=== PATIENT | female | born 1970 | race Caucasian/White ===

== ENCOUNTER 2023-07-13 10:34 | Outpatient (OUT) | payer OTHER, SELFPAY ==
--- NOTE | 2023-07-13 10:43 | US_ITS ---
The [address] [address] Patient Name: ISIDRO JURADO MRN: [id number] date: 1970 Sex: F Assigned Patient Location: US Current Patient Location: US Accession/Order Number: [id number] Exam Date: 07/13/2023 10:43 Report Date: 07/13/2023 13:14 At the request of: JORDI MURRELL Procedure: US renal bladder US renal bladder: 07/13/2023 10:43 AM EDT CLINICAL HISTORY: 53 years old Female with Frequency of micturition R35.0. TECHNIQUE: Bilateral renal ultrasound is performed, with transverse and longitudinal images submitted. COMPARISON: none FINDINGS: The right kidney measures 9.5 x 4.5 x 5.3 cm, the left kidney measures 10.1 x 4.3 x 5.0 cm in greatest lengthwise, AP, and transverse dimensions respectively. The right and left kidneys have a normal sonographic appearance. No renal mass or hydronephrosis is seen. Corticomedullary differentiation is preserved bilaterally. Prevoid volume of the urinary bladder calculated to 200 mL with postvoid residual calculated to 16 mL. US/US renal bladder IMPRESSION: Normal renal ultrasound. Electronically authenticated by: ROLAND CARRILLO Date: 07/13/2023 13:14
[2023-07-13 11:45] LABS: Basophils Absolute Auto 0.1 10^3/uL (0.0-0.1); Basophils Percent Auto 1.2 % (0.2-2.0); Hematocrit 43.7 % (36.0-48.0); Hemoglobin 14.4 g/dL (12.0-16.0); Immature Granulocytes Abs Auto 0.01 10^3/uL (0.00-0.03); Immature Granulocytes Pct Auto 0.2 % (0.0-0.5); Mean Corpuscular Hemoglobin 27.7 pg (26.7-34.0); Mean Platelet Volume 10.5 fL (9.5-13.5); Monocytes Absolute Auto 0.5 10^3/uL (0.3-0.8); Monocytes Percent Auto 9.3 % (1.7-12.0); Neutrophils Absolute Auto 3.3 10^3/uL (1.4-6.5); Neutrophils Percent Auto 68.3 % (43.0-75.0); Platelet Count 189 10^3/uL (150-450); Red Cell Distribution Width 14.6 % (11.0-15.0); White Blood Count 4.8 10^3/uL (4.0-11.0)
[2023-07-13 12:00] LABS: Percent Iron Saturation 19.6 %
== END 2023-07-13 10:35 | disposition home or self-care (01) ==
PROVIDERS: PCP Nurse Practitioner Family; Visit Provider Nurse Practitioner Family
DX: R35.0 Frequency of micturition (principal); E61.1 Iron deficiency
CPT/HCPCS: 36415; 76770; 76775; 82728; 83540; 83550; 85025

== ENCOUNTER 2023-08-26 09:18 | Outpatient (OUT) | payer OTHER, SELFPAY ==
[2023-08-26 09:47] LABS: Bilirubin Urine NEGATIVE (NEGATIVE); Blood Urine NEGATIVE (NEGATIVE); Clarity Urine CLEAR (CLEAR); Color Urine LT. YELLOW (YELLOW); Glucose Urine UA NEGATIVE (NEGATIVE); Ketones Urine NEGATIVE (NEGATIVE); Leukocyte Esterase Urine SMALL (NEGATIVE); Nitrite Urine NEGATIVE (NEGATIVE); Protein Urine NEGATIVE (NEG/TRACE); Urobilinogen Urine 0.2 EU/dL (0.2-1.0); pH Urine 5.5 (5.0-9.0)
[2023-08-27 07:39] LABS: A. calcoaceticus-baumannii Cpx NOT DETECTED (NOT DETECTE); Bacteroides fragilis NOT DETECTED (NOT DETECTE); Candida albicans NOT DETECTED (NOT DETECTE); Candida auris NOT DETECTED (NOT DETECTE); Candida glabrata NOT DETECTED (NOT DETECTE); Candida krusei NOT DETECTED (NOT DETECTE); Candida parapsilosis NOT DETECTED (NOT DETECTE); Candida tropicalis NOT DETECTED (NOT DETECTE); Cryptococcus neoformans/gattii NOT DETECTED (NOT DETECTE); Enterobacter cloacae complex NOT DETECTED (NOT DETECTE); Enterobacterales NOT DETECTED (NOT DETECTE); Enterococcus faecalis NOT DETECTED (NOT DETECTE); Enterococcus faecium NOT DETECTED (NOT DETECTE); Haemophilus influenzae NOT DETECTED (NOT DETECTE); Klebsiella aerogenes NOT DETECTED (NOT DETECTE); Klebsiella pneumoniae group NOT DETECTED (NOT DETECTE); Listeria monocytogenes NOT DETECTED (NOT DETECTE); Neisseria meningitidis NOT DETECTED (NOT DETECTE); Proteus spp. NOT DETECTED (NOT DETECTE); Pseudomonas aeruginosa NOT DETECTED (NOT DETECTE); Salmonella spp. NOT DETECTED (NOT DETECTE); Serratia marcescens NOT DETECTED (NOT DETECTE); Staphylococcus lugdunensis NOT DETECTED (NOT DETECTE); Stenotrophomonas maltophilia NOT DETECTED (NOT DETECTE); Streptococcus agalactiae NOT DETECTED (NOT DETECTE); Streptococcus pneumoniae NOT DETECTED (NOT DETECTE); Streptococcus pyogenes NOT DETECTED (NOT DETECTE); Streptococcus spp. NOT DETECTED (NOT DETECTE)
[2023-08-27 09:14] LABS: mecA/C DETECTED (NOT DETECTE)
[2023-08-27 09:15] LABS: Staphylococcus epidermidis DETECTED (NOT DETECTE); Staphylococcus spp. DETECTED (NOT DETECTE)
== END 2023-08-26 09:19 | disposition home or self-care (01) ==
LOC: LAB 09:19
PROVIDERS: PCP Nurse Practitioner Family; Visit Provider Nurse Practitioner Family
DX: R30.0 Dysuria (principal)
CPT/HCPCS: 36415; 81003; 87040; 87086; 87150; 87186

== ENCOUNTER 2023-08-29 11:35 | Emergency (ER) | payer OTHER, SELFPAY ==
[2023-08-29 11:44] VITALS: BP 123/82; PULSE 63; RESP 16; TEMP 36.9; O2SAT 97; BMI 34.0
[2023-08-29] MEDS: METHYLPREDNISOLONE SOD SUCC PF 125 MG/2 ML VIAL IM (12:22)
[2023-08-29] MEDS: METHOCARBAMOL 500 MG TABLET PO (12:23)
[2023-08-29 12:31] LABS: Bilirubin Urine NEGATIVE (NEGATIVE); Blood Urine NEGATIVE (NEGATIVE); Clarity Urine CLEAR (CLEAR); Color Urine LT. YELLOW (YELLOW); Glucose Urine UA NEGATIVE (NEGATIVE); Ketones Urine NEGATIVE (NEGATIVE); Leukocyte Esterase Urine TRACE (NEGATIVE); Nitrite Urine NEGATIVE (NEGATIVE); Protein Urine NEGATIVE (NEG/TRACE); Specific Gravity Urine <=1.005 (1.005-1.025); Urine Microscopic Indicated YES; Urobilinogen Urine 0.2 EU/dL (0.2-1.0); pH Urine 6.5 (5.0-9.0)
[2023-08-29 12:33] LABS: Basophils Absolute Auto 0.1 10^3/uL (0.0-0.1); Basophils Percent Auto 0.9 % (0.2-2.0); Hematocrit 46.8 % (36.0-48.0); Hemoglobin 15.1 g/dL (12.0-16.0); Immature Granulocytes Abs Auto 0.05 10^3/uL (0.00-0.03); Immature Granulocytes Pct Auto 0.7 % (0.0-0.5); Lymphocytes Absolute Auto 2.3 10^3/uL (1.2-3.8); Lymphocytes Percent Auto 32.5 % (20.5-60.0); Mean Corpuscular HGB Conc 32.3 g/dL (29.9-35.2); Mean Corpuscular Hemoglobin 27.9 pg (26.7-34.0); Mean Corpuscular Volume 86.3 fL (81.0-99.0); Monocytes Absolute Auto 0.5 10^3/uL (0.3-0.8); Monocytes Percent Auto 7.6 % (1.7-12.0); Neutrophils Percent Auto 58.3 % (43.0-75.0); Platelet Count 210 10^3/uL (150-450); Red Blood Count 5.42 10^6/uL (4.20-5.40); Red Cell Distribution Width 14.9 % (11.0-15.0); White Blood Count 6.9 10^3/uL (4.0-11.0)
[2023-08-29 12:43] LABS: Bacteria Urine NONE SEEN #/HPF (NONE SEEN); Cast Seen? NONE SEEN #/LPF (NONE SEEN); Crystals Seen? None Seen #/HPF (None Seen); Mucus Urine NONE SEEN (NONE SEEN); RBC Urine 0-2 #/HPF (0-2); Squamous Epithelial Cell Urine NONE SEEN #/LPF (NONE/RARE); Urine Culture Indicated NO; WBC Urine 0-2 #/HPF (NONE SEEN)
[2023-08-29 12:50] LABS: Alanine Aminotransferase 39 U/L (14-59); Albumin Globulin Ratio 0.9; Albumin Level 3.7 g/dL (3.4-5.0); Alkaline Phosphatase 101 U/L (46-116); Anion Gap 14.6; Aspartate Amino Transferase 18 U/L (15-37); BUN Creatinine Ratio 10.3; Bilirubin Total 0.5 mg/dL (0.2-1.0); Calcium 9.1 mg/dL (8.5-10.1); Carbon Dioxide 27.2 mmol/L (21.0-32.0); Chloride 104 mmol/L (98-107); Estimated GFR (African America >60 (>=60); Estimated GFR (Non-African Ame 53 (>=60); Globulin 4.3 g/dL; Glucose 105 mg/dL (74-106); Potassium 3.8 mmol/L (3.5-5.1); Sodium 142 mmol/L (136-145)
--- NOTE | 2023-08-29 12:58 | ED_ITS ---
HPI - General Adult General Chief complaint: Abdominal Pain Stated complaint: COLITIS FLARING UP/FEELS LIKE HEAD IS TOO HEAVY Time Seen by Provider: 08/29/23 11:40 Source: patient Mode of arrival: walk-in Limitations: no limitations History of Present Illness HPI narrative: patient with colitis had a painful flare up last night. She is better this morning but she wanted to know if she could take her Bentyl and Levsin for this before her colonoscopy in 2 days. She also complains of pain at the base of the scalp and along the distribution of the right and left trapezius muscles. No recent injury or known activity to account for the pain - it is like my head is too heavy to hold up . No fever or chills today but for the last 6 weeks she had intermittent low grade/subjective fever,. Her PCP ordered blood cultures and urine culture - negative ucx and staph epidermatis on one of 2 blood cx. No cough, or cold symptoms. No chest pain ro shortness of breath. No GI or symptoms. Related Data Home Medications Medication Instructions Recorded Confirmed levothyroxine 75 mcg tablet 75 mcg PO DAILY 08/29/23 08/29/23 liothyronine 5 mcg tablet 5 mcg PO DAILY 08/29/23 08/29/23 mesalamine 500 mg capsule,extended 1,000 mg PO Q8H 08/29/23 08/29/23 release (Pentasa) mesalamine 500 mg capsule,extended 1,000 mg PO TID 08/29/23 08/29/23 release (Pentasa) potassium chloride 10 mEq 20 meq PO DAILY 08/29/23 08/29/23 capsule,extended release Allergies Allergy/AdvReac Type Severity Reaction Status Date / Time Sulfa (Sulfonamide Allergy Severe Rash Verified 08/29/23 11:41 Antibiotics) [facility] Social History Smoking status: Never smoker Exam Narrative Exam Narrative: Nurses notes and vital signs reviewed and patient is not hypoxic. afebrile General: Well-appearing and in no apparent distress. Skin: Warm, dry, no pallor noted. No rash. Head: Normocephalic, atraumatic. Neck: Supple, no cervical lymphadenopathy. posterior muscular tenderness along the distribution of the superior half of the right and left trapezius Eye: Pupils are equal, round and EOMI. No scleral icterus. Cardiovascular: Regular Rate and Rhythm without murmur, gallop or rub. Respiratory: No accessory muscle use or respiratory distress. Lungs are clear to auscultation, no wheezing, rales or rhonchi Back: No midline thoracic or lumbar vertebral tenderness. No CVA tenderness Musculoskeletal: normal ROM GI: Abdomen is soft, non-distended. Normal bowel sounds. No masses appreciat ed. No focal tenderness to palpation. No rebound, guarding, or rigidity noted. Neurological: A&O x4. No cranial nerve dysfunction observed. No truncal ataxia. Moves all extremities. Sensation intact. Psychiatric: Cooperative and interactive. Normal mood and affect. Constitutional Vital Signs, click to edit/add: Last Vital Signs Temp 98.4 F 08/29/23 11:44 Pulse 63 08/29/23 11:44 Resp 16 08/29/23 11:44 BP 123/82 08/29/23 11:44 Pulse Ox 97 08/29/23 11:44 O2 Del Method Room Air 08/29/23 11:44 Course Vital Signs Vital signs: Vital Signs Temperature 98.4 F 08/29/23 11:44 Pulse Rate 63 08/29/23 11:44 Respiratory Rate 16 08/29/23 11:44 Blood Pressure 123/82 08/29/23 11:44 Pulse Oximetry 97 08/29/23 11:44 Oxygen Delivery Method Room Air 08/29/23 11:44 Temperature 98.4 F 08/29/23 11:44 Pulse Rate 63 08/29/23 11:44 Respiratory Rate 16 08/29/23 11:44 Blood Pressure 123/82 08/29/23 11:44 Pulse Oximetry 97 08/29/23 11:44 Oxygen Delivery Method Room Air 08/29/23 11:44 Medical Decision Making [facility] Narrative Medical decision making narrative: urinalysis shows trace leukocyte esterase so repeat culture was ordered. I will not start her on antibiotics and I do not want a flareup or colitis in May have a known infectious entity to treat have a better idea of which antibiotic she'll need treated. CBC and metabolic profile were otherwise unremarkable for any acute worrisome pathology. She received IM Solu-Medrol and oral Robaxin was discharged home with recommendation to take Levsin and Bentyl at home as needed for any colitis flares, maintain a soft bland diet with transition to clear liquids and follow the instructions regarding her colonoscopy prep in anticipation of Rodney's procedure. Emergency Department return if she worsens. Lab Data Lab results reviewed: Yes I reviewed the patient's lab results Labs: Lab Results 08/29/23 08/29/23 Range/Units 12:20 12:24 WBC 6.9 (4.0-11.0) 10^3/uL RBC 5.42 H (4.20-5.40) 10^6/uL Hgb 15.1 (12.0-16.0) g/dL Hct 46.8 (36.0-48.0) % MCV 86.3 (81.0-99.0) fL MCH 27.9 (26.7-34.0) pg MCHC 32.3 (29.9-35.2) g/dL RDW 14.9 (11.0-15.0) % Plt Count 210 (150-450) 10^3/uL MPV 10.0 (9.5-13.5) fL Neut % (Auto) 58.3 (43.0-75.0) % Lymph % (Auto) 32.5 (20.5-60.0) % [place] % (Auto) 7.6 (1.7-12.0) % Eos % (Auto) 0.0 L (0.9-7.0) % Baso % (Auto) 0.9 (0.2-2.0) % Neut # (Auto) 4.0 (1.4-6.5) 10^3/uL Lymph # (Auto) 2.3 (1.2-3.8) 10^3/uL [place] # (Auto) 0.5 (0.3-0.8) 10^3/uL Eos # (Auto) 0.0 (0.0-0.7) 10^3/uL Baso # (Auto) 0.1 (0.0-0.1) 10^3/uL Abs Immat Gran (auto) 0.05 H (0.00-0.03) 10^3/uL Imm/Tot Granulo (auto) 0.7 H (0.0-0.5) % Sodium 142 (136-145) mmol/L Potassium 3.8 (3.5-5.1) mmol/L Chloride 104 (98-107) mmol/L Carbon Dioxide 27.2 (21.0-32.0) mmol/L Anion Gap 14.6 BUN 11.0 (7.0-18.0) mg/dL Creatinine 1.07 H (0.55-1.02) mg/dL Est GFR ( Amer) >60 (>=60) Est GFR (Non-Af Amer) 53 L (>=60) BUN/Creatinine Ratio 10.3 Glucose 105 (74-106) mg/dL Calcium 9.1 (8.5-10.1) mg/dL Total Bilirubin 0.5 (0.2-1.0) mg/dL AST 18 (15-37) U/L ALT 39 (14-59) U/L Alkaline Phosphatase 101 (46-116) U/L Total Protein 8.0 (6.4-8.2) g/dL Albumin 3.7 (3.4-5.0) g/dL Globulin 4.3 g/dL Albumin/Globulin Ratio 0.9 Urine Color Lt. yellow (YELLOW) Urine Clarity Clear (CLEAR) Urine pH 6.5 (5.0-9.0) Ur Specific [place] <=1.005 A (1.005-1.025) Urine Protein Negative (NEG/TRACE) mg/dL Urine Glucose (UA) Negative (NEGATIVE) mg/dL Urine Ketones Negative (NEGATIVE) mg/dL Urine Occult Blood Negative (NEGATIVE) Urine Nitrite Negative (NEGATIVE) Urine Bilirubin Negative (NEGATIVE) Urine Urobilinogen 0.2 (0.2-1.0) EU/dL Ur Leukocyte Esterase Trace A (NEGATIVE) Urine RBC 0-2 (0-2) #/HPF Urine WBC 0-2 A (NONE SEEN) #/HPF Ur Squamous Epith Cells None seen (NONE/RARE) #/LPF Urine Crystals None seen (None Seen) #/HPF Urine Bacteria None seen (NONE SEEN) #/HPF Urine Casts None seen (NONE SEEN) #/LPF Urine Mucus None seen (NONE SEEN) Ur Culture Indicated? No Discharge Plan Discharge Chief Complaint: Abdominal Pain Clinical Impression: Trapezius muscle strain, Colitis Patient Disposition: Home, Self-Care Time of Disposition Decision: 12:57 Prescriptions / Home Meds: No Action levothyroxine 75 mcg tablet 75 mcg PO DAILY liothyronine 5 mcg tablet 5 mcg PO DAILY potassium chloride 10 mEq capsule, extended release 20 meq PO DAILY mesalamine [Pentasa] 500 mg capsule, extended release 1,000 mg PO Q8H mesalamine [Pentasa] 500 mg capsule, extended release 1,000 mg PO TID Instructions: Muscle Strain (ED), Colitis (ED) Stand Alone Forms: Portal Instructions Referrals: JORDI MURRELL [Primary Care Provider] - 1 week
[2023-08-29 13:08] VITALS: BP 130/98; PULSE 66; RESP 14; O2SAT 97
== END 2023-08-29 13:11 | disposition home or self-care (01) ==
PROVIDERS: Emergency Provider Emergency Medicine; PCP Nurse Practitioner Family
DX: K52.9 Noninfective gastroenteritis and colitis, unspecified (principal); S29.012A Strain of muscle and tendon of back wall of thorax, initial encounter; X58.XXXA Exposure to other specified factors, initial encounter
CPT/HCPCS: 36415; 80053; 81001; 85025; 87086; 96372; 99284; J2930

== ENCOUNTER 2024-01-02 10:02 | Outpatient (OUT) | payer OTHER, SELFPAY ==
[2024-01-02 10:25] LABS: Basophils Absolute Auto 0.1 10^3/uL (0.0-0.1); Basophils Percent Auto 1.7 % (0.2-2.0); Hematocrit 44.1 % (36.0-48.0); Hemoglobin 14.2 g/dL (12.0-16.0); Immature Granulocytes Abs Auto 0.01 10^3/uL (0.00-0.03); Immature Granulocytes Pct Auto 0.2 % (0.0-0.5); Lymphocytes Absolute Auto 2.1 10^3/uL (1.2-3.8); Lymphocytes Percent Auto 36.6 % (20.5-60.0); Mean Corpuscular HGB Conc 32.2 g/dL (29.9-35.2); Mean Corpuscular Hemoglobin 27.9 pg (26.7-34.0); Mean Corpuscular Volume 86.6 fL (81.0-99.0); Mean Platelet Volume 9.6 fL (9.5-13.5); Monocytes Absolute Auto 0.4 10^3/uL (0.3-0.8); Monocytes Percent Auto 6.7 % (1.7-12.0); Neutrophils Absolute Auto 3.2 10^3/uL (1.4-6.5); Neutrophils Percent Auto 54.8 % (43.0-75.0); Platelet Count 232 10^3/uL (150-450); Red Blood Count 5.09 10^6/uL (4.20-5.40); White Blood Count 5.8 10^3/uL (4.0-11.0)
[2024-01-02 10:37] LABS: Estimated Average Glucose 114 mg/dL; Glycohemoglobin A1C 5.6 % (4.5-6.2)
[2024-01-02 10:44] LABS: Alanine Aminotransferase 31 U/L (14-59); Albumin Globulin Ratio 0.7; Albumin Level 3.5 g/dL (3.4-5.0); Alkaline Phosphatase 107 U/L (46-116); Anion Gap 8.5; Aspartate Amino Transferase 18 U/L (15-37); BUN Creatinine Ratio 8.7; Bilirubin Total 0.3 mg/dL (0.2-1.0); Calcium 9.4 mg/dL (8.5-10.1); Carbon Dioxide 31.9 mmol/L (21.0-32.0); Chloride 103 mmol/L (98-107); Chol HDL Ratio 5.9; Cholesterol 236 mg/dL (<=200); Estimated GFR (African America >60 (>=60); Estimated GFR (Non-African Ame >60 (>=60); Free T3 2.83 pg/mL (2.18-3.98); Globulin 4.8 g/dL; Glucose 96 mg/dL (74-106); HDL Cholesterol 40 mg/dL (40-60); Potassium 4.4 mmol/L (3.5-5.1); Sodium 139 mmol/L (136-145); Total Protein 8.3 g/dL (6.4-8.2); Triglycerides 118 mg/dL (<=150); VLDL CHOLESTEROL 23.6 mg/dL
[2024-01-02 11:04] LABS: Free T4 0.53 ng/dL (0.76-1.46)
== END 2024-01-02 10:03 | disposition home or self-care (01) ==
PROVIDERS: PCP Nurse Practitioner Family; Visit Provider Nurse Practitioner Family
DX: Z00.00 Encounter for general adult medical examination without abnormal findings (principal)
CPT/HCPCS: 36415; 80053; 80061; 83036; 84439; 84443; 84481; 85025

== ENCOUNTER 2024-02-20 11:05 | Outpatient (OUT) | payer OTHER, SELFPAY ==
--- OUTSIDE RECORDS SUMMARY | 2024-02-20 11:11 | XMS_ITS | CCD ---
Author Organization [facility] Care Team Providers Care Media Professional Name Role Phone NYASIA TANISHA P Admitting Unavailable NYASIA, TANISHA P Attending Unavailable NYASIA, TANISHA P Primary Care Unavailable NYASIA, TANISHA P Consulting Unavailable NYASIA, TANISHA P Admitting Unavailable NYASIA, TANISHA P Attending Unavailable HOY, LAUREN Primary Care Unavailable NYASIA, TANISHA P Consulting Unavailable NYASIA, TANISHA P Admitting Unavailable NYASIA, TANISHA P Attending Unavailable HOY, LAUREN Primary Care Unavailable NYASIA, TANISHA P Admitting Unavailable NYASIA, TANISHA P Attending Unavailable HOY, LAUREN Primary Care Unavailable NYASIA, TANISHA P Consulting Unavailable NYASIA, TNAISHA P Admitting Unavailable NYASIA, TANISHA P Attending Unavailable NYASIA, TANISHA P Primary Care Unavailable NYASIA, TANISHA P Consulting Unavailable HOY, LAUREN Admitting Unavailable HOY, LAUREN Attending Unavailable HOY, LAUREN Primary Care Unavailable NYASIA, TANISHA P Admitting Unavailable NYASIA, TANISHA P Attending Unavailable NYASIA, TANISHA P Primary Care Unavailable DR JUANI KNOX Consulting Unavailable NYASIA, TANISHA P Consulting Unavailable NYASIA, TANISHA P Admitting Unavailable NYASIA, TANISHA P Attending Unavailable NYASIA, TANISHA P Primary Care Unavailable NYASIA, TANISHA P Consulting Unavailable Griselda Thao Unavailable Tanisha Thao Primary Care Unavailable Asaad, Imad Attending Unavailable Asaad, Imad Admitting Unavailable THERESE SANCHEZ Referring Unavailable LAUREN FU Primary Care Unavailable Asaad, Imad Unavailable Allergies Allergy Classification Reported Allergen(s) Allergy Type Date of Onset Reaction(s) Facility (1 source) Sulfonamides (Antibiotic) Drug allergy (disorder) 7 [facility] Repository (2 sources) Substance with sulfonamide structure and antibacterial mechanism of action (substance) Drug allergy Unknown Figure 1 Other (1 source) Sulfonamides (Antibiotic) Drug allergy (disorder) 3 [facility] Repository (1 source) metroNIDAZOLE; Translations: [METRONIDAZOLE] Drug Allergy 1 [facility] Repository (1 source) Sulfanilamide; Translations: [SULFANILAMIDE] Drug Allergy 1 [facility] Repository Medications Current Medications Medication Drug Class(es) Dates Sig (Normalized) Sig (Original) cholecalciferol 0.05 mg oral tablet (2 sources) Vitamin D take 1 tablet by mouth every twenty-four hours Vitamin D3 50 MCG (1999) 1 tablet Orally Once a day Active Dicyclomine (2 sources) Anticholinergic Bentyl Active ferrous sulfate 325 mg oral tablet (1 source) take 1 tablet by mouth three times weekly Iron (Ferrous Sulfate) 325 (65 Fe) MG 1 tablet Orally Three times a Week Active Iron (1 source) take 1 tablet by mouth three times weekly Iron (Ferrous Sulfate) 325 (65 Fe) MG 1 tablet Orally Three times a Week Active levothyroxine sodium 0.075 mg oral tablet (2 sources) l-Thyroxine take 1 tablet by mouth in the morning Levothyroxine Sodium 75 MCG TAKE 1 TABLET BY MOUTH IN THE MORNING ON AN EMPTY STOMACH Oral for 30 Days Active take 1 tablet by mouth in the mo rning Levothyroxine Sodium 75 MCG TAKE 1 TABLET BY MOUTH IN THE MORNING ON AN EMPTY STOMACH Oral for 30 Days Active liothyronine sodium 0.005 mg oral tablet (2 sources) l-Triiodothyronine Liothyronine Sodium 5 MCG Oral for 17 Days Active Liothyronine Sod ium 5 MCG Oral for 17 Days Active Magnesium (2 sources) Magnesium Active mesalamine 500 mg extended release oral capsule (2 sources) Aminosalicylate take 2 capsules by mouth three times daily Pentasa 500 MG 2 capsules Orally three times daily for 30 days Active ofloxacin 3 mg/ml otic solution (2 sources) Quinolone Antimicrobial Start: Ofloxacin 0.3 % 10 drops into affected ear Otic to right ear Once a day for 7 days May, Active Start: 06-29-2023 Ofloxacin 0.3 % 10 drops into affected ear Otic to right ear Once a day for 7 days 31 Zander, 2023 Active Potassium (2 sources) Potassium Active Completed/Discontinued Medications Medication Drug Class(es) Dates Sig (Normalized) Sig (Original) polyethylene glycol 3350 [id number] mg / potassium chloride 2970 mg / sodium bicarbonate 6740 mg / sodium chloride 5860 mg / sodium sulfate 69155 mg powder for oral solution (2 sources) Osmotic Laxative take 236 g by mouth once as needed Golytely 236 GM as directed Orally once for 1 days Not-Taking/PRN Problems Active Problems Problem Classification Problem Date Documented Da te Episodic/Chronic Other ear and sense organ disorders (2 sources) Otitis externa; Translations: [Other otitis externa, right ear] Chronic Other ear and sense organ disorders (1 source) Other otitis externa, right ear Chronic Other gastrointestinal disorders (2 sources) Flatulence, eructation and gas pain; Translations: [Abdominal distension (gaseous)] Episodic Other inflammatory condition of skin (5 sources) Pruritus ani; Translations: [PRURITUS ANI] Onset: 01-13-2023 Episodic Other inflammatory condition of skin (2 sources) Pruritus ani; Translations: [Pruritus ani] Episodic Regional enteritis and ulcerative colitis (3 sources) Ulcerative colitis; Translations: [Ulcerative colitis, unspecified, without complications] Chronic Thyroid disorders (4 sources) Hypothyroidism, unspecified; Translations: [HYPOTHYROIDISM UNSPECIFIED] Onset: 10-28-2022 Chronic Unclassified (3 sources) CONTACT W/AND (SUSP) EXPOS COVID-19; Translations: [CONTACT W/AND (SUSP) EXPOS COVID-19] Onset: 01-23-2023 Unclassified (1 source) Hemorrhage of anus and rectum; Translations: [Hemorrhage of anus and rectum] Onset: 08-31-2023 Past or Other Problems Problem Classification Problem Date Documented Da te Episodic/Chronic Other non-traumatic joint disorders (4 sources) Pain in right knee; Translations: [PAIN IN RIGHT KNEE] Onset: 07-21-2022 Episodic Unclassified (1 source) CONTACT W/AND (SUSP) EXPOS COVID-19; Translations: [CONTACT W/AND (SUSP) EXPOS COVID-19] Onset: 01-20-2023 Results Test Name Value Interpretation Reference Range Facility Cytologyon 11-20-2023 Cytology Normal [facility] Comment on above: Result Comment: [facility] [address] [place] [address] Gynecologic Cytology Consultation Patient Name:ISIDRO MUSA:1970 (Age: 53)Gender:FTaken:11/20/2023Reported:4Physician(s):Therese Sanchez C.N.M. ([phone])Copy To: Rec. #:[id number]: #[id number] Final Cytologic Interpretation ThinPrep Pap Test (Cervical): Satisfactory for evaluation. A transformation zone component is present. NEGATIVE FOR INTRAEPITHELIAL LESION OR MALIGNANCY. jja/12/01/2023 Interpretation [place] [address], License number: [id number]. Electronically Signed Out By AKILA Waters(ASCP) Date of Last Menstrual Period: (None Given) Other Clinical Conditions: Z01.419 Rails Developer exam wo/abn findings Menopausal Postmenopausal Source of Specimen ThinPrep Pap Test (Cervical) Thin Prep Pap (AERODYNAMICIST) Fee Code(s): G0145 HIGH RISK HPV W/GENOon 11-20 HPV 31+33+35+39+45+51+52+ 56+58+59+66+68 DNA CLARA+probe Ql (Cvx) HPV SPECIMEN TYPE ThinPrep HPV 16 Negative (qualifier value) HPV 18 Negative (qualifier value) OTHER HIGH RISK HPV Negative (qualifier value) HPV types 31,33,35,39,45,52,56, 58,59,66 and 68 DNA were undetectable. Normal [facility] Comment on above: Performed By: #### 7 1431-1 #### [facility] ([id number]) [address] [place] [address], FIRST FLOOR [address] [facility] ([id number]) [address] [place] [address], [address] 08-31-2023 L - -------- Specimen: [id number] Received: 08/31/23 Status: GRECIA Dent Num: [id number] Spec Type: Surgical Subm Dr: Danita Alfaro MD Tissues: A Small Intestine - Biopsy/Polyp (ILEUM BX) B Colon Biopsy (RT COLON BX) C Colon Biopsy (TRANSVERSE BX) D Colon Biopsy (DESCENDING) E Colon Biopsy (SIGMOID BX) F Colon Biopsy (RECTUM BX) Procedures: DAVID/Naun Peres/Johnnie L4/6 -------- Age/ Patient Sex Location Account Attending Physician -------- Isidro Msua 53/F [id number] Danita Alfaro MD -------- SPEC NUM: [id number] RECD: 08/31/23 STATUS: GRECIA DENT NUM: [id number] TOSIN: 08/31/[address]: Danita Alfaro MD ENTERED: 08/31/[address] [facility] [address]: SPEC TYPE: Surgical DEPT: S ORDERED: HE/12, Gross/Micro L4/6 ORDERED: HE/12, Gross/Micro L4/6 Pathological Diagnosis A. Ileum biopsy: - Small bowel mucosa with evidence of benign mucosal associated lymphoid tissue of the terminal ileum, mild nonspecific edema in lamina propria, and focal mild mucosal lipomatosis, otherwise without any abnormal stromal chronic inflammation or ileitis observable B. Right colon biopsy: - Chronic mucosa with adequately preserved mucosal glandular architecture without any abnormal stromal chronic inflammation, or any other specific or significant histopathological changes observed C. Transverse colon biopsy: - Colonic mucosa with adequate mucosal glandular architecture without any abnormal stromal chronic inflammation, or any other specific or significant histopathological changes observed D. Descending colon biopsy: - Colonic mucosa showing changes similar to part C specimen without any other specific histopathological abnormality observed -------- Specimen: [id number] Received: 08/31/23 Status: GRECIA Re Num: [id number] Spec Type: Surgical Subm Dr: Danita Alfaro MD Tissues: A Small Intestine - Biopsy/Polyp (ILEUM BX) B Colon Biopsy (RT COLON BX) C Colon Biopsy (TRANSVERSE BX) D Colon Biopsy (DESCENDING) E Colon Biopsy (SIGMOID BX) F Colon Biopsy (RECTUM BX) Procedures: HE/12, Gross/Micro L4/6 -------- Patient: Lourdes Musayn S [id number] (Continued) -------- Specimen: [id number] Received: 08/31/23 (Continued) Pathological Diagnosis (Continued) Signed (signature on file) Roxann Moscoso MD 09/01/231717 -------- Specimen: [id number] Received: 08/31/23 Status: GRECIA Mcclendonjake Num: [id number] Spec Type: Surgical Subm Dr: Danita Alfaro MD Tissues: A Small Intestine - Biopsy/Polyp (ILEUM BX) B Colon Biopsy (RT COLON BX) C Colon Biopsy (TRANSVERSE BX) D Colon Biopsy (DESCENDING) E Colon Biopsy (SIGMOID BX) F Colon Biopsy (RECTUM BX) Procedures: DAVID/Ja Gross/Micro L4/6 -------- Patient: Isidro Musa [id number] (Continued) -------- Specimen: [id number] Received: 08/31/23-1148 (Continued) Pathological Diagnosis (Continued) E. Sigmoid colon biopsy: - Colonic mucosa showing changes similar to previous 2 parts, except small focal mild nonspecific congestion in one fragment of the possible prolapse and/or procedural related effects, otherwise also without any abnormal stromal chronic inflammation or any other spe cific type colitis identified F. Rectal biopsy: - Colonic mucosa with mild nonspecific edema and congestion similar to the part E specimen, otherwise also without any abnormal stromal chronic inflammation or any other specific type colitis identifiable NOTE: - There are also no evidence of glandular dysplasia in all parts examined Clinical Information Ulcerative colitis Gross Description A. Received in formalin labeled with the patient's name, date of and ileum biopsy are two poe tissues averaging 0.2 cm. Entirely submitted in one cassette labeled A1. B. Received in formalin labeled with the patient's name, date of and right colon biopsy are two poe tissues measuring 0.1 cm and 0.3 cm. Entirely submitted in one cassette labeled B1. C. Received in formalin labeled with the patient's name, date of and transvers (more content not included)... Normal [facility]on 01-01 SARS-CoV-2 (COVID-19) RNA CLARA+probe Ql (Unsp spec) Not detected Normal NOT DETECTED [facility] Comment on above: Result Comment: When diagnostic testing is negative, the possibility of a false negative should be considered in the context of a patient's recent exposures and the presence of clinical signs and symptoms consistent with SARS-CoV-2. This test is not yet approved or cleared by the [place] FDA. When there are no FDA-approved or cleared tests available, and other criteria are met, FDA can make tests available under an emergency access mechanism called an Emergency Use Authorization (EUA). The EUA for this test is supported by the [place] of Health and Human Service's declaration that circumstances exist to justify the emergency use of in vitro diagnostics for the detection and/or diagnosis of the virus that causes COVID-19. This EUA will remain in effect for the duration of the COVID-19 declaration justifying emergency of IVDs, unless it is terminated or revoked by the FDA (after which the test may no longer be used). Performed By: #### C VDTB #### [facility] [address] [place] [address] Dr. Kirit Moscoso OVA AND PARASITE EXAMINATION on 01-19-2023 Ova + Parasite Exam Final report Normal [facility] Comment on above: Result Comment: Thes e results were obtained using wet preparation(s) and trichrome stained smear. This test does not include testing for Cryptosporidium parvum, Cyclospora, or Microsporidia. Performed By: #### C BC #### [facility] [address] [place] [address] Dr. Kirit Moscoso Result 1 Comment Normal [facility] Comment on above: Result Comment: No o va, cysts, or parasites seen. . One negative specimen does not rule out the possibility of a parasitic infection. Performed By: #### C BC #### [facility] [address] [place] [address] Dr. Kirit Moscoso SAGE by IFAon 01-16-2023 Antinuclear Antibodies, IFA Positive Abnormal [facility] Comment on above: Result Comment: Nega tive <1:80 Borderline 1:80 Positive >1:80 Performed By: #### T 7, TSH #### [facility] [address] [place] [address] Dr. Kirit Moscoso Centriole Pattern Normal [facility] Comment on above: Performed By: #### T 7, TSH #### [facility] [address] [place] [address] Dr. Kirit Moscoso Centromere Pattern Normal [facility] Comment on above: Performed By: #### T 7, TSH #### [facility] [address] [place] [address] Dr. Kirit Moscoso Homogeneous Pattern 1:640 Critically high [facility] Comment on above: Result Comment: ICAP nomenclature: AC-1 Performed By: #### T 7, TSH #### [facility] [address] [place], [place] [address] Dr. Kirit Moscoso Midbody Pattern Normal [facility] Comment on above: Performed By: #### T 7, TSH #### [facility] [address] [place] [address] [address] Kirit Moscoso Note: Comment Normal [facility] Comment on above: Result Comment: For more information about Hep-2 cell patterns use ANApatterns.org, the official website for the International Consensus on Antinuclear Antibody (SAGE) Patterns (ICAP). A positive SAGE result may occur in healthy individuals (low titer) or be associated with a variety of diseases. See interpretation chart which is not all inclusive: . Pattern Antigen Detected Suggested Disease Association Homogeneous DNA(ds,ss), SLE - High titers Nucleosomes, Histones Drug-induced SLE Speckled Sm, HYDRO PLANT OPERATOR, SCL-70, SLE,MCTD,PSS (diffuse form), SS-A/SS-B Sjogrens Nucleolar SCL-70, PM-1/SCL High titers Scleroderma, PM/DM Centromere Centromere PSS (limited form) w/Crest syndrome variable Nuclear Dot Sp100,a82-hpywcn Primary Biliary Cirrhosis Nuclear GP210, Primary Biliary Cirrhosis Membrane missy A,B,C Performed By: #### T 7, TSH #### [facility] [address] [place] [address] Dr. Kirit Moscoso Nuclear Dot Pattern Normal [facility] Comment on above: Performed By: #### T 7, TSH #### [facility] [address] [place] [address] Dr. Kirit Moscoso Nuclear Membrane Pattern Normal [facility] Comment on above: Performed By: #### T 7, TSH #### [facility] [address] [address] [address] Kirit Moscoso Nucleolar Pattern Normal [facility] Comment on above: Performed By: #### T 7, TSH #### [facility] [address] [place] [address] Dr. Kirit Moscoso PCNA Pattern Normal [facility] Comment on above: Performed By: #### T 7, TSH #### [facility] [address] [place] [address] Dr. Kirit Moscoso Speckled Pattern Normal [facility] Comment on above: Performed By: #### T 7, TSH #### [facility] [address] [place] [address] Dr. Kirit Moscoso Spindle Apparatus Pattern Normal [facility] Comment on above: Performed By: #### T 7, TSH #### [facility] [address] [place] [address] Dr. Kirit Moscoso GI PANEL (PCR)on 01-13-2023 Adenovirus F 40/41 Not detected Normal NOT DETECTED [facility] Comment on above: Performed By: #### T 7, TSH #### [facility] [address] [place] [address] Dr. Kirit Moscoso Astrovirus Not detected Normal NOT DETECTED [facility] Comment on above: Performed By: #### T 7, TSH #### [facility] [address] [place] [address] Dr. Kirit Moscoso C. Diff toxin A/B Not detected Normal NOT DETECTED [facility] Comment on above: Performed By: #### T 7, TSH #### [facility] [address] [place] [address] Dr. Kirit Moscoso Campylobacter Not detected Normal NOT DETECTED [facility] Comment on above: Performed By: #### T 7, TSH #### [facility] [address] [place] [address] Dr. Kirit Moscoso Cryptosporidium Not detected Normal NOT DETECTED [facility] Comment on above: Performed By: #### T 7, TSH #### [facility] [address] [place] [address] Dr. Kirit Moscoso Cyclos. Cayetanensis Not detected Normal NOT DETECTED [facility] Comment on above: Performed By: #### T 7, TSH #### [facility] [address] [place] [address] Dr. Kirit Moscoso E. Coli O157 Not Applicable Normal Not Applicable [facility] Comment on above: Performed By: #### T 7, TSH #### [facility] [address] [place] [address] Dr. Kirit Moscoso E. histolytica Not detected Normal NOT DETECTED [facility] Comment on above: Performed By: #### T 7, TSH #### [facility] [address] [place] [address] Dr. Kirit Moscoso EAEC Not detected Normal NOT DETECTED [facility] Comment on above: Performed By: #### T 7, TSH #### [facility] [address] [place] [address] Dr. Kirit Moscoso EIEC Not detected Normal NOT DETECTED [facility] Comment on above: Performed By: #### T 7, TSH #### [facility] [address] [place] [address] Dr. Kirit Moscoso EPEC Not detected Normal NOT DETECTED [facility] Comment on above: Performed By: #### T 7, TSH #### [facility] [address] [place] [address] Dr. Kirit Moscoso ETEC Not detected Normal NOT DETECTED [facility] Comment on above: Performed By: #### T 7, TSH #### [facility] [address] [place] [address] Dr. Kirit Moscoso G. Lamblia Not detected Normal NOT DETECTED [facility] Comment on above: Performed By: #### T 7, TSH #### [facility] [address] [place] [address] Dr. Kirit RUBY CONTROLS PASSED Normal [facility] Comment on above: Performed By: #### T 7, TSH #### [facility] [address] [place] [address] Dr. Kirit MACIAS HEADER GI PANEL BACTERIA Normal [facility] Comment on above: Performed By: #### T 7, TSH #### [facility] [address] [place] [address] Dr. Kirit SHARPE ECOLI GI PANEL DIARRHEAGENIC E.COLI / SHIGELLA Normal [facility] Comment on above: Performed By: #### T 7, TSH #### [facility] [address] [place] [address] Dr. Kirit SHARPE INFO SEE BELOW Normal [facility] Comment on above: Result Comment: EAEC - Enteroaggregative E. Coli EPEC- Enteropathogenic E. Coli ETEC- Enterotoxigenic E. Coli lt/st STEC- Shigella-like toxin-producing E. Coli stx1/stx2 EIEC- Shigella/Enteroinvasive E. Coli Performed By: #### T 7, TSH #### [facility] [address] [address] [address] Kirit SHARPE PARASITES GI PANEL PARASITES Normal [facility] Comment on above: Performed By: #### T 7, TSH #### [facility] [address] [place] [address] Dr. Kirit SHARPE VIRUS GI PANEL VIRUSES Normal [facility] Comment on above: Performed By: #### T 7, TSH #### [facility] [address] [place] [address] Dr. Kirit Moscoso Norovirus GI/GII Not detected Normal NOT DETECTED [facility] Comment on above: Performed By: #### T 7, TSH #### [facility] [address] [place] [address] Dr. Kirit Moscoso P. Shigelloides Not detected Normal NOT DETECTED [facility] Comment on above: Performed By: #### T 7, TSH #### [facility] [address] [place] [address] Dr. Kirit Moscoso Rotavirus A Not detected Normal NOT DETECTED [facility] Comment on above: Performed By: #### T 7, TSH #### [facility] [address] [place] [address] Dr. Kirit Moscoso Salmonella Not detected Normal NOT DETECTED [facility] Comment on above: Performed By: #### T 7, TSH #### [facility] [address] [place] [address] Dr. Kirit Moscoso Sapovirus Not detected Normal NOT DETECTED [facility] Comment on above: Performed By: #### T 7, TSH #### [facility] [address] [place] [address] Dr. Kirit Moscoso STEC Not detected Normal NOT DETECTED [facility] Comment on above: Performed By: #### T 7, TSH #### [facility] [address] [place] [address] Dr. Kirit Moscoso Vibrio Not detected Normal NOT DETECTED [facility] Comment on above: Performed By: #### T 7, TSH #### [facility] [address] [place] [address] Dr. Kirit Moscoso Vibrio Cholera Not detected Normal NOT DETECTED [facility] Comment on above: Performed By: #### T 7, TSH #### [facility] [address] [place] [address] Dr. Kirit Moscoso Y. Enterocolitica Not detected Normal NOT DETECTED [facility] Comment on above: Performed By: #### T 7, TSH #### [facility] [address] [place] [address] Dr. Kirit Moscoso INSULINon 01-12-2023 Insulin 23.6 uIU/mL Normal 2.6-24.9 [facility] Comment on above: Performed By: #### T 7, TSH #### [facility] [address] [place] [address] Dr. Kirit Moscoso ANTISTREPTOLYSIN O AB (ASO)o n 01-11-2023 Antistreptolysin O Ab 70.3 IU/mL Normal 0.0-200.0 [facility] Comment on above: Performed By: #### A SOAB #### [facility] [address] [place] [address] Dr. Kirit Moscoso RHEUMATOID FACTORon 01-11-20 RA Latex Turbid. <10.0 Normal <14.0 [facility] Comment on above: Performed By: #### R F #### [facility] [address] [place] [address] Dr. Kirit Moscoso CBC AUTO DIFFon 01-10-2023 BASO # 0.1 103/ul Normal 0.0-0.1 [facility] Comment on above: Performed By: #### C BC #### [facility] [address] [place] [address] Dr. Kirit Moscoso Basophils/100 WBC (Bld) 1.2 % Normal 0.2-2.0 [facility] Comment on above: Performed By: #### C BC #### [facility] [address] [place] [address] Dr. Kirit Moscoso EO # 0.0 103/ul Normal 0.0-0.7 [facility] Comment on above: Performed By: #### C BC #### [facility] [address] [place] [address] Dr. Kirit Moscoso Eosinophils/100 WBC (Bld) 0.0 % Critically low 0.9-7.0 [facility] Comment on above: Performed By: #### C BC #### [facility] [address] [place] [address] Dr. Kirit Moscoso Erythrocyte distribution width (RBC) [Ratio] 13.6 % Normal 11.0-15.0 [facility] Comment on above: Performed By: #### C BC #### [facility] [address] [place] [address] Dr. Kirit Moscoso Hematocrit (Bld) [Volume fraction] 44.2 % Normal 36.0-48.0 [facility] Comment on above: Performed By: #### C BC #### [facility] [address] [place] [address] Dr. Kirit Moscoso Hemoglobin (Bld) [Mass/Vol] 14.2 g/dL Normal 12.0-16.0 [facility] Comment on above: Performed By: #### C BC #### [facility] [address] [place] [address] Dr. Kirit Moscoso IG # 0.02 10e3/ul Normal 0.00-0.03 [facility] Comment on above: Performed By: #### C BC #### [facility] [address] [place] [address] Dr. Kirit Moscoso IG % 0.3 % Normal 0.0-0.5 [facility] Comment on above: Performed By: #### C BC #### [facility] [address] [place] [address] Dr. Kirit Moscoso LYMPH # 1.5 103/ul Normal 1.2-3.8 [facility] Comment on above: Performed By: #### C BC #### [facility] [address] [place] [address] Dr. Kirit Moscoso Lymphocytes/100 WBC (Bld) 22.7 % Normal 20.5-60.0 [facility] Comment on above: Performed By: #### C BC #### [facility] [address] [place] [address] Dr. Kirit Moscoso MANUAL DIFF REQ NO Normal [facility] Comment on above: Performed By: #### C BC #### [facility] [address] [place] [address] Dr. Kirit Moscoso MCH (RBC) [Entitic mass] 27.8 pg Normal 26.7-34.0 [facility] Comment on above: Performed By: #### C BC #### [facility] [address] [place] [address] Dr. Kirit Moscoso MCHC (RBC) [Mass/Vol] 32.1 g/dL Normal 29.9-35.2 [facility] Comment on above: Performed By: #### C BC #### [facility] [address] [place] [address] Dr. Kirit Moscoso MCV (RBC) [Entitic vol] 86.5 fL Normal 81.0-99.0 [facility] Comment on above: Performed By: #### C BC #### [facility] [address] [place] [address] Dr. Kirit Moscoso MONO # 0.5 103/ul Normal 0.3-0.8 [facility] Comment on above: Performed By: #### C BC #### [facility] [address] [place] [address] Dr. Kirit Moscoso Monocytes/100 WBC (Bld) 7.3 % Normal 1.7-12.0 [facility] Comment on above: Performed By: #### C BC #### [facility] [address] [place] [address] Dr. Kirit Moscoso NEUT # 4.5 103/ul Normal 1.4-6.5 [facility] Comment on above: Performed By: #### C BC #### [facility] [address] [place] [address] Dr. Kirit Moscoso Neutrophils/100 WBC (Bld) 68.5 % Normal 43.0-75.0 [facility] Comment on above: Performed By: #### C BC #### [facility] [address] [address] [address] Kirit Moscoso Platelet mean volume (Bld) [Entitic vol] 10.2 fL Normal 9.5-13.5 [facility] Comment on above: Performed By: #### C BC #### [facility] [address] [place] [address] Dr. Kirit Moscoso PLT 250 103/ul Normal 150-450 [facility] Comment on above: Performed By: #### C BC #### [facility] [address] [address] [address] Kirit Moscoso RBC 5.11 106/ul Normal 4.20-5.40 [facility] Comment on above: Performed By: #### C BC #### [facility] [address] [place] [address] Dr. Kirit Moscoso WBC 6.6 103/ul Normal 4.0-11.0 [facility] Comment on above: Performed By: #### C BC #### [facility] [address] [place] [address] Dr. Kirit Moscoso CRPon 01-10-2023 CRP 1.2 mg/dL Critically high <=1.0 [facility] Comment on above: Performed By: #### C RP, CMP, URIC, LIPID #### [facility] [address] [place] [address] Dr. Kirit Moscoso GLYCOHEMOGLOBIN A1Con 2022 ADA RECOMMENDATION SEE BELOW Normal [facility] Comment on above: Result Comment: ADA RECOMMENDED LIMIT 4.0 - 6.0 ADA THERAPEUTIC TARGET < 7.0 ACTION SUGGESTED > 7.0 Performed By: #### T 7, TSH #### [facility] [address] [place] [address] Dr. Kirit Moscoso Glucose [Mass/Vol] 114 mg/dL Normal [facility] Comment on above: Performed By: #### T 7, TSH #### [facility] [address] [place] [address] Dr. Kirit Moscoso HbA1c (Bld) [Mass fraction] 5.6 % Normal 4.5-6.2 [facility] Comment on above: Performed By: #### T 7, TSH #### [facility] [address] [address] [address] Kirit Moscoso IRONon 01-10-2023 Iron [Mass/Vol] 59.0 ug/dL Normal 50.0-170.0 [facility] Comment on above: Performed By: #### C BC #### [facility] [address] [address] [address] Kirit Moscoso LIPID PROFILEon 01-10-2023 CHOL-HDL RATIO NORM SEE BELOW Normal [facility] Comment on above: Result Comment: 3.3 - 4.4 LOW RISK 4.4 - 7.1 AVERAGE RISK 7.1 - 11.0 MODERATE RISK >11.0 HIGH RISK Performed By: #### C RP, CMP, URIC, LIPID #### [facility] [address] [address] [address] Kirit Moscoso Cholesterol [Mass/Vol] 188 mg/dL Normal <=200 [facility] Comment on above: Performed By: #### C RP, CMP, URIC, LIPID #### [facility] [address] [address] [address] Kirit Moscoso Cholesterol in HDL [Mass/Vol] 45 mg/dL Normal 40-60 [facility] Comment on above: Performed By: #### C RP, CMP, URIC, LIPID #### [facility] [address] [address] [address] Kirit Moscoso Cholesterol in LDL [Mass/Vol] 129.0 mg/dL Normal [facility] Comment on above: Performed By: #### C RP, CMP, URIC, LIPID #### [facility] [address] [address] [address] Kirit Moscoso Cholesterol.total/Cho lesterol in HDL [Mass ratio] 4.2 {ratio} Normal [facility] Comment on above: Performed By: #### C RP, CMP, URIC, LIPID #### [facility] [address] [address] [address] Kirit Moscoso HDL NORMAL > or = 60 mg/dl - LO W CARDIOVASCULAR RISK <40 mg/dl - HIGH CARDIOVASCULAR RISK Normal [facility] Comment on above: Performed By: #### C RP, CMP, URIC, LIPID #### [facility] [address] [address] [address] Kirit Moscoso LDL CALC NORMAL SEE BELOW Normal [facility] Comment on above: Result Comment: <100 mg/dl OPTIMAL 100 - 129 mg/dl NEAR OR ABOVE OPTIMAL 130 - 159 mg/dl BORDERLINE HIGH 160 - 189 mg/dl HIGH >190 mg/dl VERY HIGH Performed By: #### C RP, CMP, URIC, LIPID #### [facility] [address] [address] [address] Kirit Moscoso Triglyceride [Mass/Vol] 71 mg/dL Normal <=150 [facility] Comment on above: Performed By: #### C RP, CMP, URIC, LIPID #### [facility] [address] [address] [address] Kirit Moscoso VLDL CALC 14.2 mg/dL Normal [facility] Comment on above: Performed By: #### C RP, CMP, URIC, LIPID #### [facility] [address] [address] [address] Kirit Moscoso PROF 14(COMP METB)on 023 Albumin [Mass/Vol] 3.5 g/dL Normal 3.4-5.0 [facility] Comment on above: Performed By: #### C RP, CMP, URIC, LIPID #### [facility] [address] [address] [address] Kirit Moscoso Albumin/Globulin [Mass ratio] 0.8 {ratio} Normal [facility] Comment on above: Performed By: #### C RP, CMP, URIC, LIPID #### [facility] [address] [address] [address] Kirit Moscoso ALP [Catalytic activity/Vol] 109 U/L Normal 46-116 [facility] Comment on above: Performed By: #### C RP, CMP, URIC, LIPID #### [facility] [address] [address] [address] Kirit Moscoso ALT [Catalytic activity/Vol] 26 U/L Normal 14-59 [facility] Comment on above: Performed By: #### C RP, CMP, URIC, LIPID #### [facility] [address] [address] [address] Kirit Moscoso Anion gap [Moles/Vol] 11.3 mmol/L Normal [facility] Comment on above: Performed By: #### C RP, CMP, URIC, LIPID #### [facility] [address] [place] [address] Dr. Kirit Moscoso AST [Catalytic activity/Vol] 16 U/L Normal 15-37 [facility] Comment on above: Performed By: #### C RP, CMP, URIC, LIPID #### [facility] [address] [place] [address] Dr. Kirit Moscoso Bilirubin [Mass/Vol] 0.4 mg/dL Normal 0.2-1.0 [facility] Comment on above: Performed By: #### C RP, CMP, URIC, LIPID #### [facility] [address] [place] [address] Dr. Kirit Moscoso Calcium [Mass/Vol] 9.1 mg/dL Normal 8.5-10.1 [facility] Comment on above: Performed By: #### C RP, CMP, URIC, LIPID #### [facility] [address] [place] [address] Dr. Kirit Moscoso Chloride [Moles/Vol] 105 mmol/L Normal 98-107 [facility] Comment on above: Performed By: #### C RP, CMP, URIC, LIPID #### [facility] [address] [place] [address] Dr. Kirit Moscoso CO2 [Moles/Vol] 26.5 mmol/L Normal 21.0-32.0 [facility] Comment on above: Performed By: #### C RP, CMP, URIC, LIPID #### [facility] [address] [place] [address] Dr. Kirit Moscoso Creatinine [Mass/Vol] 0.97 mg/dL Normal 0.55-1.02 [facility] Comment on above: Performed By: #### C RP, CMP, URIC, LIPID #### [facility] [address] [address] [address] Kirit Moscoso EGFR-AF SINGAPOREAN >60 Normal >=60 [facility] Comment on above: Performed By: #### C RP, CMP, URIC, LIPID #### [facility] [address] [address] [address] Kirit Moscoso EGFR-NON AF SINGAPOREAN 60 mL/min/1.73m2 Normal >=60 [facility] Comment on above: Performed By: #### C RP, CMP, URIC, LIPID #### [facility] [address] [address] [address] Kirit Moscoso Globulin (S) [Mass/Vol] 4.3 g/dL Normal [facility] Comment on above: Performed By: #### C RP, CMP, URIC, LIPID #### [facility] [address] [address] [address] Kirit Moscoso Glucose [Mass/Vol] 96 mg/dL Normal 74-106 [facility] Comment on above: Performed By: #### C RP, CMP, URIC, LIPID #### [facility] [address] [address] [address] Kirit Moscoso Potassium [Moles/Vol] 4.1 mmol/L Normal 3.5-5.1 [facility] Comment on above: Performed By: #### C RP, CMP, URIC, LIPID #### [facility] [address] [address] [address] Kirit Moscoso Protein [Mass/Vol] 7.8 g/dL Normal 6.4-8.2 [facility] Comment on above: Performed By: #### C RP, CMP, URIC, LIPID #### [facility] [address] [address] [address] Kirit Moscoso Sodium [Moles/Vol] 139 mmol/L Normal 136-145 [facility] Comment on above: Performed By: #### C RP, CMP, URIC, LIPID #### [facility] [address] [address] [address] Kirit Moscoso Urea nitrogen [Mass/Vol] 19.0 mg/dL Critically high 7.0-18.0 [facility] Comment on above: Performed By: #### C RP, CMP, URIC, LIPID #### [facility] [address] [place] [address] Dr. Kirit Moscoso Urea nitrogen/Creatinine [Mass ratio] 19.6 mg/mg Normal [facility] Comment on above: Performed By: #### C RP, CMP, URIC, LIPID #### [facility] [address] [place] [address] Dr. Kirit Moscoso UA (CLEAN/CATCH) DIANETIC COUNSELOR/MICRO I F IND.on 01-10-2023 Bilirubin Ql (U) Negative Normal NEGATIVE [facility] Comment on above: Performed By: #### C BC #### [facility] [address] [place] [address] Dr. Kirit Moscoso Clarity (U) CLEAR Normal CLEAR [facility] Comment on above: Performed By: #### C BC #### [facility] [address] [place] [address] Dr. Kirit Moscoso Color (U) LT. YELLOW Normal YELLOW [facility] Comment on above: Performed By: #### C BC #### [facility] [address] [place] [address] Dr. Kirit Moscoso Glucose Ql (U) Negative Normal NEGATIVE [facility] Comment on above: Performed By: #### C BC #### [facility] [address] [place] [address] Dr. Kirit Moscoso Hemoglobin Ql (U) Negative Normal NEGATIVE [facility] Comment on above: Performed By: #### C BC #### [facility] [address] [place] [address] Dr. Kirit Moscoso Ketones Ql (U) Negative Normal NEGATIVE [facility] Comment on above: Performed By: #### C BC #### [facility] [address] [place] [address] Dr. Kirit Moscoso LEUKOCYTES Negative Normal NEGATIVE [facility] Comment on above: Performed By: #### C BC #### [facility] [address] [place] [address] Dr. Kirit Moscoso Nitrite Ql (U) Negative Normal NEGATIVE [facility] Comment on above: Performed By: #### C BC #### [facility] [address] [address] [address] Kirit Moscoso pH (U) 5.5 [pH] Normal 5-9 [facility] Comment on above: Performed By: #### C BC #### [facility] [address] [place] [address] Dr. Kirit Moscoso SPEC GRAVITY 1.010 Normal 1.005-<=1.025 [facility] Comment on above: Performed By: #### C BC #### [facility] [address] [place] [address] Dr. Kirit Moscoso UA PROTEIN Negative Normal NEGATIVE/ TRACE [facility] Comment on above: Performed By: #### C BC #### [facility] [address] [place] [address] Dr. Kirit Moscoso UR MICRO IND NOT INDICATED Normal [facility] Comment on above: Performed By: #### C BC #### [facility] [address] [place] [address] Dr. Kirit Moscoso Urobilinogen Qn (U) 0.2 {Jose Juan'U}/dL Normal 0.2 - 1. 0 [facility] Comment on above: Performed By: #### C BC #### [facility] [address] [place] [address] Dr. Kirit Moscoso URIC ACID SERUMon 01-10-2023 Urate [Mass/Vol] 5.6 mg/dL Normal 2.6-6.0 [facility] Comment on above: Performed By: #### C RP, CMP, URIC, LIPID #### [facility] [address] [place] [address] Dr. Kirit Moscoso FREE THYROXINE INDEX T7on FTI 2.46 Normal 1.30-4.50 [facility] Comment on above: Performed By: #### T 7, TSH #### [facility] [address] [place] [address] Dr. Kirit Moscoso T3U 32.0 % Normal 30.0-39.0 [facility] Comment on above: Performed By: #### T 7, TSH #### [facility] [address] [place] [address] Dr. Kirit Moscoso T4 [Mass/Vol] 7.70 ug/dL Normal 4.80-13.90 [facility] Comment on above: Performed By: #### T 7, TSH #### [facility] [address] [place] [address] Dr. Kirit Moscoso TSHon 10-28-2022 TSH 2.263 uIU/mL Normal 0.358-3.740 [facility] Comment on above: Performed By: #### T 7, TSH #### [facility] [address] [place] [address] Dr. Kirit Moscoso FREE THYROXINE INDEX T7on FTI 3.30 Normal 1.30-4.50 [facility] Comment on above: Performed By: #### T 7, TSH #### [facility] [address] [place] [address] Dr. Kirit Moscoso T3U 34.0 % Normal 30.0-39.0 [facility] Comment on above: Performed By: #### T 7, TSH #### [facility] [address] [place] [address] Dr. Kirit Moscoso T4 [Mass/Vol] 9.70 ug/dL Normal 4.80-13.90 [facility] Comment on above: Performed By: #### T 7, TSH #### [facility] [address] [place] [address] Dr. Kirit Moscoso TSHon 04-16-2022 TSH 0.140 uIU/mL Critically low 0.358-3.740 [facility] Comment on above: Performed By: #### T 7, TSH #### [facility] [address] [place] [address] Dr. Kirit Moscoso TSH RANGE SEE BELOW Normal [facility] Comment on above: Result Comment: <0.3 4 UIU/ml HYPERTHYROID 0.34-5.60 UIU/ml EUTHYROID >5.60 UIU/ml HYPOTHYROID Performed By: #### T 7, TSH #### [facility] [address] [address] [address] Kirit Mosocso FREE T3on 02-27-2022 FREE T3 2.45 pg/mlL Critically low 2.77-5.27 [facility] Comment on above: Performed By: #### T 7, TSH #### [facility] [address] [address] [address] Kirit Moscoso T4on 02-27-2022 T4 [Mass/Vol] 7.00 ug/dL Normal 5.53-11.00 [facility] Comment on above: Performed By: #### T 7, TSH #### [facility] [address] [address] [address] Kirit Moscoso TSHon 02-27-2022 TSH 7.345 uIU/mL Critically high 0.470-4.680 [facility] Comment on above: Performed By: #### T 7, TSH #### [facility] [address] [address] [address] Kirit Moscoso TSH RANGE SEE BELOW Normal [facility] Comment on above: Result Comment: <0.3 4 UIU/ml HYPERTHYROID 0.34-5.60 UIU/ml EUTHYROID >5.60 UIU/ml HYPOTHYROID Performed By: #### T 7, TSH #### [facility] [address] [place] [address] Dr. Kirit Moscoso Vital Signs Date Time Vital Sign Value Performing Clinician Facility 06-29-2023 09:55-0400 Body height 160.02 cm Griselda Thao Other [facility] [employer] Other 06-29-2023 09:55-0400 Body mass index (BMI) [Ratio] 35.57 kg/m2 Griselda Thao Other [facility] Other 06-29-2023 09:55-0400 Body temperature 97.6 [degF] Griselda Thao Other [facility] Other 06-29-2023 09:55-0400 Body weight 91.08 kg Griselda Thao Other [facility] Other 06-29-2023 09:55-0400 Diastolic blood pressure 74 mm[Hg] Griselda Thao Other [facility] Other 06-29-2023 09:55-0400 Respiratory rate 18 /min Griselda Thao Other [facility] Other 06-29-2023 09:55-0400 SaO2% (BldA) [Mass fraction] 98 % Griselda Thao Other [facility] Other 06-29-2023 09:55-0400 Systolic blood pressure 126 mm[Hg] Griselda Thao Other [facility] 1 Other Encounters Encounter Date Encounter Type Care Provider Facility Start: 12-31-2023 End: 12-31-2023 ambulatory Imad Asaad Other [facility] Other Start: 12-31-2023 Telephone encounter Imad Asaad [facility] Start: 11-20-2023 End: 11-21-2023 ambulatory [facility] Start: 11-20-2023 Encounter for gynecological examination (general) (routine) without abnormal findings [facility] Start: 08-31-2023 End: 08-31-2023 ambulatory Tanisha Thao Facility:[facility] Start: 06-29-2023 End: 06-29-2023 ambulatory Griselda Thao Other [facility] 1 Other Start: 06-29-2023 Office outpatient vi sit 15 minutes Griselda Thao [facility] Start: 01-20-2023 End: 01-20-2023 ambulatory TANISHA P [facility] Facility:[facility] Start: 01-16-2023 Encounter for genera l adult medical examination without abnormal findings TANISHA Cannon [facility] Start: 01-13-2023 End: 01-13-2023 ambulatory TANISHA P [place] Facility:[facility] Start: 01-10-2023 End: 01-11-2023 ambulatory TANISHA P [place] Facility:[facility] Start: 01-10-2023 End: 01-11-2023 Encounter for general adult medical examination without abnormal findings TANISHA P [place] Facility:[facility] Start: 10-28-2022 End: 10-29-2022 ambulatory TANISHA P [place] Facility:[facility] Start: 07-21-2022 End: 07-30-2022 ambulatory LAUREN FU Facility:[facility] Start: 07-02-2022 End: 07-03-2022 ambulatory TANISHA P [place] Facility:[facility] Start: 04-16-2022 End: 04-17-2022 ambulatory TANISHA P [place] Facility:[facility] Start: 02-27-2022 End: 02-28-2022 ambulatory TANISHA P [place] Facility:[facility] Payers Date Payer Category Payer Self-pay 1970 Unknown [id number] 2.16.84 [id number] 1970 Unknown [id number] 2..84 [id number] 1968 Unknown [id number] 2.16.84 [id number] 1968 Unknown [id number] .16.84 [id number] 1968 Unknown [id number] .16.84 [id number] 1968 Unknown [id number] .16.84 [id number] 1968 Unknown [id number] 2.16.84 [id number] 1968 Unknown [id number] 2.16.84 [id number] 1968 Unknown [id number] 2.16.84 [id number] 1959 Unknown [id number] 1961 Unknown [id number] Unknown [id number] 2.16.8 [id number] Social History Date Type Detail Facility Unknown if ever smoked Figure 1 Other Sex Assigned At Sex Assigned At Bir th Figure 1 Other Evaluation note 12-31-2023 Note Date & Type Note Facility 12-31-2023 Evaluation note Encounter Date Diagnosis Assessment Notes Dec, Ulcerative colitis (ICD-10 - K51.90) [facility] Other Evaluation note 06-29-2023 Note Date & Type Note Facility 06-29-2023 Evaluation note Encounter Date Diagnosis Assessment Notes May, Other otitis externa, right ear (ICD-10 - H60.8X1) Discussed exam is consistent with mild otitis externa right side. Will treat with ofloxacin drops. Lay with affected ear up for 5 minutes after applying drops. Patient is advised to keep the ear clean and dry. Avoid use of Q-tips, earbuds, etc. in ear until symptoms have improved. Avoid water activities until symptoms have resolved. May use Tylenol or ibuprofen for any pain. Follow-up with PCP if not gradually improving over the next 4 to 5 days or significantly worsening. Patient/Parent verbalized understanding of tx plan. Figure 1 Other Clinical Note 07-02-2022 Note Date & Type Note Facility 07-02-2022 Note PROCEDURE: XR KNEE R T 4V or > HISTORY: Pain of right knee joint , chronic; increasing in severity COMPARISON: None. FINDINGS: BONES:Tiny degenerative osteophytes along the articular margins of the medial compartments without significant joint space narrowing. No fracture or dislocation. SOFT TISSUES:No visible soft tissue swelling. EFFUSION:None visible. OTHER: Negative. IMPRESSION: 1. No acute bone abnormality. 2. Minimal degenerative joint disease. Electronically authenticated by: JUANI KNOX Date: 2022-07-02 15:25 [facility] History general Narrative - Reported Note Date & Type Note Facility History general Narrative - Reported Type Medical History thyroid disease Medical History ulcerative colitis Surgical History tubal ligation Surgical History colonoscopy Figure 1 Other Summary Purpose Family History No Family History Records FoundNo Family History Records FoundNo Family History Records Found Advance Directives No Advanced Directives Records FoundNo Advanced Directives Records FoundNo Advanced Directives Records Found Additional Source Comments INFORMATION SOURCE (unrecogn ized section and content) DATE CREATED AUTHOR 02/04/2023 [facility] DATE CREATED AUTHOR AUTHOR'S ORGANIZ ATION 09/08/[address] [facility] DATE CREATED AUTHOR AUTHOR'S ORGANIZ ATION 12/02/2023 [facility] REASON FOR VISIT (unrecogniz ed section and content) BOTH EARS, PAINREFILL-PENTAS A FOR RECORDS PERTAINING TO PATIENTS WHO ARE OR HAVE BEEN ENROLLED IN A CHEMICAL DEPENDENCY/SUBSTANCEABUSE PROGRAM, SOME INFORMATION MAY BE OMITTED. This clinical summary was aggregated from multiple sources. Caution should be exercised in using it in the provision of clinical care. This summary normalizes information from multiple sources, and as a consequence, information in this document may materially change the coding, format and clinical context of patient data. In addition, data may be omitted in some cases. CLINICAL DECISIONS SHOULD BE BASED ON THE PRIMARY CLINICAL RECORDS. [employer] provides no warranty or guarantee of the accuracy or completeness of information in this document.
[2024-02-20 11:55] LABS: Free T4 0.61 ng/dL (0.76-1.46)
[2024-02-20 12:14] LABS: Free T3 3.33 pg/mL (2.18-3.98); Thyroid Stimulating Hormone 10.964 uIU/mL (0.358-3.740)
[2024-02-29 22:08] LABS: Reverse T3, Serum 8.4 ng/dL (9.2-24.1)
== END 2024-02-20 11:06 | disposition home or self-care (01) ==
LOC: LAB 11:08
PROVIDERS: PCP Nurse Practitioner Family; Visit Provider Nurse Practitioner Family
DX: E03.9 Hypothyroidism, unspecified (principal)
CPT/HCPCS: 36415; 83540; 84436; 84439; 84443; 84481; 84482

== ENCOUNTER 2024-05-21 12:35 | Outpatient (OUT) | payer OTHER, SELFPAY ==
--- OUTSIDE RECORDS SUMMARY | 2024-05-21 12:41 | XMS_ITS | CCD ---
Author Organization [facility] Care Team Providers Care Check Examiner Name Role Phone NYASIA, TANISHA P Admitting Unavailable NYASIA, TANISHA [...] TANISHA P Consulting Unavailable Griselda Thao Unavailable Nyasia Tanisha Natalie Primary Care Unavailable Asaad, Imad Attending Unavailable Asaad, Imad Admitting Unavailable THERESE SANCHEZ Referring Unavailable LAUREN FU M Primary Care Unavailable Asaad, Imad Unavailable Allergies Allergy Classification Reported Allergen(s) Allergy Type Date of Onset Reaction(s) Facility (1 source) Sulfonamides (Antibiotic) Drug allergy (disorder) 7 [facility] Repository (2 sources) Substance with sulfonamide structure and antibacterial mechanism of action (substance) Drug allergy Unknown [facility] Other (3 sources) Sulfonamides (Antibiotic) Drug allergy (disorder) 3 [facility] Repository (3 sources) metroNIDAZOLE; Translations: [METRONIDAZOLE] Drug Allergy 1 Unknown Reaction [facility] Repository (1 source) Sulfanilamide; Translations: [SULFANILAMIDE] Drug Allergy 1 [facility] Repository Medications Current Medications Medication Drug Class(es) Dates Sig (Normalized) Sig (Original) calcium ascorbate 500 mg oral tablet (2 sources) Start: 05-04-2024 take 500 mg by mouth once daily Ascorbate Calcium (Vitamin C) Active 500 MG PO Daily May 04, 2024 12:00am cholecalciferol 0.05 mg oral capsule (4 sources) Vitamin D Start: 08-31-2023 take 1 capsule by mouth once daily Cholecalciferol (Vitamin D3) (Vitamin D3) 50 mcg (2,000 unit) Capsule Active 50 MCG PO Daily August 31, 2023 12:00am take 1 tablet by mayra th every twenty-four hours Vitamin D3 50 MCG (2000 UT) 1 tablet Orally Once a day Active Copper Supplement (1 source) Start: 05-04-2024 Copper Supplem ent Active PO May 04, 2024 12:00am ferrous sulfate 325 mg oral tablet (5 sources) Start: 05-04-2024 take 1 tablet by mouth once daily Ferrous Sulfate (Ferosul) 325 mg (65 mg iron) tablet Active 325 MG PO Daily May 04, 2024 12:00am Start: 08-31-2023 End: 05-04-2024 take 1 tablet by mouth once daily Ferrous Sulfate, Dried (Iron) 159 mg (45 mg iron) Tablet Extended Release Discontinued 159 MG PO Daily August 31, 2023 12:00am May 04, 2024 3:52pm take 1 tablet by mayra th three times weekly Iron (Ferrous Sulfate) 325 (65 Fe) MG 1 tablet Orally Three times a Week Active Iron (1 source) take 1 tablet by mouth three times weekly Iron (Ferrous Sulfate) 325 (65 Fe) MG 1 tablet Orally Three times a Week Active levothyroxine sodium 0.075 mg oral tablet (7 sources) l-Thyroxine Start: 05-04-2024 take 37.5 ug by mouth once daily Levothyroxine Active 37.5 MCG PO Daily May 04, 2024 12:00am Start: 05-04-2024 End: 05-04-2024 take 100 ug by mouth once daily Levothyroxine Disconti nued 100 MCG PO Daily May 04, 2024 12:00am May 04, 2024 4:21pm Start: 08-31-2023 End: 05-04-2024 Levothyroxine (Synthroid) 75 mcg Tablet Discontinued 37.5 MCG PO Daily August 31, 2023 12:00am May 04, 2024 3:51pm take 1 tablet by mayra th in the morning Levothyroxine Sodium 75 MCG TAKE 1 TABLET BY MOUTH IN THE MORNING ON AN EMPTY STOMACH Oral for 30 Days Active take 1 tablet by mayra th in the morning Levothyroxine Sodium 75 MCG TAKE 1 TABLET BY MOUTH IN THE MORNING ON AN EMPTY STOMACH Oral for 30 Days Active liothyronine sodium 0.005 mg oral tablet (4 sources) l-Triiodothyronine Start: 08-31-2023 take 1 tablet by mouth once daily Liothyronine (Cytomel) 5 mcg Tablet Active 5 MCG PO Daily August 31, 2023 12:00am Liothyronine Sod ium 5 MCG Oral for 17 Days Active mesalamine 500 mg extended release oral tablet (4 sources) Aminosalicylate Start: 08-31-2023 take 2 capsules by mouth three times daily Mesalamine (Pentasa) 500 mg capsule, extended release Active 1000 MG PO Three times daily August 31, 2023 12:00am take 2 capsules by mouth three t imes daily Pentasa 500 MG 2 capsules Orally three times daily for 30 days Active ofloxacin 3 mg/ml otic solution (2 sources) Quinolone Antimicrobial Start: 06-29-2023 Ofloxa jess 0.3 % 10 drops into affected ear Otic to right ear Once a day for 7 days May, Active Start: 06-29-2023 Ofloxacin 0.3 % 10 drops into affected ear Otic to right ear Once a day for 7 days May, Active Potassium (2 sources) Potassium Active Vit B Complex 100 Combo No.2 (B-100 Complex) 100 mg tablet extended release (2 sources) Start: 05-04-2024 Vit B Complex 100 Combo No.2 (B-100 Complex) 100 mg tablet extended release Active TAB PO May 04, 2024 12:00am Completed/Discontinued Medications Medication Drug Class(es) Dates Sig (Normalized) Sig (Original) dicyclomine hydrochloride 20 mg oral tablet (4 sources) Anticholinergic Start: 08-31-2023 End: 05-04-2024 Dicyclomine (Bentyl) 20 mg Tablet Discontinued 20 MG PO As Directed August 31, 2023 12:00am May 04, 2024 3:52pm Bentyl Active FLUoxetine 20 mg oral capsule (2 sources) Serotonin Reuptake Inhibitor Start: 05-04-2024 End: 05-04-2024 take 20 mg by mouth once daily Fluoxetine Discontinued 20 MG PO Daily May 04, 2024 12:00am May 04, 2024 3:56pm Magnesium (4 sources) Start: 08-31-2023 End: 05-04-2024 take 500 mg by mouth once daily Magnesium Discontinued 500 MG PO Daily August 31, 2023 12:00am May 04, 2024 3:52pm Magnesium Active polyethylene glycol 3350 125645 mg / potassium chloride 2970 mg / sodium bicarbonate 6740 mg / sodium chloride 5860 mg / sodium sulfate 16099 mg powder for oral solution (2 sources) Osmotic Laxative take 236 g by mouth once as needed Golytely 236 GM as directed Orally once for 1 days Not-Taking/PRN potassium chloride 10 meq extended release oral tablet (6 sources) Start: End: take 20 mEq by mouth once daily Potassium Chloride Discontinued 20 MEQ PO Daily May 04, 2024 3:51pm May 04, 2024 3:58pm Start: 08-31-2023 End: 05-04-2024 take 10 mEq by mouth once daily Potassium Chloride Act aguilar 10 MEQ PO Daily May 04, 2024 3:57pm Problems Active Problems Problem Classification Problem Date [...] colitis, unspecified, without complications] Chronic Thyroid disorders (8 sources) Hypothyroidism, unspecified; Translations: [Hypothyroidism] Onset: 10-28-2022 Chronic Unclassified (3 sources) CONTACT [...] Reference Range Facility Cytologyon 11-20-2023 Cytology Normal [facility] Comment on above: Result Comment: [facility] [employer] [address] [place] [address] Gynecologic Cytology Consultation Patient Name:ISIDRO MUSA:1970 (Age: 53)Gender:FTaken:11/20/2023Reported:12/01/2023hysician(s):Therese Sanchez C.N.M. ([phone])Copy To: Rec. #:[id number]: #[id number] Final Cytologic Interpretation ThinPrep Pap Test (Cervical): Satisfactory for evaluation. A transformation zone component is present. NEGATIVE FOR INTRAEPITHELIAL LESION OR MALIGNANCY. jnola/12/01/2023 [facility] [address] [place] [address], License number: [id number]. Electronically Signed Out By AKILA Waters(ASCP) Date of Last Menstrual Period: (None Given) Other Clinical Conditions: Z01.419 Doctor'S Assistant exam wo/abn findings Menopausal Postmenopausal Source of Specimen ThinPrep Pap Test (Cervical) Thin Prep Pap ([employer]) Fee Code(s): G0145 HIGH RISK HPV W/GENOon 11-20 HPV 31+33+35+39+45+51+52+ 56+58+59+66+68 DNA CLARA+probe Ql (Cvx) HPV SPECIMEN TYPE ThinPrep HPV 16 Negative (qualifier value) HPV 18 Negative (qualifier value) OTHER HIGH RISK HPV Negative (qualifier value) HPV types 31,33,35,39,45,52,56, 58,59,66 and 68 DNA were undetectable. Normal [facility] Comment on above: Performed By: #### 7 1431-1 #### [facility] ([id number]) [address] [place] [address], FIRST FLOOR [place], [place] [address] [place] [address] LAB ([id number]) [address] [place] [address], [address] [place] [address] Dusty 08-31-2023 L - -------- Specimen: [id number] Received: 08/31/23 Status: GRECIA Dent Num: [id number] Spec Type: Surgical Subm Dr: Danita Alfaro MD Tissues: A Small Intestine - Biopsy/Polyp (ILEUM BX) B Colon Biopsy (RT COLON BX) C Colon Biopsy (TRANSVERSE BX) D Colon Biopsy (DESCENDING) E Colon Biopsy (SIGMOID BX) F Colon Biopsy (RECTUM BX) Procedures: /12, Gross/Micro L4/6 -------- Age/ Patient Sex Location Account Attending Physician -------- Isidro Musa 53/F [id number] Danita Alfaro MD -------- SPEC NUM: [id number] RECD: 08/31/23 STATUS: GRECIA ANGEL NUM: [id number] TOSIN: 08/31/23 DR: Danita Alfaro MD ENTERED: 08/31/23 [facility] DR: MARIANELA TYPE: Surgical DEPT: S ORDERED: HE/12, Gross/Micro [...] other specific histopathological abnormality observed -------- Specimen: [id number] Received: 08/31/23 Status: GRECIA Dent Num: [id number] Spec Type: Surgical Subm Dr: Danita Alfaro MD Tissues: A Small Intestine - Biopsy/Polyp (ILEUM BX) B Colon Biopsy (RT COLON BX) C Colon Biopsy (TRANSVERSE BX) D Colon Biopsy (DESCENDING) E Colon Biopsy (SIGMOID BX) F Colon Biopsy (RECTUM BX) Procedures: , Gross/Micro L4/6 -------- Patient: RusselllinnetterolandoIsidro [id number] (Continued) -------- Specimen: [id number] Received: 08/31/23 (Continued) Pathological Diagnosis (Continued) Signed (signature on file) Roxann Moscoso MD 09/01/23 1718 -------- Specimen: [id number] Received: 08/31/23 Status: GRECIA Dent Num: [id number] Spec Type: Surgical Subm Dr: Danita Alfaro MD Tissues: A Small Intestine - Biopsy/Polyp (ILEUM BX) B Colon Biopsy (RT COLON BX) C Colon Biopsy (TRANSVERSE BX) D Colon Biopsy (DESCENDING) E Colon Biopsy (SIGMOID BX) F Colon Biopsy (RECTUM BX) Procedures: /, Gross/Micro L4/6 -------- Patient: Lourdes Musacase Marin [id number] (Continued) -------- Specimen: [id number] Received: 08/31/23 (Continued) Pathological Diagnosis (Continued) E. Sigmoid colon [...] and transvers (more content not included)... Normal [facility] Covid-19 PCR (CVDTBH)on 01-01 SARS-CoV-2 (COVID-19) RNA CLARA+probe Ql (Unsp spec) Not detected Normal NOT DETECTED [facility] Comment on above: Result Comment: When [...] for this test is supported by the [place] of Health and Human Service's declaration that [...] longer be used). Performed By: #### C VDTBH #### [facility] [address] [place] [address] Dr. Kirit Moscoso OVA AND PARASITE EXAMINATION on 01-19-2023 Ova + Parasite Exam Final report Normal [facility] Comment on above: Result Comment: Thes e results were obtained using wet preparation(s) and trichrome stained smear. This test does not include testing for Cryptosporidium parvum, Cyclospora, or Microsporidia. Performed By: #### C BC #### [facility] [address] [place] [address] Dr. Kirit Moscoso Result 1 Comment Normal [facility] Comment on above: Result Comment: No o va, cysts, or parasites seen. . One negative specimen does not rule out the possibility of a parasitic infection. Performed By: #### C BC #### [facility] [address] [place] [address] Dr. Kirit Moscoso SAGE by IFAon 01-16-2023 Antinuclear Antibodies, IFA Positive Abnormal [facility] Comment on above: Result Comment: Nega tive <1:80 Borderline 1:80 Positive >1:80 Performed By: #### T 7, TSH #### [facility] [address] [place] [address] Dr. Kirit Moscoso Centriole Pattern Normal [facility] Comment on above: Performed By: #### T 7, TSH #### [facility] [address] [place] [address] Dr. Kirit Moscoso Centromere Pattern Normal [facility] Comment on above: Performed By: #### T 7, TSH #### [facility] [address] [address] [address] Kirit Moscoso Homogeneous Pattern 1:640 Critically high [facility] Comment on above: Result Comment: ICAP nomenclature: AC-1 Performed By: #### T 7, TSH #### [facility] [address] [place] [address] Dr. Kirit Moscoso Midbody Pattern Normal [facility] Comment on above: Performed By: #### T 7, TSH #### [facility] [address] [place] [address] Dr. Kirit Moscoso Note: Comment Normal [facility] Comment on above: Result Comment: For [...] titers Nucleosomes, Histones Drug-induced SLE Speckled Sm, CEREAL CHEMIST, SCL-70, SLE,MCTD,PSS (diffuse form), SS-A/SS-B Sjogrens Nucleolar SCL-70, PM-1/SCL High titers Scleroderma, PM/DM Centromere Centromere PSS (limited form) w/Crest syndrome variable Nuclear Dot [id number] Primary Biliary Cirrhosis Nuclear GP210, Primary Biliary Cirrhosis Membrane missy A,B,C Performed By: #### T 7, TSH #### [facility] [address] [place] [address] Dr. Kirit Moscoso Nuclear Dot Pattern Normal [facility] Comment on above: Performed By: #### T 7, TSH #### [facility] [address] [place] [address] Dr. Kirit Moscoso Nuclear Membrane Pattern Normal [facility] Comment on above: Performed By: #### T 7, TSH #### [facility] [address] [place] [address] Dr. Kirit Moscoso Nucleolar Pattern Normal [facility] Comment on above: Performed By: #### T 7, TSH #### [facility] [address] [place] [address] Dr. Kirit Moscoso PCNA Pattern Normal [facility] Comment on above: Performed By: #### T 7, TSH #### [facility] [address] [place] [address] Dr. Kirit Moscoso Speckled Pattern Normal [facility] Comment on above: Performed By: #### T 7, TSH #### [facility] [address] [place] [address] Dr. Kirit Moscoso Spindle Apparatus Pattern Normal [facility] Comment on above: Performed By: #### T 7, TSH #### [facility] [address] [place] [address] Dr. Kirit Moscoso GI PANEL (PCR)on 01-13-2023 Adenovirus F 40/41 Not detected Normal NOT DETECTED [facility] Comment on above: Performed By: #### T 7, TSH #### [facility] [address] [place] [address] Dr. Kirit Moscoso Astrovirus Not detected Normal NOT DETECTED [facility] Comment on above: Performed By: #### T 7, TSH #### [facility] [address] [place] [address] Dr. Kirit Mariscal. Diff toxin A/B Not detected Normal NOT DETECTED [facility] Comment on above: Performed By: #### T 7, TSH #### [facility] [address] [address] [address] Kirit Moscoso Campylobacter Not detected Normal NOT DETECTED [facility] Comment on above: Performed By: #### T 7, TSH #### [facility] [address] [place] [address] Dr. Kirit Moscoso Cryptosporidium Not detected Normal NOT DETECTED [facility] Comment on above: Performed By: #### T 7, TSH #### [facility] [address] [address] [address] Kirit Moscoso Cyclos. Cayetanensis Not detected Normal NOT DETECTED [facility] Comment on above: Performed By: #### T 7, TSH #### [facility] [address] [place] [address] Dr. Kirit Moscoso E. Coli O157 Not Applicable Normal Not Applicable [facility] Comment on above: Performed By: #### T 7, TSH #### [facility] [address] [place] [address] Dr. Kirit Moscoso E. histolytica Not detected Normal NOT DETECTED [facility] Comment on above: Performed By: #### T 7, TSH #### [facility] [address] [place] [address] Dr. Kirit Moscoso EAEC Not detected Normal NOT DETECTED [facility] Comment on above: Performed By: #### T 7, TSH #### [facility] [address] [place] [address] Dr. Kirit Moscoso EIEC Not detected Normal NOT DETECTED [facility] Comment on above: Performed By: #### T 7, TSH #### [facility] [address] [place] [address] Dr. Kirit Moscoso EPEC Not detected Normal NOT DETECTED [facility] Comment on above: Performed By: #### T 7, TSH #### [facility] [address] [place] [address] Dr. Kirit Moscoso ETEC Not detected Normal NOT DETECTED [facility] Comment on above: Performed By: #### T 7, TSH #### [facility] [address] [place] [address] Dr. Kirit Wood Not detected Normal NOT DETECTED [facility] Comment on above: Performed By: #### T 7, TSH #### [facility] [address] [address] [address] Kirit RUBY CONTROLS PASSED Normal [facility] Comment on above: Performed By: #### T 7, TSH #### [facility] [address] [address] [address] Kirit MACIAS HEADER GI PANEL BACTERIA Normal [facility] Comment on above: Performed By: #### T 7, TSH #### [facility] [address] [address] [address] Kirit SHARPE ECOLI GI PANEL DIARRHEAGENIC E.COLI / SHIGELLA Normal [facility] Comment on above: Performed By: #### T 7, TSH #### [facility] [address] [address] [address] Kirit SHARPE INFO SEE BELOW Normal [facility] Comment on above: Result Comment: EAEC - Enteroaggregative E. Coli EPEC- Enteropathogenic E. Coli ETEC- Enterotoxigenic E. Coli lt/st STEC- Shigella-like toxin-producing E. Coli stx1/stx2 EIEC- Shigella/Enteroinvasive E. Coli Performed By: #### T 7, TSH #### [facility] [address] [address] [address] iKrit SHARPE PARASITES GI PANEL PARASITES Normal [facility] Comment on above: Performed By: #### T 7, TSH #### [facility] [address] [address] [address] Kirit SHARPE VIRUS GI PANEL VIRUSES Normal [facility] Comment on above: Performed By: #### T 7, TSH #### [facility] [address] [address] [address] Kirit Moscoso Norovirus GI/GII Not detected Normal NOT DETECTED [facility] Comment on above: Performed By: #### T 7, TSH #### [facility] [address] [address] [address] Kirit Moscoso P. Shigelloides Not detected Normal NOT DETECTED [facility] Comment on above: Performed By: #### T 7, TSH #### [facility] [address] [place] [address] Dr. Kirit Moscoso Rotavirus A Not detected Normal NOT DETECTED [facility] Comment on above: Performed By: #### T 7, TSH #### [facility] [address] [place] [address] Dr. Kirit Moscoso Salmonella Not detected Normal NOT DETECTED [facility] Comment on above: Performed By: #### T 7, TSH #### [facility] [address] [place] [address] Dr. Kirit Moscoso Sapovirus Not detected Normal NOT DETECTED [facility] Comment on above: Performed By: #### T 7, TSH #### [facility] [address] [place] [address] Dr. Kirit Moscoso STEC Not detected Normal NOT DETECTED [facility] Comment on above: Performed By: #### T 7, TSH #### [facility] [address] [place] [address] Dr. Kirit Moscoso Vibrio Not detected Normal NOT DETECTED [facility] Comment on above: Performed By: #### T 7, TSH #### [facility] [address] [place] [address] Dr. Kirit Moscoso Vibrio Cholera Not detected Normal NOT DETECTED [facility] Comment on above: Performed By: #### T 7, TSH #### [facility] [address] [place] [address] Dr. Kirit Moscoso Y. Enterocolitica Not detected Normal NOT DETECTED [facility] Comment on above: Performed By: #### T 7, TSH #### [facility] [address] [place] [address] Dr. Kirit Moscoso INSULINon 01-12-2023 Insulin 23.6 uIU/mL Normal 2.6-24.9 [facility] Comment on above: Performed By: #### T 7, TSH #### [facility] [address] [place] [address] Dr. Kirit Moscoso ANTISTREPTOLYSIN O AB (ASO)o n 01-11-2023 Antistreptolysin O Ab 70.3 IU/mL Normal 0.0-200.0 [facility] Comment on above: Performed By: #### A SOAB #### [facility] [address] [place] [address] Dr. Kirit Moscoso RHEUMATOID FACTORon 01-11-20 RA Latex Turbid. <10.0 Normal <14.0 [facility] Comment on above: Performed By: #### R F #### [facility] [address] [place] [address] Dr. Kirit Moscoso CBC AUTO DIFFon 01-10-2023 BASO # 0.1 103/ul Normal 0.0-0.1 [facility] Comment on above: Performed By: #### C BC #### [facility] [address] [place] [address] Dr. Kirit Moscoso Basophils/100 WBC (Bld) 1.2 % Normal 0.2-2.0 [facility] Comment on above: Performed By: #### C BC #### [facility] [address] [place] [address] Dr. Kirit Moscoso EO # 0.0 103/ul Normal 0.0-0.7 [facility] Comment on above: Performed By: #### C BC #### [facility] [address] [place] [address] Dr. Kirit Moscoso Eosinophils/100 WBC (Bld) 0.0 % Critically low 0.9-7.0 [facility] Comment on above: Performed By: #### C BC #### [facility] [address] [place] [address] Dr. Kriit Moscoso Erythrocyte distribution width (RBC) [Ratio] 13.6 % Normal 11.0-15.0 [facility] Comment on above: Performed By: #### C BC #### [facility] [address] [place] [address] Dr. Kirit Moscoso Hematocrit (Bld) [Volume fraction] 44.2 % Normal 36.0-48.0 [facility] Comment on above: Performed By: #### C BC #### [facility] [address] [place] [address] Dr. Kirit Moscoso Hemoglobin (Bld) [Mass/Vol] 14.2 g/dL Normal 12.0-16.0 [facility] Comment on above: Performed By: #### C BC #### [facility] [address] [place] [address] Dr. Kirit Moscoso IG # 0.02 10e3/ul Normal 0.00-0.03 [facility] Comment on above: Performed By: #### C BC #### [facility] [address] [place] [address] Dr. Kirit Moscoso IG % 0.3 % Normal 0.0-0.5 [facility] Comment on above: Performed By: #### C BC #### [facility] [address] [place] [address] Dr. Kirit Moscoso LYMPH # 1.5 103/ul Normal 1.2-3.8 [facility] Comment on above: Performed By: #### C BC #### [facility] [address] [place] [address] Dr. Kirit Moscoso Lymphocytes/100 WBC (Bld) 22.7 % Normal 20.5-60.0 [facility] Comment on above: Performed By: #### C BC #### [facility] [address] [place] [address] Dr. Kirit Moscoso MANUAL DIFF REQ NO Normal [facility] Comment on above: Performed By: #### C BC #### [facility] [address] [place] [address] Dr. Kirit Moscoso MCH (RBC) [Entitic mass] 27.8 pg Normal 26.7-34.0 [facility] Comment on above: Performed By: #### C BC #### [facility] [address] [place] [address] Dr. Kirit Moscoso MCHC (RBC) [Mass/Vol] 32.1 g/dL Normal 29.9-35.2 [facility] Comment on above: Performed By: #### C BC #### [facility] [address] [address] [address] Kirit Moscoso MCV (RBC) [Entitic vol] 86.5 fL Normal 81.0-99.0 [facility] Comment on above: Performed By: #### C BC #### [facility] [address] [address] [address] Kirit Moscoso MONO # 0.5 103/ul Normal 0.3-0.8 [facility] Comment on above: Performed By: #### C BC #### [facility] [address] [place] [address] Dr. Kirit Moscoso Monocytes/100 WBC (Bld) 7.3 % Normal 1.7-12.0 [facility] Comment on above: Performed By: #### C BC #### [facility] [address] [place] [address] Dr. Kirit Moscoso NEUT # 4.5 103/ul Normal 1.4-6.5 [facility] Comment on above: Performed By: #### C BC #### [facility] [address] [place] [address] Dr. Kirit Moscoso Neutrophils/100 WBC (Bld) 68.5 % Normal 43.0-75.0 [facility] Comment on above: Performed By: #### C BC #### [facility] [address] [place] [address] Dr. Kirit Moscoso Platelet mean volume (Bld) [Entitic vol] 10.2 fL Normal 9.5-13.5 [facility] Comment on above: Performed By: #### C BC #### [facility] [address] [place] [address] Dr. Kirit Moscoso PLT 250 103/ul Normal 150-450 [facility] Comment on above: Performed By: #### C BC #### [facility] [address] [place] [address] Dr. Kirit Moscoso RBC 5.11 106/ul Normal 4.20-5.40 [facility] Comment on above: Performed By: #### C BC #### [facility] [address] [place] [address] Dr. Kirit Moscoso WBC 6.6 103/ul Normal 4.0-11.0 [facility] Comment on above: Performed By: #### C BC #### [facility] [address] [address] [address] Kirit Moscoso CRPon 01-10-2023 CRP 1.2 mg/dL Critically high <=1.0 [facility] [place] [facility] Comment on above: Performed By: #### C RP, CMP, URIC, LIPID #### [facility] [address] [address] [address] Kirit Moscoso GLYCOHEMOGLOBIN A1Con 2022 ADA RECOMMENDATION SEE BELOW Normal [facility] Comment on above: Result Comment: ADA RECOMMENDED LIMIT 4.0 - 6.0 ADA THERAPEUTIC TARGET < 7.0 ACTION SUGGESTED > 7.0 Performed By: #### T 7, TSH #### [facility] [address] [address] [address] Kirit Moscoso Glucose [Mass/Vol] 114 mg/dL Normal [facility] Comment on above: Performed By: #### T 7, TSH #### [facility] [address] [address] [address] Kirit Moscoso HbA1c (Bld) [Mass fraction] 5.6 % Normal 4.5-6.2 [facility] Comment on above: Performed By: #### T 7, TSH #### [facility] [address] [address] [address] Kirit Moscoso IRONon 01-10-2023 Iron [Mass/Vol] 59.0 ug/dL Normal 50.0-170.0 [facility] [place] [facility] Comment on above: Performed By: #### C BC #### [facility] [address] [address] [address] Kirit Moscoso LIPID PROFILEon 01-10-2023 CHOL-HDL RATIO NORM SEE BELOW Normal [facility] Comment on above: Result Comment: 3.3 - 4.4 LOW RISK 4.4 - 7.1 AVERAGE RISK 7.1 - 11.0 MODERATE RISK >11.0 HIGH RISK Performed By: #### C RP, CMP, URIC, LIPID #### [facility] [address] [address] [address] Kirit Moscoso Cholesterol [Mass/Vol] 188 mg/dL Normal <=200 [facility] Comment on above: Performed By: #### C RP, CMP, URIC, LIPID #### [facility] [address] [address] [address] Kirit Moscoso Cholesterol in HDL [Mass/Vol] 45 mg/dL Normal 40-60 [facility] Comment on above: Performed By: #### C RP, CMP, URIC, LIPID #### [facility] [address] [address] [address] Kirit Moscoso Cholesterol in LDL [Mass/Vol] 129.0 mg/dL Normal [facility] Comment on above: Performed By: #### C RP, CMP, URIC, LIPID #### [facility] [address] [address] [address] Kirit Moscoso Cholesterol.total/Cho lesterol in HDL [Mass ratio] 4.2 {ratio} Normal [facility] Comment on above: Performed By: #### C RP, CMP, URIC, LIPID #### [facility] [address] [address] [address] Kirit Moscoso HDL NORMAL > or = 60 mg/dl - LO W CARDIOVASCULAR RISK <40 mg/dl - HIGH CARDIOVASCULAR RISK Normal [facility] Comment on above: Performed By: #### C RP, CMP, URIC, LIPID #### [facility] [address] [address] [address] Kirit Moscoso LDL CALC NORMAL SEE BELOW Normal [facility] Comment on above: Result Comment: <100 mg/dl OPTIMAL 100 - 129 mg/dl NEAR OR ABOVE OPTIMAL 130 - 159 mg/dl BORDERLINE HIGH 160 - 189 mg/dl HIGH >190 mg/dl VERY HIGH Performed By: #### C RP, CMP, URIC, LIPID #### [facility] [address] [address] [address] Kirit Moscoso Triglyceride [Mass/Vol] 71 mg/dL Normal <=150 [facility] Comment on above: Performed By: #### C RP, CMP, URIC, LIPID #### [facility] [address] [address] [address] Kirit Moscoso VLDL CALC 14.2 mg/dL Normal [facility] Comment on above: Performed By: #### C RP, CMP, URIC, LIPID #### [facility] [address] [address] [address] Kirit Moscoso PROF 14(COMP METB)on 023 Albumin [Mass/Vol] 3.5 g/dL Normal 3.4-5.0 [facility] Comment on above: Performed By: #### C RP, CMP, URIC, LIPID #### [facility] [address] [address] [address] Kirit Moscoso Albumin/Globulin [Mass ratio] 0.8 {ratio} Normal [facility] Comment on above: Performed By: #### C RP, CMP, URIC, LIPID #### [facility] [address] [address] [address] Kirit Moscoso ALP [Catalytic activity/Vol] 109 U/L Normal 46-116 [facility] Comment on above: Performed By: #### C RP, CMP, URIC, LIPID #### [facility] [address] [address] [address] Kirit Moscoso ALT [Catalytic activity/Vol] 26 U/L Normal 14-59 [facility] Comment on above: Performed By: #### C RP, CMP, URIC, LIPID #### [facility] [address] [address] [address] Kirit Moscoso Anion gap [Moles/Vol] 11.3 mmol/L Normal [facility] Comment on above: Performed By: #### C RP, CMP, URIC, LIPID #### [facility] [address] [address] [address] Kirit Moscoso AST [Catalytic activity/Vol] 16 U/L Normal 15-37 [facility] Comment on above: Performed By: #### C RP, CMP, URIC, LIPID #### [facility] [address] [address] [address] Kirit Moscoso Bilirubin [Mass/Vol] 0.4 mg/dL Normal 0.2-1.0 [facility] Comment on above: Performed By: #### C RP, CMP, URIC, LIPID #### [facility] [address] [address] [address] Kirit Moscoso Calcium [Mass/Vol] 9.1 mg/dL Normal 8.5-10.1 [facility] Comment on above: Performed By: #### C RP, CMP, URIC, LIPID #### [facility] [address] [place] [address] Dr. Kirit Moscoso Chloride [Moles/Vol] 105 mmol/L Normal 98-107 [facility] Comment on above: Performed By: #### C RP, CMP, URIC, LIPID #### [facility] [address] [place] [address] Dr. Kirit Moscoso CO2 [Moles/Vol] 26.5 mmol/L Normal 21.0-32.0 [facility] Comment on above: Performed By: #### C RP, CMP, URIC, LIPID #### [facility] [address] [place] [address] Dr. Kirit Moscoso Creatinine [Mass/Vol] 0.97 mg/dL Normal 0.55-1.02 [facility] Comment on above: Performed By: #### C RP, CMP, URIC, LIPID #### [facility] [address] [place] [address] Dr. Kirit Moscoso EGFR-AF [place]ONG [place]ER >60 Normal >=60 [facility] Comment on above: Performed By: #### C RP, CMP, URIC, LIPID #### [facility] [address] [place] [address] Dr. Kirit Moscoso EGFR-NON AF [place]ER 60 mL/min/1.73m2 Normal >=60 [facility] Comment on above: Performed By: #### C RP, CMP, URIC, LIPID #### [facility] [address] [place] [address] Dr. Kirit Moscoso Globulin (S) [Mass/Vol] 4.3 g/dL Normal [facility] Comment on above: Performed By: #### C RP, CMP, URIC, LIPID #### [facility] [address] [address] [address] Kirit Moscoso Glucose [Mass/Vol] 96 mg/dL Normal 74-106 [facility] Comment on above: Performed By: #### C RP, CMP, URIC, LIPID #### [facility] [address] [place] [address] Dr. Kirit Moscoso Potassium [Moles/Vol] 4.1 mmol/L Normal 3.5-5.1 [facility] Comment on above: Performed By: #### C RP, CMP, URIC, LIPID #### [facility] [address] [address] [address] Kirit Moscoso Protein [Mass/Vol] 7.8 g/dL Normal 6.4-8.2 [facility] Comment on above: Performed By: #### C RP, CMP, URIC, LIPID #### [facility] [address] [place] [address] Dr. Kirit Moscoso Sodium [Moles/Vol] 139 mmol/L Normal 136-145 [facility] Comment on above: Performed By: #### C RP, CMP, URIC, LIPID #### [facility] [address] [place] [address] Dr. Kirit Moscoso Urea nitrogen [Mass/Vol] 19.0 mg/dL Critically high 7.0-18.0 [facility] Comment on above: Performed By: #### C RP, CMP, URIC, LIPID #### [facility] [address] [place] [address] Dr. Kirit Moscoso Urea nitrogen/Creatinine [Mass ratio] 19.6 mg/mg Normal [facility] Comment on above: Performed By: #### C RP, CMP, URIC, LIPID #### [facility] [address] [place] [address] Dr. Kirit Moscoso UA (CLEAN/CATCH) JET PIERCER OPERATOR/MICRO I F IND.on 01-10-2023 Bilirubin Ql (U) Negative Normal NEGATIVE [facility] Comment on above: Performed By: #### C BC #### [facility] [address] [place] [address] Dr. Kirit Moscoso Clarity (U) CLEAR Normal CLEAR [facility] Comment on above: Performed By: #### C BC #### [facility] [address] [address] [address] Kirit Moscoso Color (U) LT. YELLOW Normal YELLOW [facility] Comment on above: Performed By: #### C BC #### [facility] [address] [address] [address] Kirit Moscoso Glucose Ql (U) Negative Normal NEGATIVE [facility] Comment on above: Performed By: #### C BC #### [facility] [address] [address] [address] Kirit Moscoso Hemoglobin Ql (U) Negative Normal NEGATIVE [facility] Comment on above: Performed By: #### C BC #### [facility] [address] [place] [address] Dr. Kirit Moscoso Ketones Ql (U) Negative Normal NEGATIVE [facility] Comment on above: Performed By: #### C BC #### [facility] [address] [place] [address] Dr. Kirit Moscoso LEUKOCYTES Negative Normal NEGATIVE [facility] Comment on above: Performed By: #### C BC #### [facility] [address] [address] [address] Kirit Moscoso Nitrite Ql (U) Negative Normal NEGATIVE [facility] Comment on above: Performed By: #### C BC #### [facility] [address] [place] [address] Dr. Kirit Moscoso pH (U) 5.5 [pH] Normal 5-9 [facility] Comment on above: Performed By: #### C BC #### [facility] [address] [address] [address] Kirit Moscoso SPEC GRAVITY 1.010 Normal 1.005-<=1.025 [facility] Comment on above: Performed By: #### C BC #### [facility] [address] [place] [address] Dr. Kirit Moscoso UA PROTEIN Negative Normal NEGATIVE/ TRACE [facility] Comment on above: Performed By: #### C BC #### [facility] [address] [place], [place] [id number] Dr. Kirit Moscoso UR MICRO IND NOT INDICATED Normal [facility] Comment on above: Performed By: #### C BC #### [facility] [address] [place] [address] Dr. Kirit Moscoso Urobilinogen Qn (U) 0.2 {Jose Juan'U}/dL Normal 0.2 - 1. 0 [facility] Comment on above: Performed By: #### C BC #### [facility] [address] [place] [address] Dr. Kirit Moscoso URIC ACID SERUMon 01-10-2023 Urate [Mass/Vol] 5.6 mg/dL Normal 2.6-6.0 [facility] Comment on above: Performed By: #### C RP, CMP, URIC, LIPID #### [facility] [address] [place] [address] Dr. Kirit Moscoso FREE THYROXINE INDEX T7on FTI 2.46 Normal 1.30-4.50 [facility] Comment on above: Performed By: #### T 7, TSH #### [facility] [address] [place] [address] Dr. Kirit Moscoso T3U 32.0 % Normal 30.0-39.0 [facility] Comment on above: Performed By: #### T 7, TSH #### [facility] [address] [place] [address] Dr. Kirit Moscoso T4 [Mass/Vol] 7.70 ug/dL Normal 4.80-13.90 [facility] Comment on above: Performed By: #### T 7, TSH #### [facility] [address] [place] [address] Dr. Kirit Moscoso TSHon 10-28-2022 TSH 2.263 uIU/mL Normal 0.358-3.740 [facility] Comment on above: Performed By: #### T 7, TSH #### [facility] [address] [place] [address] Dr. Kirit Moscoso FREE THYROXINE INDEX T7on FTI 3.30 Normal 1.30-4.50 [facility] Comment on above: Performed By: #### T 7, TSH #### [facility] [address] [address] [address] Kirit Moscoso T3U 34.0 % Normal 30.0-39.0 [facility] Comment on above: Performed By: #### T 7, TSH #### [facility] [address] [address] [address] Kirit Moscoso T4 [Mass/Vol] 9.70 ug/dL Normal 4.80-13.90 [facility] Comment on above: Performed By: #### T 7, TSH #### [facility] [address] [address] [address] Kirit Moscoso TSHon 04-16-2022 TSH 0.140 uIU/mL Critically low 0.358-3.740 [facility] Comment on above: Performed By: #### T 7, TSH #### [facility] [address] [place] [address] Dr. Kirit Moscoso TSH RANGE SEE BELOW Normal [facility] Comment on above: Result Comment: <0.3 4 UIU/ml HYPERTHYROID 0.34-5.60 UIU/ml EUTHYROID >5.60 UIU/ml HYPOTHYROID Performed By: #### T 7, TSH #### [facility] [address] [place] [address] Dr. Kirit Moscoso FREE T3on 02-27-2022 FREE T3 2.45 pg/mlL Critically low 2.77-5.27 [facility] [place] [facility] Comment on above: Performed By: #### T 7, TSH #### [facility] [address] [place] [address] Dr. Kirit Moscoso T4on 02-27-2022 T4 [Mass/Vol] 7.00 ug/dL Normal 5.53-11.00 [facility] Comment on above: Performed By: #### T 7, TSH #### [facility] [address] [place] [address] Dr. Kirit Moscoso TSHon 02-27-2022 TSH 7.345 uIU/mL Critically high 0.470-4.680 [facility] Comment on above: Performed By: #### T 7, TSH #### [facility] [address] [address] [address] Kirit Moscoso TSH RANGE SEE BELOW Normal [facility] Comment on above: Result Comment: <0.3 4 UIU/ml HYPERTHYROID 0.34-5.60 UIU/ml EUTHYROID >5.60 UIU/ml HYPOTHYROID Performed By: #### T 7, TSH #### [facility] [address] [address] [address] Kirit Moscoso Vital Signs Date Time Vital Sign Value Performing Clinician Facility 05-04-2024 15:50-0400 Body height 160.02 cm [facility] 05-04-2024 15:50-0400 Body mass index (BMI) [Ratio] 35.4 kg/m2 [facility] 05-04-2024 15:50-0400 Body weight 90.71 kg [facility] 05-04-2024 15:50-0400 Diastolic blood pressure 82 mm[Hg] [facility] 05-04-2024 15:50-0400 Heart rate 71 /min [facility] 05-04-2024 15:50-0400 SaO2% (BldA) [Mass fraction] 98 % [facility] 05-04-2024 15:50-0400 Systolic blood pressure 120 mm[Hg] [facility] 06-29-2023 09:55-0400 Body height 160.02 cm Griselda Thao Other [facility] [employer] Other 06-29-2023 09:55-0400 Body mass index (BMI) [Ratio] 35.57 kg/m2 Griselda Thao Other [facility] Other 06-29-2023 09:55-0400 Body temperature 97.6 [degF] Griselda Thao Other [facility] Other 06-29-2023 09:55-0400 Body weight 91.08 kg Griselda Thao Other [facility] Other 06-29-2023 09:55-0400 Diastolic blood pressure 74 mm[Hg] Griselda Keesha Other [facility] Other 06-29-2023 09:55-0400 Respiratory rate 18 /min Griselda Keesha Other [facility] Other 06-29-2023 09:55-0400 SaO2% (BldA) [Mass fraction] 98 % Griselda Keesha Other [facility] Other 06-29-2023 09:55-0400 Systolic blood pressure 126 mm[Hg] Griselda Keesha Other [facility] Other Encounters Encounter Date Encounter Type Care Provider Facility Start: 05-04-2024 End: 05-04-[address] [facility] Work Phone: Start: 05-04-2024 End: 05-04-2024 Patient encounter procedure [facility] Work Phone: Start: 12-31-2023 End: 12-31-2023 ambulatory Imad Asaad Other [facility] Other Start: 12-31-2023 Telephone encounter Imad Asaad [facility] Start: 11-20-2023 End: 11-21-2023 ambulatory [facility] Start: 11-20-2023 Encounter for gynecological examination (general) (routine) without abnormal findings [facility] Start: 08-31-2023 End: 08-31-2023 ambulatory Tanisha Thao Facility:[facility] Start: 06-29-2023 End: 06-29-2023 ambulatory Griselda Thao Other [email or web address] Other Start: 06-29-2023 Office outpatient vi sit 15 minutes Griselda Thao [facility] Start: 01-20-2023 End: 01-20-2023 ambulatory TANISHA P [place] Facility:[facility] Start: 01-16-2023 Encounter for genera l adult medical examination without abnormal findings TANISHA P [place] [facility] Start: 01-13-2023 End: 01-13-2023 ambulatory TANISHA P [place] Facility:[facility] Start: 01-10-2023 End: 01-11-2023 ambulatory TANISHA P [place] Facility:[facility] Start: 01-10-2023 End: 01-11-2023 Encounter for general adult medical examination without abnormal findings TANISHA P [place] Facility:[facility] Start: 10-28-2022 End: 10-29-2022 ambulatory TANISHA P [place] Facility:[facility] Start: 07-21-2022 End: 07-30-2022 ambulatory LAUREN NICKIE Facility:[facility] Start: 07-02-2022 End: 07-03-2022 ambulatory TANISHA P [place] Facility:[facility] Start: 04-16-2022 End: 04-17-2022 ambulatory TANISHA P [place] Facility:[facility] Start: 02-27-2022 End: 02-28-2022 ambulatory TANISHA P [place] Facility:[facility] Plan of Treatment Date Care Activity Detail Author T3 reverse measurement [facility] Payers Date Payer Category Payer Self-pay 1970 Unknown [id number] 1970 Unknown [id number] 1968 Unknown [id number] 1968 Unknown [id number] 1968 Unknown [id number] 1968 Unknown [id number] 1968 Unknown [id number] 1968 Unknown [id number] 1968 Unknown [id number] 6 1959 Unknown [id number] 1961 Unknown [id number] Private Health Insurance [facility] [id number] Unknown [id number] Unknown MMO [id number] Unknown [place] [id number] Social History Date Type Detail Facility Unknown if ever smoked [facility] Other Sex Assigned At Sex Assigned At Bir th [facility] Other Start: 05-04-2024 Tobacco smoking status NHIS Never smoked tobacco (finding) [facility] Start: 1970 Sex Assigned At Female [facility] Evaluation note 12-31-2023 Note Date & Type Note Facility 12-31-2023 Evaluation note Encounter Date Diagnosis Assessment Notes Dec, Ulcerative colitis (ICD-10 - K51.90) [facility] Other Evaluation note 06-29-2023 Note Date & [...] worsening. Patient/Parent verbalized understanding of tx plan. [facility] Other Clinical Note 07-02-2022 Note Date & [...] authenticated by: JUANI KNOX Date: 2022-07-02 15:25 [facility] Evaluation note Note Date & Type Note Facility Evaluation note Diagnosis Onset Date Hypothyroid acute [facility] Work Phone: History general Narrative - Reported Note Date & Type Note Facility History general Narrative - Reported Type Medical History thyroid disease Medical History ulcerative colitis Surgical History tubal ligation Surgical History colonoscopy [facility] Other Summary Purpose Family History Relationship Condition Age at Onset Recorded Date/T carmen Not Specified Malignant neoplasm of throat Unknown Schizophrenic disorder Unknown father Cerebrovascular accident (CVA) Unknown father Unknown History of stroke Unknown Not Specified Malignant neoplasm Unknown Unknown Advance Directives Advance Directive Response Recorded Date/ Time Advance Directives No June 17 4:41pm Chief Complaint and Reason for Visit Chief Complaint est care, thyroid me dication changed Reason for Visit Hypothyroid Additional Source Comments INFORMATION SOURCE (unrecogn ized section and content) DATE CREATED AUTHOR 02/04/2023 [facility] DATE CREATED AUTHOR AUTHOR'S ORGANIZ ATION 09/08/2023 [facility] DATE CREATED AUTHOR AUTHOR'S ORGANIZ ATION 12/02/2023 [facility] REASON FOR VISIT (unrecogniz ed section and content) BOTH EARS, PAINREFILL-PENTAS A Care Teams (unrecognized sec tion and content) Team Status: Active Member Role Status Dates Tanisha Thao , [employer]-C Primary Care Provider Active Team Status: Inactive Member Role Status Dates Tanisha Thao , [employer]-C Primary Care Provider Active Start: May 04, 2024 End: May 04, 2024 Cayla Orona APRN [employer]-C Attending Provider Act aguilar Start: May 04, 2024 End: May 04, 2024 Team Status: Active Member Role Status Dates Tanisha Thao , P[employer]OX [employer]-C Primary Care Provider Active Team Status: Active Member Role Status Dates Tanisha Thao , P[employer]OX C[employer]TER-C Primary Care Provider Active Start: May 04, 2024 Cayla Orona APRN [employer]-C Attending Provider Act aguilar Start: May 04, 2024 Team Status: Inactive Member Role Status Dates Tanisha Thao , P[employer]OX [employer]-C Primary Care Provider Active Start: May 04, 2024 End: May 04, 2024 Cayla Orona APRN [employer]-C Attending Provider Act aguilar Start: May 04, 2024 End: May 04, 2024 Goals (unrecognized section and content) Goals may be documented in a n alternate section FOR RECORDS PERTAINING TO PATIENTS WHO ARE [...] BE BASED ON THE PRIMARY CLINICAL RECORDS. [employer] provides no warranty or guarantee of the accuracy or completeness of information in this document.
[2024-05-21 13:50] LABS: Free T4 0.48 ng/dL (0.76-1.46)
[2024-05-21 14:37] LABS: Free T3 3.01 pg/mL (2.18-3.98); Thyroid Stimulating Hormone 23.564 uIU/mL (0.358-3.740)
[2024-05-24 04:11] LABS: Triiodothyronine (T3) 147 ng/dL (71-180)
[2024-05-26 10:09] LABS: Reverse T3, Serum 8.3 ng/dL (9.2-24.1)
== END 2024-05-21 12:36 | disposition home or self-care (01) ==
LOC: LAB 12:39
PROVIDERS: PCP Nurse Practitioner Family; Visit Provider Nurse Practitioner Family
DX: E03.9 Hypothyroidism, unspecified (principal)
CPT/HCPCS: 36415; 84439; 84443; 84480; 84481; 84482

== ENCOUNTER 2024-07-16 10:08 | Outpatient (OUT) | payer OTHER, SELFPAY ==
--- OUTSIDE RECORDS SUMMARY | 2024-07-16 10:13 | XMS_ITS | CCD ---
Author Organization [facility] Care Team Providers Care Potato Chip Fryer Name Role Phone NYASIA, TANISHA P Admitting [...] TANISHA P Consulting Unavailable Griselda Thao Unavailable Naysia Tanisha Natalie Primary Care Unavailable Asaad, Imad Attending Unavailable Asaad, Imad Admitting Unavailable THERESE SANCHEZ Referring Unavailable LAUREN FU M Primary Care Unavailable Asaad, Imad Unavailable Allergies Allergy Classification Reported Allergen(s) Allergy Type Date of Onset Reaction(s) Facility (1 source) Sulfonamides (Antibiotic) Drug allergy (disorder) 7 [facility] Repository (2 sources) Substance with sulfonamide structure and antibacterial mechanism of action (substance) Drug allergy Unknown simfy Other (3 sources) Sulfonamides (Antibiotic) Drug allergy (disorder) 3 [facility] Repository (3 sources) metroNIDAZOLE; Translations: [METRONIDAZOLE] Drug [...] 2024 3:52pm Magnesium Active polyethylene glycol 3350 869240 mg / potassium chloride 2970 mg / sodium bicarbonate 6740 mg / sodium chloride 5860 mg / sodium sulfate 61066 mg powder for oral solution (2 sources) [...] Reference Range Facility Cytologyon 11-20-2023 Cytology Normal [facility] Comment on above: Result Comment: [facility] Laboratory Medicine [address] [place] [address] Gynecologic Cytology Consultation Patient Name:ISIDRO MUSA:1970 (Age: 53)Gender:FTaken:11/20/2023Reported:12/01/2023hysician(s):Therese Sanchez C.N.M. ([phone])Copy To: Rec. #:[id number]: #[id number] Final Cytologic Interpretation ThinPrep Pap Test (Cervical): Satisfactory for evaluation. A transformation zone component is present. NEGATIVE FOR INTRAEPITHELIAL LESION OR MALIGNANCY. jnola/12/01/2023 Interpretation performed at [facility], [address] [place] [address], License number: [id number]. 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 Normal [facility] Comment on above: Performed By: #### 7 1431-1 #### [facility] ([id number]) [address] [place] [address], FIRST FLOOR [place], [place] [address] [place] [address] LAB ([id number]) [address] [place] [address], [address] [place] [address] Dusty 08-31-2023 L - -------- Specimen: [id number] Received: 08/31/23 Status: GRECIA Dent Num: [id number] Spec Type: Surgical Subm Dr: Danita Alfaro MD Tissues: A Small Intestine - Biopsy/Polyp (ILEUM BX) B Colon Biopsy (RT COLON BX) C Colon Biopsy (TRANSVERSE BX) D Colon Biopsy (DESCENDING) E Colon Biopsy (SIGMOID BX) F Colon Biopsy (RECTUM BX) Procedures: /12, Gross/Micro L4/6 -------- Age/ Patient Sex Location Account Attending Physician -------- Isidro Musa 53/F [id number] Danita Alfaro MD -------- SPEC NUM: [id number] RECD: 08/31/23 STATUS: GRECIA ANGEL NUM: [id number] TOSIN: 08/31/23 DR: Danita Alfaro MD ENTERED: 08/31/23 [facility] DR: MARIANELA TYPE: Surgical DEPT: S ORDERED: [...] other specific histopathological abnormality observed -------- Specimen: [id number] Received: 08/31/23 Status: GRECIA Dent Num: [id number] Spec Type: Surgical Subm Dr: Danita Alfaro MD Tissues: A Small Intestine - Biopsy/Polyp (ILEUM BX) B Colon Biopsy (RT COLON BX) C Colon Biopsy (TRANSVERSE BX) D Colon Biopsy (DESCENDING) E Colon Biopsy (SIGMOID BX) F Colon Biopsy (RECTUM BX) Procedures: , Gross/Micro L4/6 -------- Patient: RusselllinnetterolandoIsidro [id number] (Continued) -------- Specimen: [id number] Received: 08/31/23 (Continued) Pathological Diagnosis (Continued) Signed (signature on file) Roxann Moscoso MD 09/01/23 1718 -------- Specimen: [id number] Received: 08/31/23 Status: GRECIA Dent Num: [id number] Spec Type: Surgical Subm Dr: Danita Alfaro MD Tissues: A Small Intestine - Biopsy/Polyp (ILEUM BX) B Colon Biopsy (RT COLON BX) C Colon Biopsy (TRANSVERSE BX) D Colon Biopsy (DESCENDING) E Colon Biopsy (SIGMOID BX) F Colon Biopsy (RECTUM BX) Procedures: /, Gross/Micro L4/6 -------- Patient: Lourdes Musacase Marin [id number] (Continued) -------- Specimen: [id number] Received: 08/31/23 (Continued) Pathological Diagnosis (Continued) E. [...] and transvers (more content not included)... Normal [facility] Covid-19 PCR (CVDTBH)on 01-01 SARS-CoV-2 (COVID-19) RNA CLARA+probe Ql (Unsp spec) Not detected Normal NOT DETECTED [facility] Comment on above: Result Comment: When diagnostic [...] for this test is supported by the [place] of Health and Human Service's declaration that [...] used). Performed By: #### C VDTBH #### [facility] [address] [place] [address] Dr. Kirit Moscoso OVA AND PARASITE EXAMINATION on 01-19-2023 Ova + Parasite Exam Final report Normal [facility] Comment on above: Result Comment: Thes e results were obtained using wet preparation(s) and trichrome stained smear. This test does not include testing for Cryptosporidium parvum, Cyclospora, or Microsporidia. Performed By: #### C BC #### [facility] [address] [place] [address] Dr. Kirit Moscoso Result 1 Comment Normal [facility] Comment on above: Result Comment: No o va, cysts, or parasites seen. . One negative specimen does not rule out the possibility of a parasitic infection. Performed By: #### C BC #### [facility] [address] [place] [address] Dr. Kirit Moscoso SAGE by IFAon 01-16-2023 Antinuclear Antibodies, IFA Positive Abnormal [facility] Comment on above: Result Comment: Nega tive <1:80 Borderline 1:80 Positive >1:80 Performed By: #### T 7, TSH #### [facility] [address] [place] [address] Dr. Kirit Moscoso Centriole Pattern Normal [facility] Comment on above: Performed By: #### T 7, TSH #### [facility] [address] [place] [address] Dr. Kirit Moscoso Centromere Pattern Normal [facility] Comment on above: Performed By: #### T 7, TSH #### [facility] [address] [address] [address] Kirit Moscoso Homogeneous Pattern 1:640 Critically high [facility] Comment on above: Result Comment: ICAP nomenclature: AC-1 Performed By: #### T 7, TSH #### [facility] [address] [place] [address] Dr. Kirit Moscoso Midbody Pattern Normal [facility] Comment on above: Performed By: #### T 7, TSH #### [facility] [address] [place] [address] Dr. Kirit Moscoso Note: Comment Normal [facility] Comment on above: Result Comment: For more [...] titers Nucleosomes, Histones Drug-induced SLE Speckled Sm, QUALITY ENGINEER, SCL-70, SLE,MCTD,PSS (diffuse form), SS-A/SS-B Sjogrens Nucleolar SCL-70, PM-1/SCL High titers Scleroderma, PM/DM Centromere Centromere PSS (limited form) w/Crest syndrome variable Nuclear Dot Sp100,[id number] Primary Biliary Cirrhosis Nuclear GP210, Primary Biliary Cirrhosis Membrane missy A,B,C Performed By: #### T 7, TSH #### [facility] [address] [place] [address] Dr. Kirit Moscoso Nuclear Dot Pattern Normal [facility] Comment on above: Performed By: #### T 7, TSH #### [facility] [address] [place] [address] Dr. Kirit Moscoso Nuclear Membrane Pattern Normal [facility] Comment on above: Performed By: #### T 7, TSH #### [facility] [address] [place] [address] Dr. Kirit Moscoso Nucleolar Pattern Normal [facility] Comment on above: Performed By: #### T 7, TSH #### [facility] [address] [place] [address] Dr. Kirit Moscoso PCNA Pattern Normal [facility] Comment on above: Performed By: #### T 7, TSH #### [facility] [address] [place] [address] Dr. Kirit Moscoso Speckled Pattern Normal [facility] Comment on above: Performed By: #### T 7, TSH #### [facility] [address] [place] [address] Dr. Kirit Moscoso Spindle Apparatus Pattern Normal [facility] Comment on above: Performed By: #### T 7, TSH #### [facility] [address] [place] [address] Dr. Kirit Moscoso GI PANEL (PCR)on 01-13-2023 Adenovirus F 40/41 Not detected Normal NOT DETECTED [facility] Comment on above: Performed By: #### T 7, TSH #### [facility] [address] [place] [address] Dr. Kirit Moscoso Astrovirus Not detected Normal NOT DETECTED [facility] Comment on above: Performed By: #### T 7, TSH #### [facility] [address] [place] [address] Dr. Kirit Mariscal. Diff toxin A/B Not detected Normal NOT DETECTED [facility] Comment on above: Performed By: #### T 7, TSH #### [facility] [address] [address] [address] Kirit Moscoso Campylobacter Not detected Normal NOT DETECTED [facility] Comment on above: Performed By: #### T 7, TSH #### [facility] [address] [place] [address] Dr. Kirit Moscoso Cryptosporidium Not detected Normal NOT DETECTED [facility] Comment on above: Performed By: #### T 7, TSH #### [facility] [address] [address] [address] Kirit Moscoso Cyclos. Cayetanensis Not detected Normal NOT DETECTED [facility] Comment on above: Performed By: #### T 7, TSH #### [facility] [address] [place] [address] Dr. Kirit Moscoso E. Coli O157 Not Applicable Normal Not Applicable [facility] Comment on above: Performed By: #### T 7, TSH #### [facility] [address] [place] [address] Dr. Kirit Moscoso E. histolytica Not detected Normal NOT DETECTED [facility] Comment on above: Performed By: #### T 7, TSH #### [facility] [address] [place] [address] Dr. Kirit Moscoso EAEC Not detected Normal NOT DETECTED [facility] Comment on above: Performed By: #### T 7, TSH #### [facility] [address] [place] [address] Dr. Kirit Moscoso EIEC Not detected Normal NOT DETECTED [facility] Comment on above: Performed By: #### T 7, TSH #### [facility] [address] [place] [address] Dr. Kirit Moscoso EPEC Not detected Normal NOT DETECTED [facility] Comment on above: Performed By: #### T 7, TSH #### [facility] [address] [place] [address] Dr. Kirit Moscoso ETEC Not detected Normal NOT DETECTED [facility] Comment on above: Performed By: #### T 7, TSH #### [facility] [address] [place] [address] Dr. Kirit Wood Not detected Normal NOT DETECTED [facility] Comment on above: Performed By: #### T 7, TSH #### [facility] [address] [address] [address] Kirit RUBY CONTROLS PASSED Normal [facility] Comment on above: Performed By: #### T 7, TSH #### [facility] [address] [address] [address] Kirit MACIAS HEADER GI PANEL BACTERIA Normal [facility] Comment on above: Performed By: #### T 7, TSH #### [facility] [address] [address] [address] Kirit SHARPE ECOLI GI PANEL DIARRHEAGENIC E.COLI / SHIGELLA Normal [facility] Comment on above: Performed By: #### T 7, TSH #### [facility] [address] [address] [address] Kirit SHARPE INFO SEE BELOW Normal [facility] Comment on above: Result Comment: EAEC - Enteroaggregative E. Coli EPEC- Enteropathogenic E. Coli ETEC- Enterotoxigenic E. Coli lt/st STEC- Shigella-like toxin-producing E. Coli stx1/stx2 EIEC- Shigella/Enteroinvasive E. Coli Performed By: #### T 7, TSH #### [facility] [address] [address] [address] Kirit SHARPE PARASITES GI PANEL PARASITES Normal [facility] Comment on above: Performed By: #### T 7, TSH #### [facility] [address] [address] [address] Kirit SHARPE VIRUS GI PANEL VIRUSES Normal [facility] Comment on above: Performed By: #### T 7, TSH #### [facility] [address] [address] [address] Kirit Moscoso Norovirus GI/GII Not detected Normal NOT DETECTED [facility] Comment on above: Performed By: #### T 7, TSH #### [facility] [address] [address] [address] Kirit Moscoso P. Shigelloides Not detected Normal NOT DETECTED [facility] Comment on above: Performed By: #### T 7, TSH #### [facility] [address] [place] [address] Dr. Kirit Moscoso Rotavirus A Not detected Normal NOT DETECTED [facility] Comment on above: Performed By: #### T 7, TSH #### [facility] [address] [place] [address] Dr. Kirit Moscoso Salmonella Not detected Normal NOT DETECTED [facility] Comment on above: Performed By: #### T 7, TSH #### [facility] [address] [place] [address] Dr. Kirit Moscoso Sapovirus Not detected Normal NOT DETECTED [facility] Comment on above: Performed By: #### T 7, TSH #### [facility] [address] [place] [address] Dr. Kirit Moscoso STEC Not detected Normal NOT DETECTED [facility] Comment on above: Performed By: #### T 7, TSH #### [facility] [address] [place] [address] Dr. Kirit Moscoso Vibrio Not detected Normal NOT DETECTED [facility] Comment on above: Performed By: #### T 7, TSH #### [facility] [address] [place] [address] Dr. Kirit Moscoso Vibrio Cholera Not detected Normal NOT DETECTED [facility] Comment on above: Performed By: #### T 7, TSH #### [facility] [address] [place] [address] Dr. Kirit Moscoso Y. Enterocolitica Not detected Normal NOT DETECTED [facility] Comment on above: Performed By: #### T 7, TSH #### [facility] [address] [place] [address] Dr. Kirit Moscoso INSULINon 01-12-2023 Insulin 23.6 uIU/mL Normal 2.6-24.9 [facility] Comment on above: Performed By: #### T 7, TSH #### [facility] [address] [place] [address] Dr. Kirit Moscoso ANTISTREPTOLYSIN O AB (ASO)o n 01-11-2023 Antistreptolysin O Ab 70.3 IU/mL Normal 0.0-200.0 [facility] Comment on above: Performed By: #### A SOAB #### [facility] [address] [place] [address] Dr. Kirit Moscoso RHEUMATOID FACTORon 01-11-20 RA Latex Turbid. <10.0 Normal <14.0 [facility] Comment on above: Performed By: #### R F #### [facility] [address] [place] [address] Dr. Kirit Moscoso CBC AUTO DIFFon 01-10-2023 BASO # 0.1 103/ul Normal 0.0-0.1 [facility] Comment on above: Performed By: #### C BC #### [facility] [address] [place] [address] Dr. Kirit Moscoso Basophils/100 WBC (Bld) 1.2 % Normal 0.2-2.0 [facility] Comment on above: Performed By: #### C BC #### [facility] [address] [place] [address] Dr. Kirit Moscoso EO # 0.0 103/ul Normal 0.0-0.7 [facility] Comment on above: Performed By: #### C BC #### [facility] [address] [place] [address] Dr. Kirit Moscoso Eosinophils/100 WBC (Bld) 0.0 % Critically low 0.9-7.0 [facility] Comment on above: Performed By: #### C BC #### [facility] [address] [place] [address] Dr. Kirit Moscoso Erythrocyte distribution width (RBC) [Ratio] 13.6 % Normal 11.0-15.0 [facility] Comment on above: Performed By: #### C BC #### [facility] [address] [place] [address] Dr. Kirit Moscoso Hematocrit (Bld) [Volume fraction] 44.2 % Normal 36.0-48.0 [facility] Comment on above: Performed By: #### C BC #### [facility] [address] [place] [address] Dr. Kirit Moscoso Hemoglobin (Bld) [Mass/Vol] 14.2 g/dL Normal 12.0-16.0 [facility] Comment on above: Performed By: #### C BC #### [facility] [address] [place] [address] Dr. Kirit Moscoso IG # 0.02 10e3/ul Normal 0.00-0.03 [facility] Comment on above: Performed By: #### C BC #### [facility] [address] [place] [address] Dr. Kirit Moscoso IG % 0.3 % Normal 0.0-0.5 [facility] Comment on above: Performed By: #### C BC #### [facility] [address] [place] [address] Dr. Kirit Moscoso LYMPH # 1.5 103/ul Normal 1.2-3.8 [facility] Comment on above: Performed By: #### C BC #### [facility] [address] [place] [address] Dr. Kirit Moscoso Lymphocytes/100 WBC (Bld) 22.7 % Normal 20.5-60.0 [facility] Comment on above: Performed By: #### C BC #### [facility] [address] [place] [address] Dr. Kirit Moscoso MANUAL DIFF REQ NO Normal [facility] Comment on above: Performed By: #### C BC #### [facility] [address] [place] [address] Dr. Kirit Moscoso MCH (RBC) [Entitic mass] 27.8 pg Normal 26.7-34.0 [facility] Comment on above: Performed By: #### C BC #### [facility] [address] [place] [address] Dr. Kirit Mosocso MCHC (RBC) [Mass/Vol] 32.1 g/dL Normal 29.9-35.2 [facility] Comment on above: Performed By: #### C BC #### [facility] [address] [address] [address] Kirit Moscoso MCV (RBC) [Entitic vol] 86.5 fL Normal 81.0-99.0 [facility] Comment on above: Performed By: #### C BC #### [facility] [address] [address] [address] Kirit Moscoso MONO # 0.5 103/ul Normal 0.3-0.8 [facility] Comment on above: Performed By: #### C BC #### [facility] [address] [place] [address] Dr. Kirit Moscoso Monocytes/100 WBC (Bld) 7.3 % Normal 1.7-12.0 [facility] Comment on above: Performed By: #### C BC #### [facility] [address] [place] [address] Dr. Kirit Moscoso NEUT # 4.5 103/ul Normal 1.4-6.5 [facility] Comment on above: Performed By: #### C BC #### [facility] [address] [place] [address] Dr. Kirit Moscoso Neutrophils/100 WBC (Bld) 68.5 % Normal 43.0-75.0 [facility] Comment on above: Performed By: #### C BC #### [facility] [address] [place] [address] Dr. Kirit Moscoso Platelet mean volume (Bld) [Entitic vol] 10.2 fL Normal 9.5-13.5 [facility] Comment on above: Performed By: #### C BC #### [facility] [address] [place] [address] Dr. Kirit Moscoso PLT 250 103/ul Normal 150-450 [facility] Comment on above: Performed By: #### C BC #### [facility] [address] [place] [address] Dr. Kirit Moscoso RBC 5.11 106/ul Normal 4.20-5.40 [facility] Comment on above: Performed By: #### C BC #### [facility] [address] [place] [address] Dr. Kirit Moscoso WBC 6.6 103/ul Normal 4.0-11.0 [facility] Comment on above: Performed By: #### C BC #### [facility] [address] [address] [address] Kirit Moscoso CRPon 01-10-2023 CRP 1.2 mg/dL Critically high <=1.0 [facility] Comment on above: Performed By: #### C RP, CMP, URIC, LIPID #### [facility] [address] [address] [address] Kirit Mosocso GLYCOHEMOGLOBIN A1Con 2022 ADA RECOMMENDATION SEE BELOW Normal [facility] Comment on above: Result Comment: ADA RECOMMENDED LIMIT 4.0 - 6.0 ADA THERAPEUTIC TARGET < 7.0 ACTION SUGGESTED > 7.0 Performed By: #### T 7, TSH #### [facility] [address] [address] [address] Kirit Moscoso Glucose [Mass/Vol] 114 mg/dL Normal [facility] Comment on above: Performed By: #### T 7, TSH #### [facility] [address] [address] [address] Kirit Moscoso HbA1c (Bld) [Mass fraction] 5.6 % Normal 4.5-6.2 [facility] Comment on above: Performed By: #### T 7, TSH #### [facility] [address] [address] [address] Kirit Moscoso IRONon 01-10-2023 Iron [Mass/Vol] 59.0 ug/dL Normal 50.0-170.0 [facility] Comment on above: Performed By: #### C BC #### [facility] [address] [address] [address] Kirit Moscoso LIPID PROFILEon 01-10-2023 CHOL-HDL RATIO NORM SEE BELOW Normal [facility] Comment on above: Result Comment: 3.3 - 4.4 LOW RISK 4.4 - 7.1 AVERAGE RISK 7.1 - 11.0 MODERATE RISK >11.0 HIGH RISK Performed By: #### C RP, CMP, URIC, LIPID #### [facility] [address] [address] [address] Kirit Moscoso Cholesterol [Mass/Vol] 188 mg/dL Normal <=200 [facility] Comment on above: Performed By: #### C RP, CMP, URIC, LIPID #### [facility] [address] [address] [address] Kirit Moscoso Cholesterol in HDL [Mass/Vol] 45 mg/dL Normal 40-60 [facility] Comment on above: Performed By: #### C RP, CMP, URIC, LIPID #### [facility] [address] [address] [address] Kirit Moscoso Cholesterol in LDL [Mass/Vol] 129.0 mg/dL Normal [facility] Comment on above: Performed By: #### C RP, CMP, URIC, LIPID #### [facility] [address] [address] [address] Kirit Moscoso Cholesterol.total/Cho lesterol in HDL [Mass ratio] 4.2 {ratio} Normal [facility] Comment on above: Performed By: #### C RP, CMP, URIC, LIPID #### [facility] [address] [address] [address] Kirit Moscoso HDL NORMAL > or = 60 mg/dl - LO W CARDIOVASCULAR RISK <40 mg/dl - HIGH CARDIOVASCULAR RISK Normal [facility] Comment on above: Performed By: #### C RP, CMP, URIC, LIPID #### [facility] [address] [address] [address] Kirit Moscoso LDL CALC NORMAL SEE BELOW Normal [facility] Comment on above: Result Comment: <100 mg/dl OPTIMAL 100 - 129 mg/dl NEAR OR ABOVE OPTIMAL 130 - 159 mg/dl BORDERLINE HIGH 160 - 189 mg/dl HIGH >190 mg/dl VERY HIGH Performed By: #### C RP, CMP, URIC, LIPID #### [facility] [address] [address] [address] Kirit Moscoso Triglyceride [Mass/Vol] 71 mg/dL Normal <=150 [facility] Comment on above: Performed By: #### C RP, CMP, URIC, LIPID #### [facility] [address] [address] [address] Kirit Moscoso VLDL CALC 14.2 mg/dL Normal [facility] [facility] Comment on above: Performed By: #### C RP, CMP, URIC, LIPID #### [facility] [address] [address] [address] Kirit Moscoso PROF 14(COMP METB)on 023 Albumin [Mass/Vol] 3.5 g/dL Normal 3.4-5.0 [facility] Comment on above: Performed By: #### C RP, CMP, URIC, LIPID #### [facility] [address] [address] [address] Kirit Moscoso Albumin/Globulin [Mass ratio] 0.8 {ratio} Normal [facility] Comment on above: Performed By: #### C RP, CMP, URIC, LIPID #### [facility] [address] [address] [address] Kirit Moscoso ALP [Catalytic activity/Vol] 109 U/L Normal 46-116 [facility] Comment on above: Performed By: #### C RP, CMP, URIC, LIPID #### [facility] [address] [address] [address] Kirit Moscoso ALT [Catalytic activity/Vol] 26 U/L Normal 14-59 [facility] Comment on above: Performed By: #### C RP, CMP, URIC, LIPID #### [facility] [address] [address] [address] Kirit Moscoso Anion gap [Moles/Vol] 11.3 mmol/L Normal [facility] Comment on above: Performed By: #### C RP, CMP, URIC, LIPID #### [facility] [address] [address] [address] Kirit Moscoso AST [Catalytic activity/Vol] 16 U/L Normal 15-37 [facility] Comment on above: Performed By: #### C RP, CMP, URIC, LIPID #### [facility] [address] [address] [address] Kirit Moscoso Bilirubin [Mass/Vol] 0.4 mg/dL Normal 0.2-1.0 [facility] Comment on above: Performed By: #### C RP, CMP, URIC, LIPID #### [facility] [address] [address] [address] Kirit Moscoso Calcium [Mass/Vol] 9.1 mg/dL Normal 8.5-10.1 [facility] Comment on above: Performed By: #### C RP, CMP, URIC, LIPID #### [facility] [address] [place] [address] Dr. Kirit Moscoso Chloride [Moles/Vol] 105 mmol/L Normal 98-107 [facility] Comment on above: Performed By: #### C RP, CMP, URIC, LIPID #### [facility] [address] [place] [address] Dr. Kirit Moscoso CO2 [Moles/Vol] 26.5 mmol/L Normal 21.0-32.0 [facility] Comment on above: Performed By: #### C RP, CMP, URIC, LIPID #### [facility] [address] [place] [address] Dr. Kirit Moscoso Creatinine [Mass/Vol] 0.97 mg/dL Normal 0.55-1.02 [facility] Comment on above: Performed By: #### C RP, CMP, URIC, LIPID #### [facility] [address] [place] [address] Dr. Kirit Moscoso EGFR-AF CUBAN >60 Normal >=60 [facility] Comment on above: Performed By: #### C RP, CMP, URIC, LIPID #### [facility] [address] [place] [address] Dr. Kirit Moscoso EGFR-NON AF CUBAN 60 mL/min/1.73m2 Normal >=60 [facility] Comment on above: Performed By: #### C RP, CMP, URIC, LIPID #### [facility] [address] [place] [address] Dr. Kirit Moscoso Globulin (S) [Mass/Vol] 4.3 g/dL Normal [facility] Comment on above: Performed By: #### C RP, CMP, URIC, LIPID #### [facility] [address] [address] [address] Kirit Moscoso Glucose [Mass/Vol] 96 mg/dL Normal 74-106 [facility] Comment on above: Performed By: #### C RP, CMP, URIC, LIPID #### [facility] [address] [place] [address] Dr. Kirit Moscoso Potassium [Moles/Vol] 4.1 mmol/L Normal 3.5-5.1 [facility] Comment on above: Performed By: #### C RP, CMP, URIC, LIPID #### [facility] [address] [address] [address] Kirit Moscoso Protein [Mass/Vol] 7.8 g/dL Normal 6.4-8.2 [facility] Comment on above: Performed By: #### C RP, CMP, URIC, LIPID #### [facility] [address] [place] [address] Dr. Kirit Moscoso Sodium [Moles/Vol] 139 mmol/L Normal 136-145 [facility] Comment on above: Performed By: #### C RP, CMP, URIC, LIPID #### [facility] [address] [place] [address] Dr. Kirit Moscoso Urea nitrogen [Mass/Vol] 19.0 mg/dL Critically high 7.0-18.0 [facility] Comment on above: Performed By: #### C RP, CMP, URIC, LIPID #### [facility] [address] [place] [address] Dr. Kirit Moscoso Urea nitrogen/Creatinine [Mass ratio] 19.6 mg/mg Normal [facility] Comment on above: Performed By: #### C RP, CMP, URIC, LIPID #### [facility] [address] [place] [address] Dr. Kirit Moscoso UA (CLEAN/CATCH) PROCESSING OPERATOR/MICRO I F IND.on 01-10-2023 Bilirubin Ql (U) Negative Normal NEGATIVE [facility] Comment on above: Performed By: #### C BC #### [facility] [address] [place] [address] Dr. Kirit Moscoso Clarity (U) CLEAR Normal CLEAR [facility] Comment on above: Performed By: #### C BC #### [facility] [address] [address] [address] Kirit Moscoso Color (U) LT. YELLOW Normal YELLOW [facility] Comment on above: Performed By: #### C BC #### [facility] [address] [address] [address] Kirit Moscoso Glucose Ql (U) Negative Normal NEGATIVE [facility] Comment on above: Performed By: #### C BC #### [facility] [address] [address] [address] Kirit Moscoso Hemoglobin Ql (U) Negative Normal NEGATIVE [facility] Comment on above: Performed By: #### C BC #### [facility] [address] [place] [address] Dr. Kirit Moscoso Ketones Ql (U) Negative Normal NEGATIVE [facility] Comment on above: Performed By: #### C BC #### [facility] [address] [place] [address] Dr. Kirit Moscoso LEUKOCYTES Negative Normal NEGATIVE [facility] Comment on above: Performed By: #### C BC #### [facility] [address] [address] [address] Kirit Moscoso Nitrite Ql (U) Negative Normal NEGATIVE [facility] Comment on above: Performed By: #### C BC #### [facility] [address] [place] [address] Dr. Kirit Moscoso pH (U) 5.5 [pH] Normal 5-9 [facility] Comment on above: Performed By: #### C BC #### [facility] [address] [address] [address] Kirit Moscoso SPEC GRAVITY 1.010 Normal 1.005-<=1.025 [facility] Comment on above: Performed By: #### C BC #### [facility] [address] [place] [address] Dr. Kirit Moscoso UA PROTEIN Negative Normal NEGATIVE/ TRACE [facility] Comment on above: Performed By: #### C BC #### [facility] [address] [place], [place] [id number] Dr. Kirit Moscoso UR MICRO IND NOT INDICATED Normal [facility] Comment on above: Performed By: #### C BC #### [facility] [address] [place] [address] Dr. Kirit Moscoso Urobilinogen Qn (U) 0.2 {Jose Juan'U}/dL Normal 0.2 - 1. 0 [facility] Comment on above: Performed By: #### C BC #### [facility] [address] [place] [address] Dr. Kirit Moscoso URIC ACID SERUMon 01-10-2023 Urate [Mass/Vol] 5.6 mg/dL Normal 2.6-6.0 [facility] Comment on above: Performed By: #### C RP, CMP, URIC, LIPID #### [facility] [address] [place] [address] Dr. Kirit Moscoso FREE THYROXINE INDEX T7on FTI 2.46 Normal 1.30-4.50 [facility] Comment on above: Performed By: #### T 7, TSH #### [facility] [address] [place] [address] Dr. Kirit Moscoso T3U 32.0 % Normal 30.0-39.0 [facility] Comment on above: Performed By: #### T 7, TSH #### [facility] [address] [place] [address] Dr. Kirit Moscoso T4 [Mass/Vol] 7.70 ug/dL Normal 4.80-13.90 [facility] Comment on above: Performed By: #### T 7, TSH #### [facility] [address] [place] [address] Dr. Kirit Moscoso TSHon 10-28-2022 TSH 2.263 uIU/mL Normal 0.358-3.740 [facility] Comment on above: Performed By: #### T 7, TSH #### [facility] [address] [place] [address] Dr. Kirit Moscoso FREE THYROXINE INDEX T7on FTI 3.30 Normal 1.30-4.50 [facility] Comment on above: Performed By: #### T 7, TSH #### [facility] [address] [address] [address] Kirit Moscoso T3U 34.0 % Normal 30.0-39.0 [facility] Comment on above: Performed By: #### T 7, TSH #### [facility] [address] [address] [address] Kirit Moscoso T4 [Mass/Vol] 9.70 ug/dL Normal 4.80-13.90 [facility] Comment on above: Performed By: #### T 7, TSH #### [facility] [address] [address] [address] Kirit Moscoso TSHon 04-16-2022 TSH 0.140 uIU/mL Critically low 0.358-3.740 [facility] Comment on above: Performed By: #### T 7, TSH #### [facility] [address] [place] [address] Dr. Kirit Moscoso TSH RANGE SEE BELOW Normal [facility] Comment on above: Result Comment: <0.3 4 UIU/ml HYPERTHYROID 0.34-5.60 UIU/ml EUTHYROID >5.60 UIU/ml HYPOTHYROID Performed By: #### T 7, TSH #### [facility] [address] [place] [address] Dr. Kirit Moscoso FREE T3on 02-27-2022 FREE T3 2.45 pg/mlL Critically low 2.77-5.27 [facility] Comment on above: Performed By: #### T 7, TSH #### [facility] [address] [place] [address] Dr. Kirit Moscoso T4on 02-27-2022 T4 [Mass/Vol] 7.00 ug/dL Normal 5.53-11.00 [facility] Comment on above: Performed By: #### T 7, TSH #### [facility] [address] [place] [address] Dr. Kirit Moscoso TSHon 02-27-2022 TSH 7.345 uIU/mL Critically high 0.470-4.680 [facility] Comment on above: Performed By: #### T 7, TSH #### [facility] [address] [address] [address] Kirit Moscoso TSH RANGE SEE BELOW Normal [facility] Comment on above: Result Comment: <0.3 4 UIU/ml HYPERTHYROID 0.34-5.60 UIU/ml EUTHYROID >5.60 UIU/ml HYPOTHYROID Performed By: #### T 7, TSH #### [facility] [address] [address] [address] Kirit Moscoso Vital Signs Date Time Vital Sign Value Performing Clinician Facility 05-04-2024 15:50-0400 Body height 160.02 cm [facility] 05-04-2024 15:50-0400 Body mass index (BMI) [Ratio] 35.4 kg/m2 [facility] 05-04-2024 15:50-0400 Body weight 90.71 kg [facility] 05-04-2024 15:50-0400 Diastolic blood pressure 82 mm[Hg] [facility] 05-04-2024 15:50-0400 Heart rate 71 /min [facility] 05-04-2024 15:50-0400 SaO2% (BldA) [Mass fraction] 98 % [facility] 05-04-2024 15:50-0400 Systolic blood pressure 120 mm[Hg] [facility] 06-29-2023 09:55-0400 Body height 160.02 cm Griselda Thao Other [facility] Other 06-29-2023 09:55-0400 Body mass index (BMI) [Ratio] 35.57 kg/m2 Griselda Thao Other [facility] Other 06-29-2023 09:55-0400 Body temperature 97.6 [degF] Griselda Thao Other [facility] Other 06-29-2023 09:55-0400 Body weight 91.08 kg Griselda Thao Other [facility] Other 06-29-2023 09:55-0400 Diastolic blood pressure 74 mm[Hg] Griselda Keesha Other [facility] Other 06-29-2023 09:55-0400 Respiratory rate 18 /min Griselda Keesha Other [facility] Other 06-29-2023 09:55-0400 SaO2% (BldA) [Mass fraction] 98 % Griselda Keesha Other [facility] Other 06-29-2023 09:55-0400 Systolic blood pressure 126 mm[Hg] Griselda Keesha Other [facility] Other Encounters Encounter Date Encounter Type Care Provider Facility Start: 05-04-2024 End: 05-04-2024 ambulatory [facility] Work Phone: Start: 05-04-2024 End: 05-04-2024 Patient encounter procedure [facility] Work Phone: Start: 12-31-2023 End: 12-31-2023 ambulatory Imad Asaad Other [facility] Other Start: 12-31-2023 Telephone encounter Imad Asaad [facility] Start: 11-20-2023 End: 11-21-2023 [facility] Start: 11-20-2023 Encounter for gynecological examination (general) (routine) without abnormal findings [facility] Start: 08-31-2023 End: 08-31-2023 ambulatory Tanisha Thao Facility:[facility] Start: 06-29-2023 End: 06-29-2023 ambulatory Griselda Thao Other [place] Other Start: 06-29-2023 Office outpatient vi sit 15 minutes Griselda Thao [facility] Start: 01-20-2023 End: 01-20-2023 ambulatory TANISHA P [place]ASIA Facility:[facility] Start: 01-16-2023 Encounter for genera l adult medical examination without abnormal findings TANISHA P [place]ASIA [facility] Start: 01-13-2023 End: 01-13-2023 ambulatory TANISHA [...] Care Activity Detail Author T3 reverse measurement [facility] Payers Date Payer Category Payer Self-pay 1970 Unknown [id number] 1970 Unknown [id number] 1968 Unknown [id number] 1968 Unknown [id number] 1968 Unknown [id number] 1968 Unknown [id number] 1968 Unknown [id number] 1968 Unknown [id number] 1968 Unknown [id number] 6 1959 Unknown [id number] 1959 Unknown [id number] Private Health Insurance [facility] [id number] Unknown [id number] Unknown MMO [id number] Unknown [place] [id number] Social History Date Type Detail Facility Unknown if ever smoked [facility] Other Sex Assigned At Sex Assigned At Bir th [facility] Other Start: 05-04-2024 Tobacco smoking status NHIS Never smoked tobacco (finding) [facility] Start: 1970 Sex Assigned At Female [facility] Evaluation note 12-31-2023 Note Date & Type Note Facility 12-31-2023 Evaluation note Encounter Date Diagnosis Assessment Notes Dec, Ulcerative colitis (ICD-10 - K51.90) [facility] Other Evaluation note 06-29-2023 Note Date & [...] worsening. Patient/Parent verbalized understanding of tx plan. [facility] Other Clinical Note 07-02-2022 Note Date & [...] authenticated by: JUANI KNOX Date: 2022-07-02 15:25 [facility] Evaluation note Note Date & Type Note Facility Evaluation note Diagnosis Onset Date Hypothyroid acute [facility] Work Phone: History general Narrative - Reported Note Date & Type Note Facility History general Narrative - Reported Type Medical History thyroid disease Medical History ulcerative colitis Surgical History tubal ligation Surgical History colonoscopy [facility] Other Summary Purpose Family History Relationship Condition [...] and content) DATE CREATED AUTHOR 02/04/2023 [facility] DATE CREATED AUTHOR AUTHOR'S ORGANIZ ATION 09/08/2023 [facility] DATE CREATED AUTHOR AUTHOR'S ORGANIZ ATION 12/02/2023 [facility] REASON FOR VISIT (unrecogniz ed section and content) BOTH EARS, PAINREFILL-PENTAS A Care Teams (unrecognized sec tion and content) Team Status: Active Member Role Status Dates Tanisha Thao , MACHINERY REPAIR MAINTENANCE SUPERVISOR-C Primary Care Provider Active Team Status: Inactive Member Role Status Dates Tanihsa Thao , MACHINERY REPAIR MAINTENANCE SUPERVISOR-C Primary Care Provider Active Start: May 04, 2024 End: May 04, 2024 Cayla Orona APRN MACHINERY REPAIR MAINTENANCE SUPERVISOR-C Attending Provider Act aguilar Start: May 04, 2024 End: May 04, 2024 Team Status: Active Member Role Status Dates Tanisha Thao , MACHINERY REPAIR MAINTENANCE SUPERVISOR-C Primary Care Provider Active Team Status: Active Member Role Status Dates Tanisha Thao , MACHINERY REPAIR MAINTENANCE SUPERVISOR-C Primary Care Provider Active Start: May 04, 2024 Cayla Orona APRN MACHINERY REPAIR MAINTENANCE SUPERVISOR-C Attending Provider Act aguilar Start: May 04, 2024 Team Status: Inactive Member Role Status Dates Tanisha Thao , MACHINERY REPAIR MAINTENANCE SUPERVISOR-C Primary Care Provider Active Start: May 04, 2024 End: May 04, 2024 Cayla Orona APRN MACHINERY REPAIR MAINTENANCE SUPERVISOR-C Attending Provider Act aguilar Start: May 04, [...] BE BASED ON THE PRIMARY CLINICAL RECORDS. [employer] provides no warranty or guarantee of the accuracy or completeness of information in this document.
[2024-07-16 11:12] LABS: Chol HDL Ratio 5.5; Cholesterol 221 mg/dL (<=200); HDL Cholesterol 40 mg/dL (40-60); Triglycerides 141 mg/dL (<=150); VLDL CHOLESTEROL 28.2 mg/dL
[2024-07-16 11:32] LABS: Percent Iron Saturation 28.2 %
== END 2024-07-16 10:09 | disposition home or self-care (01) ==
PROVIDERS: PCP Nurse Practitioner Family; Visit Provider Nurse Practitioner Family
DX: E78.00 Pure hypercholesterolemia, unspecified (principal); E03.9 Hypothyroidism, unspecified
CPT/HCPCS: 36415; 80061; 83540; 83550

== ENCOUNTER 2024-07-16 10:14 | Outpatient (OUT) | payer OTHER, SELFPAY ==
--- OUTSIDE RECORDS SUMMARY | 2024-07-16 10:18 | XMS_ITS | CCD ---
Author Organization [facility]iniSyri Care Team Providers Care Music Coordinator Name Role Phone NYASIA, TANISHA P Admitting [...] Sulfonamides (Antibiotic) Drug allergy (disorder) 7 [facility] Repository (2 sources) Substance with sulfonamide structure and antibacterial mechanism of action (substance) Drug allergy Unknown [facility] [employer] Other (3 sources) Sulfonamides (Antibiotic) Drug allergy (disorder) 3 [facility] Repository (3 sources) metroNIDAZOLE; Translations: [METRONIDAZOLE] Drug [...] 2024 3:52pm Magnesium Active polyethylene glycol 3350 524997 mg / potassium chloride 2970 mg / sodium bicarbonate 6740 mg / sodium chloride 5860 mg / sodium sulfate 24118 mg powder for oral solution (2 sources) [...] Reference Range Facility Cytologyon 11-20-2023 Cytology Normal [facility] Comment on above: Result Comment: [facility] [address] [place] [address] Gynecologic Cytology Consultation Patient Name:ISIDRO MUSA:1970 (Age: 53)Gender:FTaken:11/20/2023Reported:12/01/2023hysician(s):Therese Sanchez C.N.M. ([phone])Copy To: Rec. #:[id number]: #[id number] Final Cytologic Interpretation ThinPrep Pap Test (Cervical): Satisfactory for evaluation. A transformation zone component is present. NEGATIVE FOR INTRAEPITHELIAL LESION OR MALIGNANCY. jnola/12/01/2023 Interpretation performed at [facility], [address] [place] [address], License number: [id number]. 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 Normal [facility] Comment on above: Performed By: #### 7 1431-1 #### [facility] ([id number]) [address] [place] [address], FIRST FLOOR [place], [place] [id number] [place] [address] LAB ([id number]) [address] [place] [address], [address] [place] [address] Dusty 08-31-2023 L - -------- Specimen: [id number] Received: 08/31/23 Status: GRECIA Dent Num: [id number] Spec Type: Surgical Subm Dr: Danita Alfaro MD Tissues: A Small Intestine - Biopsy/Polyp (ILEUM BX) B Colon Biopsy (RT COLON BX) C Colon Biopsy (TRANSVERSE BX) D Colon Biopsy (DESCENDING) E Colon Biopsy (SIGMOID BX) F Colon Biopsy (RECTUM BX) Procedures: /12, Gross/Micro L4/6 -------- Age/ Patient Sex Location Account Attending Physician -------- Isidro Musa 53/F [id number] Danita Alfaro MD -------- SPEC NUM: [id number] RECD: 08/31/23 STATUS: GRECIA ANGEL NUM: [id number] TOSIN: 08/31/23 DR: Danita Alfaro MD ENTERED: 08/31/[address] [facility] [address]: MARIANELA TYPE: Surgical DEPT: S ORDERED: [...] other specific histopathological abnormality observed -------- Specimen: [id number] Received: 08/31/23 Status: GRECIA Dent Num: [id number] Spec Type: Surgical Subm Dr: Danita Alfaro MD Tissues: A Small Intestine - Biopsy/Polyp (ILEUM BX) B Colon Biopsy (RT COLON BX) C Colon Biopsy (TRANSVERSE BX) D Colon Biopsy (DESCENDING) E Colon Biopsy (SIGMOID BX) F Colon Biopsy (RECTUM BX) Procedures: , Gross/Micro L4/6 -------- Patient: RusselllinnetterolandoIsidro [id number] (Continued) -------- Specimen: [id number] Received: 08/31/23 (Continued) Pathological Diagnosis (Continued) Signed (signature on file) Roxann Moscoso MD 09/01/23 1718 -------- Specimen: [id number] Received: 08/31/23 Status: GRECIA Dent Num: [id number] Spec Type: Surgical Subm Dr: Danita Alfaro MD Tissues: A Small Intestine - Biopsy/Polyp (ILEUM BX) B Colon Biopsy (RT COLON BX) C Colon Biopsy (TRANSVERSE BX) D Colon Biopsy (DESCENDING) E Colon Biopsy (SIGMOID BX) F Colon Biopsy (RECTUM BX) Procedures: /, Gross/Micro L4/6 -------- Patient: Lourdes Musacase Marin [id number] (Continued) -------- Specimen: [id number] Received: 08/31/23 (Continued) Pathological Diagnosis (Continued) E. [...] and transvers (more content not included)... Normal [facility] Covid-19 PCR (CVDTBH)on 01-01 SARS-CoV-2 (COVID-19) RNA CLARA+probe Ql (Unsp spec) Not detected Normal NOT DETECTED [facility] Comment on above: Result Comment: When [...] for this test is supported by the [place] of Health and Human Service's declaration that [...] used). Performed By: #### C VDTBH #### [facility] [address] [place] [address] Dr. Kirit Moscoso OVA AND PARASITE EXAMINATION on 01-19-2023 Ova + Parasite Exam Final report Normal [facility] Comment on above: Result Comment: Thes e results were obtained using wet preparation(s) and trichrome stained smear. This test does not include testing for Cryptosporidium parvum, Cyclospora, or Microsporidia. Performed By: #### C BC #### [facility] [address] [place] [address] Dr. Kirit Moscoso Result 1 Comment Normal [facility] Comment on above: Result Comment: No o va, cysts, or parasites seen. . One negative specimen does not rule out the possibility of a parasitic infection. Performed By: #### C BC #### [facility] [address] [place] [address] Dr. Kirit Moscoso SAGE by IFAon 01-16-2023 Antinuclear Antibodies, IFA Positive Abnormal [facility] Comment on above: Result Comment: Nega tive <1:80 Borderline 1:80 Positive >1:80 Performed By: #### T 7, TSH #### [facility] [address] [place] [address] Dr. Kirit Moscoso Centriole Pattern Normal [facility] Comment on above: Performed By: #### T 7, TSH #### [facility] [address] [place] [address] Dr. Kirit Moscoso Centromere Pattern Normal The [facility] Comment on above: Performed By: #### T 7, TSH #### [facility] [address] [address] [address] Kirit Moscoso Homogeneous Pattern 1:640 Critically high [facility] Comment on above: Result Comment: ICAP nomenclature: AC-1 Performed By: #### T 7, TSH #### [facility] [address] [place] [address] Dr. Kirit Moscoso Midbody Pattern Normal The [facility] Comment on above: Performed By: #### T 7, TSH #### [facility] [address] [place] [address] Dr. Kirit Moscoso Note: Comment Normal [facility] Comment on above: Result Comment: For [...] titers Nucleosomes, Histones Drug-induced SLE Speckled Sm, POT OPERATOR, SCL-70, SLE,MCTD,PSS (diffuse form), SS-A/SS-B Sjogrens Nucleolar SCL-70, PM-1/SCL High titers Scleroderma, PM/DM Centromere Centromere PSS (limited form) w/Crest syndrome variable Nuclear Dot Sp100,v50-vratmp Primary Biliary Cirrhosis Nuclear GP210, Primary Biliary Cirrhosis Membrane missy A,B,C Performed By: #### T 7, TSH #### [facility] [address] [place] [address] Dr. Kirit Moscoso Nuclear Dot Pattern Normal [facility] Comment on above: Performed By: #### T 7, TSH #### [facility] [address] [place] [address] Dr. Kirit Moscoso Nuclear Membrane Pattern Normal [facility] Comment on above: Performed By: #### T 7, TSH #### [facility] [address] [place] [address] Dr. Kirit Moscoso Nucleolar Pattern Normal [facility] Comment on above: Performed By: #### T 7, TSH #### [facility] [address] [place] [address] Dr. Kirit Moscoso PCNA Pattern Normal [facility] Comment on above: Performed By: #### T 7, TSH #### [facility] [address] [place] [address] Dr. Kirit Moscoso Speckled Pattern Normal [facility] Comment on above: Performed By: #### T 7, TSH #### [facility] [address] [place] [address] Dr. Kirit Moscoso Spindle Apparatus Pattern Normal [facility] Comment on above: Performed By: #### T 7, TSH #### [facility] [address] [place] [address] Dr. Kirit Moscoso GI PANEL (PCR)on 01-13-2023 Adenovirus F 40/41 Not detected Normal NOT DETECTED [facility] Comment on above: Performed By: #### T 7, TSH #### [facility] [address] [place] [address] Dr. Kirit Moscoso Astrovirus Not detected Normal NOT DETECTED [facility] Comment on above: Performed By: #### T 7, TSH #### [facility] [address] [place] [address] Dr. Kirit Mariscal. Diff toxin A/B Not detected Normal NOT DETECTED [facility] Comment on above: Performed By: #### T 7, TSH #### [facility] [address] [address] [address] Kirit Moscoso Campylobacter Not detected Normal NOT DETECTED [facility] Comment on above: Performed By: #### T 7, TSH #### [facility] [address] [place] [address] Dr. Kirit Moscoso Cryptosporidium Not detected Normal NOT DETECTED [facility] Comment on above: Performed By: #### T 7, TSH #### [facility] [address] [address] [address] Kirit Moscoso Cyclos. Cayetanensis Not detected Normal NOT DETECTED [facility] Comment on above: Performed By: #### T 7, TSH #### [facility] [address] [place] [address] Dr. Kirit Moscoso E. Coli O157 Not Applicable Normal Not Applicable [facility] Comment on above: Performed By: #### T 7, TSH #### [facility] [address] [place] [address] Dr. Kirit Moscoso E. histolytica Not detected Normal NOT DETECTED [facility] Comment on above: Performed By: #### T 7, TSH #### [facility] [address] [place] [address] Dr. Kirit Moscoso EAEC Not detected Normal NOT DETECTED [facility] Comment on above: Performed By: #### T 7, TSH #### [facility] [address] [place] [address] Dr. Kirit Moscoso EIEC Not detected Normal NOT DETECTED [facility] Comment on above: Performed By: #### T 7, TSH #### [facility] [address] [place] [address] Dr. Kirit Moscoso EPEC Not detected Normal NOT DETECTED [facility] Comment on above: Performed By: #### T 7, TSH #### [facility] [address] [place] [address] Dr. Kirit Moscoso ETEC Not detected Normal NOT DETECTED [facility] Comment on above: Performed By: #### T 7, TSH #### [facility] [address] [place] [address] Dr. Kirit Wood Not detected Normal NOT DETECTED [facility] Comment on above: Performed By: #### T 7, TSH #### [facility] [address] [address] [address] Kirit RUBY CONTROLS PASSED Normal [facility] Comment on above: Performed By: #### T 7, TSH #### [facility] [address] [address] [address] Kirit MACIAS HEADER GI PANEL BACTERIA Normal [facility] Comment on above: Performed By: #### T 7, TSH #### [facility] [address] [address] [address] Kirit SHARPE ECOLI GI PANEL DIARRHEAGENIC E.COLI / SHIGELLA Normal [facility] Comment on above: Performed By: #### T 7, TSH #### [facility] [address] [address] [address] Kirit SHARPE INFO SEE BELOW Normal [facility] Comment on above: Result Comment: EAEC - Enteroaggregative E. Coli EPEC- Enteropathogenic E. Coli ETEC- Enterotoxigenic E. Coli lt/st STEC- Shigella-like toxin-producing E. Coli stx1/stx2 EIEC- Shigella/Enteroinvasive E. Coli Performed By: #### T 7, TSH #### [facility] [address] [address] [address] Kirit SHARPE PARASITES GI PANEL PARASITES Normal [facility] Comment on above: Performed By: #### T 7, TSH #### [facility] [address] [address] [address] Kirit SHARPE VIRUS GI PANEL VIRUSES Normal [facility] Comment on above: Performed By: #### T 7, TSH #### [facility] [address] [address] [address] Kirit Moscoso Norovirus GI/GII Not detected Normal NOT DETECTED [facility] Comment on above: Performed By: #### T 7, TSH #### [facility] [address] [address] [address] Kirit Moscoso P. Shigelloides Not detected Normal NOT DETECTED [facility] Comment on above: Performed By: #### T 7, TSH #### [facility] [address] [place] [address] Dr. Kirit Moscoso Rotavirus A Not detected Normal NOT DETECTED [facility] Comment on above: Performed By: #### T 7, TSH #### [facility] [address] [place] [address] Dr. Kirit Moscoso Salmonella Not detected Normal NOT DETECTED [facility] Comment on above: Performed By: #### T 7, TSH #### [facility] [address] [place] [address] Dr. Kirit Moscoso Sapovirus Not detected Normal NOT DETECTED [facility] Comment on above: Performed By: #### T 7, TSH #### [facility] [address] [place] [address] Dr. Kirit Moscoso STEC Not detected Normal NOT DETECTED [facility] Comment on above: Performed By: #### T 7, TSH #### [facility] [address] [place] [address] Dr. Kirit Moscoso Vibrio Not detected Normal NOT DETECTED [facility] Comment on above: Performed By: #### T 7, TSH #### [facility] [address] [place] [address] Dr. Kirit Moscoso Vibrio Cholera Not detected Normal NOT DETECTED [facility] Comment on above: Performed By: #### T 7, TSH #### [facility] [address] [place] [address] Dr. Kirit Moscoso Y. Enterocolitica Not detected Normal NOT DETECTED [facility] Comment on above: Performed By: #### T 7, TSH #### [facility] [address] [place] [address] Dr. Kirit Moscoso INSULINon 01-12-2023 Insulin 23.6 uIU/mL Normal 2.6-24.9 [facility] Comment on above: Performed By: #### T 7, TSH #### [facility] [address] [place] [address] Dr. Kirit Moscoso ANTISTREPTOLYSIN O AB (ASO)o n 01-11-2023 Antistreptolysin O Ab 70.3 IU/mL Normal 0.0-200.0 [facility] Comment on above: Performed By: #### A SOAB #### [facility] [address] [place] [address] Dr. Kirit Moscoso RHEUMATOID FACTORon 01-11-20 RA Latex Turbid. <10.0 Normal <14.0 [facility] Comment on above: Performed By: #### R F #### [facility] [address] [place] [address] Dr. Kirit Moscoso CBC AUTO DIFFon 01-10-2023 BASO # 0.1 103/ul Normal 0.0-0.1 [facility] Comment on above: Performed By: #### C BC #### [facility] [address] [place] [address] Dr. Kirit Moscoso Basophils/100 WBC (Bld) 1.2 % Normal 0.2-2.0 [facility] Comment on above: Performed By: #### C BC #### [facility] [address] [place] [address] Dr. Kirit Moscoso EO # 0.0 103/ul Normal 0.0-0.7 [facility] Comment on above: Performed By: #### C BC #### [facility] [address] [place] [address] Dr. Kirit Moscoso Eosinophils/100 WBC (Bld) 0.0 % Critically low 0.9-7.0 [facility] Comment on above: Performed By: #### C BC #### [facility] [address] [place] [address] Dr. Kirit Moscoso Erythrocyte distribution width (RBC) [Ratio] 13.6 % Normal 11.0-15.0 [facility] Comment on above: Performed By: #### C BC #### [facility] [address] [place] [address] Dr. Kirit Moscoso Hematocrit (Bld) [Volume fraction] 44.2 % Normal 36.0-48.0 [facility] Comment on above: Performed By: #### C BC #### [facility] [address] [place] [address] Dr. Kirit Moscoso Hemoglobin (Bld) [Mass/Vol] 14.2 g/dL Normal 12.0-16.0 [facility] Comment on above: Performed By: #### C BC #### [facility] [address] [place] [address] Dr. Kirit Moscoso IG # 0.02 10e3/ul Normal 0.00-0.03 [facility] Comment on above: Performed By: #### C BC #### [facility] [address] [place] [address] Dr. Kirit Moscoso IG % 0.3 % Normal 0.0-0.5 [facility] Comment on above: Performed By: #### C BC #### [facility] [address] [place] [address] Dr. Kirit Moscoso LYMPH # 1.5 103/ul Normal 1.2-3.8 [facility] Comment on above: Performed By: #### C BC #### [facility] [address] [place] [address] Dr. Kirit Moscoso Lymphocytes/100 WBC (Bld) 22.7 % Normal 20.5-60.0 [facility] Comment on above: Performed By: #### C BC #### [facility] [address] [place] [address] Dr. Kirit Moscoso MANUAL DIFF REQ NO Normal [facility] Comment on above: Performed By: #### C BC #### [facility] [address] [place] [address] Dr. Kiirt Moscoso MCH (RBC) [Entitic mass] 27.8 pg Normal 26.7-34.0 [facility] Comment on above: Performed By: #### C BC #### [facility] [address] [place] [address] Dr. Kirit Moscoso MCHC (RBC) [Mass/Vol] 32.1 g/dL Normal 29.9-35.2 [facility] Comment on above: Performed By: #### C BC #### [facility] [address] [address] [address] Kirit Moscoso MCV (RBC) [Entitic vol] 86.5 fL Normal 81.0-99.0 [facility] Comment on above: Performed By: #### C BC #### [facility] [address] [address] [address] Kirit Moscoso MONO # 0.5 103/ul Normal 0.3-0.8 [facility] Comment on above: Performed By: #### C BC #### [facility] [address] [place] [address] Dr. Kirit Moscoso Monocytes/100 WBC (Bld) 7.3 % Normal 1.7-12.0 [facility] Comment on above: Performed By: #### C BC #### [facility] [address] [place] [address] Dr. Kirit Moscoso NEUT # 4.5 103/ul Normal 1.4-6.5 [facility] Comment on above: Performed By: #### C BC #### [facility] [address] [place] [address] Dr. Kirit Moscoso Neutrophils/100 WBC (Bld) 68.5 % Normal 43.0-75.0 [facility] Comment on above: Performed By: #### C BC #### [facility] [address] [place] [address] Dr. Kirit Moscoso Platelet mean volume (Bld) [Entitic vol] 10.2 fL Normal 9.5-13.5 [facility] Comment on above: Performed By: #### C BC #### [facility] [address] [place] [address] Dr. Kirit Moscoso PLT 250 103/ul Normal 150-450 [facility] Comment on above: Performed By: #### C BC #### [facility] [address] [place] [address] Dr. Kirit Moscoso RBC 5.11 106/ul Normal 4.20-5.40 [facility] Comment on above: Performed By: #### C BC #### [facility] [address] [place] [address] Dr. Kirit Moscoso WBC 6.6 103/ul Normal 4.0-11.0 [facility] Comment on above: Performed By: #### C BC #### [facility] [address] [address] [address] Kirit Moscoso CRPon 01-10-2023 CRP 1.2 mg/dL Critically high <=1.0 [facility] Comment on above: Performed By: #### C RP, CMP, URIC, LIPID #### [facility] [address] [address] [address] Kirit Moscoso GLYCOHEMOGLOBIN A1Con 2022 ADA RECOMMENDATION SEE BELOW Normal [facility] Comment on above: Result Comment: ADA RECOMMENDED LIMIT 4.0 - 6.0 ADA THERAPEUTIC TARGET < 7.0 ACTION SUGGESTED > 7.0 Performed By: #### T 7, TSH #### [facility] [address] [address] [address] Kirit Moscoso Glucose [Mass/Vol] 114 mg/dL Normal [facility] Comment on above: Performed By: #### T 7, TSH #### [facility] [address] [address] [address] Kirit Moscoso HbA1c (Bld) [Mass fraction] 5.6 % Normal 4.5-6.2 [facility] Comment on above: Performed By: #### T 7, TSH #### [facility] [address] [address] [address] Kirit Moscoso IRONon 01-10-2023 Iron [Mass/Vol] 59.0 ug/dL Normal 50.0-170.0 [facility] Comment on above: Performed By: #### C BC #### [facility] [address] [address] [address] Kirit Moscoso LIPID PROFILEon 01-10-2023 CHOL-HDL RATIO NORM SEE BELOW Normal [facility] Comment on above: Result Comment: 3.3 - 4.4 LOW RISK 4.4 - 7.1 AVERAGE RISK 7.1 - 11.0 MODERATE RISK >11.0 HIGH RISK Performed By: #### C RP, CMP, URIC, LIPID #### [facility] [address] [address] [address] Kirit Moscoso Cholesterol [Mass/Vol] 188 mg/dL Normal <=200 [facility] Comment on above: Performed By: #### C RP, CMP, URIC, LIPID #### [facility] [address] [address] [address] Kirit Moscoso Cholesterol in HDL [Mass/Vol] 45 mg/dL Normal 40-60 [facility] Comment on above: Performed By: #### C RP, CMP, URIC, LIPID #### [facility] [address] [address] [address] Kirit Moscoso Cholesterol in LDL [Mass/Vol] 129.0 mg/dL Normal [facility] Comment on above: Performed By: #### C RP, CMP, URIC, LIPID #### [facility] [address] [address] [address] Kirit Moscoso Cholesterol.total/Cho lesterol in HDL [Mass ratio] 4.2 {ratio} Normal [facility] Comment on above: Performed By: #### C RP, CMP, URIC, LIPID #### [facility] [address] [address] [address] Kirit Moscoso HDL NORMAL > or = 60 mg/dl - LO W CARDIOVASCULAR RISK <40 mg/dl - HIGH CARDIOVASCULAR RISK Normal [facility] Comment on above: Performed By: #### C RP, CMP, URIC, LIPID #### [facility] [address] [address] [address] Kirit Moscoso LDL CALC NORMAL SEE BELOW Normal [facility] Comment on above: Result Comment: <100 mg/dl OPTIMAL 100 - 129 mg/dl NEAR OR ABOVE OPTIMAL 130 - 159 mg/dl BORDERLINE HIGH 160 - 189 mg/dl HIGH >190 mg/dl VERY HIGH Performed By: #### C RP, CMP, URIC, LIPID #### [facility] [address] [address] [address] Kirit Moscoso Triglyceride [Mass/Vol] 71 mg/dL Normal <=150 [facility] Comment on above: Performed By: #### C RP, CMP, URIC, LIPID #### [facility] [address] [address] [address] Kirit Moscoso VLDL CALC 14.2 mg/dL Normal [facility] Comment on above: Performed By: #### C RP, CMP, URIC, LIPID #### [facility] [address] [address] [address] Kirit Moscoso PROF 14(COMP METB)on 023 Albumin [Mass/Vol] 3.5 g/dL Normal 3.4-5.0 [facility] Comment on above: Performed By: #### C RP, CMP, URIC, LIPID #### [facility] [address] [address] [address] Kirit Moscoso Albumin/Globulin [Mass ratio] 0.8 {ratio} Normal [facility] [facility] Comment on above: Performed By: #### C RP, CMP, URIC, LIPID #### [facility] [address] [address] [address] Kirit Moscoso ALP [Catalytic activity/Vol] 109 U/L Normal 46-116 [facility] Comment on above: Performed By: #### C RP, CMP, URIC, LIPID #### [facility] [address] [address] [address] Kirit Moscoso ALT [Catalytic activity/Vol] 26 U/L Normal 14-59 [facility] Comment on above: Performed By: #### C RP, CMP, URIC, LIPID #### [facility] [address] [address] [address] Kirit Moscoso Anion gap [Moles/Vol] 11.3 mmol/L Normal [facility] Comment on above: Performed By: #### C RP, CMP, URIC, LIPID #### [facility] [address] [address] [address] Kirit Moscoso AST [Catalytic activity/Vol] 16 U/L Normal 15-37 [facility] Comment on above: Performed By: #### C RP, CMP, URIC, LIPID #### [facility] [address] [address] [address] Kirit Moscoso Bilirubin [Mass/Vol] 0.4 mg/dL Normal 0.2-1.0 [facility] Comment on above: Performed By: #### C RP, CMP, URIC, LIPID #### [facility] [address] [address] [address] Kirit Moscoso Calcium [Mass/Vol] 9.1 mg/dL Normal 8.5-10.1 [facility] Comment on above: Performed By: #### C RP, CMP, URIC, LIPID #### [facility] [address] [place] [address] Dr. Kirit Moscoso Chloride [Moles/Vol] 105 mmol/L Normal 98-107 [facility] Comment on above: Performed By: #### C RP, CMP, URIC, LIPID #### [facility] [address] [place] [address] Dr. Kirit Moscoso CO2 [Moles/Vol] 26.5 mmol/L Normal 21.0-32.0 [facility] Comment on above: Performed By: #### C RP, CMP, URIC, LIPID #### [facility] [address] [place] [address] Dr. Kirit Moscoso Creatinine [Mass/Vol] 0.97 mg/dL Normal 0.55-1.02 [facility] Comment on above: Performed By: #### C RP, CMP, URIC, LIPID #### [facility] [address] [place] [address] Dr. Kirit Moscoso EGFR-AF CHINESE >60 Normal >=60 [facility] Comment on above: Performed By: #### C RP, CMP, URIC, LIPID #### [facility] [address] [place] [address] Dr. Kirit Moscoso EGFR-NON AF CHINESE 60 mL/min/1.73m2 Normal >=60 [facility] Comment on above: Performed By: #### C RP, CMP, URIC, LIPID #### [facility] [address] [place] [address] Dr. Kirit Moscoso Globulin (S) [Mass/Vol] 4.3 g/dL Normal [facility] Comment on above: Performed By: #### C RP, CMP, URIC, LIPID #### [facility] [address] [address] [address] Kirit Moscoso Glucose [Mass/Vol] 96 mg/dL Normal 74-106 [facility] Comment on above: Performed By: #### C RP, CMP, URIC, LIPID #### [facility] [address] [place] [address] Dr. Kirit Moscoso Potassium [Moles/Vol] 4.1 mmol/L Normal 3.5-5.1 [facility] Comment on above: Performed By: #### C RP, CMP, URIC, LIPID #### [facility] [address] [address] [address] Kirit Moscoso Protein [Mass/Vol] 7.8 g/dL Normal 6.4-8.2 [facility] Comment on above: Performed By: #### C RP, CMP, URIC, LIPID #### [facility] [address] [place] [address] Dr. Kirit Moscoso Sodium [Moles/Vol] 139 mmol/L Normal 136-145 [facility] Comment on above: Performed By: #### C RP, CMP, URIC, LIPID #### [facility] [address] [place] [address] Dr. Kirit Moscoso Urea nitrogen [Mass/Vol] 19.0 mg/dL Critically high 7.0-18.0 [facility] Comment on above: Performed By: #### C RP, CMP, URIC, LIPID #### [facility] [address] [place] [address] Dr. Kirit Moscoso Urea nitrogen/Creatinine [Mass ratio] 19.6 mg/mg Normal [facility] Comment on above: Performed By: #### C RP, CMP, URIC, LIPID #### [facility] [address] [place] [address] Dr. Kirit Moscoso UA (CLEAN/CATCH) PROOFREADER/MICRO I F IND.on 01-10-2023 Bilirubin Ql (U) Negative Normal NEGATIVE [facility] Comment on above: Performed By: #### C BC #### [facility] [address] [place] [address] Dr. Kirit Moscoso Clarity (U) CLEAR Normal CLEAR [facility] Comment on above: Performed By: #### C BC #### [facility] [address] [address] [address] Kirit Moscoso Color (U) LT. YELLOW Normal YELLOW [facility] Comment on above: Performed By: #### C BC #### [facility] [address] [address] [address] Kirit Moscoso Glucose Ql (U) Negative Normal NEGATIVE [facility] Comment on above: Performed By: #### C BC #### [facility] [address] [address] [address] Kirit Moscoso Hemoglobin Ql (U) Negative Normal NEGATIVE [facility] Comment on above: Performed By: #### C BC #### [facility] [address] [place] [address] Dr. Kirit Moscoso Ketones Ql (U) Negative Normal NEGATIVE [facility] Comment on above: Performed By: #### C BC #### [facility] [address] [place] [address] Dr. Kirit Moscoso LEUKOCYTES Negative Normal NEGATIVE [facility] Comment on above: Performed By: #### C BC #### [facility] [address] [address] [address] Kirit Moscoso Nitrite Ql (U) Negative Normal NEGATIVE [facility] Comment on above: Performed By: #### C BC #### [facility] [address] [place] [address] Dr. Kirit Moscoso pH (U) 5.5 [pH] Normal 5-9 [facility] Comment on above: Performed By: #### C BC #### [facility] [address] [address] [address] Kirit Moscoso SPEC GRAVITY 1.010 Normal 1.005-<=1.025 [facility] Comment on above: Performed By: #### C BC #### [facility] [address] [place] [address] Dr. Kirit Moscoso UA PROTEIN Negative Normal NEGATIVE/ TRACE [facility] Comment on above: Performed By: #### C BC #### [facility] [address] [place], [place] [id number] Dr. Kirit Moscoso UR MICRO IND NOT INDICATED Normal [facility] Comment on above: Performed By: #### C BC #### [facility] [address] [place] [address] Dr. Kirit Moscoso Urobilinogen Qn (U) 0.2 {Jose Juan'U}/dL Normal 0.2 - 1. 0 [facility] Comment on above: Performed By: #### C BC #### [facility] [address] [place] [address] Dr. Kirit Moscoso URIC ACID SERUMon 01-10-2023 Urate [Mass/Vol] 5.6 mg/dL Normal 2.6-6.0 [facility] Comment on above: Performed By: #### C RP, CMP, URIC, LIPID #### [facility] [address] [place] [address] Dr. Kirit Moscoso FREE THYROXINE INDEX T7on FTI 2.46 Normal 1.30-4.50 [facility] Comment on above: Performed By: #### T 7, TSH #### [facility] [address] [place] [address] Dr. Kirit Moscoso T3U 32.0 % Normal 30.0-39.0 [facility] Comment on above: Performed By: #### T 7, TSH #### [facility] [address] [place] [address] Dr. Kirit Moscoso T4 [Mass/Vol] 7.70 ug/dL Normal 4.80-13.90 [facility] Comment on above: Performed By: #### T 7, TSH #### [facility] [address] [place] [address] Dr. Kirit Moscoso TSHon 10-28-2022 TSH 2.263 uIU/mL Normal 0.358-3.740 [facility] Comment on above: Performed By: #### T 7, TSH #### [facility] [address] [place] [address] Dr. Kirit Moscoso FREE THYROXINE INDEX T7on FTI 3.30 Normal 1.30-4.50 [facility] Comment on above: Performed By: #### T 7, TSH #### [facility] [address] [address] [address] Kirit Moscoso T3U 34.0 % Normal 30.0-39.0 [facility] Comment on above: Performed By: #### T 7, TSH #### [facility] [address] [address] [address] Kirit Moscoso T4 [Mass/Vol] 9.70 ug/dL Normal 4.80-13.90 [facility] Comment on above: Performed By: #### T 7, TSH #### [facility] [address] [address] [address] Kirit Moscoso TSHon 04-16-2022 TSH 0.140 uIU/mL Critically low 0.358-3.740 [facility] Comment on above: Performed By: #### T 7, TSH #### [facility] [address] [place] [address] Dr. Kirit Moscoso TSH RANGE SEE BELOW Normal [facility] Comment on above: Result Comment: <0.3 4 UIU/ml HYPERTHYROID 0.34-5.60 UIU/ml EUTHYROID >5.60 UIU/ml HYPOTHYROID Performed By: #### T 7, TSH #### [facility] [address] [place] [address] Dr. Kirit Moscoso FREE T3on 02-27-2022 FREE T3 2.45 pg/mlL Critically low 2.77-5.27 [facility] Comment on above: Performed By: #### T 7, TSH #### [facility] [address] [place] [address] Dr. Kirit Moscoso T4on 02-27-2022 T4 [Mass/Vol] 7.00 ug/dL Normal 5.53-11.00 [facility] Comment on above: Performed By: #### T 7, TSH #### [facility] [address] [place] [address] Dr. Kirit Moscoso TSHon 02-27-2022 TSH 7.345 uIU/mL Critically high 0.470-4.680 [facility] Comment on above: Performed By: #### T 7, TSH #### [facility] [address] [address] [address] Kirit Moscoso TSH RANGE SEE BELOW Normal [facility] Comment on above: Result Comment: <0.3 4 UIU/ml HYPERTHYROID 0.34-5.60 UIU/ml EUTHYROID >5.60 UIU/ml HYPOTHYROID Performed By: #### T 7, TSH #### [facility] [address] [address] [address] Kirit Moscoso Vital Signs Date Time Vital Sign Value Performing Clinician Facility 05-04-2024 15:50-0400 Body height 160.02 cm [facility] 05-04-2024 15:50-0400 Body mass index (BMI) [Ratio] 35.4 kg/m2 [facility] 05-04-2024 15:50-0400 Body weight 90.71 kg [facility] 05-04-2024 15:50-0400 Diastolic blood pressure 82 mm[Hg] [facility] 05-04-2024 15:50-0400 Heart rate 71 /min [facility] 05-04-2024 15:50-0400 SaO2% (BldA) [Mass fraction] 98 % [facility] 05-04-2024 15:50-0400 Systolic blood pressure 120 mm[Hg] [facility] 06-29-2023 09:55-0400 Body height 160.02 cm Griselda Thao Other [facility] Other 06-29-2023 09:55-0400 Body mass index (BMI) [Ratio] 35.57 kg/m2 Griselda Thao Other [facility] Other 06-29-2023 09:55-0400 Body temperature 97.6 [degF] Griselda Thao Other [facility] Other 06-29-2023 09:55-0400 Body weight 91.08 kg Griselda Thao Other [facility] Other 06-29-2023 09:55-0400 Diastolic blood pressure 74 mm[Hg] Griselda Keesha Other [facility] Other 06-29-2023 09:55-0400 Respiratory rate 18 /min Griselda Keesha Other [facility] Other 06-29-2023 09:55-0400 SaO2% (BldA) [Mass fraction] 98 % Griselda Keesha Other [facility] Other 06-29-2023 09:55-0400 Systolic blood pressure 126 mm[Hg] Griselda Keesha Other [facility] Other Encounters Encounter Date Encounter Type Care Provider Facility Start: 05-04-2024 End: 05-04-2024 ambulatory [facility] Work Phone: Start: 05-04-2024 End: 05-04-2024 Patient encounter procedure [facility] Work Phone: Start: 12-31-2023 End: 12-31-2023 ambulatory Imad Asaad Other [facility] Other Start: 12-31-2023 Telephone encounter Imad Asaad [facility] Start: 11-20-2023 End: 11-21-2023 ambulatory [facility] Start: 11-20-2023 Encounter for gynecological examination (general) (routine) without abnormal findings [facility] Start: 08-31-2023 End: 08-31-2023 ambulatory Tanisha Thao Facility:[facility] Start: 06-29-2023 End: 06-29-2023 ambulatory Griselda Thao Other [employer] Other Start: 06-29-2023 Office outpatient vi sit 15 minutes Griselda Thao [facility] Start: 01-20-2023 End: 01-20-2023 ambulatory TANISHA P NYASIA Facility:[facility] Start: 01-16-2023 Encounter for genera l adult medical examination without abnormal findings TANISHA P NYASIA [facility] Start: 01-13-2023 End: 01-13-2023 ambulatory TANISHA P [...] Care Activity Detail Author T3 reverse measurement [facility] Payers Date Payer Category Payer Self-pay 1970 Unknown [id number] 1970 Unknown [id number] 1968 Unknown [id number] 1968 Unknown [id number] 1968 Unknown [id number] 1968 Unknown [id number] 1968 Unknown [id number] 1968 Unknown [id number] 1968 Unknown [id number] 6 1959 Unknown [id number] 1959 Unknown [id number] Private Health Insurance [facility] [id number] Unknown [id number] Unknown MMO [id number] Unknown [place] [id number] Social History Date Type Detail Facility Unknown if ever smoked [facility] Other Sex Assigned At Sex Assigned At Bir th [facility] Other Start: 05-04-2024 Tobacco smoking status NHIS Never smoked tobacco (finding) [facility] Start: 1970 Sex Assigned At Female [facility] Evaluation note 12-31-2023 Note Date & Type Note Facility 12-31-2023 Evaluation note Encounter Date Diagnosis Assessment Notes Dec, Ulcerative colitis (ICD-10 - K51.90) [facility] Other Evaluation note 06-29-2023 Note Date & [...] worsening. Patient/Parent verbalized understanding of tx plan. [facility] Other Clinical Note 07-02-2022 Note Date & [...] authenticated by: JUANI KNOX Date: 2022-07-02 15:25 [facility] Evaluation note Note Date & Type Note Facility Evaluation note Diagnosis Onset Date Hypothyroid acute [facility] Work Phone: History general Narrative - Reported Note Date & Type Note Facility History general Narrative - Reported Type Medical History thyroid disease Medical History ulcerative colitis Surgical History tubal ligation Surgical History colonoscopy [facility] Other Summary Purpose Family History Relationship Condition [...] and content) DATE CREATED AUTHOR 02/04/2023 [facility] DATE CREATED AUTHOR AUTHOR'S ORGANIZ ATION 09/08/2023 [facility] DATE CREATED AUTHOR AUTHOR'S ORGANIZ ATION 12/02/2023 [facility] REASON FOR VISIT (unrecogniz ed section and content) BOTH EARS, PAINREFILL-PENTAS A Care Teams (unrecognized sec tion and content) Team Status: Active Member Role Status Dates Tanisha Thao , [employer]-C Primary Care Provider Active Team Status: Inactive Member Role Status Dates Tanisha Thao , [employer]-C Primary Care Provider Active Start: May 04, 2024 End: May 04, 2024 Cayla Orona APRN [employer]-C Attending Provider Act aguilar Start: May 04, 2024 End: May 04, 2024 Team Status: Active Member Role Status Dates Tanisha Thao , [employer]-C Primary Care Provider Active Team Status: Active Member Role Status Dates Tanisha Thao , [employer]-C Primary Care Provider Active Start: May 04, 2024 Cayla Orona APRN [employer]-C Attending Provider Act aguilar Start: May 04, 2024 Team Status: Inactive Member Role Status Dates Tanisha Thao , STEW[employer]-C Primary Care Provider Active Start: May 04, 2024 End: May 04, 2024 Cayla Orona APRN [employer] Attending Provider Act aguilar Start: May 04, [...] BE BASED ON THE PRIMARY CLINICAL RECORDS. [employer] provides no warranty or guarantee of the accuracy or completeness of information in this document.
[2024-07-16 10:48] LABS: Basophils Absolute Auto 0.1 10^3/uL (0.0-0.1); Basophils Percent Auto 1.2 % (0.2-2.0); Hematocrit 45.2 % (36.0-48.0); Hemoglobin 15.1 g/dL (12.0-16.0); Immature Granulocytes Abs Auto 0.01 10^3/uL (0.00-0.03); Immature Granulocytes Pct Auto 0.2 % (0.0-0.5); Lymphocytes Absolute Auto 1.5 10^3/uL (1.2-3.8); Lymphocytes Percent Auto 31.3 % (20.5-60.0); Mean Corpuscular HGB Conc 33.4 g/dL (29.9-35.2); Mean Corpuscular Hemoglobin 27.9 pg (26.7-34.0); Mean Corpuscular Volume 83.5 fL (81.0-99.0); Mean Platelet Volume 9.7 fL (9.5-13.5); Monocytes Absolute Auto 0.4 10^3/uL (0.3-0.8); Monocytes Percent Auto 7.7 % (1.7-12.0); Neutrophils Absolute Auto 2.9 10^3/uL (1.4-6.5); Neutrophils Percent Auto 59.6 % (43.0-75.0); Platelet Count 202 10^3/uL (150-450); Red Blood Count 5.41 10^6/uL (4.20-5.40); Red Cell Distribution Width 13.2 % (11.0-15.0); White Blood Count 4.8 10^3/uL (4.0-11.0)
[2024-07-16 11:22] LABS: Alanine Aminotransferase 26 U/L (14-59); Albumin Globulin Ratio 0.9; Albumin Level 3.6 g/dL (3.4-5.0); Alkaline Phosphatase 136 U/L (46-116); Anion Gap 8.7; Aspartate Amino Transferase 14 U/L (15-37); BUN Creatinine Ratio 21.8; Bilirubin Total 0.6 mg/dL (0.2-1.0); Calcium 9.4 mg/dL (8.5-10.1); Carbon Dioxide 28.2 mmol/L (21.0-32.0); Chloride 104 mmol/L (98-107); Estimated GFR (African America >60 (>=60); Estimated GFR (Non-African Ame >60 (>=60); Free T3 5.22 pg/mL (2.18-3.98); Globulin 4.1 g/dL; Glucose 92 mg/dL (74-106); Potassium 3.9 mmol/L (3.5-5.1); Sodium 137 mmol/L (136-145); Thyroid Stimulating Hormone 0.524 uIU/mL (0.358-3.740); Total Protein 7.7 g/dL (6.4-8.2)
[2024-07-16 11:58] LABS: Free T4 0.82 ng/dL (0.76-1.46)
[2024-07-17 07:07] LABS: Thyroid Peroxidase (TPO) Ab <9 IU/mL (0-34)
== END 2024-07-16 10:15 | disposition home or self-care (01) ==
LOC: LAB 10:16
PROVIDERS: PCP Nurse Practitioner Family
DX: E78.00 Pure hypercholesterolemia, unspecified (principal); E03.9 Hypothyroidism, unspecified; E55.9 Vitamin D deficiency, unspecified; R53.83 Other fatigue
CPT/HCPCS: 36415; 80053; 80061; 82306; 82607; 83540; 83550; 84439; 84443; 84481; 85025; 86376

== ENCOUNTER 2024-10-01 11:36 | Outpatient (OUT) | payer OTHER, SELFPAY ==
--- OUTSIDE RECORDS SUMMARY | 2024-09-17 11:36 | XMS_ITS | CCD ---
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 Name Role Phone NYASIA, TANISHA P Admitting [...] Sulfonamides (Antibiotic) Drug allergy (disorder) 7 [facility] Repository (2 sources) Substance with sulfonamide structure and antibacterial mechanism of action (substance) Drug allergy Unknown [employer] Other (3 sources) Sulfonamides (Antibiotic) Drug allergy (disorder) 3 [facility] Repository (3 sources) metroNIDAZOLE; Translations: [METRONIDAZOLE] Drug [...] 2024 3:52pm Magnesium Active polyethylene glycol 3350 481039 mg / potassium chloride 2970 mg / sodium bicarbonate 6740 mg / sodium chloride 5860 mg / sodium sulfate 70965 mg powder for oral solution (2 sources) [...] Reference Range Facility Cytologyon 11-20-2023 Cytology Normal [facility] Comment on above: Result Comment: [facility] [employer] [facility] [address] [place] [address] Gynecologic Cytology Consultation Patient Name:ISIDRO MUSA:1970 (Age: 53)Gender:FTaken:11/20/2023Reported:12/01/2023hysician(s):Therese Sanchez C.N.M. ([phone])Copy To: Rec. #:[id number]: #[id number] Final Cytologic Interpretation ThinPrep Pap Test (Cervical): Satisfactory for evaluation. A transformation zone component is present. NEGATIVE FOR INTRAEPITHELIAL LESION OR MALIGNANCY. jnola/12/01/2023 [facility], [address] [place] [address], License number: [id number]. Electronically Signed Out By AKILA Waters(ASCP) Date of Last Menstrual Period: (None Given) Other Clinical Conditions: Z01.419 Distiller exam wo/abn findings Menopausal Postmenopausal Source of Specimen ThinPrep Pap Test (Cervical) Thin Prep Pap (WARE CLEANER) Fee Code(s): G0145 HIGH RISK HPV W/GENOon 11-20 HPV 31+33+35+39+45+51+52+ 56+58+59+66+68 DNA CLARA+probe Ql (Cvx) HPV SPECIMEN TYPE ThinPrep HPV 16 Negative (qualifier value) HPV 18 Negative (qualifier value) OTHER HIGH RISK HPV Negative (qualifier value) HPV types 31,33,35,39,45,52,56, 58,59,66 and 68 DNA were undetectable. Normal [facility] Comment on above: Performed By: #### 7 1431-1 #### [facility] ([id number]) [address] [place] [address], FIRST [place], [place] [id number] [place] [address] LAB ([id number]) [address] [place] [address], [address] [place] [address] Dusty 08-31-2023 L - -------- Specimen: [id number] Received: 08/31/23 Status: GRECIA Dent Num: [id number] Spec Type: Surgical Subm Dr: Danita Alfaro MD Tissues: A Small Intestine - Biopsy/Polyp (ILEUM BX) B Colon Biopsy (RT COLON BX) C Colon Biopsy (TRANSVERSE BX) D Colon Biopsy (DESCENDING) E Colon Biopsy (SIGMOID BX) F Colon Biopsy (RECTUM BX) Procedures: /12, Gross/Micro L4/6 -------- Age/ Patient Sex Location Account Attending Physician -------- Isidro Musa 53/F [id number] Danita Alfaro MD -------- SPEC NUM: [id number] RECD: 08/31/23 STATUS: GRECIA ANGEL NUM: [id number] TOSIN: 08/31/23 DR: Danita Alfaro MD ENTERED: 08/31/[address] [facility] DR: MARIANELA TYPE: Surgical DEPT: S [...] other specific histopathological abnormality observed -------- Specimen: [id number] Received: 08/31/23 Status: GRECIA Dent Num: [id number] Spec Type: Surgical Subm Dr: Daniat Alfaro MD Tissues: A Small Intestine - Biopsy/Polyp (ILEUM BX) B Colon Biopsy (RT COLON BX) C Colon Biopsy (TRANSVERSE BX) D Colon Biopsy (DESCENDING) E Colon Biopsy (SIGMOID BX) F Colon Biopsy (RECTUM BX) Procedures: , Gross/Micro L4/6 -------- Patient: RusselllinnetterolandoIsidro [id number] (Continued) -------- Specimen: [id number] Received: 08/31/23 (Continued) Pathological Diagnosis (Continued) Signed (signature on file) Roxann Moscoso MD 09/01/23 1718 -------- Specimen: [id number] Received: 08/31/23 Status: GRECIA Dent Num: [id number] Spec Type: Surgical Subm Dr: Danita Alfaro MD Tissues: A Small Intestine - Biopsy/Polyp (ILEUM BX) B Colon Biopsy (RT COLON BX) C Colon Biopsy (TRANSVERSE BX) D Colon Biopsy (DESCENDING) E Colon Biopsy (SIGMOID BX) F Colon Biopsy (RECTUM BX) Procedures: /, Gross/Micro L4/6 -------- Patient: Lourdes Musacase Marin [id number] (Continued) -------- Specimen: [id number] Received: 08/31/23 (Continued) Pathological Diagnosis (Continued) E. [...] and transvers (more content not included)... Normal [facility] Covid-19 PCR (CVDTBH)on 01-01 SARS-CoV-2 (COVID-19) RNA CLARA+probe Ql (Unsp spec) Not detected Normal NOT DETECTED [facility] Comment on above: Result Comment: When [...] for this test is supported by the [place] of Health and Human Service's declaration that [...] used). Performed By: #### C VDTBH #### [facility] [address] [place] [address] Dr. Kirit Moscoso OVA AND PARASITE EXAMINATION on 01-19-2023 Ova + Parasite Exam Final report Normal [facility] Comment on above: Result Comment: Thes e results were obtained using wet preparation(s) and trichrome stained smear. This test does not include testing for Cryptosporidium parvum, Cyclospora, or Microsporidia. Performed By: #### C BC #### [facility] [address] [place] [address] Dr. Kirit Moscoso Result 1 Comment Normal [facility] Comment on above: Result Comment: No o va, cysts, or parasites seen. . One negative specimen does not rule out the possibility of a parasitic infection. Performed By: #### C BC #### [facility] [address] [place] [address] Dr. Kirit Moscoso SAGE by IFAon 01-16-2023 Antinuclear Antibodies, IFA Positive Abnormal [facility] Comment on above: Result Comment: Nega tive <1:80 Borderline 1:80 Positive >1:80 Performed By: #### T 7, TSH #### [facility] [address] [place] [address] Dr. Kirit Moscoso Centriole Pattern Normal [facility] Comment on above: Performed By: #### T 7, TSH #### [facility] [address] [place] [address] Dr. Kirit Moscoso Centromere Pattern Normal [facility] Comment on above: Performed By: #### T 7, TSH #### [facility] [address] [address] [address] Kirit Moscoso Homogeneous Pattern 1:640 Critically high [facility] Comment on above: Result Comment: ICAP nomenclature: AC-1 Performed By: #### T 7, TSH #### [facility] [address] [place] [address] Dr. Kirit Moscoso Midbody Pattern Normal [facility] Comment on above: Performed By: #### T 7, TSH #### [facility] [address] [place] [address] Dr. Kirit Moscoso Note: Comment Normal [facility] Comment on above: Result Comment: For [...] titers Nucleosomes, Histones Drug-induced SLE Speckled Sm, CORN HUSKER, SCL-70, SLE,MCTD,PSS (diffuse form), SS-A/SS-B Sjogrens Nucleolar SCL-70, PM-1/SCL High titers Scleroderma, PM/DM Centromere Centromere PSS (limited form) w/Crest syndrome variable Nuclear Dot Sp100,[id number] Primary Biliary Cirrhosis Nuclear GP210, Primary Biliary Cirrhosis Membrane missy A,B,C Performed By: #### T 7, TSH #### [facility] [address] [place] [address] Dr. Kirit Moscoso Nuclear Dot Pattern Normal [facility] Comment on above: Performed By: #### T 7, TSH #### [facility] [address] [place] [address] Dr. Kirit Moscoso Nuclear Membrane Pattern Normal [facility] Comment on above: Performed By: #### T 7, TSH #### [facility] [address] [place] [address] Dr. Kirit Moscoso Nucleolar Pattern Normal [facility] Comment on above: Performed By: #### T 7, TSH #### [facility] [address] [place] [address] Dr. Kirit Moscoso PCNA Pattern Normal [facility] Comment on above: Performed By: #### T 7, TSH #### [facility] [address] [place] [address] Dr. Kirit Moscoso Speckled Pattern Normal [facility] Comment on above: Performed By: #### T 7, TSH #### [facility] [address] [place] [address] Dr. Kirit Moscoso Spindle Apparatus Pattern Normal [facility] Comment on above: Performed By: #### T 7, TSH #### [facility] [address] [place] [address] Dr. Kirit Moscoso GI PANEL (PCR)on 01-13-2023 Adenovirus F 40/41 Not detected Normal NOT DETECTED [facility] Comment on above: Performed By: #### T 7, TSH #### [facility] [address] [place] [address] Dr. Kirit Moscoso Astrovirus Not detected Normal NOT DETECTED [facility] Comment on above: Performed By: #### T 7, TSH #### [facility] [address] [place] [address] Dr. Kirit Mariscal. Diff toxin A/B Not detected Normal NOT DETECTED [facility] Comment on above: Performed By: #### T 7, TSH #### [facility] [address] [address] [address] Kirit Moscoso Campylobacter Not detected Normal NOT DETECTED [facility] Comment on above: Performed By: #### T 7, TSH #### [facility] [address] [place] [address] Dr. Kirit Moscoso Cryptosporidium Not detected Normal NOT DETECTED [facility] Comment on above: Performed By: #### T 7, TSH #### [facility] [address] [address] [address] Kirit Moscoso Cyclos. Cayetanensis Not detected Normal NOT DETECTED [facility] Comment on above: Performed By: #### T 7, TSH #### [facility] [address] [place] [address] Dr. Kirit Moscoso E. Coli O157 Not Applicable Normal Not Applicable [facility] Comment on above: Performed By: #### T 7, TSH #### [facility] [address] [place] [address] Dr. Kirit Moscoso E. histolytica Not detected Normal NOT DETECTED [facility] Comment on above: Performed By: #### T 7, TSH #### [facility] [address] [place] [address] Dr. Kirit Moscoso EAEC Not detected Normal NOT DETECTED [facility] Comment on above: Performed By: #### T 7, TSH #### [facility] [address] [place] [address] Dr. Kirit Moscoso EIEC Not detected Normal NOT DETECTED [facility] Comment on above: Performed By: #### T 7, TSH #### [facility] [address] [place] [address] Dr. Kirit Moscoso EPEC Not detected Normal NOT DETECTED [facility] Comment on above: Performed By: #### T 7, TSH #### [facility] [address] [place] [address] Dr. Kirit Moscoso ETEC Not detected Normal NOT DETECTED [facility] Comment on above: Performed By: #### T 7, TSH #### [facility] [address] [place] [address] Dr. Kirit Wood Not detected Normal NOT DETECTED [facility] Comment on above: Performed By: #### T 7, TSH #### [facility] [address] [address] [address] Kirit RUBY CONTROLS PASSED Normal [facility] Comment on above: Performed By: #### T 7, TSH #### [facility] [address] [address] [address] Kirit MACIAS HEADER GI PANEL BACTERIA Normal [facility] Comment on above: Performed By: #### T 7, TSH #### [facility] [address] [address] [address] Kirit SHARPE ECOLI GI PANEL DIARRHEAGENIC E.COLI / SHIGELLA Normal [facility] Comment on above: Performed By: #### T 7, TSH #### [facility] [address] [address] [address] Kirit SHARPE INFO SEE BELOW Normal [facility] Comment on above: Result Comment: EAEC - Enteroaggregative E. Coli EPEC- Enteropathogenic E. Coli ETEC- Enterotoxigenic E. Coli lt/st STEC- Shigella-like toxin-producing E. Coli stx1/stx2 EIEC- Shigella/Enteroinvasive E. Coli Performed By: #### T 7, TSH #### [facility] [address] [address] [address] Kirit SHARPE PARASITES GI PANEL PARASITES Normal [facility] Comment on above: Performed By: #### T 7, TSH #### [facility] [address] [address] [address] Kirit SHARPE VIRUS GI PANEL VIRUSES Normal [facility] Comment on above: Performed By: #### T 7, TSH #### [facility] [address] [address] [address] Kirit Moscoso Norovirus GI/GII Not detected Normal NOT DETECTED [facility] Comment on above: Performed By: #### T 7, TSH #### [facility] [address] [address] [address] Kirit Moscoso P. Shigelloides Not detected Normal NOT DETECTED [facility] Comment on above: Performed By: #### T 7, TSH #### [facility] [address] [place] [address] Dr. Kirit Moscoso Rotavirus A Not detected Normal NOT DETECTED [facility] Comment on above: Performed By: #### T 7, TSH #### [facility] [address] [place] [address] Dr. Kirit Moscoso Salmonella Not detected Normal NOT DETECTED [facility] Comment on above: Performed By: #### T 7, TSH #### [facility] [address] [place] [address] Dr. Kirit Moscoso Sapovirus Not detected Normal NOT DETECTED [facility] Comment on above: Performed By: #### T 7, TSH #### [facility] [address] [place] [address] Dr. Kirit Moscoso STEC Not detected Normal NOT DETECTED [facility] Comment on above: Performed By: #### T 7, TSH #### [facility] [address] [place] [address] Dr. Kirit Moscoso Vibrio Not detected Normal NOT DETECTED [facility] Comment on above: Performed By: #### T 7, TSH #### [facility] [address] [place] [address] Dr. Kirit Moscoso Vibrio Cholera Not detected Normal NOT DETECTED [facility] Comment on above: Performed By: #### T 7, TSH #### [facility] [address] [place] [address] Dr. Kirit Moscoso Y. Enterocolitica Not detected Normal NOT DETECTED [facility] Comment on above: Performed By: #### T 7, TSH #### [facility] [address] [place] [address] Dr. Kirit Moscoso INSULINon 01-12-2023 Insulin 23.6 uIU/mL Normal 2.6-24.9 [facility] Comment on above: Performed By: #### T 7, TSH #### [facility] [address] [place] [address] Dr. Kirit Moscoso ANTISTREPTOLYSIN O AB (ASO)o n 01-11-2023 Antistreptolysin O Ab 70.3 IU/mL Normal 0.0-200.[address] [facility] Comment on above: Performed By: #### A SOAB #### [facility] [address] [place] [address] Dr. Kirit Moscoso RHEUMATOID FACTORon 01-11-20 RA Latex Turbid. <10.0 Normal <14.0 [facility] Comment on above: Performed By: #### R F #### [facility] [address] [place] [address] Dr. Kirit Moscoso CBC AUTO DIFFon 01-10-2023 BASO # 0.1 103/ul Normal 0.0-0.[address] [facility] Comment on above: Performed By: #### C BC #### [facility] [address] [place] [address] Dr. Kirit Moscoso Basophils/100 WBC (Bld) 1.2 % Normal 0.2-2.[address] [facility] Comment on above: Performed By: #### C BC #### [facility] [address] [place] [address] Dr. Kirit Moscoso EO # 0.0 103/ul Normal 0.0-0.[address] [facility] Comment on above: Performed By: #### C BC #### [facility] [address] [place] [address] Dr. Kirit Moscoso Eosinophils/100 WBC (Bld) 0.0 % Critically low 0.9-7.0 [facility] Comment on above: Performed By: #### C BC #### [facility] [address] [place] [address] Dr. Kirit Moscoso Erythrocyte distribution width (RBC) [Ratio] 13.6 % Normal 11.0-15.[address] [facility] Comment on above: Performed By: #### C BC #### [facility] [address] [place] [address] Dr. Kirit Moscoso Hematocrit (Bld) [Volume fraction] 44.2 % Normal 36.0-48.[address] [facility] Comment on above: Performed By: #### C BC #### [facility] [address] [place] [address] Dr. Kirit Moscoso Hemoglobin (Bld) [Mass/Vol] 14.2 g/dL Normal 12.0-16.[address] [facility] Comment on above: Performed By: #### C BC #### [facility] [address] [place] [address] Dr. Kirit Moscoso IG # 0.02 10e3/ul Normal 0.00-0.[address] [facility] Comment on above: Performed By: #### C BC #### [facility] [address] [place] [address] Dr. Kirit Moscoso IG % 0.3 % Normal 0.0-0.[address] [facility] Comment on above: Performed By: #### C BC #### [facility] [address] [place] [address] Dr. Kirit Moscoso LYMPH # 1.5 103/ul Normal 1.2-3.8 [facility] Comment on above: Performed By: #### C BC #### [facility] [address] [place] [address] Dr. Kirit Moscoso Lymphocytes/100 WBC (Bld) 22.7 % Normal 20.5-60.[address] [facility] Comment on above: Performed By: #### C BC #### [facility] [address] [place] [address] Dr. Kirit Moscoso MANUAL DIFF REQ NO Normal [facility] Comment on above: Performed By: #### C BC #### [facility] [address] [place] [address] Dr. Kirit Moscoso MCH (RBC) [Entitic mass] 27.8 pg Normal 26.7-34.0 [facility] Comment on above: Performed By: #### C BC #### [facility] [address] [place] [address] Dr. Kiirt Moscoso MCHC (RBC) [Mass/Vol] 32.1 g/dL Normal 29.9-35.2 [facility] Comment on above: Performed By: #### C BC #### [facility] [address] [address] [address] Kirit Moscoso MCV (RBC) [Entitic vol] 86.5 fL Normal 81.0-99.[address] [facility] Comment on above: Performed By: #### C BC #### [facility] [address] [address] [address] Kirit Moscoso MONO # 0.5 103/ul Normal 0.3-0.[address] [facility] Comment on above: Performed By: #### C BC #### [facility] [address] [place] [address] Dr. Kirit Moscoso Monocytes/100 WBC (Bld) 7.3 % Normal 1.7-12.[address] [facility] Comment on above: Performed By: #### C BC #### [facility] [address] [place] [address] Dr. Kirit Moscoso NEUT # 4.5 103/ul Normal 1.4-6.[address] [facility] Comment on above: Performed By: #### C BC #### [facility] [address] [place] [address] Dr. Kirit Moscoso Neutrophils/100 WBC (Bld) 68.5 % Normal 43.0-75.[address] [facility] Comment on above: Performed By: #### C BC #### [facility] [address] [place] [address] Dr. Kirit Moscoso Platelet mean volume (Bld) [Entitic vol] 10.2 fL Normal 9.5-13.5 [facility] Comment on above: Performed By: #### C BC #### [facility] [address] [place] [address] Dr. Kirit Moscoso PLT 250 103/ul Normal 150-450 [facility] Comment on above: Performed By: #### C BC #### [facility] [address] [place] [address] Dr. Kirit Moscoso RBC 5.11 106/ul Normal 4.20-5.40 [facility] Comment on above: Performed By: #### C BC #### [facility] [address] [place] [address] Dr. Kirit Moscoso WBC 6.6 103/ul Normal 4.0-11.[address] [facility] Comment on above: Performed By: #### C BC #### [facility] [address] [address] [address] Kirit Moscoso CRPon 01-10-2023 CRP 1.2 mg/dL Critically high <=1.0 [facility] Comment on above: Performed By: #### C RP, CMP, URIC, LIPID #### [facility] [address] [address] [address] Kirit Moscoso GLYCOHEMOGLOBIN A1Con 2022 ADA RECOMMENDATION SEE BELOW Normal [facility] Comment on above: Result Comment: ADA RECOMMENDED LIMIT 4.0 - 6.0 ADA THERAPEUTIC TARGET < 7.0 ACTION SUGGESTED > 7.0 Performed By: #### T 7, TSH #### [facility] [address] [address] [address] Kiirt Moscoso Glucose [Mass/Vol] 114 mg/dL Normal [facility] Comment on above: Performed By: #### T 7, TSH #### [facility] [address] [address] [address] Kirit Moscoso HbA1c (Bld) [Mass fraction] 5.6 % Normal 4.5-6.[address] [facility] Comment on above: Performed By: #### T 7, TSH #### [facility] [address] [address] [address] Kirit Moscoso IRONon 01-10-2023 Iron [Mass/Vol] 59.0 ug/dL Normal 50.0-170.0 [facility] Comment on above: Performed By: #### C BC #### [facility] [address] [address] [address] Kirit Moscoso LIPID PROFILEon 01-10-2023 CHOL-HDL RATIO NORM SEE BELOW Normal [facility] Comment on above: Result Comment: 3.3 - 4.4 LOW RISK 4.4 - 7.1 AVERAGE RISK 7.1 - 11.0 MODERATE RISK >11.0 HIGH RISK Performed By: #### C RP, CMP, URIC, LIPID #### [facility] [address] [address] [address] Kirit Moscoso Cholesterol [Mass/Vol] 188 mg/dL Normal <=[address] [facility] Comment on above: Performed By: #### C RP, CMP, URIC, LIPID #### [facility] [address] [address] [address] Kirit Moscoso Cholesterol in HDL [Mass/Vol] 45 mg/dL Normal 40-60 [facility] Comment on above: Performed By: #### C RP, CMP, URIC, LIPID #### [facility] [address] [address] [address] Kirit Moscoso Cholesterol in LDL [Mass/Vol] 129.0 mg/dL Normal [facility] Comment on above: Performed By: #### C RP, CMP, URIC, LIPID #### [facility] [address] [address] [address] Kirit Moscoso Cholesterol.total/Cho lesterol in HDL [Mass ratio] 4.2 {ratio} Normal [facility] Comment on above: Performed By: #### C RP, CMP, URIC, LIPID #### [facility] [address] [address] [address] Kirit Moscoso HDL NORMAL > or = 60 mg/dl - LO W CARDIOVASCULAR RISK <40 mg/dl - HIGH CARDIOVASCULAR RISK Normal [facility] Comment on above: Performed By: #### C RP, CMP, URIC, LIPID #### [facility] [address] [address] [address] Kirit Moscoso LDL CALC NORMAL SEE BELOW Normal [facility] Comment on above: Result Comment: <100 mg/dl OPTIMAL 100 - 129 mg/dl NEAR OR ABOVE OPTIMAL 130 - 159 mg/dl BORDERLINE HIGH 160 - 189 mg/dl HIGH >190 mg/dl VERY HIGH Performed By: #### C RP, CMP, URIC, LIPID #### [facility] [address] [address] [address] Kirit Moscoso Triglyceride [Mass/Vol] 71 mg/dL Normal <=150 [facility] Comment on above: Performed By: #### C RP, CMP, URIC, LIPID #### [facility] [address] [address] [address] Kirit Moscoso VLDL CALC 14.2 mg/dL Normal [facility] Comment on above: Performed By: #### C RP, CMP, URIC, LIPID #### [facility] [address] [address] [address] Kirit Moscoso PROF 14(COMP METB)on 023 Albumin [Mass/Vol] 3.5 g/dL Normal 3.4-5.0 [facility] Comment on above: Performed By: #### C RP, CMP, URIC, LIPID #### [facility] [address] [address] [address] Kirit Moscoso Albumin/Globulin [Mass ratio] 0.8 {ratio} Normal [facility] Comment on above: Performed By: #### C RP, CMP, URIC, LIPID #### [facility] [address] [address] [address] Kirit Moscoso ALP [Catalytic activity/Vol] 109 U/L Normal 46-[address] [facility] Comment on above: Performed By: #### C RP, CMP, URIC, LIPID #### [facility] [address] [address] [address] Kirit Moscoso ALT [Catalytic activity/Vol] 26 U/L Normal 14-[address] [facility] Comment on above: Performed By: #### C RP, CMP, URIC, LIPID #### [facility] [address] [address] [address] Kirit Moscoso Anion gap [Moles/Vol] 11.3 mmol/L Normal [facility] Comment on above: Performed By: #### C RP, CMP, URIC, LIPID #### [facility] [address] [address] [address] Kirit Moscoso AST [Catalytic activity/Vol] 16 U/L Normal 15-[address] [facility] Comment on above: Performed By: #### C RP, CMP, URIC, LIPID #### [facility] [address] [address] [address] Kirit Moscoso Bilirubin [Mass/Vol] 0.4 mg/dL Normal 0.2-1.[address] [facility] Comment on above: Performed By: #### C RP, CMP, URIC, LIPID #### [facility] [address] [address] [address] Kirit Moscoso Calcium [Mass/Vol] 9.1 mg/dL Normal 8.5-10.1 [facility] Comment on above: Performed By: #### C RP, CMP, URIC, LIPID #### [facility] [address] [place] [address] Dr. Kirit Moscoso Chloride [Moles/Vol] 105 mmol/L Normal 98-[address] [facility] Comment on above: Performed By: #### C RP, CMP, URIC, LIPID #### [facility] [address] [place] [address] Dr. Kirit Moscoso CO2 [Moles/Vol] 26.5 mmol/L Normal 21.0-32.0 [facility] Comment on above: Performed By: #### C RP, CMP, URIC, LIPID #### [facility] [address] [place] [address] Dr. Kirit Moscoso Creatinine [Mass/Vol] 0.97 mg/dL Normal 0.55-1.[address] [facility] Comment on above: Performed By: #### C RP, CMP, URIC, LIPID #### [facility] [address] [place] [address] Dr. Kirit Moscoso EGFR-AF TONGAN >60 Normal >=60 [facility] Comment on above: Performed By: #### C RP, CMP, URIC, LIPID #### [facility] [address] [place] [address] Dr. Kirit Moscoso EGFR-NON AF TONGAN 60 mL/min/1.73m2 Normal >=60 [facility] Comment on above: Performed By: #### C RP, CMP, URIC, LIPID #### [facility] [address] [place] [address] Dr. Kirit Moscoso Globulin (S) [Mass/Vol] 4.3 g/dL Normal [facility] Comment on above: Performed By: #### C RP, CMP, URIC, LIPID #### [facility] [address] [address] [address] Kirit Moscoso Glucose [Mass/Vol] 96 mg/dL Normal 74-106 [facility] Comment on above: Performed By: #### C RP, CMP, URIC, LIPID #### [facility] [address] [place] [address] Dr. Kirit Moscoso Potassium [Moles/Vol] 4.1 mmol/L Normal 3.5-5.1 [facility] Comment on above: Performed By: #### C RP, CMP, URIC, LIPID #### [facility] [address] [address] [address] Kirit Moscoso Protein [Mass/Vol] 7.8 g/dL Normal 6.4-8.2 [facility] Comment on above: Performed By: #### C RP, CMP, URIC, LIPID #### [facility] [address] [place] [address] Dr. Kirit Moscoso Sodium [Moles/Vol] 139 mmol/L Normal 136-145 [facility] Comment on above: Performed By: #### C RP, CMP, URIC, LIPID #### [facility] [address] [place] [address] Dr. Kirit Moscoso Urea nitrogen [Mass/Vol] 19.0 mg/dL Critically high 7.0-18.[address] [facility] Comment on above: Performed By: #### C RP, CMP, URIC, LIPID #### [facility] [address] [place] [address] Dr. Kirit Moscoso Urea nitrogen/Creatinine [Mass ratio] 19.6 mg/mg Normal [facility] Comment on above: Performed By: #### C RP, CMP, URIC, LIPID #### [facility] [address] [place] [address] Dr. Kirit Moscoso UA (CLEAN/CATCH) OXYACETYLENE WELDER/MICRO I F IND.on 01-10-2023 Bilirubin Ql (U) Negative Normal NEGATIVE [facility] Comment on above: Performed By: #### C BC #### [facility] [address] [place] [address] Dr. Kirit Moscoso Clarity (U) CLEAR Normal CLEAR [facility] Comment on above: Performed By: #### C BC #### [facility] [address] [address] [address] Kirit Moscoso Color (U) LT. YELLOW Normal YELLOW [facility] Comment on above: Performed By: #### C BC #### [facility] [address] [address] [address] Kirit Moscoso Glucose Ql (U) Negative Normal NEGATIVE [facility] Comment on above: Performed By: #### C BC #### [facility] [address] [address] [address] Kirit Moscoso Hemoglobin Ql (U) Negative Normal NEGATIVE [facility] Comment on above: Performed By: #### C BC #### [facility] [address] [place] [address] Dr. Kirit Moscoso Ketones Ql (U) Negative Normal NEGATIVE [facility] Comment on above: Performed By: #### C BC #### [facility] [address] [place] [address] Dr. Kirit Moscoso LEUKOCYTES Negative Normal NEGATIVE [facility] Comment on above: Performed By: #### C BC #### [facility] [address] [address] [address] Kirit Moscoso Nitrite Ql (U) Negative Normal NEGATIVE [facility] Comment on above: Performed By: #### C BC #### [facility] [address] [place] [address] Dr. Kirit Moscoso pH (U) 5.5 [pH] Normal 5-[address] [facility] Comment on above: Performed By: #### C BC #### [facility] [address] [address] [address] Kirit Moscoso SPEC GRAVITY 1.010 Normal 1.005-<=1.025 [facility] Comment on above: Performed By: #### C BC #### [facility] [address] [place] [address] Dr. Kirit Moscoso UA PROTEIN Negative Normal NEGATIVE/ TRACE [facility] Comment on above: Performed By: #### C BC #### [facility] [address] [place], [place] [id number] Dr. Kirit Moscoso UR MICRO IND NOT INDICATED Normal [facility] Comment on above: Performed By: #### C BC #### [facility] [address] [place] [address] Dr. Kirit Moscoso Urobilinogen Qn (U) 0.2 {Jose Juan'U}/dL Normal 0.2 - 1. 0 [facility] Comment on above: Performed By: #### C BC #### [facility] [address] [place] [address] Dr. Kirit Moscoso URIC ACID SERUMon 01-10-2023 Urate [Mass/Vol] 5.6 mg/dL Normal 2.6-6.0 [facility] Comment on above: Performed By: #### C RP, CMP, URIC, LIPID #### [facility] [address] [place] [address] Dr. Kirit Moscoso FREE THYROXINE INDEX T7on FTI 2.46 Normal 1.30-4.[address] [facility] Comment on above: Performed By: #### T 7, TSH #### [facility] [address] [place] [address] Dr. Kirit Moscoso T3U 32.0 % Normal 30.0-39.[address] [facility] Comment on above: Performed By: #### T 7, TSH #### [facility] [address] [place] [address] Dr. Kirit Moscoso T4 [Mass/Vol] 7.70 ug/dL Normal 4.80-13.90 [facility] Comment on above: Performed By: #### T 7, TSH #### [facility] [address] [place] [address] Dr. Kirit Moscoso TSHon 10-28-2022 TSH 2.263 uIU/mL Normal 0.358-3.740 [facility] Comment on above: Performed By: #### T 7, TSH #### [facility] [address] [place] [address] Dr. Kirit Moscoso FREE THYROXINE INDEX T7on FTI 3.30 Normal 1.30-4.50 [facility] Comment on above: Performed By: #### T 7, TSH #### [facility] [address] [address] [address] Kirit Moscoso T3U 34.0 % Normal 30.0-39.[address] [facility] Comment on above: Performed By: #### T 7, TSH #### [facility] [address] [address] [address] Kirit Moscoso T4 [Mass/Vol] 9.70 ug/dL Normal 4.80-13.90 [facility] Comment on above: Performed By: #### T 7, TSH #### [facility] [address] [address] [address] Kirit Moscoso TSHon 04-16-2022 TSH 0.140 uIU/mL Critically low 0.358-3.740 [facility] Comment on above: Performed By: #### T 7, TSH #### [facility] [address] [place] [address] Dr. Kirit Moscoso TSH RANGE SEE BELOW Normal [facility] Comment on above: Result Comment: <0.3 4 UIU/ml HYPERTHYROID 0.34-5.60 UIU/ml EUTHYROID >5.60 UIU/ml HYPOTHYROID Performed By: #### T 7, TSH #### [facility] [address] [place] [address] Dr. Kirit Moscoso FREE T3on 02-27-2022 FREE T3 2.45 pg/mlL Critically low 2.77-5.27 [facility] Comment on above: Performed By: #### T 7, TSH #### [facility] [address] [place] [address] Dr. Kirit Moscoso T4on 02-27-2022 T4 [Mass/Vol] 7.00 ug/dL Normal 5.53-11.00 [facility] Comment on above: Performed By: #### T 7, TSH #### [facility] [address] [place] [address] Dr. Kirit Moscoso TSHon 02-27-2022 TSH 7.345 uIU/mL Critically high 0.470-4.680 [facility] Comment on above: Performed By: #### T 7, TSH #### [facility] [address] [address] [address] Kirit Moscoso TSH RANGE SEE BELOW Normal [facility] Comment on above: Result Comment: <0.3 4 UIU/ml HYPERTHYROID 0.34-5.60 UIU/ml EUTHYROID >5.60 UIU/ml HYPOTHYROID Performed By: #### T 7, TSH #### [facility] [address] [address] [address] Kirit Moscoso Vital Signs Date Time Vital Sign Value Performing Clinician Facility 05-04-2024 15:50-0400 Body height 160.02 cm [facility] 05-04-2024 15:50-0400 Body mass index (BMI) [Ratio] 35.4 kg/m2 [facility] 05-04-2024 15:50-0400 Body weight 90.71 kg [facility] 05-04-2024 15:50-0400 Diastolic blood pressure 82 mm[Hg] [facility] 05-04-2024 15:50-0400 Heart rate 71 /min [facility] 05-04-2024 15:50-0400 SaO2% (BldA) [Mass fraction] 98 % [facility] 05-04-2024 15:50-0400 Systolic blood pressure 120 mm[Hg] [facility] 06-29-2023 09:55-0400 Body height 160.02 cm Griselda Thao Other [employer] [facility] [employer] Other 06-29-2023 09:55-0400 Body mass index (BMI) [Ratio] 35.57 kg/m2 Griselda Thao Other [facility] Other 06-29-2023 09:55-0400 Body temperature 97.6 [degF] Griselda Thao Other [facility] Other 06-29-2023 09:55-0400 Body weight 91.08 kg Griselda Thao Other [facility] Other 06-29-2023 09:55-0400 Diastolic blood pressure 74 mm[Hg] Griselda Keesha Other [facility] Other 06-29-2023 09:55-0400 Respiratory rate 18 /min Griselda Keesha Other [facility] Other 06-29-2023 09:55-0400 SaO2% (BldA) [Mass fraction] 98 % Griselda Keesha Other [facility] Other 06-29-2023 09:55-0400 Systolic blood pressure 126 mm[Hg] Griselda Keesha Other [facility] [employer] Other Encounters Encounter Date Encounter Type Care Provider Facility Start: 05-04-2024 End: 05-04-2024 ambulatory [facility] Work Phone: Start: 05-04-2024 End: 05-04-2024 Patient encounter procedure [facility] Work Phone: Start: 12-31-2023 End: 12-31-2023 ambulatory Imad Asaad Other [facility] Other Start: 12-31-2023 Telephone encounter Imad Asaad [facility] G[facility] Start: 11-20-2023 End: 11-21-2023 ambulatory [facility] Start: 11-20-2023 Encounter for gynecological examination (general) (routine) without abnormal findings [facility] Start: 08-31-2023 End: 08-31-2023 ambulatory Tanisha Thao Facility:[facility] Start: 06-29-2023 End: 06-29-2023 ambulatory Griselda Thao Other [employer] Other Start: 06-29-2023 Office outpatient vi sit 15 minutes Grsielda Thao [facility] Start: 01-20-2023 End: 01-20-2023 ambulatory TANISHA P NYASIA Facility:[facility] Start: 01-16-2023 Encounter for genera l adult medical examination without abnormal findings TANISHA P NAYSIA [facility] Start: 01-13-2023 End: 01-13-2023 ambulatory TANISHA P [...] Care Activity Detail Author T3 reverse measurement [facility] Payers Date Payer Category Payer Self-pay 1970 Unknown [id number] 1970 Unknown [id number] 1970 Unknown [id number] 1968 Unknown [id number] 1968 Unknown [id number] 1968 Unknown [id number] 1968 Unknown [id number] 1968 Unknown [id number] 1970 Unknown [id number] 6 1961 Unknown [id number] 1961 Unknown [id number] Private Health Insurance [facility] [id number] Unknown [id number] Unknown MMO [id number] Unknown [employer] [id number] Social History Date Type Detail Facility Unknown if ever smoked [facility] Other Sex Assigned At Sex Assigned At Bir th [facility] Other Start: 05-04-2024 Tobacco smoking status NHIS Never smoked tobacco (finding) [facility] Start: 1970 Sex Assigned At Female [facility] Evaluation note 12-31-2023 Note Date & Type Note Facility 12-31-2023 Evaluation note Encounter Date Diagnosis Assessment Notes Dec, Ulcerative colitis (ICD-10 - K51.90) [facility] Other Evaluation note 06-29-2023 Note Date & [...] worsening. Patient/Parent verbalized understanding of tx plan. [facility] Other Clinical Note 07-02-2022 Note Date & [...] authenticated by: JUANI KNOX Date: 2022-07-02 15:[address] [facility] Evaluation note Note Date & Type Note Facility Evaluation note Diagnosis Onset Date Hypothyroid acute [facility] Work Phone: History general Narrative - Reported Note Date & Type Note Facility History general Narrative - Reported Type Medical History thyroid disease Medical History ulcerative colitis Surgical History tubal ligation Surgical History colonoscopy [facility] Other Summary Purpose Family History Relationship Condition [...] and content) DATE CREATED AUTHOR 02/04/2023 [facility] DATE CREATED AUTHOR AUTHOR'S ORGANIZ ATION 09/08/2023 [facility] DATE CREATED AUTHOR AUTHOR'S ORGANIZ ATION 12/02/2023 [facility] REASON FOR VISIT (unrecogniz ed section and content) BOTH EARS, PAINREFILL-PENTAS A Care Teams (unrecognized sec tion and content) Team Status: Active Member Role Status Dates Tanisha Thao , SOFTWARE PROGRAM MANAGER-C Primary Care Provider Active Team Status: Inactive Member Role Status Dates Tanisha Thao , SOFTWARE PROGRAM MANAGER-C Primary Care Provider Active Start: May 04, 2024 End: May 04, 2024 Cayla Orona APRN SOFTWARE PROGRAM MANAGER-C Attending Provider Act aguilar Start: May 04, 2024 End: May 04, 2024 Team Status: Active Member Role Status Dates Tanisha Thao , SOFTWARE PROGRAM MANAGER-C Primary Care Provider Active Team Status: Active Member Role Status Dates Tanisha Thao , SOFTWARE PROGRAM MANAGER-C Primary Care Provider Active Start: May 04, 2024 Cayla Orona APRN SOFTWARE PROGRAM MANAGER-C Attending Provider Act aguilar Start: May 04, 2024 Team Status: Inactive Member Role Status Dates Tanisha Thao , SOFTWARE PROGRAM MANAGER-C Primary Care Provider Active Start: May 04, 2024 End: May 04, 2024 Cayla Orona APRN SOFTWARE PROGRAM MANAGER-C Attending Provider Act aguilar Start: May 04, [...] BE BASED ON THE PRIMARY CLINICAL RECORDS. [employer] provides no warranty or guarantee of the accuracy or completeness of information in this document.
[2024-10-01 13:00] LABS: Alanine Aminotransferase 24 U/L (14-59); Albumin Globulin Ratio 0.8; Albumin Level 3.4 g/dL (3.4-5.0); Alkaline Phosphatase 126 U/L (46-116); Anion Gap 15.3; Aspartate Amino Transferase 15 U/L (15-37); BUN Creatinine Ratio 16.7; Bilirubin Total 0.4 mg/dL (0.2-1.0); Calcium 9.2 mg/dL (8.5-10.1); Carbon Dioxide 27.4 mmol/L (21.0-32.0); Chloride 106 mmol/L (98-107); Estimated GFR (African America >60 (>=60 mL/min/1.73m^2); Estimated GFR (Non-African Ame >60 (>=60 mL/min/1.73m^2); Globulin 4.1 g/dL; Glucose 119 mg/dL (74-106); Potassium 3.7 mmol/L (3.5-5.1); Sodium 145 mmol/L (136-145); Thyroid Stimulating Hormone 0.101 uIU/mL (0.358-3.740); Total Protein 7.5 g/dL (6.4-8.2)
[2024-10-01 13:44] LABS: Free T4 0.76 ng/dL (0.76-1.46)
[2024-10-03 12:08] LABS: Vitamin B12 780 pg/mL (232-1245)
== END 2024-10-01 11:37 | disposition home or self-care (01) ==
LOC: LAB 11:37
PROVIDERS: PCP Nurse Practitioner Family
DX: E03.9 Hypothyroidism, unspecified (principal); E55.9 Vitamin D deficiency, unspecified; D51.8 Other vitamin B12 deficiency anemias
CPT/HCPCS: 36415; 80053; 82306; 82607; 82728; 84439; 84443

== ENCOUNTER 2024-12-20 14:25 | Outpatient (OUT) | payer OTHER, SELFPAY ==
--- NOTE | 2024-12-20 14:27 | US_ITS ---
The [address] [address] Patient Name: ISIDRO JURADO MRN: [id number] date: 1970 Sex: F Assigned Patient Location: [place] Current Patient Location: [place] Accession/Order Number: [id number] Exam Date: 12/20/2024 14:30 Report Date: 12/20/2024 15:14 At the request of: NAYELY DUNN Procedure: US thyroid EXAM: US thyroid HISTORY: Enlarged Lymph Nodes, Goiter, Hypothyroidism COMPARISON: None. TECHNIQUE: Multiple sonographic images of the thyroid gland were obtained, supplemented with Doppler. FINDINGS: The right lobe measures 2.9 x 0.6 x 0.5 cm. Heterogeneous echoes are noted throughout. No focal nodule is identified within. The left lobe measures 2.5 x 0.6 x 0.7 cm. Heterogeneous echoes are noted throughout. No focal nodule is identified within. The isthmus measures 1 mm in thickness. There is a mildly enlarged lymph node in the soft tissues eccentric to the left of the gland measuring 2.5 x 0.7 x 0.6 cm. US/US thyroid IMPRESSION: The thyroid gland is the lower limits of normal in size. Heterogeneous echoes are noted throughout. No focal nodule is identified within. A mildly enlarged lymph node is seen in the soft tissues to the right of the gland. TI RADS 1. Electronically authenticated by: CECY WORTHY Date: 12/20/2024 15:14
--- OUTSIDE RECORDS SUMMARY | 2024-12-20 14:34 | XMS_ITS | CCD ---
Author Organization [facility] Care Team Providers Care Engineering Operator Name Role Phone NYASIA, TANISHA P Admitting [...] Sulfonamides (Antibiotic) Drug allergy (disorder) 7 [facility] Repository (2 sources) Substance with sulfonamide structure and antibacterial mechanism of action (substance) Drug allergy Unknown [employer] Other (4 sources) Sulfonamides (Antibiotic) Drug allergy (disorder) 3 [facility] Repository (4 sources) metroNIDAZOLE; Translations: [METRONIDAZOLE] Drug Allergy 1 Unknown Reaction [facility] Repository (1 source) Sulfanilamide; Translations: [SULFANILAMIDE] Drug Allergy 1 [facility] Repository Medications Current Medications Medication Drug Class(es) Dates Sig (Normalized) Sig (Original) azelastine (1 source) Histamine-1 Receptor Antagonist Start: 10-04-2024 take 1 spray(s) nasal route twice daily Azelastine Active 2 SPRAY INTRANASAL Twice daily October 04, 2024 12:00am administer into each nostril calcium ascorbate 500 mg oral tablet (3 sources) Start: 05-04-2024 take 500 mg by mouth once daily Ascorbate Calcium (Vitamin C) Active 500 MG PO Daily May 03, 2024 11:00pm cholecalciferol 0.05 mg oral capsule (5 sources) Vitamin D Start: 08-31-2023 take 1 capsule by mouth once daily Cholecalciferol (Vitamin D3) (Vitamin D3) 50 mcg (2,000 unit) Capsule Active 50 MCG PO Daily August 30, 2023 11:00pm take 1 tablet by mayra th every twenty-four hours Vitamin D3 50 MCG (2000 UT) 1 tablet Orally Once a day Active Copper Supplement (2 sources) Start: 05-04-2024 Copper Supplem ent Active PO May 03, 2024 11:00pm Start: 05-04-2024 Copper Supplem ent Active PO May 04, 2024 12:00am ferrous sulfate 325 mg oral tablet (7 sources) Start: 05-04-2024 take 1 tablet by mouth once daily Ferrous Sulfate (Ferosul) 325 mg (65 mg iron) tablet Active 325 MG PO Daily May 03, 2024 11:00pm Start: 08-31-2023 End: 05-04-2024 take 1 tablet by mouth once daily Ferrous Sulfate, Dried (Iron) 159 mg (45 mg iron) Tablet Extended Release Discontinued 159 MG PO Daily August 30, 2023 11:00pm May 04, 2024 2:52pm take 1 tablet by mayra th three times weekly Iron (Ferrous Sulfate) 325 (65 Fe) MG 1 tablet Orally Three times a Week Active Iron (1 source) take 1 tablet by mouth three times weekly Iron (Ferrous Sulfate) 325 (65 Fe) MG 1 tablet Orally Three times a Week Active mesalamine 500 mg extended release oral tablet (5 sources) Aminosalicylate Start: 08-31-2023 take 2 capsules by mouth three times daily Mesalamine (Pentasa) 500 mg capsule, extended release Active 1000 MG PO Three times daily August 30, 2023 11:00pm take 2 capsules by mouth three t [...] May, Active Potassium (2 sources) Potassium Active Thyroid (Pork) (1 source) Start: 10-04-2024 take 90 mg by mouth once daily Thyroid (Pork) Active 90 MG PO Daily October 04, 2024 12:00am Vit B Complex 100 Combo No.2 (B-100 Complex) 100 mg tablet extended release (3 sources) Start: 05-04-2024 Vit B Complex 100 Combo No.2 (B-100 Complex) 100 mg tablet extended release Active TAB PO May 03, 2024 11:00pm Start: 05-04-2024 Vit B Complex 100 Combo No.2 (B-100 Complex) 100 mg tablet extended release Active TAB PO May 04, 2024 12:00am Completed/Discontinued Medications Medication Drug Class(es) Dates Sig (Normalized) Sig (Original) dicyclomine hydrochloride 20 mg oral tablet (5 sources) Anticholinergic Start: 08-31-2023 End: 05-04-2024 Dicyclomine (Bentyl) 20 mg Tablet Discontinued 20 MG PO As Directed August 30, 2023 11:00pm May 04, 2024 2:52pm Bentyl Active FLUoxetine 20 mg oral capsule (3 sources) Serotonin Reuptake Inhibitor Start: 05-04-2024 End: 05-04-2024 take 20 mg by mouth once daily Fluoxetine Discontinued 20 MG PO Daily May 03, 2024 11:00pm May 04, 2024 2:56pm levothyroxine sodium 0.075 mg oral tablet (10 sources) l-Thyroxine Start: 05-04-2024 End: 05-04-2024 take 100 ug by mouth once daily Levothyroxine Discontinued 100 MCG PO Daily May 03, 2024 11:00pm May 04, 2024 3:21pm Start: 05-04-2024 End: 10-04-2024 take 37.5 ug by mouth once daily Levothyroxine Discontinued 37.5 MCG PO Daily May 03, 2024 11:00pm October 04, 2024 1:12pm Start: 08-31-2023 End: 05-04-2024 Levothyroxine (Synthroid) 75 mcg Tablet Discontinued 37.5 MCG PO Daily August 30, 2023 11:00pm May 04, 2024 2:51pm take 1 tablet by mayra th in [...] Active liothyronine sodium 0.005 mg oral tablet (5 sources) l-Triiodothyronine Start: 08-31-2023 End: 10-04-2024 take 1 tablet by mouth once daily Liothyronine (Cytomel) 5 mcg Tablet Discontinued 5 MCG PO Daily August 30, 2023 11:00pm October 04, 2024 1:12pm Liothyronine Sod ium 5 MCG Oral for 17 Days Active Magnesium (5 sources) Start: 08-31-2023 End: 05-04-2024 take 500 mg by mouth once daily Magnesium Discontinued 500 MG PO Daily August 30, 2023 11:00pm May 04, 2024 2:52pm Start: 08-31-2023 End: 05-04-2024 take 500 mg by mouth once daily Magnesium Discontinued 500 MG PO Daily August 31, 2023 12:00am May 04, 2024 3:52pm Magnesium Active polyethylene glycol 3350 601016 mg / potassium chloride 2970 mg / sodium bicarbonate 6740 mg / sodium chloride 5860 mg / sodium sulfate 87935 mg powder for oral solution (2 sources) Osmotic Laxative take 236 g by mouth once as needed Golytely 236 GM as directed Orally once for 1 days Not-Taking/PRN potassium chloride 10 meq extended release oral tablet (9 sources) Start: End: take 20 mEq by mouth once daily Potassium Chloride Discontinued 20 MEQ PO Daily May 04, 2024 2:51pm May 04, 2024 2:58pm Start: 08-31-2023 End: 05-04-2024 take 10 mEq by mouth once daily Potassium Chloride Act aguilar 10 MEQ PO Daily May 04, 2024 2:57pm Problems Active Problems Problem Classification Problem Date Documented Da te Episodic/Chronic Heart valve disorders (1 source) Heart murmur; Translations: [Cardiac murmur, unspecified] 05-08-2024 Episodic Other ear and sense organ disorders (2 sources) Otitis externa; Translations: [Other otitis externa, right ear] Chronic Other ear and sense organ disorders (1 source) Other otitis externa, right ear Chronic Other ear and sense organ disorders (1 source) Impacted cerumen; Translations: [Impacted cerumen, unspecified ear] 10-04-2024 Episodic Other ear and sense organ disorders (1 source) Impacted cerumen, unspecified ear; Translations: [Impacted cerumen] 10-04-2024 Episodic Other gastrointestinal disorders (2 sources) Flatulence, eructation and gas pain; Translations: [Abdominal distension (gaseous)] Episodic Other inflammatory condition of skin (5 sources) Pruritus ani; Translations: [PRURITUS ANI] Onset: 01-13-2023 Episodic Other inflammatory condition of skin (2 sources) Pruritus ani; Translations: [Pruritus ani] Episodic Otitis media and related conditions (2 sources) Dysfunction of eustachian tube; Translations: [Unspecified Eustachian tube disorder, unspecified ear] 10-04-2024 Episodic Regional enteritis and ulcerative colitis (3 sources) Ulcerative colitis; Translations: [Ulcerative colitis, unspecified, without complications] Chronic Thyroid disorders (9 sources) Hypothyroidism, unspecified; Translations: [Hypothyroidism] Onset: 10-28-2022 [...] Test Name Value Interpretation Reference Range Facility Estimated glomerular filtrat ion rate (GFR) non- Americanon 10-01-2024 GFR/1.73 sq M.predicted among non-blacks MDRD (S/P/Bld) [Vol rate/Area] mL/min/{1.73_m2} >=60 mL/min/1.73m 2 [facility] [place] [facility] Globulin Calc (S) [Mass/Vol] on 10-01-2024 Globulin (S) [Mass/Vol] 4.1 g/dL [facility] [place] [facility] Laboratory - Chemistry and C hemistry - challengeon 10-01-2024 Albumin [Mass/Vol] 3.4 g/dL 3.4-5.0 [facility] ALP [Catalytic activity/Vol] 126 U/L High 46-116 [facility] [place] [facility] ALT [Catalytic activity/Vol] 24 U/L 14-59 [facility] AST [Catalytic activity/Vol] 15 U/L 15-37 [facility] Bilirubin [Mass/Vol] 0.4 mg/dL 0.2-1.[address] [facility] Calcium [Mass/Vol] 9.2 mg/dL 8.5-10.1 [facility] Chloride [Moles/Vol] 106 mmol/L 98-[address] [facility] CO2 [Moles/Vol] 27.4 mmol/L 21.0-32.0 [facility] Creatinine [Mass/Vol] 0.84 mg/dL 0.55-1.02 [facility] Ferritin [Mass/Vol] 145.0 ng/mL 8.0-252.[address] [facility] Free T4 [Mass/Vol] 0.76 ng/dL 0.76-1.46 [facility] GFR/1.73 sq M.predicted MDRD (S/P/Bld) [Vol rate/Area] mL/min/{1.73_m2} >=60 mL/min/1.73m 2 [facility] [place] [facility] Glucose [Mass/Vol] 119 mg/dL High 74-106 [facility] Potassium [Moles/Vol] 3.7 mmol/L 3.5-5.1 [facility] Protein [Mass/Vol] 7.5 g/dL 6.4-8.2 [facility] Sodium [Moles/Vol] 145 mmol/L 136-145 [facility] TSH Qn 0.101 m[IU]/L Low 0.358-3.740 [facility] [place] [facility] Urea nitrogen [Mass/Vol] 14.0 mg/dL 7.0-18.0 [facility] [place] [facility] Urea nitrogen/Creatinine [Mass ratio] 16.7 mg/mg [facility] [place] [facility] No Panel Informationon 10-01 25-Hydroxy Vitamin D Total 30.0 ng/mL [facility] [place] [facility] Comment on above: <20 ng/mL Vit D defi cient20-<30 ng/mL Vit D sisnfnszcbgl83-850 ng/mL Vit D sufficient>100 ng/mL Potential Toxicity Serum or plasma albumin/glob ulin mass ratioon 10-01-2024 Albumin/Globulin [Mass ratio] 0.8 {ratio} [facility] [place] [facility] Serum or plasma anion gap de terminationon 10-01-2024 Anion gap [Moles/Vol] 15.3 [facility] Auto (Bld) [#/Vol] on 07-16-2024 Basophils (Bld) [#/Vol] 0.1 10 3/uL 0.0-0.1 [facility] [place] [facility] Basophils/100 WBC Auto (Bld) on 07-16-2024 Basophils/100 WBC (Bld) 1.2 % 0.2-2.0 [facility] [place] [facility] Cholesterol in LDL Calc [Mas s/Vol]on 07-16-2024 Cholesterol in LDL [Mass/Vol] 153.0 mg/dL [facility] Comment on above: <100 mg/dl [id number] 0-129 mg/dl NEAR OR ABOVE [id number] mg/dl BORDERLINE PSED502-547 mg/dl HIGH>190 mg/dl VERY HIGH Cholesterol in VLDL Calc [Ma ss/Vol]on 07-16-2024 Cholesterol in VLDL [Mass/Vol] 28.2 mg/dL [facility] [place] [facility] Eosinophils/100 WBC Auto (Bl d)on 07-16-2024 Eosinophils/100 WBC (Bld) 0.0 % Low 0.9-7.0 [facility] [place] [facility] Erythrocyte distribution wid th Auto (RBC) [Ratio]on 07-16-2024 Erythrocyte distribution width (RBC) [Ratio] 13.2 % 11.0-15.0 [facility] [place] [facility] Estimated glomerular filtrat ion rate (GFR) non- Americanon 07-16-2024 GFR/1.73 sq M.predicted among non-blacks MDRD (S/P/Bld) [Vol rate/Area] mL/min/{1.73_m2} >=60 [facility] Globulin Calc (S) [Mass/Vol] on 07-16-2024 Globulin (S) [Mass/Vol] 4.1 g/dL [facility] Hematocrit Auto (Bld) [Volum e fraction]on 07-16-2024 Hematocrit (Bld) [Volume fraction] 45.2 % 36.0-48.0 [facility] Hemoglobin [Mass/volume] in Bloodon 07-16-2024 Hemoglobin (Bld) [Mass/Vol] 15.1 g/dL 12.0-16.0 [facility] Iron binding capacity [Mass/ volume] in Serum or Plasmaon 07-16-2024 Iron binding capacity [Mass/Vol] 262.0 ug/dL 250.0-450.0 [facility] Iron saturation [Mass Fracti on] in Serum or Plasmaon 07-16-2024 Iron saturation [Mass fraction] 28.2 % [facility] Laboratory - Chemistry and C hemistry - challengeon 07-16-2024 Albumin [Mass/Vol] 3.6 g/dL 3.4-5.0 [facility] ALP [Catalytic activity/Vol] 136 U/L High 46-116 [facility] ALT [Catalytic activity/Vol] 26 U/L 14-59 [facility] AST [Catalytic activity/Vol] 14 U/L Low 15-37 [facility] [place] [facility] Bilirubin [Mass/Vol] 0.6 mg/dL 0.2-1.[address] [facility] Calcium [Mass/Vol] 9.4 mg/dL 8.5-10.1 [facility] Chloride [Moles/Vol] 104 mmol/L 98-[address] [facility] Cholesterol [Mass/Vol] 221 mg/dL High <=200 [facility] [place] [facility] Cholesterol in HDL [Mass/Vol] 40 mg/dL 40-60 [facility] [place] [facility] Comment on above: > or =60 mg/dl - LOW CARDIOVASCULAR RISK<40 mg/dl - HIGH CARDIOVASCULAR RISK CO2 [Moles/Vol] 28.2 mmol/L 21.0-32.0 [facility] Cobalamin (Vitamin B12) [Mass/Vol] 822.0 pg/mL 193.0-986.0 [facility] [place] [facility] Creatinine [Mass/Vol] 0.78 mg/dL 0.55-1.02 [facility] Free T4 [Mass/Vol] 0.82 ng/dL 0.76-1.46 [facility] GFR/1.73 sq M.predicted MDRD (S/P/Bld) [Vol rate/Area] mL/min/{1.73_m2} >=60 [facility] [place] [facility] Glucose [Mass/Vol] 92 mg/dL 74-106 [facility] Iron [Mass/Vol] 74.0 ug/dL 50.0-170.0 [facility] [place] [facility] Potassium [Moles/Vol] 3.9 mmol/L 3.5-5.1 [facility] Protein [Mass/Vol] 7.7 g/dL 6.4-8.2 [facility] Sodium [Moles/Vol] 137 mmol/L 136-145 [facility] Triglyceride [Mass/Vol] 141 mg/dL <=150 [facility] TSH Qn 0.524 m[IU]/L 0.358-3.740 [facility] Urea nitrogen [Mass/Vol] 17.0 mg/dL 7.0-18.0 [facility] Urea nitrogen/Creatinine [Mass ratio] 21.8 mg/mg [facility] Laboratory - Hematology and Cell countson 07-16-2024 Immature granulocytes/100 WBC (Bld) 0.2 % 0.0-0.5 [facility] Leukocytes [#/volume] correc cullen for nucleated erythrocytes in Blood by Automated counon 07-16-2024 WBC corrected for nucl RBC Auto (Bld) [#/Vol] 4.8 10 3/uL 4.0-11.0 [facility] [place] [facility] Lymphocytes Auto (Bld) [#/Vo l]on 07-16-2024 Lymphocytes (Bld) [#/Vol] 1.5 10 3/uL 1.2-3.8 [facility] [place] [facility] Lymphocytes/100 WBC Auto (Bl d)on 07-16-2024 Lymphocytes/100 WBC (Bld) 31.3 % 20.5-60.0 [facility] [place] [facility] MCH Auto (RBC) [Entitic mass ]on 07-16-2024 MCH (RBC) [Entitic mass] 27.9 pg 26.7-34.0 [facility] MCHC Auto (RBC) [Mass/Vol]on 07-16-2024 MCHC (RBC) [Mass/Vol] 33.4 g/dL 29.9-35.2 [facility] MCV Auto (RBC) [Entitic vol] on 07-16-2024 MCV (RBC) [Entitic vol] 83.5 fL 81.0-99.0 [facility] Monocytes Auto (Bld) [#/Vol] on 07-16-2024 Monocytes (Bld) [#/Vol] 0.4 10 3/uL 0.3-0.8 [facility] [place] [facility] Monocytes/100 WBC Auto (Bld) on 07-16-2024 Monocytes/100 WBC (Bld) 7.7 % 1.7-12.0 [facility] [place] [facility] Neutrophils Auto (Bld) [#/Vo l]on 07-16-2024 Neutrophils (Bld) [#/Vol] 2.9 10 3/uL 1.4-6.5 [facility] [place] [facility] Neutrophils/100 WBC Auto (Bl d)on 07-16-2024 Neutrophils/100 WBC (Bld) 59.6 % 43.0-75.0 [facility] No Panel Informationon 07-16 25-Hydroxy Vitamin D Total 25.2 ng/mL [facility] Comment on above: <20 ng/mL Vit D defi cient20-<30 ng/mL Vit D hodgfrknepqk63-727 ng/mL Vit D sufficient>100 ng/mL Potential Toxicity Eosinophils # (Auto) 0.0 10 3/uL 0.0-0.7 [facility] Free Triiodothyronine 5.22 pg/mL High 2.18-3.98 [facility] Immature Granulocyte # (Auto) 0.01 10 3/uL 0.00-0.03 [facility] [place] [facility] Platelet mean volume Auto (B ld) [Entitic vol]on 07-16-2024 Platelet mean volume (Bld) [Entitic vol] 9.7 fL 9.5-13.5 [facility] [place] [facility] Platelets Auto (Bld) [#/Vol] on 07-16-2024 Platelets (Bld) [#/Vol] 202 10 3/uL 150-450 [facility] RBC Auto (Bld) [#/Vol]on RBC (Bld) [#/Vol] 5.41 10 6/uL High 4.20-5.40 [facility] Serum or plasma albumin/glob ulin mass ratioon 07-16-2024 Albumin/Globulin [Mass ratio] 0.9 {ratio} [facility] Serum or plasma anion gap de terminationon 07-16-2024 Anion gap [Moles/Vol] 8.7 mmol/L [facility] Serum or plasma thyroperoxid ase antibody assay (units/volume)on 07-16-2024 TPO Ab Qn [IU]/mL 0-34 [facility] Comment on above: Performed at: [address] [id number] Director: Richardson Sethi PhD, Phone: [phone] Serum or plasma total choles terol/high density lipoprotein (HDL) cholesterol mass jeovanny 07-16-2024 Cholesterol.total/Cho lesterol in HDL [Mass ratio] 5.5 {ratio} [facility] Comment on above: 3.3 - 4.4 LOW RISK4. 4 - 7.1 AVERAGE RISK7.1 - 11.0 MODERATE RISK>11.0 HIGH RISK Cytologyon 11-20-2023 Cytology Normal [facility] Comment on above: Result Comment: [facility] [address] [place] [address] Gynecologic Cytology Consultation Patient Name:ISIDRO MUSA:1970 (Age: 53)Gender:FTaken:11/20/2023Reported:12/01/2023hysician(s):Therese Sanchez C.N.M. ([phone])Copy To: Rec. #:[id number]: #[id number] Final Cytologic Interpretation ThinPrep Pap Test (Cervical): Satisfactory for evaluation. A transformation zone component is present. NEGATIVE FOR INTRAEPITHELIAL LESION OR MALIGNANCY. jja/12/01/2023 Interpretation performed at [facility], [address] [place] [address], License number: [id number]. Electronically Signed Out By AKILA Waters(ASCP) Date of Last Menstrual Period: (None Given) Other Clinical Conditions: Z01.419 Instrument Adjuster exam wo/abn findings Menopausal Postmenopausal Source of Specimen ThinPrep Pap Test (Cervical) Thin Prep Pap (CANDY DECORATOR) Fee Code(s): G0145 HIGH RISK HPV W/GENOon 11-20 HPV 31+33+35+39+45+51+52+ 56+58+59+66+68 DNA CLARA+probe Ql (Cvx) HPV SPECIMEN TYPE ThinPrep HPV 16 Negative (qualifier value) HPV 18 Negative (qualifier value) OTHER HIGH RISK HPV Negative (qualifier value) HPV types 31,33,35,39,45,52,56, 58,59,66 and 68 DNA were undetectable. Normal [facility] Comment on above: Performed By: #### 7 1431-1 #### [facility] ([id number]) [address] [facility] [place] [address] [facility] ([id number]) [address], [address] [place] [address] Dusty 08-31-2023 L - -------- Specimen: [id number] Received: 08/31/23 Status: GRECIA Dent Num: [id number] Spec Type: Surgical Subm Dr: Danita Alfaro MD Tissues: A Small Intestine - Biopsy/Polyp (ILEUM BX) B Colon Biopsy (RT COLON BX) C Colon Biopsy (TRANSVERSE BX) D Colon Biopsy (DESCENDING) E Colon Biopsy (SIGMOID BX) F Colon Biopsy (RECTUM BX) Procedures: DAVID/Naun Peres/Johnnie L4/6 -------- Age/ Patient Sex Location Account Attending Physician -------- Isidro Musa 53/F [id number] Danita Alfaro MD -------- SPEC NUM: [id number] RECD: 08/31/23 STATUS: GRECIA TIDWELLJacinda NUM: [id number] TOSIN: 08/31/23- [facility] DR: Danita Alfaro MD ENTERED: 08/31/23 [facility] DR: SPEC TYPE: Surgical DEPT: S ORDERED: [...] other specific histopathological abnormality observed -------- Specimen: [id number] Received: 08/31/23 Status: GRECIA Dent Num: [id number] Spec Type: Surgical Subm Dr: Danita Alfaro MD Tissues: A Small Intestine - Biopsy/Polyp (ILEUM BX) B Colon Biopsy (RT COLON BX) C Colon Biopsy (TRANSVERSE BX) D Colon Biopsy (DESCENDING) E Colon Biopsy (SIGMOID BX) F Colon Biopsy (RECTUM BX) Procedures: HE/12, Gross/Micro L4/6 -------- Patient: Isidro Musa [id number] (Continued) -------- Specimen: [id number] Received: 08/31/23 (Continued) Pathological Diagnosis (Continued) Signed (signature on file) Roxann Moscoso MD 09/01/231717 -------- Specimen: [id number] Received: 08/31/23 Status: GRECIA Dent Num: [id number] Spec Type: Surgical Subm Dr: Danita Alfaro MD Tissues: A Small Intestine - Biopsy/Polyp (ILEUM BX) B Colon Biopsy (RT COLON BX) C Colon Biopsy (TRANSVERSE BX) D Colon Biopsy (DESCENDING) E Colon Biopsy (SIGMOID BX) F Colon Biopsy (RECTUM BX) Procedures: , Gross/Micro L4/6 -------- Patient: Isidro Musa [id number] (Continued) -------- Specimen: [id number] Received: 08/31/23 (Continued) Pathological Diagnosis (Continued) E. [...] and transvers (more content not included)... Normal [facility] Covid-19 PCR ([facility])on 01-01 SARS-CoV-2 (COVID-19) RNA CLARA+probe Ql (Unsp spec) Not detected Normal NOT DETECTED [facility] Comment on above: Result Comment: When [...] for this test is supported by the [place] of Health and Human Service's declaration that [...] used). Performed By: #### C VDTB #### [facility] [address] [place] [address] Dr. Kirit Moscoso OVA AND PARASITE EXAMINATION on 01-19-2023 Ova + Parasite Exam Final report Normal [facility] Comment on above: Result Comment: Thes e results were obtained using wet preparation(s) and trichrome stained smear. This test does not include testing for Cryptosporidium parvum, Cyclospora, or Microsporidia. Performed By: #### C BC #### [facility] [address] [place] [address] Dr. Kirit Moscoso Result 1 Comment Normal [facility] Comment on above: Result Comment: No o va, cysts, or parasites seen. . One negative specimen does not rule out the possibility of a parasitic infection. Performed By: #### C BC #### [facility] [address] [place] [address] Dr. Kirit Moscoso SAGE by IFAon 01-16-2023 Antinuclear Antibodies, IFA Positive Abnormal [facility] Comment on above: Result Comment: Nega tive <1:80 Borderline 1:80 Positive >1:80 Performed By: #### T 7, TSH #### [facility] [address] [place] [address] Dr. Kirit Moscoso Centriole Pattern Normal [facility] Comment on above: Performed By: #### T 7, TSH #### [facility] [address] [place] [address] Dr. Kirit Moscoso Centromere Pattern Normal [facility] Comment on above: Performed By: #### T 7, TSH #### [facility] [address] [place], [place] [address] Dr. Kirit Moscoso Homogeneous Pattern 1:640 Critically high [facility] Comment on above: Result Comment: ICAP nomenclature: AC-1 Performed By: #### T 7, TSH #### [facility] [address] [place], [place] [address] Dr. Kirit Moscoso Midbody Pattern Normal [facility] Comment on above: Performed By: #### T 7, TSH #### [facility] [address] [place], [place] [address] Dr. Kirit Moscoso Note: Comment Normal [facility] Comment on above: Result Comment: For [...] titers Nucleosomes, Histones Drug-induced SLE Speckled Sm, MOLDING AND TRIM INSTALLER, SCL-70, SLE,MCTD,PSS (diffuse form), SS-A/SS-B Sjogrens Nucleolar SCL-70, PM-1/SCL High titers Scleroderma, PM/DM Centromere Centromere PSS (limited form) w/Crest syndrome variable Nuclear Dot Sp100,f76-cvihap Primary Biliary Cirrhosis Nuclear GP210, Primary Biliary Cirrhosis Membrane imssy A,B,C Performed By: #### T 7, TSH #### [facility] [address] [place] [address] Dr. Kirit Moscoso Nuclear Dot Pattern Normal [facility] Comment on above: Performed By: #### T 7, TSH #### [facility] [address] [place] [address] Dr. Kirit Moscoso Nuclear Membrane Pattern Normal [facility] Comment on above: Performed By: #### T 7, TSH #### [facility] [address] [place] [address] Dr. Kirit Moscoso Nucleolar Pattern Normal [facility] Comment on above: Performed By: #### T 7, TSH #### [facility] [address] [place] [address] Dr. Kirit Moscoso PCNA Pattern Normal [facility] Comment on above: Performed By: #### T 7, TSH #### [facility] [address] [place] [address] Dr. Kirit Moscoso Speckled Pattern Normal [facility] [place] Comment on above: Performed By: #### T 7, TSH #### [facility] [address] [place] [address] Dr. Kirit Moscoso Spindle Apparatus Pattern Normal [facility] Comment on above: Performed By: #### T 7, TSH #### [facility] [address] [place] [address] Dr. Kirit Moscoso GI PANEL (PCR)on 01-13-2023 Adenovirus F 40/41 Not detected Normal NOT DETECTED [facility] Comment on above: Performed By: #### T 7, TSH #### [facility] [address] [place] [address] Dr. Kirit Moscoso Astrovirus Not detected Normal NOT DETECTED [facility] Comment on above: Performed By: #### T 7, TSH #### [facility] [address] [place] [address] Dr. Kirit Moscoso C. Diff toxin A/B Not detected Normal NOT DETECTED [facility] Comment on above: Performed By: #### T 7, TSH #### [facility] [address] [place] [address] Dr. Kirit Moscoso Campylobacter Not detected Normal NOT DETECTED [facility] Comment on above: Performed By: #### T 7, TSH #### [facility] [address] [place] [address] Dr. Kirit Moscoso Cryptosporidium Not detected Normal NOT DETECTED [facility] Comment on above: Performed By: #### T 7, TSH #### [facility] [address] [place] [address] Dr. Kirit Moscoso Cyclos. Cayetanensis Not detected Normal NOT DETECTED [facility] Comment on above: Performed By: #### T 7, TSH #### [facility] [address] [place] [address] Dr. Kirit Moscoso E. Coli O157 Not Applicable Normal Not Applicable [facility] Comment on above: Performed By: #### T 7, TSH #### [facility] [address] [address] [address] Kirit Moscoso E. histolytica Not detected Normal NOT DETECTED [facility] Comment on above: Performed By: #### T 7, TSH #### [facility] [address] [place] [address] Dr. Kirit Moscoso EAEC Not detected Normal NOT DETECTED [facility] Comment on above: Performed By: #### T 7, TSH #### [facility] [address] [place] [address] Dr. Kirit Moscoso EIEC Not detected Normal NOT DETECTED [facility] Comment on above: Performed By: #### T 7, TSH #### [facility] [address] [place] [address] Dr. Kirit Moscoso EPEC Not detected Normal NOT DETECTED [facility] Comment on above: Performed By: #### T 7, TSH #### [facility] [address] [place] [address] Dr. Kirit Moscoso ETEC Not detected Normal NOT DETECTED [facility] Comment on above: Performed By: #### T 7, TSH #### [facility] [address] [place] [address] Dr. Kirit Moscoso G. Lamblia Not detected Normal NOT DETECTED [facility] Comment on above: Performed By: #### T 7, TSH #### [facility] [address] [place] [address] Dr. Kirit RUBY CONTROLS PASSED Normal [facility] Comment on above: Performed By: #### T 7, TSH #### [facility] [address] [place] [address] Dr. Kirit DAVIS COLLEEN HEADER GI PANEL BACTERIA Normal [facility] Comment on above: Performed By: #### T 7, TSH #### [facility] [address] [place] [address] Dr. Kirit DAVISHD ECOLI GI PANEL DIARRHEAGENIC E.COLI / SHIGELLA Normal [facility] Comment on above: Performed By: #### T 7, TSH #### [facility] [address] [place] [address] Dr. Kirit SHARPE INFO SEE BELOW Normal [facility] Comment on above: Result Comment: EAEC - Enteroaggregative E. Coli EPEC- Enteropathogenic E. Coli ETEC- Enterotoxigenic E. Coli lt/st STEC- Shigella-like toxin-producing E. Coli stx1/stx2 EIEC- Shigella/Enteroinvasive E. Coli Performed By: #### T 7, TSH #### [facility] [address] [address] [address] Kirit SHARPE PARASITES GI PANEL PARASITES Normal [facility] Comment on above: Performed By: #### T 7, TSH #### [facility] [address] [place] [address] Dr. Kirit SHARPE VIRUS GI PANEL VIRUSES Normal [facility] Comment on above: Performed By: #### T 7, TSH #### [facility] [address] [place] [address] Dr. Kirit Moscoso Norovirus GI/GII Not detected Normal NOT DETECTED [facility] Comment on above: Performed By: #### T 7, TSH #### [facility] [address] [place] [address] Dr. Kirit Moscoso P. Shigelloides Not detected Normal NOT DETECTED [facility] Comment on above: Performed By: #### T 7, TSH #### [facility] [address] [place] [address] Dr. Kirit Moscoso Rotavirus A Not detected Normal NOT DETECTED [facility] Comment on above: Performed By: #### T 7, TSH #### [facility] [address] [place] [address] Dr. Kirit Moscoso Salmonella Not detected Normal NOT DETECTED [facility] Comment on above: Performed By: #### T 7, TSH #### [facility] [address] [place] [address] Dr. Kirit Moscoso Sapovirus Not detected Normal NOT DETECTED [facility] Comment on above: Performed By: #### T 7, TSH #### [facility] [address] [place] [address] Dr. Kirit Moscoso STEC Not detected Normal NOT DETECTED [facility] Comment on above: Performed By: #### T 7, TSH #### [facility] [address] [place] [address] Dr. Kirit Moscoso Vibrio Not detected Normal NOT DETECTED [facility] Comment on above: Performed By: #### T 7, TSH #### [facility] [address] [place] [address] Dr. iKrit Moscoso Vibrio Cholera Not detected Normal NOT DETECTED [facility] Comment on above: Performed By: #### T 7, TSH #### [facility] [address] [place] [address] Dr. Kirit Moscoso Y. Enterocolitica Not detected Normal NOT DETECTED [facility] Comment on above: Performed By: #### T 7, TSH #### [facility] [address] [place] [address] Dr. Kirit Moscoso INSULINon 01-12-2023 Insulin 23.6 uIU/mL Normal 2.6-24.9 [facility] Comment on above: Performed By: #### T 7, TSH #### [facility] [address] [place] [address] Dr. Kirit Moscoso ANTISTREPTOLYSIN O AB (ASO)o n 01-11-2023 Antistreptolysin O Ab 70.3 IU/mL Normal 0.0-200.0 [facility] Comment on above: Performed By: #### A SOAB #### [facility] [address] [place] [address] Dr. Kirit Moscoso RHEUMATOID FACTORon 01-11-20 RA Latex Turbid. <10.0 Normal <14.0 [facility] Comment on above: Performed By: #### R F #### [facility] [address] [place] [address] Dr. Kirit Moscoso CBC AUTO DIFFon 01-10-2023 BASO # 0.1 103/ul Normal 0.0-0.1 [facility] Comment on above: Performed By: #### C BC #### [facility] [address] [place] [address] Dr. Kirit Moscoso Basophils/100 WBC (Bld) 1.2 % Normal 0.2-2.0 [facility] Comment on above: Performed By: #### C BC #### [facility] [address] [place] [address] Dr. Kirit Moscoso EO # 0.0 103/ul Normal 0.0-0.7 [facility] Comment on above: Performed By: #### C BC #### [facility] [address] [place] [address] Dr. Kirit Moscoso Eosinophils/100 WBC (Bld) 0.0 % Critically low 0.9-7.0 [facility] Comment on above: Performed By: #### C BC #### [facility] [address] [place] [address] Dr. Kirit Moscoso Erythrocyte distribution width (RBC) [Ratio] 13.6 % Normal 11.0-15.0 [facility] Comment on above: Performed By: #### C BC #### [facility] [address] [place] [address] Dr. Kirit Moscoso Hematocrit (Bld) [Volume fraction] 44.2 % Normal 36.0-48.0 [facility] Comment on above: Performed By: #### C BC #### [facility] [address] [place] [address] Dr. Kirit Moscoso Hemoglobin (Bld) [Mass/Vol] 14.2 g/dL Normal 12.0-16.0 [facility] Comment on above: Performed By: #### C BC #### [facility] [address] [place] [address] Dr. Kirit Moscoso IG # 0.02 10e3/ul Normal 0.00-0.03 [facility] Comment on above: Performed By: #### C BC #### [facility] [address] [place] [address] Dr. Kirit Moscoso IG % 0.3 % Normal 0.0-0.5 [facility] Comment on above: Performed By: #### C BC #### [facility] [address] [place] [address] Dr. Kirit Moscoso LYMPH # 1.5 103/ul Normal 1.2-3.8 [facility] Comment on above: Performed By: #### C BC #### [facility] [address] [place] [address] Dr. Kirit Moscoso Lymphocytes/100 WBC (Bld) 22.7 % Normal 20.5-60.0 [facility] Comment on above: Performed By: #### C BC #### [facility] [address] [place] [address] Dr. Kirit Moscoso MANUAL DIFF REQ NO Normal [facility] Comment on above: Performed By: #### C BC #### [facility] [address] [place] [address] Dr. Kirit Moscoso MCH (RBC) [Entitic mass] 27.8 pg Normal 26.7-34.0 [facility] Comment on above: Performed By: #### C BC #### [facility] [address] [place] [address] Dr. Kirit Moscoso MCHC (RBC) [Mass/Vol] 32.1 g/dL Normal 29.9-35.2 [facility] Comment on above: Performed By: #### C BC #### [facility] [address] [place] [address] Dr. Kirit Moscoso MCV (RBC) [Entitic vol] 86.5 fL Normal 81.0-99.0 [facility] Comment on above: Performed By: #### C BC #### [facility] [address] [place] [address] Dr. Kirit Moscoso MONO # 0.5 103/ul Normal 0.3-0.8 [facility] Comment on above: Performed By: #### C BC #### [facility] [address] [place] [address] Dr. Kirit Moscoso Monocytes/100 WBC (Bld) 7.3 % Normal 1.7-12.0 [facility] Comment on above: Performed By: #### C BC #### [facility] [address] [place] [address] Dr. Kirit Moscoso NEUT # 4.5 103/ul Normal 1.4-6.5 [facility] Comment on above: Performed By: #### C BC #### [facility] [address] [place] [address] Dr. Kirit Moscoso Neutrophils/100 WBC (Bld) 68.5 % Normal 43.0-75.0 [facility] Comment on above: Performed By: #### C BC #### [facility] [address] [address] [address] Kirit Moscoso Platelet mean volume (Bld) [Entitic vol] 10.2 fL Normal 9.5-13.5 [facility] Comment on above: Performed By: #### C BC #### [facility] [address] [place] [address] Dr. Kirit Moscoso PLT 250 103/ul Normal 150-450 [facility] Comment on above: Performed By: #### C BC #### [facility] [address] [place] [address] Dr. Kirit Moscoso RBC 5.11 106/ul Normal 4.20-5.40 [facility] Comment on above: Performed By: #### C BC #### [facility] [address] [place] [address] Dr. Kirit Moscoso WBC 6.6 103/ul Normal 4.0-11.0 [facility] Comment on above: Performed By: #### C BC #### [facility] [address] [place] [address] Dr. Kirit Moscoso CRPon 01-10-2023 CRP 1.2 mg/dL Critically high <=1.[address] [facility] Comment on above: Performed By: #### C RP, CMP, URIC, LIPID #### [facility] [address] [place] [address] Dr. Kirit Moscoso GLYCOHEMOGLOBIN A1Con 2022 ADA RECOMMENDATION SEE BELOW Normal [facility] Comment on above: Result Comment: ADA RECOMMENDED LIMIT 4.0 - 6.0 ADA THERAPEUTIC TARGET < 7.0 ACTION SUGGESTED > 7.0 Performed By: #### T 7, TSH #### [facility] [address] [place] [address] Dr. Kirit Moscoso Glucose [Mass/Vol] 114 mg/dL Normal [facility] Comment on above: Performed By: #### T 7, TSH #### [facility] [address] [address] [address] Kirit Moscoso HbA1c (Bld) [Mass fraction] 5.6 % Normal 4.5-6.2 [facility] Comment on above: Performed By: #### T 7, TSH #### [facility] [address] [address] [address] Kirit Moscoso IRONon 01-10-2023 Iron [Mass/Vol] 59.0 ug/dL Normal 50.0-170.[address] [facility] Comment on above: Performed By: #### C BC #### [facility] [address] [place] [address] Dr. Kirit Moscoso LIPID PROFILEon 01-10-2023 CHOL-HDL RATIO NORM SEE BELOW Normal [facility] Comment on above: Result Comment: 3.3 - 4.4 LOW RISK 4.4 - 7.1 AVERAGE RISK 7.1 - 11.0 MODERATE RISK >11.0 HIGH RISK Performed By: #### C RP, CMP, URIC, LIPID #### [facility] [address] [address] [address] Kirit Moscoso Cholesterol [Mass/Vol] 188 mg/dL Normal <=200 [facility] Comment on above: Performed By: #### C RP, CMP, URIC, LIPID #### [facility] [address] [address] [address] Kirit Moscoso Cholesterol in HDL [Mass/Vol] 45 mg/dL Normal 40-60 [facility] Comment on above: Performed By: #### C RP, CMP, URIC, LIPID #### [facility] [address] [address] [address] Kirit Moscoso Cholesterol in LDL [Mass/Vol] 129.0 mg/dL Normal [facility] Comment on above: Performed By: #### C RP, CMP, URIC, LIPID #### [facility] [address] [place] [address] Dr. Kirit Moscoso Cholesterol.total/Cho lesterol in HDL [Mass ratio] 4.2 {ratio} Normal [facility] Comment on above: Performed By: #### C RP, CMP, URIC, LIPID #### [facility] [address] [address] [address] Kirit Moscoso HDL NORMAL > or = 60 mg/dl - LO W CARDIOVASCULAR RISK <40 mg/dl - HIGH CARDIOVASCULAR RISK Normal [facility] Comment on above: Performed By: #### C RP, CMP, URIC, LIPID #### [facility] [address] [address] [address] Kirit Moscoso LDL CALC NORMAL SEE BELOW Normal [facility] Comment on above: Result Comment: <100 mg/dl OPTIMAL 100 - 129 mg/dl NEAR OR ABOVE OPTIMAL 130 - 159 mg/dl BORDERLINE HIGH 160 - 189 mg/dl HIGH >190 mg/dl VERY HIGH Performed By: #### C RP, CMP, URIC, LIPID #### [facility] [address] [address] [address] Kirit Moscoso Triglyceride [Mass/Vol] 71 mg/dL Normal <=150 [facility] Comment on above: Performed By: #### C RP, CMP, URIC, LIPID #### [facility] [address] [place] [address] Dr. Kirit Moscoso VLDL CALC 14.2 mg/dL Normal [facility] Comment on above: Performed By: #### C RP, CMP, URIC, LIPID #### [facility] [address] [place] [address] Dr. Kirit Moscoso PROF 14(COMP METB)on 023 Albumin [Mass/Vol] 3.5 g/dL Normal 3.4-5.[address] [facility] Comment on above: Performed By: #### C RP, CMP, URIC, LIPID #### [facility] [address] [place] [address] Dr. Kirit Moscoso Albumin/Globulin [Mass ratio] 0.8 {ratio} Normal [facility] Comment on above: Performed By: #### C RP, CMP, URIC, LIPID #### [facility] [address] [place] [address] Dr. Kirit Moscoso ALP [Catalytic activity/Vol] 109 U/L Normal 46-116 [facility] Comment on above: Performed By: #### C RP, CMP, URIC, LIPID #### [facility] [address] [address] [address] Kirit Moscoso ALT [Catalytic activity/Vol] 26 U/L Normal 14-59 [facility] Comment on above: Performed By: #### C RP, CMP, URIC, LIPID #### [facility] [address] [place] [address] Dr. Kirit Moscoso Anion gap [Moles/Vol] 11.3 mmol/L Normal [facility] Comment on above: Performed By: #### C RP, CMP, URIC, LIPID #### [facility] [address] [place] [address] Dr. Kirit Moscoso AST [Catalytic activity/Vol] 16 U/L Normal 15-37 [facility] Comment on above: Performed By: #### C RP, CMP, URIC, LIPID #### [facility] [address] [place] [address] Dr. Kirit Moscoso Bilirubin [Mass/Vol] 0.4 mg/dL Normal 0.2-1.0 [facility] Comment on above: Performed By: #### C RP, CMP, URIC, LIPID #### [facility] [address] [place] [address] Dr. Kirit Moscoso Calcium [Mass/Vol] 9.1 mg/dL Normal 8.5-10.[address] [facility] Comment on above: Performed By: #### C RP, CMP, URIC, LIPID #### [facility] [address] [place] [address] Dr. Kirit Moscoso Chloride [Moles/Vol] 105 mmol/L Normal 98-107 [facility] Comment on above: Performed By: #### C RP, CMP, URIC, LIPID #### [facility] [address] [place] [address] Dr. Kirit Moscoso CO2 [Moles/Vol] 26.5 mmol/L Normal 21.0-32.0 [facility] Comment on above: Performed By: #### C RP, CMP, URIC, LIPID #### [facility] [address] [place] [address] Dr. Kirit Moscoso Creatinine [Mass/Vol] 0.97 mg/dL Normal 0.55-1.02 [facility] Comment on above: Performed By: #### C RP, CMP, URIC, LIPID #### [facility] [address] [place] [address] Dr. Kirit Moscoso EGFR-AF PAKISTANI >60 Normal >=60 [facility] Comment on above: Performed By: #### C RP, CMP, URIC, LIPID #### [facility] [address] [place] [address] Dr. Kirit Moscoso EGFR-NON AF PAKISTANI 60 mL/min/1.73m2 Normal >=60 [facility] Comment on above: Performed By: #### C RP, CMP, URIC, LIPID #### [facility] [address] [place] [address] Dr. Kirit Moscoso Globulin (S) [Mass/Vol] 4.3 g/dL Normal [facility] Comment on above: Performed By: #### C RP, CMP, URIC, LIPID #### [facility] [address] [place] [address] Dr. Kirit Moscoso Glucose [Mass/Vol] 96 mg/dL Normal 74-[address] [facility] Comment on above: Performed By: #### C RP, CMP, URIC, LIPID #### [facility] [address] [place] [address] Dr. Kirit Moscoso Potassium [Moles/Vol] 4.1 mmol/L Normal 3.5-5.1 [facility] Comment on above: Performed By: #### C RP, CMP, URIC, LIPID #### [facility] [address] [place] [address] Dr. Kirit Moscoso Protein [Mass/Vol] 7.8 g/dL Normal 6.4-8.2 [facility] Comment on above: Performed By: #### C RP, CMP, URIC, LIPID #### [facility] [address] [place] [address] Dr. Kirit Moscoso Sodium [Moles/Vol] 139 mmol/L Normal 136-[address] [facility] Comment on above: Performed By: #### C RP, CMP, URIC, LIPID #### [facility] [address] [place] [address] Dr. Kirit Moscoso Urea nitrogen [Mass/Vol] 19.0 mg/dL Critically high 7.0-18.0 [facility] Comment on above: Performed By: #### C RP, CMP, URIC, LIPID #### [facility] [address] [place] [address] Dr. Kirit Moscoso Urea nitrogen/Creatinine [Mass ratio] 19.6 mg/mg Normal [facility] Comment on above: Performed By: #### C RP, CMP, URIC, LIPID #### [facility] [address] [place] [address] Dr. Kirit Moscoso UA (CLEAN/CATCH) TETRYL SCREEN OPERATOR/MICRO I F IND.on 01-10-2023 Bilirubin Ql (U) Negative Normal NEGATIVE [facility] Comment on above: Performed By: #### C BC #### [facility] [address] [place] [address] Dr. Kirit Moscoso Clarity (U) CLEAR Normal CLEAR [facility] Comment on above: Performed By: #### C BC #### [facility] [address] [place] [address] Dr. Kirit Moscoso Color (U) LT. YELLOW Normal YELLOW [facility] Comment on above: Performed By: #### C BC #### [facility] [address] [place] [address] Dr. Kirit Moscoso Glucose Ql (U) Negative Normal NEGATIVE [facility] Comment on above: Performed By: #### C BC #### [facility] [address] [place] [address] Dr. Kirit Moscoso Hemoglobin Ql (U) Negative Normal NEGATIVE [facility] Comment on above: Performed By: #### C BC #### [facility] [address] [place] [address] Dr. Kirit Moscoso Ketones Ql (U) Negative Normal NEGATIVE [facility] Comment on above: Performed By: #### C BC #### [facility] [address] [place] [address] Dr. Kirit Moscoso LEUKOCYTES Negative Normal NEGATIVE [facility] Comment on above: Performed By: #### C BC #### [facility] [address] [place] [address] Dr. Kirit Moscoso Nitrite Ql (U) Negative Normal NEGATIVE [facility] Comment on above: Performed By: #### C BC #### [facility] [address] [place] [address] Dr. Kirit Moscoso pH (U) 5.5 [pH] Normal 5-9 [facility] Comment on above: Performed By: #### C BC #### [facility] [address] [place] [address] Dr. Kirit Moscoso SPEC GRAVITY 1.010 Normal 1.005-<=1.[address] [facility] Comment on above: Performed By: #### C BC #### [facility] [address] [place] [address] Dr. Kirit Moscoso UA PROTEIN Negative Normal NEGATIVE/ TRACE [facility] Comment on above: Performed By: #### C BC #### [facility] [address] [place] [address] Dr. Kirit Moscoso UR MICRO IND NOT INDICATED Normal [facility] Comment on above: Performed By: #### C BC #### [facility] [address] [place] [address] Dr. Kirit Moscoso Urobilinogen Qn (U) 0.2 {Jose Juan'U}/dL Normal 0.2 - 1. 0 [facility] Comment on above: Performed By: #### C BC #### [facility] [address] [place] [address] Dr. Kirit Moscoso URIC ACID SERUMon 01-10-2023 Urate [Mass/Vol] 5.6 mg/dL Normal 2.6-6.0 [facility] Comment on above: Performed By: #### C RP, CMP, URIC, LIPID #### [facility] [address] [place] [address] Dr. Kirit Moscoso FREE THYROXINE INDEX T7on FTI 2.46 Normal 1.30-4.50 [facility] Comment on above: Performed By: #### T 7, TSH #### [facility] [address] [place] [address] Dr. Kirit Moscoso T3U 32.0 % Normal 30.0-39.0 [facility] Comment on above: Performed By: #### T 7, TSH #### [facility] [address] [place] [address] Dr. Kirit Moscoso T4 [Mass/Vol] 7.70 ug/dL Normal 4.80-13.90 [facility] Comment on above: Performed By: #### T 7, TSH #### [facility] [address] [place] [address] Dr. Kirit Moscoso TSHon 10-28-2022 TSH 2.263 uIU/mL Normal 0.358-3.740 [facility] Comment on above: Performed By: #### T 7, TSH #### [facility] [address] [place] [address] Dr. Kirit Moscoso FREE THYROXINE INDEX T7on FTI 3.30 Normal 1.30-4.50 [facility] Comment on above: Performed By: #### T 7, TSH #### [facility] [address] [place] [address] Dr. Kirit Moscoso T3U 34.0 % Normal 30.0-39.0 [facility] Comment on above: Performed By: #### T 7, TSH #### [facility] [address] [place] [address] Dr. Kirit Moscoso T4 [Mass/Vol] 9.70 ug/dL Normal 4.80-13.90 [facility] Comment on above: Performed By: #### T 7, TSH #### [facility] [address] [place] [address] Dr. Kirit Moscoso TSHon 04-16-2022 TSH 0.140 uIU/mL Critically low 0.358-3.740 [facility] Comment on above: Performed By: #### T 7, TSH #### [facility] [address] [place] [address] Dr. Kirit Moscoso TSH RANGE SEE BELOW Normal [facility] Comment on above: Result Comment: <0.3 4 UIU/ml HYPERTHYROID 0.34-5.60 UIU/ml EUTHYROID >5.60 UIU/ml HYPOTHYROID Performed By: #### T 7, TSH #### [facility] [address] [place] [address] Dr. Kirit Moscoso FREE T3on 02-27-2022 FREE T3 2.45 pg/mlL Critically low 2.77-5.[address] [facility] Comment on above: Performed By: #### T 7, TSH #### [facility] [address] [place] [address] Dr. Kirit Moscoso T4on 02-27-2022 T4 [Mass/Vol] 7.00 ug/dL Normal 5.53-11.00 [facility] Comment on above: Performed By: #### T 7, TSH #### [facility] [address] [place] [address] Dr. Kirit Moscoso TSHon 02-27-2022 TSH 7.345 uIU/mL Critically high 0.470-4.680 [facility] Comment on above: Performed By: #### T 7, TSH #### [facility] [address] [place] [address] Dr. Kirit Moscoso TSH RANGE SEE BELOW Normal [facility] Comment on above: Result Comment: <0.3 4 UIU/ml HYPERTHYROID 0.34-5.60 UIU/ml EUTHYROID >5.60 UIU/ml HYPOTHYROID Performed By: #### T 7, TSH #### [facility] [address] [place] [address] Dr. Kirit Moscoso Vital Signs Date Time Vital Sign Value Performing Clinician Facility 10-04-2024 13:08-0500 Body height 160.02 cm [facility] 10-04-2024 13:08-0500 Body mass index (BMI) [Ratio] 34.7 kg/m2 [facility] 10-04-2024 13:08-0500 Body temperature 98.2 [degF] [facility] 10-04-2024 13:08-0500 Body weight 88.9 kg [facility] 10-04-2024 13:08-0500 Diastolic blood pressure 88 mm[Hg] [facility] 10-04-2024 13:08-0500 Heart rate 81 /min [facility] 10-04-2024 13:08-0500 SaO2% (BldA) [Mass fraction] 96 % [facility] 10-04-2024 13:08-0500 Systolic blood pressure 128 mm[Hg] [facility] 05-04-2024 15:50-0400 Body height 160.02 cm [facility] 05-04-2024 15:50-0400 Body mass index (BMI) [Ratio] 35.4 kg/m2 [facility] 05-04-2024 15:50-0400 Body weight 90.71 kg [facility] 05-04-2024 15:50-0400 Diastolic blood pressure 82 mm[Hg] [facility] 05-04-2024 15:50-0400 Heart rate 71 /min [facility] 05-04-2024 15:50-0400 SaO2% (BldA) [Mass fraction] 98 % [facility] 05-04-2024 15:50-0400 Systolic blood pressure 120 mm[Hg] [facility] 06-29-2023 09:55-0400 Body height 160.02 cm Griselda Thao Other [facility] [employer] Other 06-29-2023 09:55-0400 Body mass index (BMI) [Ratio] 35.57 kg/m2 Griselda Thao Other [facility] Other 06-29-2023 09:55-0400 Body temperature 97.6 [degF] Griselda Thao Other [facility] [facility] [employer] Other 06-29-2023 09:55-0400 Body weight 91.08 kg Griselda Thao Other [facility] Other 06-29-2023 09:55-0400 Diastolic blood pressure 74 mm[Hg] Griselda Keesha Other [facility] Other 06-29-2023 09:55-0400 Respiratory rate 18 /min Griselda Keesha Other [facility] Other 06-29-2023 09:55-0400 SaO2% (BldA) [Mass fraction] 98 % Griselda Keesha Other [facility] Other 06-29-2023 09:55-0400 Systolic blood pressure 126 mm[Hg] Griselda Keesha Other [facility] Other Encounters Encounter Date Encounter Type Care Provider Facility Start: 10-04-2024 End: 10-04-2024 ambulatory [facility] Work Phone: Start: 10-04-2024 End: 10-04-2024 Patient encounter procedure [facility] Work Phone: Start: 10-01-2024 Non-patient / Non-visit [facility] Work Phone: Start: 07-16-2024 Non-patient / Non-visit [facility] Work Phone: Start: 05-04-2024 End: 05-04-2024 ambulatory [facility] Work Phone: Start: 05-04-2024 End: 05-04-2024 Patient encounter procedure [facility] Work Phone: Start: 12-31-2023 End: 12-31-2023 ambulatory Imad Asaad Other [facility] [employer] Other Start: 12-31-2023 Telephone encounter Danita Angelina [facility] Start: 11-20-2023 End: 11-21-2023 ambulatory [facility] Start: 11-20-2023 Encounter for gynecological examination (general) (routine) without abnormal findings [facility] Start: 08-31-2023 End: 08-31-2023 ambulatory Tanisha Thao Facility:[facility] Start: 06-29-2023 End: 06-29-2023 ambulatory Griselda Thao Other [facility] Other Start: 06-29-2023 Office outpatient vi sit 15 minutes Griselda Thao [facility] Start: 01-20-2023 End: 01-20-2023 ambulatory TANISHA P [facility] Facility:[facility] Start: 01-16-2023 Encounter for genera l adult medical examination without abnormal findings TANISHA P [facility] Start: 01-13-2023 End: 01-13-2023 ambulatory TANISHA [...] Care Activity Detail Author T3 reverse measurement [facility] Payers Date Payer Category Payer Self-pay 1970 Unknown [id number] 1970 Unknown [id number] 1968 Unknown [id number] 1968 Unknown [id number] 1968 Unknown [id number] 1968 Unknown [id number] 1968 Unknown [id number] 1968 Unknown [id number] 1968 Unknown [id number] 6 1959 Unknown [id number] 1959 Unknown [id number] Private Health Insurance [facility] [id number] Unknown [id number] Unknown MMO [id number] Unknown Rosamond [id number] Unknown MMO [id number] Social History Date Type Detail Facility Unknown if ever smoked [facility] Other Sex Assigned At Sex Assigned At Bir th [facility] Other Start: 05-04-2024 End: 05-04-2024 Tobacco smoking status NHIS Never smoked tobacco (finding) [facility] Start: 1970 Sex Assigned At Female F [facility] Evaluation note 12-31-2023 Note Date & Type Note Facility 12-31-2023 Evaluation note Encounter Date Diagnosis Assessment Notes Dec, Ulcerative colitis (ICD-10 - K51.90) [facility] Other Evaluation note 06-29-2023 Note Date & [...] worsening. Patient/Parent verbalized understanding of tx plan. [facility] Other Clinical Note 07-02-2022 Note Date & [...] authenticated by: JUANI KNOX Date: 2022-07-02 15:25 [facility] Evaluation note Note Date & Type Note Facility Evaluation note Diagnosis Onset Date Hypothyroid acute [facility] Work Phone: Evaluation note Note Date & Type Note Facility Evaluation note Diagnosis Onset Date Cerumen impaction acute Dysfunction of eustachian tube acute [facility] Work Phone: History general Narrative - Reported Note Date & Type Note Facility History general Narrative - Reported Type Medical History thyroid disease Medical History ulcerative colitis Surgical History tubal ligation Surgical History colonoscopy [facility] Other Summary Purpose Family History Relationship Condition Age at Onset Recorded Date/T carmen Not Specified Malignant neoplasm of throat Unknown Schizophrenic disorder Unknown father Cerebrovascular accident (CVA) Unknown father Unknown History of stroke Unknown Not Specified Malignant neoplasm Unknown Unknown Relationship Condition Age at Onset Recorded Date/T carmen mother Malignant neoplasm of throat Unknown Schizophrenic disorder Unknown father Cerebrovascular accident (CVA) Unknown father Unknown History of stroke Unknown mother Malignant neoplasm Unknown Unknown Advance Directives Advance Directive Response Recorded Date/ Time Advance Directives No June 17 4:41pm Advance Directive Response Recorded Date/ Time Advance Directives No June 17 3:41pm Chief Complaint and Reason for Visit Chief Complaint est care, thyroid me dication changed Reason for Visit Hypothyroid Chief Complaint ear pain/ headache Reason for Visit Cerumen impaction Dysfunction of eustachian tube Additional Source Comments INFORMATION SOURCE (unrecogn ized section and content) DATE CREATED AUTHOR 02/04/2023 [facility] DATE CREATED AUTHOR AUTHOR'S ORGANIZ ATION 09/08/2023 [facility] DATE CREATED AUTHOR AUTHOR'S ORGANIZ ATION 12/02/2023 [facility] REASON FOR VISIT (unrecogniz ed section and content) BOTH EARS, PAINREFILL-PENTAS A Care Teams (unrecognized sec tion and content) Team Status: Active Member Role Status Dates BETH Cloud Primary Care Provider Active Team Status: Active Member Role Status Dates BETH Cloud Primary Care Pr ovider, Attending Provider Active Start: July 16, 2024 Team Status: Active Member Role Status Dates MIKIE Reno Attending Provider Active Start: October 01, 2024 BETH Cloud Primary Care Provider Active Start: October 01, 2024 Team Status: Inactive Member Role Status Dates BETH Cloud Primary Care Provider Active Start: October 04, 2024 End: October 04, 2024 MIKIE Reno Attending Provider Active Start: October 04, 2024 End: November 5th, 2024 Team Status: Active Member Role Status Dates Tanisha Thao [facility] Primary Care Provider Active Team Status: Inactive Member Role Status Dates Tanisha Thao , [facility] Primary Care Provider Active Start: May 04, 2024 End: May 04, 2024 Cayla Orona APRN [facility] Attending Provider Act aguilar Start: May 04, 2024 End: May 04, 2024 Team Status: Active Member Role Status Dates Tanisha Thao [facility] Primary Care Provider Active Start: May 04, 2024 Cayla Orona APRN [facility] Attending Provider Act aguliar Start: May 04, 2024 Team Status: Active Member Role Status Dates Tanisha Thao , [facility] Primary Care Pr ovider, Attending Provider Active Start: July 16, 2024 Team Status: Active Member Role Status Dates Cayla Orona APRN [facility] Attending Provider Active Start: October 01, 2024 Tanisha Thao [facility] Primary Care Provider Active Start: October 01, 2024 Team Status: Inactive Member Role Status Dates Tanisha Thao [facility] Primary Care Provider Active Start: October 04, 2024 End: October 04, 2024 Cayla Orona APRN [facility] Attending Provider Active Start: October 04, 2024 End: October 04, 2024 Goals (unrecognized section and content) [...] BE BASED ON THE PRIMARY CLINICAL RECORDS. [employer] provides no warranty or guarantee of the accuracy or completeness of information in this document.
== END 2024-12-20 14:26 | disposition home or self-care (01) ==
LOC: US 14:25
PROVIDERS: PCP Nurse Practitioner Family; Visit Provider Nurse Practitioner Family
DX: R59.9 Enlarged lymph nodes, unspecified (principal); E03.9 Hypothyroidism, unspecified; E04.9 Nontoxic goiter, unspecified
CPT/HCPCS: 76536

== ENCOUNTER 2024-12-24 10:01 | Outpatient (OUT) | payer OTHER, SELFPAY ==
--- OUTSIDE RECORDS SUMMARY | 2024-12-24 10:07 | XMS_ITS | CCD ---
Author Organization [facility] Care Team Providers Care Manufacturing Intern Name Role Phone NYASIA, TANISHA P Admitting [...] P Consulting Unavailable HOY, LAUREN Admitting Unavailable LAUREN LEWIS Attending Unavailable HOY, LAUREN Primary Care Unavailable NYASIA, TANISHA P Admitting Unavailable NYASIA, TANISHA P Attending Unavailable NYASIA, TANISHA P Primary Care Unavailable DR JUANI KNOX Consulting Unavailable NYASIA, TANISHA P Consulting Unavailable NYASIA, TANISHA P Admitting Unavailable NYASIA, TANISHA P Attending Unavailable NYASIA, TANISHA P Primary Care Unavailable NYASIA, TANISHA P Consulting Unavailable Griselda Thao Unavailable Tanisha Murrell Primary Care Unavailable Asaad, Imad Attending Unavailable Angelina, Imad Admitting Unavailable THERESE SANCHEZ Referring Unavailable LAUREN LEWIS Primary Care Unavailable Asaad, Imad Unavailable Lauren Lewis MD Primary Care Provider [phone] Allergies Allergy Classification Reported Allergen(s) Allergy Type Date of Onset Reaction(s) Facility (1 source) Sulfonamides (Antibiotic) Drug allergy (disorder) 7 [facility] Repository (2 sources) Substance with sulfonamide structure and antibacterial mechanism of action (substance) Drug allergy Unknown [facility] Other (4 sources) Sulfonamides (Antibiotic) Drug allergy (disorder) 3 Rash [facility] Repository (5 sources) metroNIDAZOLE; Translations: [METRONIDAZOLE] Drug Allergy 1 Other (See Comments) [facility] Repository (2 sources) Sulfanilamide; Translations: [SULFANILAMIDE] Drug Allergy 1 Itching, Rash [facility] Repository Medications Current Medications Medication Drug Class(es) Dates Sig (Normalized) Sig (Original) azelastine (1 source) Histamine-1 Receptor Antagonist Start: 10-04-2024 take 1 spray(s) nasal route twice daily Azelastine Active 2 SPRAY INTRANASAL Twice daily October 04, 2024 12:00am administer into each nostril busPIRone hydrochloride 10 mg oral tablet (1 source) take 1 tablet by mouth two times weekly busPIRone (BUSPAR) 10 mg tablet Take 1 tablet (10 mg total) by mouth 2 (two) times a week. 0 Active calcium ascorbate 500 mg oral tablet (3 sources) Start: 05-04-2024 take 500 mg by mouth once daily Ascorbate Calcium (Vitamin C) Active 500 MG PO Daily May 03, 2024 11:00pm cholecalciferol 0.05 mg oral capsule (6 sources) Vitamin D Start: 08-31-2023 take 1 capsule by mouth once daily Cholecalciferol (Vitamin D3) (Vitamin D3) 50 mcg (2,000 unit) Capsule Active 50 MCG PO Daily August 30, 2023 11:00pm take 1 tablet by mayra th every twenty-four hours Vitamin D3 50 MCG (2000 UT) 1 tablet Orally Once a day Active take 1 capsule by mouth in the m orning cholecalciferol, vitamin D3, 2,000 units capsule Take 1 capsule (2,000 Units total) by mouth in the morning. 0 Active Copper Supplement (2 sources) Start: 05-04-2024 Copper Supplem ent Active PO May 03, 2024 11:00pm Start: 05-04-2024 Copper Supplem ent Active PO May 04, 2024 12:00am ferrous sulfate 325 mg oral tablet (8 sources) Start: 05-04-2024 take 1 tablet by [...] tablet Orally Three times a Week Active take 1 tablet by mayra th once daily at breakfast ferrous sulfate 325 (65 FE) mg tablet Take 1 tablet (325 mg total) by mouth daily with breakfast. 0 Active Iron (1 source) take 1 tablet by mouth three times weekly Iron (Ferrous Sulfate) 325 (65 Fe) MG 1 tablet Orally Three times a Week Active Losartan (1 source) Angiotensin 2 Receptor Jessica End: 11-20-20 losartan potassium (LOSARTAN ORAL) Take by mouth. 0 11/20/2023 Discontinued (Patient Stopped On Own) magnesium gluconate 550 mg oral tablet (1 source) take 1 tablet by mouth in the morning, then take 1 tablet by mouth at bedtime magnesium 30 mg tablet Take 1 tablet (30 mg total) by mouth in the morning and 1 tablet (30 mg total) before bedtime. 0 Active mesalamine 500 mg extended release oral tablet (6 sources) Aminosalicylate Start: 08-31-20 take 2 capsules by mouth three times daily Mesalamine (Pentasa) 500 mg capsule, extended release Active 1000 MG PO Three times daily August 30, 2023 11:00pm take 2 capsules by m outh three times daily Pentasa 500 MG 2 capsules Orally three times daily for 30 days Active mesalamine (PENT ASA) 250 mg CR capsule Take 1 capsule (250 mg total) by mouth in the morning and 1 capsule (250 mg total) at noon and 1 capsule (250 mg total) in the evening and 1 capsule (250 mg total) before bedtime. 0 Active ofloxacin 3 mg/ml otic solution (2 sources) Quinolone Antimicrobial Start: 06-29-2023 Ofloxa jess 0.3 % 10 drops into affected ear Otic to right ear Once a day for 7 days May, Active Start: 06-29-2023 Ofloxacin 0.3 % 10 drops into affected ear Otic to right ear Once a day for 7 days May, Active oxaprozin (1 source) Nonsteroidal Anti-inflammatory Drug End: 11-20-2023 oxaprozin (DAYPRO ORAL) Take by mouth. 0 11/20/2023 Discontinued (Patient Stopped On Own) Potassium (2 sources) Potassium Active Thyroid (Pork) [...] 2:56pm levothyroxine sodium 0.075 mg oral tablet (11 sources) l-Thyroxine Start: 05-04-2024 End: 05-04-2024 take [...] tablet by mayra th in the morning levothyroxine (SYNTHROID, LEVOTHROID) 100 MCG tablet Take 1 tablet (100 mcg total) by mouth in the morning. 0 Active take 1 tablet by mayra th in the morning Levothyroxine Sodium 75 MCG TAKE 1 TABLET BY MOUTH IN THE MORNING ON AN EMPTY STOMACH Oral for 30 Days Active liothyronine sodium 0.005 mg oral tablet (6 sources) l-Triiodothyronine Start: 08-31-2023 End: 10-04-2024 take 1 tablet by mouth once daily Liothyronine (Cytomel) 5 mcg Tablet Discontinued 5 MCG PO Daily August 30, 2023 11:00pm October 04, 2024 1:12pm take 1 tablet by mouth in the mo rning liothyronine (CYTOMEL) 25 MCG tablet Take 1 tablet (25 mcg total) by mouth in the morning. 0 Active Liothyronine Sod ium 5 MCG Oral [...] 2024 3:52pm Magnesium Active polyethylene glycol [id number] [id number] mg / potassium chloride 2970 mg / sodium bicarbonate 6740 mg / sodium chloride 5860 mg / sodium sulfate 53394 mg powder for oral solution (2 sources) Osmotic Laxative take 236 g by mouth once as needed Golytely 236 GM as directed Orally once for 1 days Not-Taking/PRN potassium chloride 10 meq extended release oral tablet (10 sources) Start: End: take 20 mEq by mouth once daily Potassium Chloride Discontinued 20 MEQ PO Daily May 04, 2024 2:51pm May 04, 2024 2:58pm Start: 08-31-2023 End: 05-04-2024 take 10 mEq by mouth once daily Potassium Chloride Act aguilar 10 MEQ PO Daily May 04, 2024 2:57pm take 1 tablet by mayra th in the morning potassium chloride (K-TAB,KLOR-CON) 10 MEQ CR tablet Take 1 tablet (10 mEq total) by mouth in the morning and 1 tablet (10 mEq total) before bedtime. 0 Active Problems Active Problems Problem Classification Problem Date Documented Da te Episodic/Chronic Anxiety disorders (1 source) Mixed anxiety and depressive disorder; Translations: [Other specified anxiety disorders] Onset: 09-26-2015 10-28-2022 Chronic Essential hypertension (1 source) Essential hypertension; Translations: [Essential (primary) hypertension] Onset: 09-13-2019 10-28-2022 Chronic Heart valve disorders (1 source) Heart murmur; [...] sources) Pruritus ani; Translations: [Pruritus ani] Episodic Other nutritional; endocrine; and metabolic disorders (1 source) Obese class II; Translations: [Obesity, unspecified] Onset: 10-01-2020 10-28-2022 Chronic Other nutritional; endocrine; and metabolic disorders (1 source) Insulin resistance; Translations: [Insulin resistance] Onset: 02-08-2020 10-28-2022 Chronic Otitis media and related conditions (2 sources) Dysfunction of eustachian tube; Translations: [Unspecified Eustachian tube disorder, unspecified ear] 10-04-2024 Episodic Prolapse of female genital organs (1 source) Herniation of rectum into vagina; Translations: [Rectocele] Onset: 07-03-2016 10-28-2022 Chronic Regional enteritis and ulcerative colitis (3 sources) Ulcerative colitis; Translations: [Ulcerative colitis, unspecified, without complications] Chronic Thyroid disorders (10 sources) Hypothyroidism, unspecified; Translations: [Hypothyroidism] Onset: 09-26-2015 Chronic Unclassified (3 sources) CONTACT W/AND (SUSP) EXPOS COVID-19; Translations: [CONTACT W/AND (SUSP) EXPOS COVID-19] Onset: 01-23-2023 Unclassified (1 source) Hemorrhage of anus and rectum; Translations: [Hemorrhage of anus and rectum] Onset: 08-31-2023 Past or Other Problems Problem Classification Problem Date Documented Da te Episodic/Chronic Mood disorders (1 source) Mood disorders Onset: 11-20-2023 11-20-2023 Other non-traumatic joint disorders (4 sources) Pain in right knee; Translations: [PAIN IN RIGHT KNEE] Onset: 07-21-2022 Episodic Unclassified (1 source) CONTACT W/AND (SUSP) EXPOS COVID-19; Translations: [CONTACT W/AND (SUSP) EXPOS COVID-19] Onset: 01-20-2023 Unclassified (1 source) Onset: 11-20-2023 11-20-2023 Results Test Name Value Interpretation Reference Range Facility Estimated glomerular filtrat ion rate (GFR) non- Americanon 10-01-2024 GFR/1.73 sq M.predicted among non-blacks MDRD (S/P/Bld) [Vol rate/Area] mL/min/{1.73_m2} >=60 mL/min/1.73m 2 [facility] Globulin Calc (S) [Mass/Vol] on 10-01-2024 Globulin (S) [Mass/Vol] 4.1 g/dL [facility] Laboratory - Chemistry and C hemistry - challengeon 10-01-2024 Albumin [Mass/Vol] 3.4 g/dL 3.4-5.0 [facility] ALP [Catalytic activity/Vol] 126 U/L High 46-116 [facility] ALT [Catalytic activity/Vol] 24 U/L 14-59 [facility] AST [Catalytic activity/Vol] 15 U/L 15-37 [facility] Bilirubin [Mass/Vol] 0.4 mg/dL 0.2-1.0 [facility] Calcium [Mass/Vol] 9.2 mg/dL 8.5-10.1 [facility] Chloride [Moles/Vol] 106 mmol/L 98-107 [facility] CO2 [Moles/Vol] 27.4 mmol/L 21.0-32.0 [facility] Creatinine [Mass/Vol] 0.84 mg/dL 0.55-1.02 [facility] Ferritin [Mass/Vol] 145.0 ng/mL 8.0-252.0 [facility] Free T4 [Mass/Vol] 0.76 ng/dL 0.76-1.46 [facility] GFR/1.73 sq M.predicted MDRD (S/P/Bld) [Vol rate/Area] mL/min/{1.73_m2} >=60 mL/min/1.73m 2 [facility] Glucose [Mass/Vol] 119 mg/dL High 74-106 [facility] Potassium [Moles/Vol] 3.7 mmol/L 3.5-5.1 [facility] Protein [Mass/Vol] 7.5 g/dL 6.4-8.2 [facility] Sodium [Moles/Vol] 145 mmol/L 136-145 [facility] TSH Qn 0.101 m[IU]/L Low 0.358-3.740 [facility] Urea nitrogen [Mass/Vol] 14.0 mg/dL 7.0-18.0 [facility] Urea nitrogen/Creatinine [Mass ratio] 16.7 mg/mg [facility] No Panel Informationon 10-01 25-Hydroxy Vitamin D Total 30.0 ng/mL [facility] Comment on above: <20 ng/mL Vit D defi cient20-<30 ng/mL Vit D vptildatrhsh77-811 ng/mL Vit D sufficient>100 ng/mL Potential Toxicity Serum or plasma albumin/glob ulin mass ratioon 10-01-2024 Albumin/Globulin [Mass ratio] 0.8 {ratio} [facility] Serum or plasma anion gap de terminationon 10-01-2024 Anion gap [Moles/Vol] 15.3 mmol/L [facility] Basophils Auto (Bld) [#/Vol] on 07-16-2024 Basophils (Bld) [#/Vol] 0.1 10 3/uL 0.0-0.1 [facility] Basophils/100 WBC Auto (Bld) on 07-16-2024 Basophils/100 WBC (Bld) 1.2 % 0.2-2.0 [facility] Cholesterol in LDL Calc [Mas s/Vol]on 07-16-2024 Cholesterol in LDL [Mass/Vol] 153.0 mg/dL [facility] Comment on above: <100 mg/dl [id number] 0-129 mg/dl NEAR OR ABOVE LDGQCNK996-093 mg/dl BORDERLINE RQMH744-380 mg/dl HIGH>190 mg/dl VERY HIGH Cholesterol in VLDL Calc [Ma ss/Vol]on 07-16-2024 Cholesterol in VLDL [Mass/Vol] 28.2 mg/dL [facility] Eosinophils/100 WBC Auto (Bl d)on 07-16-2024 Eosinophils/100 WBC (Bld) 0.0 % Low 0.9-7.0 [facility] Erythrocyte distribution wid th Auto (RBC) [Ratio]on 07-16-2024 Erythrocyte distribution width (RBC) [Ratio] 13.2 % 11.0-15.0 [facility] Estimated glomerular filtrat ion rate (GFR) non- Americanon 07-16-2024 GFR/1.73 sq M.predicted among non-blacks MDRD (S/P/Bld) [Vol rate/Area] mL/min/{1.73_m2} >=60 [facility] Globulin Calc (S) [Mass/Vol] on 07-16-2024 Globulin (S) [Mass/Vol] 4.1 g/dL [facility] Hematocrit Auto (Bld) [Volum e fraction]on 07-16-2024 Hematocrit (Bld) [Volume fraction] 45.2 % 36.0-48.0 [facility] Hemoglobin [Mass/volume] in Bloodon 07-16-2024 Hemoglobin (Bld) [Mass/Vol] 15.1 g/dL 12.0-16.0 [facility] Iron binding capacity [Mass/ volume] in Serum or Plasmaon 07-16-2024 Iron binding capacity [Mass/Vol] 262.0 ug/dL 250.0-450.0 [facility] Iron saturation [Mass Fracti on] in Serum or Plasmaon 07-16-2024 Iron saturation [Mass fraction] 28.2 % [facility] Laboratory - Chemistry and C hemistry - challengeon 07-16-2024 Albumin [Mass/Vol] 3.6 g/dL 3.4-5.0 [facility] ALP [Catalytic activity/Vol] 136 U/L High 46-116 [facility] ALT [Catalytic activity/Vol] 26 U/L 14-59 [facility] AST [Catalytic activity/Vol] 14 U/L Low 15-37 [facility] Bilirubin [Mass/Vol] 0.6 mg/dL 0.2-1.0 [facility] Calcium [Mass/Vol] 9.4 mg/dL 8.5-10.1 [facility] Chloride [Moles/Vol] 104 mmol/L 98-107 [facility] Cholesterol [Mass/Vol] 221 mg/dL High <=200 [facility] Cholesterol in HDL [Mass/Vol] 40 mg/dL 40-60 [facility] Comment on above: > or =60 mg/dl - LOW CARDIOVASCULAR RISK<40 mg/dl - HIGH CARDIOVASCULAR RISK CO2 [Moles/Vol] 28.2 mmol/L 21.0-32.0 [facility] Cobalamin (Vitamin B12) [Mass/Vol] 822.0 pg/mL 193.0-986.0 [facility] Creatinine [Mass/Vol] 0.78 mg/dL 0.55-1.02 [facility] Free T4 [Mass/Vol] 0.82 ng/dL 0.76-1.46 [facility] GFR/1.73 sq M.predicted MDRD (S/P/Bld) [Vol rate/Area] mL/min/{1.73_m2} >=60 [facility] Glucose [Mass/Vol] 92 mg/dL 74-106 [facility] Iron [Mass/Vol] 74.0 ug/dL 50.0-170.0 [facility] Potassium [Moles/Vol] 3.9 mmol/L 3.5-5.1 [facility] Protein [Mass/Vol] 7.7 g/dL 6.4-8.2 [facility] Sodium [Moles/Vol] 137 mmol/L 136-145 [facility] Triglyceride [Mass/Vol] 141 mg/dL <=150 [facility] TSH Qn 0.524 m[IU]/L 0.358-3.740 [facility] Urea nitrogen [Mass/Vol] 17.0 mg/dL 7.0-18.0 [facility] Urea nitrogen/Creatinine [Mass ratio] 21.8 mg/mg [facility] Laboratory - Hematology and Cell countson 07-16-2024 Immature granulocytes/100 WBC (Bld) 0.2 % 0.0-0.5 [facility] Leukocytes [#/volume] correc cullen for nucleated erythrocytes in Blood by Automated counon 07-16-2024 WBC corrected for nucl RBC Auto (Bld) [#/Vol] 4.8 10 3/uL 4.0-11.0 [facility] Lymphocytes Auto (Bld) [#/Vo l]on 07-16-2024 Lymphocytes (Bld) [#/Vol] 1.5 10 3/uL 1.2-3.8 [facility] Lymphocytes/100 WBC Auto (Bl d)on 07-16-2024 Lymphocytes/100 WBC (Bld) 31.3 % 20.5-60.0 [facility] MCH Auto (RBC) [Entitic mass ]on 07-16-2024 MCH (RBC) [Entitic mass] 27.9 pg 26.7-34.0 [facility] MCHC Auto (RBC) [Mass/Vol]on 07-16-2024 MCHC (RBC) [Mass/Vol] 33.4 g/dL 29.9-35.2 [facility] MCV Auto (RBC) [Entitic vol] on 07-16-2024 MCV (RBC) [Entitic vol] 83.5 fL 81.0-99.0 [facility] Monocytes Auto (Bld) [#/Vol] on 07-16-2024 Monocytes (Bld) [#/Vol] 0.4 10 3/uL 0.3-0.8 [facility] Monocytes/100 WBC Auto (Bld) on 07-16-2024 Monocytes/100 WBC (Bld) 7.7 % 1.7-12.0 [facility] Neutrophils Auto (Bld) [#/Vo l]on 07-16-2024 Neutrophils (Bld) [#/Vol] 2.9 10 3/uL 1.4-6.5 [facility] Neutrophils/100 WBC Auto (Bl d)on 07-16-2024 Neutrophils/100 WBC (Bld) 59.6 % 43.0-75.0 [facility] No Panel Informationon 07-16 25-Hydroxy Vitamin D Total 25.2 ng/mL [facility] Comment on above: <20 ng/mL Vit D defi cient20-<30 ng/mL Vit D fhyyhslurtft97-265 ng/mL Vit D sufficient>100 ng/mL Potential Toxicity Eosinophils # (Auto) 0.0 10 3/uL 0.0-0.7 [facility] Free Triiodothyronine 5.22 pg/mL High 2.18-3.98 [facility] Immature Granulocyte # (Auto) 0.01 10 3/uL 0.00-0.03 [facility] Platelet mean volume Auto (B ld) [Entitic vol]on 07-16-2024 Platelet mean volume (Bld) [Entitic vol] 9.7 fL 9.5-13.5 [facility] Platelets Auto (Bld) [#/Vol] on 07-16-2024 Platelets (Bld) [#/Vol] 202 10 3/uL 150-450 [facility] RBC Auto (Bld) [#/Vol]on RBC (Bld) [#/Vol] 5.41 10 6/uL High 4.20-5.40 [facility] Serum or plasma albumin/glob ulin mass ratioon 07-16-2024 Albumin/Globulin [Mass ratio] 0.9 {ratio} [facility] Serum or plasma anion gap de terminationon 07-16-2024 Anion gap [Moles/Vol] 8.7 mmol/L [facility] Serum or plasma thyroperoxid ase antibody assay (units/volume)on 07-16-2024 TPO Ab Qn [IU]/mL 0-34 [facility] Comment on above: Performed at: [facility] [place] [id number] Director: Richardson Sethi PhD, Phone: [phone] Serum or plasma total choles terol/high density lipoprotein (HDL) cholesterol mass jeovanny 07-16-2024 Cholesterol.total/Cho lesterol in HDL [Mass ratio] 5.5 {ratio} [facility] Comment on above: 3.3 - 4.4 LOW RISK4. 4 - 7.1 AVERAGE RISK7.1 - 11.0 MODERATE RISK>11.0 HIGH RISK Cytologyon 11-20-2023 Cytology Normal [facility] Comment on above: Result Comment: [place] [facility] [address] [place] [address] Gynecologic Cytology Consultation Patient Name:ISIDRO MUSA:1970 (Age: 53)Gender:FTaken:11/20/2023Reported:12/01/2023hysician(s):Therese Sanchez C.N.M. ([phone])Copy To: Rec. #:[id number]: #[id number] Final Cytologic Interpretation ThinPrep Pap Test (Cervical): Satisfactory for evaluation. A transformation zone component is present. NEGATIVE FOR INTRAEPITHELIAL LESION OR MALIGNANCY. ericka/12/01/2023 Interpretation [place] [address], License number: [id number]. 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 Normal [facility] Comment on above: Performed By: #### 7 1431-1 #### [facility] ([id number]) [address] [place] [address], FIRST FLOOR [place], [place] [id number] [place] [address] LAB ([id number]) [address] [place] [address], [address] [place] [address] Dusty 08-31-2023 L - -------- Specimen: [id number] Received: 08/31/23 Status: GRECIA Dent Num: [id number] Spec Type: Surgical Subm Dr: Danita Alfaro MD Tissues: A Small Intestine - Biopsy/Polyp (ILEUM BX) B Colon Biopsy (RT COLON BX) C Colon Biopsy (TRANSVERSE BX) D Colon Biopsy (DESCENDING) E Colon Biopsy (SIGMOID BX) F Colon Biopsy (RECTUM BX) Procedures: /12, Gross/Micro L4/6 -------- Age/ Patient Sex Location Account Attending Physician -------- Isidro Musa 53/F [id number] Danita Alfaro MD -------- SPEC NUM: [id number] RECD: 08/31/23 STATUS: GRECIA DIANNJacinda NUM: [id number] TOSIN: 08/31/23 DR: Danita Alfaro MD ENTERED: 08/31/[address] [facility] DR: MARIANELA TYPE: Surgical DEPT: S ORDERED: [...] other specific histopathological abnormality observed -------- Specimen: [id number] Received: 08/31/23 Status: GRECIA Dent Num: [id number] Spec Type: Surgical Subm Dr: Danita Alfaro MD Tissues: A Small Intestine - Biopsy/Polyp (ILEUM BX) B Colon Biopsy (RT COLON BX) C Colon Biopsy (TRANSVERSE BX) D Colon Biopsy (DESCENDING) E Colon Biopsy (SIGMOID BX) F Colon Biopsy (RECTUM BX) Procedures: , Gross/Micro L4/6 -------- Patient: Isidro Musa [id number] (Continued) -------- Specimen: [id number] Received: 08/31/23 (Continued) Pathological Diagnosis (Continued) Signed (signature on file) Roxann Moscoso MD 09/01/23 1718 -------- Specimen: [id number] Received: 08/31/23 Status: GRECIA Dent Num: [id number] Spec Type: Surgical Subm Dr: Danita Alfaro MD Tissues: A Small Intestine - Biopsy/Polyp (ILEUM BX) B Colon Biopsy (RT COLON BX) C Colon Biopsy (TRANSVERSE BX) D Colon Biopsy (DESCENDING) E Colon Biopsy (SIGMOID BX) F Colon Biopsy (RECTUM BX) Procedures: , Gross/Micro L4/6 -------- Patient: Lourdes Musacase [place] [id number] (Continued) -------- Specimen: [id number] Received: 08/31/23 (Continued) Pathological Diagnosis (Continued) E. [...] and transvers (more content not included)... Normal [facility] Covid-19 PCR (CVDTBH)on 01-01 SARS-CoV-2 (COVID-19) RNA CLARA+probe Ql (Unsp spec) Not detected Normal NOT DETECTED [facility] Comment on above: Result Comment: When [...] for this test is supported by the [place] of Health and Human Service's declaration that [...] used). Performed By: #### C VDTB #### [facility] [address] [place] [address] Dr. Kirit Moscoso OVA AND PARASITE EXAMINATION on 01-19-2023 Ova + Parasite Exam Final report Normal [facility] Comment on above: Result Comment: Thes e results were obtained using wet preparation(s) and trichrome stained smear. This test does not include testing for Cryptosporidium parvum, Cyclospora, or Microsporidia. Performed By: #### C BC #### [facility] [address] [address] [address] Kirit Moscoso Result 1 Comment Normal [facility] Comment on above: Result Comment: No o va, cysts, or parasites seen. . One negative specimen does not rule out the possibility of a parasitic infection. Performed By: #### C BC #### [facility] [address] [address] [address] Kirit Moscoso SAGE by IFAon 01-16-2023 Antinuclear Antibodies, IFA Positive Abnormal [facility] Comment on above: Result Comment: Nega tive <1:80 Borderline 1:80 Positive >1:80 Performed By: #### T 7, TSH #### [facility] [address] [place] [address] [address] Kirit Moscoso Centriole Pattern Normal [facility] Comment on above: Performed By: #### T 7, TSH #### [facility] [address] [place] [address] Dr. Kirit Moscoso Centromere Pattern Normal [facility] Comment on above: Performed By: #### T 7, TSH #### [facility] [address] [address] [address] Kirit Moscoso Homogeneous Pattern 1:640 Critically high [facility] Comment on above: Result Comment: ICAP nomenclature: AC-1 Performed By: #### T 7, TSH #### [facility] [address] [place] [address] Dr. Kirit Moscoso Midbody Pattern Normal [facility] Comment on above: Performed By: #### T 7, TSH #### [facility] [address] [address] [address] Kirit Moscoos Note: Comment Normal [facility] Comment on above: Result Comment: For [...] titers Nucleosomes, Histones Drug-induced SLE Speckled Sm, PRODUCTION MACHINIST, SCL-70, SLE,MCTD,PSS (diffuse form), SS-A/SS-B Sjogrens Nucleolar SCL-70, PM-1/SCL High titers Scleroderma, PM/DM Centromere Centromere PSS (limited form) w/Crest syndrome variable Nuclear Dot [id number] Primary Biliary Cirrhosis Nuclear GP210, Primary Biliary Cirrhosis Membrane missy A,B,C Performed By: #### T 7, TSH #### [facility] [address] [place] [address] Dr. Kirit Moscoso Nuclear Dot Pattern Normal [facility] Comment on above: Performed By: #### T 7, TSH #### [facility] [address] [place] [address] Dr. Kirit Moscoso Nuclear Membrane Pattern Normal [facility] Comment on above: Performed By: #### T 7, TSH #### [facility] [address] [place] [address] Dr. Kirit Moscoso Nucleolar Pattern Normal [facility] Comment on above: Performed By: #### T 7, TSH #### [facility] [address] [place] [address] Dr. Kirit Moscoso PCNA Pattern Normal [facility] Comment on above: Performed By: #### T 7, TSH #### [facility] [address] [place] [address] Dr. Kirit Moscoso Speckled Pattern Normal [facility] Comment on above: Performed By: #### T 7, TSH #### [facility] [address] [place] [address] Dr. Kirit Moscoso Spindle Apparatus Pattern Normal [facility] Comment on above: Performed By: #### T 7, TSH #### [facility] [address] [place] [address] Dr. Kirit Moscoso GI PANEL (PCR)on 01-13-2023 Adenovirus F 40/41 Not detected Normal NOT DETECTED [facility] Comment on above: Performed By: #### T 7, TSH #### [facility] [address] [place] [address] Dr. Kirit Moscoso Astrovirus Not detected Normal NOT DETECTED [facility] Comment on above: Performed By: #### T 7, TSH #### [facility] [address] [place] [address] Dr. Kirit Mariscal. Diff toxin A/B Not detected Normal NOT DETECTED [facility] Comment on above: Performed By: #### T 7, TSH #### [facility] [address] [place] [address] Dr. Kirit Moscoso Campylobacter Not detected Normal NOT DETECTED [facility] Comment on above: Performed By: #### T 7, TSH #### [facility] [address] [place] [address] Dr. Kirit Moscoso Cryptosporidium Not detected Normal NOT DETECTED [facility] Comment on above: Performed By: #### T 7, TSH #### [facility] [address] [address] [address] Kirit Moscoso Cyclos. Cayetanensis Not detected Normal NOT DETECTED [facility] Comment on above: Performed By: #### T 7, TSH #### [facility] [address] [place] [address] Dr. Kirit Moscoso E. Coli O157 Not Applicable Normal Not Applicable [facility] Comment on above: Performed By: #### T 7, TSH #### [facility] [address] [place] [address] Dr. Kirit Moscoso E. histolytica Not detected Normal NOT DETECTED [facility] Comment on above: Performed By: #### T 7, TSH #### [facility] [address] [place] [address] Dr. Kirit Moscoso EAEC Not detected Normal NOT DETECTED [facility] Comment on above: Performed By: #### T 7, TSH #### [facility] [address] [place] [address] Dr. Kirit Moscoso EIEC Not detected Normal NOT DETECTED [facility] Comment on above: Performed By: #### T 7, TSH #### [facility] [address] [place] [address] Dr. Kirit Moscoso EPEC Not detected Normal NOT DETECTED [facility] Comment on above: Performed By: #### T 7, TSH #### [facility] [address] [place] [address] Dr. Kirit Moscoso ETEC Not detected Normal NOT DETECTED [facility] Comment on above: Performed By: #### T 7, TSH #### [facility] [address] [place] [address] Dr. Kirit Ricardo Lamblia Not detected Normal NOT DETECTED [facility] Comment on above: Performed By: #### T 7, TSH #### [facility] [address] [address] [address] Kirit RUBY CONTROLS PASSED Normal [facility] Comment on above: Performed By: #### T 7, TSH #### [facility] [address] [address] [address] Kirit MACIAS HEADER GI PANEL BACTERIA Normal [facility] Comment on above: Performed By: #### T 7, TSH #### [facility] [address] [address] [address] Kirit SHARPE ECOLI GI PANEL DIARRHEAGENIC E.COLI / SHIGELLA Normal [facility] Comment on above: Performed By: #### T 7, TSH #### [facility] [address] [address] [address] Kirit SHARPE INFO SEE BELOW [facility] Comment on above: Result Comment: EAEC - Enteroaggregative E. Coli EPEC- Enteropathogenic E. Coli ETEC- Enterotoxigenic E. Coli lt/st STEC- Shigella-like toxin-producing E. Coli stx1/stx2 EIEC- Shigella/Enteroinvasive E. Coli Performed By: #### T 7, TSH #### [facility] [address] [place] [address] Dr. Kirit SHARPE PARASITES GI PANEL PARASITES Normal [facility] Comment on above: Performed By: #### T 7, TSH #### [facility] [address] [address] [address] Kirit SHARPE VIRUS GI PANEL VIRUSES Normal [facility] Comment on above: Performed By: #### T 7, TSH #### [facility] [address] [address] [address] Kirit Moscoso Norovirus GI/GII Not detected Normal NOT DETECTED [facility] Comment on above: Performed By: #### T 7, TSH #### [facility] [address] [address] [address] Kirit Moscoso P. Shigelloides Not detected Normal NOT DETECTED [facility] Comment on above: Performed By: #### T 7, TSH #### [facility] [address] [place] [address] Dr. Kirit Moscoso Rotavirus A Not detected Normal NOT DETECTED [facility] Comment on above: Performed By: #### T 7, TSH #### [facility] [address] [place] [address] Dr. Kirit Moscoso Salmonella Not detected Normal NOT DETECTED [facility] Comment on above: Performed By: #### T 7, TSH #### [facility] [address] [place] [address] Dr. Kirit Moscoso Sapovirus Not detected Normal NOT DETECTED [facility] Comment on above: Performed By: #### T 7, TSH #### [facility] [address] [place] [address] Dr. Kirit Moscoso STEC Not detected Normal NOT DETECTED [facility] Comment on above: Performed By: #### T 7, TSH #### [facility] [address] [place] [address] Dr. Kirit Moscoso Vibrio Not detected Normal NOT DETECTED [facility] Comment on above: Performed By: #### T 7, TSH #### [facility] [address] [place] [address] Dr. Kirit Moscoso Vibrio Cholera Not detected Normal NOT DETECTED [facility] Comment on above: Performed By: #### T 7, TSH #### [facility] [address] [place] [address] Dr. Kirit Moscoso Y. Enterocolitica Not detected Normal NOT DETECTED [facility] Comment on above: Performed By: #### T 7, TSH #### [facility] [address] [place] [address] Dr. Kirit Moscoso INSULINon 01-12-2023 Insulin 23.6 uIU/mL Normal 2.6-24.9 [facility] Comment on above: Performed By: #### T 7, TSH #### [facility] [address] [place] [address] Dr. Kriit Moscoso ANTISTREPTOLYSIN O AB (ASO)o n 01-11-2023 Antistreptolysin O Ab 70.3 IU/mL Normal 0.0-200.0 [facility] Comment on above: Performed By: #### A SOAB #### [facility] [address] [place] [address] Dr. Kirit Moscoso RHEUMATOID FACTORon 01-11-20 23 RA Latex Turbid. <10.0 Normal <14.0 [facility] Comment on above: Performed By: #### R F #### [facility] [address] [place] [address] Dr. Kirit Moscoso CBC AUTO DIFFon 01-10-2023 BASO # 0.1 103/ul Normal 0.0-0.1 [facility] Comment on above: Performed By: #### C BC #### [facility] [address] [place] [address] Dr. Kirit Moscoso Basophils/100 WBC (Bld) 1.2 % Normal 0.2-2.0 [facility] Comment on above: Performed By: #### C BC #### [facility] [address] [place] [address] Dr. Kirit Moscoso EO # 0.0 103/ul Normal 0.0-0.7 [facility] Comment on above: Performed By: #### C BC #### [facility] [address] [place] [address] Dr. Kirit Moscoso Eosinophils/100 WBC (Bld) 0.0 % Critically low 0.9-7.0 [facility] Comment on above: Performed By: #### C BC #### [facility] [address] [place] [address] Dr. Kirit Moscoso Erythrocyte distribution width (RBC) [Ratio] 13.6 % Normal 11.0-15.0 [facility] Comment on above: Performed By: #### C BC #### [facility] [address] [place] [address] Dr. Kirit Moscoso Hematocrit (Bld) [Volume fraction] 44.2 % Normal 36.0-48.0 [facility] Comment on above: Performed By: #### C BC #### [facility] [address] [place] [address] Dr. Kirit Moscoso Hemoglobin (Bld) [Mass/Vol] 14.2 g/dL Normal 12.0-16.0 [facility] Comment on above: Performed By: #### C BC #### [facility] [address] [place] [address] Dr. Kirit Moscoso IG # 0.02 10e3/ul Normal 0.00-0.03 [facility] Comment on above: Performed By: #### C BC #### [facility] [address] [place] [address] Dr. Kirit Moscoso IG % 0.3 % Normal 0.0-0.5 [facility] Comment on above: Performed By: #### C BC #### [facility] [address] [place] [address] Dr. Kirit Moscoso LYMPH # 1.5 103/ul Normal 1.2-3.8 [facility] Comment on above: Performed By: #### C BC #### [facility] [address] [place] [address] Dr. Kirit Moscoso Lymphocytes/100 WBC (Bld) 22.7 % Normal 20.5-60.0 [facility] Comment on above: Performed By: #### C BC #### [facility] [address] [place] [address] Dr. Kirit Moscoso MANUAL DIFF REQ NO Normal [facility] Comment on above: Performed By: #### C BC #### [facility] [address] [place] [address] Dr. Kirit Moscoso MCH (RBC) [Entitic mass] 27.8 pg Normal 26.7-34.0 [facility] Comment on above: Performed By: #### C BC #### [facility] [address] [place] [address] Dr. Kirit Moscoso MCHC (RBC) [Mass/Vol] 32.1 g/dL Normal 29.9-35.2 [facility] Comment on above: Performed By: #### C BC #### [facility] [address] [address] [address] Kirit Moscoso MCV (RBC) [Entitic vol] 86.5 fL Normal 81.0-99.0 [facility] Comment on above: Performed By: #### C BC #### [facility] [address] [address] [address] Kriit Moscoso MONO # 0.5 103/ul Normal 0.3-0.8 [facility] Comment on above: Performed By: #### C BC #### [facility] [address] [place] [address] Dr. Kirit Moscoso Monocytes/100 WBC (Bld) 7.3 % Normal 1.7-12.0 [facility] Comment on above: Performed By: #### C BC #### [facility] [address] [place] [address] Dr. Kirit Moscoso NEUT # 4.5 103/ul Normal 1.4-6.5 [facility] Comment on above: Performed By: #### C BC #### [facility] [address] [place] [address] Dr. Kirit Moscoso Neutrophils/100 WBC (Bld) 68.5 % Normal 43.0-75.0 [facility] Comment on above: Performed By: #### C BC #### [facility] [address] [place] [address] Dr. Kirit Moscoso Platelet mean volume (Bld) [Entitic vol] 10.2 fL Normal 9.5-13.5 [facility] Comment on above: Performed By: #### C BC #### [facility] [address] [place] [address] Dr. Kirit Moscoso PLT 250 103/ul Normal 150-450 [facility] Comment on above: Performed By: #### C BC #### [facility] [address] [place] [address] Dr. Kirit Moscoso RBC 5.11 106/ul Normal 4.20-5.40 [facility] Comment on above: Performed By: #### C BC #### [facility] [address] [place] [address] Dr. Kirit Moscoso WBC 6.6 103/ul Normal 4.0-11.0 [facility] Comment on above: Performed By: #### C BC #### [facility] [address] [address] [address] Kirit Moscoso CRPon 01-10-2023 CRP 1.2 mg/dL Critically high <=1.0 [facility] Comment on above: Performed By: #### C RP, CMP, URIC, LIPID #### [facility] [address] [address] [address] Kirit Moscoso GLYCOHEMOGLOBIN A1Con 2022 ADA RECOMMENDATION SEE BELOW Normal [facility] Comment on above: Result Comment: ADA RECOMMENDED LIMIT 4.0 - 6.0 ADA THERAPEUTIC TARGET < 7.0 ACTION SUGGESTED > 7.0 Performed By: #### T 7, TSH #### [facility] [address] [address] [address] Kirit Moscoso Glucose [Mass/Vol] 114 mg/dL Normal [facility] Comment on above: Performed By: #### T 7, TSH #### [facility] [address] [address] [address] Kirit Moscoso HbA1c (Bld) [Mass fraction] 5.6 % Normal 4.5-6.2 [facility] Comment on above: Performed By: #### T 7, TSH #### [facility] [address] [address] [address] Kirit Moscoso IRONon 01-10-2023 Iron [Mass/Vol] 59.0 ug/dL Normal 50.0-170.0 [facility] Comment on above: Performed By: #### C BC #### [facility] [address] [address] [address] Kirit Moscoso LIPID PROFILEon 01-10-2023 CHOL-HDL RATIO NORM SEE BELOW Normal [facility] Comment on above: Result Comment: 3.3 - 4.4 LOW RISK 4.4 - 7.1 AVERAGE RISK 7.1 - 11.0 MODERATE RISK >11.0 HIGH RISK Performed By: #### C RP, CMP, URIC, LIPID #### [facility] [address] [address] [address] Kirit Moscoso Cholesterol [Mass/Vol] 188 mg/dL Normal <=200 [facility] Comment on above: Performed By: #### C RP, CMP, URIC, LIPID #### [facility] [address] [address] [address] Kirit Moscoso Cholesterol in HDL [Mass/Vol] 45 mg/dL Normal 40-60 [facility] Comment on above: Performed By: #### C RP, CMP, URIC, LIPID #### [facility] [address] [address] [address] Kirit Moscoso Cholesterol in LDL [Mass/Vol] 129.0 mg/dL Normal [facility] Comment on above: Performed By: #### C RP, CMP, URIC, LIPID #### [facility] [address] [address] [address] Kirit Moscoso Cholesterol.total/Cho lesterol in HDL [Mass ratio] 4.2 {ratio} Normal [facility] Comment on above: Performed By: #### C RP, CMP, URIC, LIPID #### [facility] [address] [address] [address] Kirit Moscoso HDL NORMAL > or = 60 mg/dl - LO W CARDIOVASCULAR RISK <40 mg/dl - HIGH CARDIOVASCULAR RISK Normal [facility] Comment on above: Performed By: #### C RP, CMP, URIC, LIPID #### [facility] [address] [address] [address] Kirit Moscoso LDL CALC NORMAL SEE BELOW Normal [facility] Comment on above: Result Comment: <100 mg/dl OPTIMAL 100 - 129 mg/dl NEAR OR ABOVE OPTIMAL 130 - 159 mg/dl BORDERLINE HIGH 160 - 189 mg/dl HIGH >190 mg/dl VERY HIGH Performed By: #### C RP, CMP, URIC, LIPID #### [facility] [address] [address] [address] Kirti Moscoso Triglyceride [Mass/Vol] 71 mg/dL Normal <=150 [facility] Comment on above: Performed By: #### C RP, CMP, URIC, LIPID #### [facility] [address] [address] [address] Kirit Moscoso VLDL CALC 14.2 mg/dL Normal [facility] Comment on above: Performed By: #### C RP, CMP, URIC, LIPID #### [facility] [address] [address] [address] Kirit Moscoso PROF 14(COMP METB)on 023 Albumin [Mass/Vol] 3.5 g/dL Normal 3.4-5.0 [facility] Comment on above: Performed By: #### C RP, CMP, URIC, LIPID #### [facility] [address] [address] [address] Kirit Moscoso Albumin/Globulin [Mass ratio] 0.8 {ratio} Normal [facility] Comment on above: Performed By: #### C RP, CMP, URIC, LIPID #### [facility] [address] [place] [address] Dr. Kirit Moscoso ALP [Catalytic activity/Vol] 109 U/L Normal 46-116 [facility] Comment on above: Performed By: #### C RP, CMP, URIC, LIPID #### [facility] [address] [address] [address] Kirit Moscoso ALT [Catalytic activity/Vol] 26 U/L Normal 14-59 [facility] Comment on above: Performed By: #### C RP, CMP, URIC, LIPID #### [facility] [address] [address] [address] Kirit Moscoso Anion gap [Moles/Vol] 11.3 mmol/L Normal [facility] Comment on above: Performed By: #### C RP, CMP, URIC, LIPID #### [facility] [address] [address] [address] Kirit Moscoso AST [Catalytic activity/Vol] 16 U/L Normal 15-37 [facility] Comment on above: Performed By: #### C RP, CMP, URIC, LIPID #### [facility] [address] [address] [address] Kirit Moscoso Bilirubin [Mass/Vol] 0.4 mg/dL Normal 0.2-1.0 [facility] Comment on above: Performed By: #### C RP, CMP, URIC, LIPID #### [facility] [address] [address] [address] Kirit Moscoso Calcium [Mass/Vol] 9.1 mg/dL Normal 8.5-10.1 [facility] Comment on above: Performed By: #### C RP, CMP, URIC, LIPID #### [facility] [address] [place] [address] Dr. Kirit Moscoso Chloride [Moles/Vol] 105 mmol/L Normal 98-107 [facility] Comment on above: Performed By: #### C RP, CMP, URIC, LIPID #### [facility] [address] [place] [address] Dr. Kirit Moscoso CO2 [Moles/Vol] 26.5 mmol/L Normal 21.0-32.0 [facility] Comment on above: Performed By: #### C RP, CMP, URIC, LIPID #### [facility] [address] [place] [address] Dr. Kirit Moscoso Creatinine [Mass/Vol] 0.97 mg/dL Normal 0.55-1.02 [facility] Comment on above: Performed By: #### C RP, CMP, URIC, LIPID #### [facility] [address] [place] [address] Dr. Kirit Moscoso EGFR-AF VENEZUELAN >60 Normal >=60 [facility] Comment on above: Performed By: #### C RP, CMP, URIC, LIPID #### [facility] [address] [place] [address] Dr. Kirit Moscoso EGFR-NON AF VENEZUELAN 60 mL/min/1.73m2 Normal >=60 [facility] Comment on above: Performed By: #### C RP, CMP, URIC, LIPID #### [facility] [address] [place] [address] Dr. Kirit Moscoso Globulin (S) [Mass/Vol] 4.3 g/dL Normal [facility] Comment on above: Performed By: #### C RP, CMP, URIC, LIPID #### [facility] [address] [place], [place] [id number] Dr. Kirit Moscoso Glucose [Mass/Vol] 96 mg/dL Normal 74-106 [facility] Comment on above: Performed By: #### C RP, CMP, URIC, LIPID #### [facility] [address] [place] [address] Dr. Kirit Moscoso Potassium [Moles/Vol] 4.1 mmol/L Normal 3.5-5.1 [facility] Comment on above: Performed By: #### C RP, CMP, URIC, LIPID #### [facility] [address] [address] [address] Kirit Moscoso Protein [Mass/Vol] 7.8 g/dL Normal 6.4-8.2 [facility] Comment on above: Performed By: #### C RP, CMP, URIC, LIPID #### [facility] [address] [place] [address] Dr. Kirit Moscoso Sodium [Moles/Vol] 139 mmol/L Normal 136-145 [facility] Comment on above: Performed By: #### C RP, CMP, URIC, LIPID #### [facility] [address] [place] [address] Dr. Kirit Moscoso Urea nitrogen [Mass/Vol] 19.0 mg/dL Critically high 7.0-18.0 [facility] Comment on above: Performed By: #### C RP, CMP, URIC, LIPID #### [facility] [address] [place] [address] Dr. Kirit Moscoso Urea nitrogen/Creatinine [Mass ratio] 19.6 mg/mg Normal [facility] Comment on above: Performed By: #### C RP, CMP, URIC, LIPID #### [facility] [address] [place] [address] Dr. Kirit Moscoso UA (CLEAN/CATCH) HEALTH SAFETY SPECIALIST/MICRO I F IND.on 01-10-2023 Bilirubin Ql (U) Negative Normal NEGATIVE [facility] Comment on above: Performed By: #### C BC #### [facility] [address] [place] [address] Dr. Kirit Moscoso Clarity (U) CLEAR Normal CLEAR [facility] Comment on above: Performed By: #### C BC #### [facility] [address] [address] [address] Kirit Moscoso Color (U) LT. YELLOW Normal YELLOW [facility] Comment on above: Performed By: #### C BC #### [facility] [address] [address] [address] Kirit Moscoso Glucose Ql (U) Negative Normal NEGATIVE [facility] Comment on above: Performed By: #### C BC #### [facility] [address] [place] [address] Dr. Kirit Moscoso Hemoglobin Ql (U) Negative Normal NEGATIVE [facility] Comment on above: Performed By: #### C BC #### [facility] [address] [place] [address] Dr. Kirit Moscoso Ketones Ql (U) Negative Normal NEGATIVE [facility] Comment on above: Performed By: #### C BC #### [facility] [address] [place] [address] Dr. Kirit Moscoso LEUKOCYTES Negative Normal NEGATIVE [facility] Comment on above: Performed By: #### C BC #### [facility] [address] [place] [address] Dr. Kirit Moscoso Nitrite Ql (U) Negative Normal NEGATIVE [facility] Comment on above: Performed By: #### C BC #### [facility] [address] [place] [address] Dr. Kirit Moscoso pH (U) 5.5 [pH] Normal 5-9 [facility] Comment on above: Performed By: #### C BC #### [facility] [address] [place] [address] Dr. Kirit Moscoso SPEC GRAVITY 1.010 Normal 1.005-<=1.025 [facility] Comment on above: Performed By: #### C BC #### [facility] [address] [place] [address] Dr. Kirit Moscoso UA PROTEIN Negative Normal NEGATIVE/ TRACE [facility] Comment on above: Performed By: #### C BC #### [facility] [address] [place] [address] Dr. Kirit Moscoso UR MICRO IND NOT INDICATED Normal [facility] Comment on above: Performed By: #### C BC #### [facility] [address] [address] [address] Kirit Moscoso Urobilinogen Qn (U) 0.2 {Jose Juan'U}/dL Normal 0.2 - 1. 0 [facility] Comment on above: Performed By: #### C BC #### [facility] [address] [place] [address] Dr. Kirit Moscoso URIC ACID SERUMon 01-10-2023 Urate [Mass/Vol] 5.6 mg/dL Normal 2.6-6.0 [facility] Comment on above: Performed By: #### C RP, CMP, URIC, LIPID #### [facility] [address] [place] [address] Dr. Kirit Moscoso FREE THYROXINE INDEX T7on FTI 2.46 Normal 1.30-4.50 [facility] Comment on above: Performed By: #### T 7, TSH #### [facility] [address] [place] [address] Dr. Kirit Moscoso T3U 32.0 % Normal 30.0-39.0 [facility] Comment on above: Performed By: #### T 7, TSH #### [facility] [address] [place] [address] Dr. Kirit Moscoso T4 [Mass/Vol] 7.70 ug/dL Normal 4.80-13.90 [facility] Comment on above: Performed By: #### T 7, TSH #### [facility] [address] [place] [address] Dr. Kirit Moscoso TSHon 10-28-2022 TSH 2.263 uIU/mL Normal 0.358-3.740 [facility] Comment on above: Performed By: #### T 7, TSH #### [facility] [address] [place] [address] Dr. Kirit Moscoso FREE THYROXINE INDEX T7on FTI 3.30 Normal 1.30-4.50 [facility] Comment on above: Performed By: #### T 7, TSH #### [facility] [address] [address] [address] Kirit Moscoso T3U 34.0 % Normal 30.0-39.0 [facility] Comment on above: Performed By: #### T 7, TSH #### [facility] [address] [address] [address] Kirit Moscoso T4 [Mass/Vol] 9.70 ug/dL Normal 4.80-13.90 [facility] Comment on above: Performed By: #### T 7, TSH #### [facility] [address] [address] [address] Kirit Moscoso TSHon 04-16-2022 TSH 0.140 uIU/mL Critically low 0.358-3.740 [facility] Comment on above: Performed By: #### T 7, TSH #### [facility] [address] [address] [address] Kirit Moscoso TSH RANGE SEE BELOW Normal [facility] Comment on above: Result Comment: <0.3 4 UIU/ml HYPERTHYROID 0.34-5.60 UIU/ml EUTHYROID >5.60 UIU/ml HYPOTHYROID Performed By: #### T 7, TSH #### [facility] [address] [place] [address] Dr. Kirit Moscoso FREE T3on 02-27-2022 FREE T3 2.45 pg/mlL Critically low 2.77-5.27 [facility] Comment on above: Performed By: #### T 7, TSH #### [facility] [address] [place] [address] Dr. Kirit Moscoso T4on 02-27-2022 T4 [Mass/Vol] 7.00 ug/dL Normal 5.53-11.00 [facility] Comment on above: Performed By: #### T 7, TSH #### [facility] [address] [place] [address] Dr. Kirit Moscoso TSHon 02-27-2022 TSH 7.345 uIU/mL Critically high 0.470-4.680 [facility] Comment on above: Performed By: #### T 7, TSH #### [facility] [address] [address] [address] Kirit Moscoso TSH RANGE SEE BELOW Normal [facility] Comment on above: Result Comment: <0.3 4 UIU/ml HYPERTHYROID 0.34-5.60 UIU/ml EUTHYROID >5.60 UIU/ml HYPOTHYROID Performed By: #### T 7, TSH #### [facility] [address] [address] [address] Kirit Moscoso Vital Signs Date Time Vital Sign Value Performing Clinician Facility 10-04-2024 13:08-0500 Body height 160.02 cm [facility] 10-04-2024 13:08-0500 Body mass index (BMI) [Ratio] 34.7 kg/m2 [facility] 10-04-2024 13:08-0500 Body temperature 98.2 [degF] [facility] 10-04-2024 13:08-0500 Body weight 88.9 kg [facility] 10-04-2024 13:08-0500 Diastolic blood pressure 88 mm[Hg] [facility] 10-04-2024 13:08-0500 Heart rate 81 /min [facility] 10-04-2024 13:08-0500 SaO2% (BldA) [Mass fraction] 96 % [facility] 10-04-2024 13:08-0500 Systolic blood pressure 128 mm[Hg] [facility] 05-04-2024 15:50-0400 Body height 160.02 cm [facility] 05-04-2024 15:50-0400 Body mass index (BMI) [Ratio] 35.4 kg/m2 [facility] 05-04-2024 15:50-0400 Body weight 90.71 kg [facility] 05-04-2024 15:50-0400 Diastolic blood pressure 82 mm[Hg] [facility] 05-04-2024 15:50-0400 Heart rate 71 /min [facility] 05-04-2024 15:50-0400 SaO2% (BldA) [Mass fraction] 98 % [facility] 05-04-2024 15:50-0400 Systolic blood pressure 120 mm[Hg] [facility] 11-20-2023 10:42-0500 Body height [facility] 11-20-2023 10:42-0500 Body mass index (BMI) [Ratio] 34.76 [facility] 11-20-2023 10:42-0500 Body weight 89 kg [facility] 11-20-2023 10:42-0500 Diastolic blood pressure 76 mm[Hg] [facility] 11-20-2023 10:42-0500 Systolic blood pressure 128 mm[Hg] [facility] 06-29-2023 09:55-0400 Body height 160.02 cm Griselda Thao Other [employer] Other 06-29-2023 09:55-0400 Body mass index (BMI) [Ratio] 35.57 kg/m2 Griselda Thao Other [employer] Other 06-29-2023 09:55-0400 Body temperature 97.6 [degF] Griselda Thao Other [employer] Other 06-29-2023 09:55-0400 Body weight 91.08 kg Griselda Thao Other [employer] Other 06-29-2023 09:55-0400 Diastolic blood pressure 74 mm[Hg] Griselda Thao Other [employer] Other 06-29-2023 09:55-0400 Respiratory rate 18 /min Griselda Thao Other [employer] Other 06-29-2023 09:55-0400 SaO2% (BldA) [Mass fraction] 98 % Griselda Thao Other [employer] Other 06-29-2023 09:55-0400 Systolic blood pressure 126 mm[Hg] Griselda Thao Other [employer] Other Encounters Encounter Date Encounter Type Care Provider Facility Start: 10-04-2024 End: 10-04-2024 ambulatory [facility] Work Phone: Start: 10-04-2024 End: 10-04-2024 Patient encounter procedure [facility] Physician [facility] Work Phone: Start: 10-01-2024 Non-patient / Non-visit [facility] Work [facility]: Start: 07-16-2024 Non-patient / Non-visit [facility] Physician [facility] [employer] Work Phone: Start: 05-04-2024 End: 05-04-2024 ambulatory [facility] Work Phone: Start: 05-04-2024 End: 05-04-2024 Patient encounter procedure [facility] Physician [facility] Work Phone: Start: 12-31-2023 End: 12-31-2023 ambulatory Imad Asaad Other [employer] Other Start: 12-31-2023 Telephone encounter Imad Asaad [facility] Start: 11-20-2023 End: 11-20-2023 Encounter for gynecological examination (general) (routine) without abnormal findings [facility] Start: 11-20-2023 End: 11-20-2023 Patient encounter [facility] Work [facility]: Start: 11-20-2023 End: 11-20-2023 Periodic preventive med est patient 40-64yrs [facility] Ob Returns Supervisor [facility] Comment on above: Well woman exam with routine gynecological exam (Primary Dx); Cervical smear, as part of routine gynecological examination Start: 11-20-2023 End: 11-21-2023 ambulatory [facility] Start: 11-20-2023 Encounter for gynecological examination (general) (routine) without abnormal findings [facility] Start: 08-31-2023 End: 08-31-2023 ambulatory Tanisha Murrell Facility:[facility] Start: 06-29-2023 End: 06-29-2023 ambulatory Griselda Thao Other [employer] Other Start: 06-29-2023 Office outpatient vi sit 15 minutes Griselda Thao [facility] Start: 01-20-2023 End: 01-20-2023 ambulatory TANISHAROSY MURRELL Facility:[facility] Start: 01-16-2023 Encounter for genera l adult medical examination without abnormal findings TANISHA MURRELL [facility] Start: 01-13-2023 End: 01-13-2023 ambulatory TANISHA P [place] Facility:[facility] Start: 01-10-2023 End: 01-11-2023 ambulatory TANISHA P [place] Facility:[facility] Start: 01-10-2023 End: 01-11-2023 Encounter for general adult medical examination without abnormal findings TANISHA MURRELL Facility:[facility] Start: 10-28-2022 End: 10-29-2022 ambulatory TANISHA P [place] Facility:[facility] Start: 07-21-2022 End: 07-30-2022 ambulatory LAUREN LEWIS Facility:[facility] Start: 07-02-2022 End: 07-03-2022 ambulatory TANISHA P [place] Facility:[facility] Start: 04-16-2022 End: 04-17-2022 ambulatory TANISHA P [place] Facility:[facility] Start: 02-27-2022 End: 02-28-2022 ambulatory TANISHA P [place] Facility:[facility] Procedures Date Procedure Procedure Detail Performing Clinician Start: 11-20-2023 Adult depression scr eening assessment [facility] Returns Supervisor Plan of Treatment Date Care Activity Detail Author Start: 11-20-2024 Adult BMI Screening Adult BMI Screen [facility] Start: 11-20-2024 Depression Screening Depression Scre ening [facility] Start: 11-20-2024 Tobacco Screening Tobacco Screening [facility] Start: 11-20-2023 End: 11-20-2024 Cytopathology procedure, preparation of smear, genital source Pap Smear Pathology and Cytology Routine Cervical smear, as part of routine gynecological examination Expected: 11/20/2023 (Approximate), Expires: 11/20/2024 [facility] Work Phone: Comment on above: Expected: 11/20/2023 (Approximate), Expires: 11/20/2024 Start: 07-31-2023 Influenza vaccination Influenza Vacc ine [facility] Start: 02-20-2018 Administration of varicella zoster vaccine Zoster (Shingles) Vaccine (1 of 2) [facility] Start: 02-20-1989 Screening for malign ant neoplasm of cervix Pap Smear [facility] Start: 02-20-1987 DTaP,Tdap and Td Vac cines (1 - Tdap) DTaP,Tdap and Td Vaccines (1 - Tdap) [facility] Start: 02-20-1986 Adult BMI Follow Up Plan Adult BMI Follow Up Plan [facility] End: 11-20-2024 High risk HPV w/jc High risk HPV w/jc Lab Routine Cervical smear, as part of routine gynecological examination 1 Occurrences starting 11/20/2023 until 11/20/2024 [facility] Comment on above: 1 Occurrences starti ng 11/20/2023 until 11/20/2024 T3 reverse measurement [facility] Immunizations Immunization Date Immunization Notes Care Provider Anika howard 09-29-2017 influenza virus vacc ine, unspecified formulation [facility] Returns Supervisor [facility] Payers Date Payer Category Payer Self-pay 2022 Medicaid [facility] O [id number] 2022-Present [phone] [address] [place] [address] [id number] 1968 Unknown [id number]. 593 1968 Unknown [id number] [id number]. 593 1968 Unknown [id number] [id number]. 593 1968 Unknown [id number] 2.16.840.1.145900.3.579.2. 593 1968 Unknown [id number] 2.16.840.1.125092.3.579.2. 593 1968 Unknown [id number] [id number]. 593 1968 Unknown [id number] 2.16.840.1.307948.3.579.2. 593 1968 Unknown [id number] [id number]. 593 1968 Unknown [id number] [id number]. 1286 1959 Unknown [id number] 1959 Unknown [id number] Private Health Insurance [facility] [id number] Unknown [id number] [id number]. 531 Unknown MMO [id number] Unknown [place] [id number] Unknown MMO [id number] Social History Date Type Detail Facility Unknown if ever smoked [employer] Other Start: 01-10-2021 End: 11-20-2023 Sex Assigned At [employer] Other Start: 05-04-2024 End: 05-04-2024 Tobacco smoking status NHIS Never smoked tobacco (finding) [facility] Start: 1970 Sex Assigned At Female [facility] Start: 10-28-2022 Tobacco smoking stat us NHIS Ex-smoker [facility] History of tobacco use Current smoker [facility] History of tobacco use Cigarette Smoker [facility] Start: 10-28-2022 Tobacco use and exposure Smokeless tobacco non-user [facility] Start: 11-20-2023 Alcohol intake Ex-drinker (finding) [facility] Start: 01-10-2021 End: 11-20-2023 History of Social function [facility] Adolescent depressio n screening assessment 7 [facility] Start: 03-26-2023 Gender identity Identifies as female gender (finding) [facility] Evaluation note 12-31-2023 Note Date & Type Note Facility 12-31-2023 Evaluation note Encounter Date Diagnosis Assessment Notes Dec, Ulcerative colitis (ICD-10 - K51.90) [employer] Other History of Present illness Narrative 11-20-2023 NEVA Parikh - 11/20/2023 10:30 AM EST Note Date & Type Note Facility 11-20-2023 History of Present illness Narrative Isidro Musa is a 53 y.o. female who presents for annual finisher wallboard and plasterboard exam. She is postmenopausal. Pt. Had colonoscopy 3 months ago and does not know the results except the doctor said everything looked good . She relates they said they did 19 biopsies. She is not exercising but plans to begin next month. Hysterectomy: no She is not sexually active. No pelvic pain. 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 She attributes symptoms to 12y.o. grandson recently diagnosed w/leukemia and she does not see him much. She does not see a counselor. She relates she experiences symptoms once a month for a few days. She denies current symptoms or desire to harm self or others. OB History 0 Para 0 Term 0 0 AB 0 Living 0 SAB 0 IAB 0 Ectopic 0 Multiple 0 Live Births 0 Past Medical History: Diagnosis Date Arthritis Colitis Heart murmur IBS (irritable bowel syndrome) Rectocele Thyroid disease Past Surgical History: Procedure Laterality Date COLONOSCOPY TUBAL LIGATION 06/2000 Family History Problem Relation Age of Onset Stroke Father Throat cancer Mother Current Outpatient Medications Medication Sig Dispense Refill busPIRone (BUSPAR) 10 mg tablet Take 1 tablet (10 mg total) by mouth 2 (two) times a week. cholecalciferol, vitamin D3, 2,000 units capsule Take 1 capsule (2,000 Units total) by mouth in the morning. ferrous sulfate 325 (65 FE) mg tablet Take 1 tablet (325 mg total) by mouth daily with breakfast. levothyroxine (SYNTHROID, LEVOTHROID) 100 MCG tablet Take 1 tablet (100 mcg total) by mouth in the morning. liothyronine (CYTOMEL) 25 MCG tablet Take 1 tablet (25 mcg total) by mouth in the morning. magnesium 30 mg tablet Take 1 tablet (30 mg total) by mouth in the morning and 1 tablet (30 mg total) before bedtime. mesalamine (PENTASA) 250 mg CR capsule Take 1 capsule (250 mg total) by mouth in the morning and 1 capsule (250 mg total) at noon and 1 capsule (250 mg total) in the evening and 1 capsule (250 mg total) before bedtime. potassium chloride (K-TAB,KLOR-CON) 10 MEQ CR tablet Take 1 tablet (10 mEq total) by mouth in the morning and 1 tablet (10 mEq total) before bedtime. losartan potassium (LOSARTAN ORAL) Take by mouth. (Patient not taking: Reported on 11/20/2023) oxaprozin (DAYPRO ORAL) Take by mouth. No current facility-administered medications for this visit. ALLERGIES Allergies Allergen Reactions Metronidazole Other (See Comments) IBS flares up, severe belly pain Sulfanilamide Itching and Rash Review of Systems Constitutional: Negative for chills and fever. HENT: Negative for ear pain, sinus pain and sore throat. Eyes: Negative for pain. Respiratory: Negative for cough and shortness of breath. Cardiovascular: Negative for chest pain and palpitations. Gastrointestinal: Positive for abdominal pain. Negative for constipation, diarrhea, nausea and vomiting. Attributes to bloating and needs to have BM yet this day Genitourinary: Positive for frequency. Negative for dysuria, pelvic pain and vaginal bleeding. Skin: Negative for rash and wound. Psychiatric/Behavioral: Negative for self-injury and suicidal ideas. Urine dip in office negative for all components Physical Exam Ht 160 cm (5' 3 ) Wt 89 kg (196 lb 3.2 oz) BMI 34.76 kg/m Physical Exam Vitals and nursing note reviewed. Constitutional: General: She is not in acute distress. Appearance: She is obese. She is not ill-appearing, toxic-appearing or diaphoretic. HENT: Head: Normocephalic and atraumatic. Eyes: Conjunctiva/sclera: Conjunctivae normal. Neck: Thyroid: No thyroid mass, thyromegaly or thyroid tenderness. Trachea: Trachea normal. Cardiovascular: Rate and Rhythm: Normal rate and regular rhythm. Heart sounds: Murmur heard. No friction rub. No gallop. Pulmonary: Effort: Pulmonary effort is normal. Breath sounds: Normal breath sounds. Chest: Chest wall: No lacerations, deformity, swelling or tenderness. Breasts: Breasts are symmetrical. Right: Normal. Left: Normal. Abdominal: General: There is no distension. Palpations: Abdomen is soft. There is no mass. Tenderness: There is no abdominal tenderness. There is no right CVA tenderness, left CVA tenderness, guarding or rebound. Hernia: No hernia is present. Genitourinary: Exam position: Supine. Pubic Area: No rash or pubic lice. Labia: Right: No rash, tenderness, lesion or injury. Left: No rash, tenderness, lesion or injury. Urethra: Prolapse present. No urethral pain, urethral swelling or urethral lesion. Vagina: No signs of injury and foreign body. No vaginal discharge, erythema, tenderness, bleeding, lesions or prolapsed vaginal joyce. Cervix: Normal. Uterus: Normal. Adnexa: Right adnexa normal and left adnexa normal. Comments: Bilateral labia w/depigmented area which are white in color. Skin is intact, no erythema. Pt. States julien. Rectocele noted, does not descend past intraoitus. Intact Musculoskeletal: Cervical back: Neck supple. No rigidity or tenderness. Lymphadenopathy: Cervical: No cervical adenopathy. Upper Body: Right upper body: No supraclavicular or axillary adenopathy. Left upper body: No supraclavicular or axillary adenopathy. Skin: General: Skin is warm and dry. Neurological: General: No focal deficit present. Mental Status: She is alert. Psychiatric: Attention and Perception: Attention normal. Mood and Affect: Mood and affect normal. Speech: Speech normal. Behavior: Behavior normal. Behavior is cooperative. Thought Content: Thought content normal. Judgment: Judgment normal. Assessment / Plan Isidro was seen today for annual exam. Diagnoses and all orders for this visit: Well woman exam with routine gynecological exam Next pap due pending results of today's. Discussed ASCCP screening guidelines. BMI is above average; Discussed eating tips for weight loss and and exercise steps. Discussed SBE. Discussed taking a multivitamin. Discussed Calcium and Vitamin D for prevention of osteoporosis. Discussed need for yearly mammogram after 40 yo. Order placed. Patient to discuss colon cancer screening recommendations with GI Educational material provided. All questions answered. RTO for annual finisher wallboard and plasterboard exam and / or PRN. NEVA Parikh 11/20/23 1222 documented in this encounter [facility] Evaluation note 06-29-2023 Note Date & Type [...] worsening. Patient/Parent verbalized understanding of tx plan. [employer] Other Clinical Note 07-02-2022 Note Date & [...] authenticated by: JUANI KNOX Date: 2022-07-02 15:25 [facility] Evaluation note Note Date & Type Note Facility Evaluation note Diagnosis Onset Date Hypothyroid acute [facility] Work Phone: Evaluation note Note Date & Type Note Facility Evaluation note Diagnosis Onset Date Cerumen impaction acute Dysfunction of eustachian tube acute [facility] Work Phone: Evaluation note Note Date & Type Note Facility Evaluation note Diagnosis Well woman exam with routine gynecological exam- Primary Routine gynecological examination Cervical smear, as part of routine gynecological examination Screening for malignant neoplasm of the cervix documented in this encounter [facility] History general Narrative - Reported Note Date & Type Note Facility History general Narrative - Reported Type Medical History thyroid disease Medical History ulcerative colitis Surgical History tubal ligation Surgical History colonoscopy [employer] Other Instructions Note Date & Type Note Facility Instructions Not on filedocumented in this en counter [facility] Summary Purpose Family History Relationship Condition Age [...] and content) DATE CREATED AUTHOR 02/04/2023 [facility] DATE CREATED AUTHOR AUTHOR'S ORGANIZ ATION 09/08/2023 [facility] DATE CREATED AUTHOR AUTHOR'S ORGANIZ ATION 12/02/2023 [facility] REASON FOR VISIT (unrecogniz ed section and content) Reason Comments Annual Exam Care Teams (unrecognized sec tion and content) Team Status: Active Member Role Status Dates Tanisha Murrell NP-C Primary Care Provider Active Team Status: Active Member Role Status Dates Tanisha Murrell NP-Davey Primary Care Pr ovider, Attending Provider Active Start: July 16, 2024 Team Status: Active Member Role Status Dates Cayla Orona APRN VEHICLE DELIVERY WORKER-C Attending Provider Active Start: October 01, 2024 BETH Cloud Primary Care Provider Active Start: October 01, 2024 Team Status: Inactive Member Role Status Dates Tanisha Murrell NP-Davey Primary Care Provider Active Start: October 04, 2024 End: October 04, 2024 Cayla Orona APRN NP-Davey Attending Provider Active Start: October 04, 2024 End: October 04, 2024 Team Status: Inactive Member Role Status Dates Tanisha Murrell NP-Davey Primary Care Provider Active Start: May 04, 2024 End: May 04, 2024 Cayla Orona APRN NP-Davey Attending Provider Act aguilar Start: May 04, 2024 End: May 04, 2024 Team Status: Active Member Role Status Dates BETH Cloud Primary Care Provider Active Start: May 04, 2024 MIKIE Reno Attending Provider Act aguilar Start: May 04, 2024 Manufacturing Intern Relationship Specialty Start Date End Date Lauren Lewis MD [address] [facility] [place] [id number] PCP - General Family Medicine 03/26/23 Goals (unrecognized section and content) Goals may [...] BE BASED ON THE PRIMARY CLINICAL RECORDS. [facility] [email or web address] [facility]. provides no warranty or guarantee of the accuracy or completeness of information in this document.
[2024-12-24 11:35] LABS: Alanine Aminotransferase 23 U/L (14-59); Albumin Globulin Ratio 0.8; Albumin Level 3.4 g/dL (3.4-5.0); Alkaline Phosphatase 141 U/L (46-116); Anion Gap 15.2; BUN Creatinine Ratio 17.1; Bilirubin Total 0.5 mg/dL (0.2-1.0); Calcium 9.4 mg/dL (8.5-10.1); Carbon Dioxide 26.7 mmol/L (21.0-32.0); Chloride 105 mmol/L (98-107); Estimated GFR (African America >60 (>=60 mL/min/1.73m^2); Estimated GFR (Non-African Ame >60 (>=60 mL/min/1.73m^2); Free T3 6.16 pg/mL (2.18-3.98); Globulin 4.3 g/dL; Glucose 94 mg/dL (74-106); Sodium 142 mmol/L (136-145); Thyroid Stimulating Hormone 0.142 uIU/mL (0.358-3.740); Total Protein 7.7 g/dL (6.4-8.2)
[2024-12-24 11:47] LABS: Free T4 0.81 ng/dL (0.76-1.46)
[2024-12-24 12:21] LABS: Potassium 4.9 mmol/L (3.5-5.1)
[2024-12-24 12:22] LABS: Aspartate Amino Transferase 27 U/L (15-37)
== END 2024-12-24 10:02 | disposition home or self-care (01) ==
PROVIDERS: PCP Nurse Practitioner Family
DX: E03.9 Hypothyroidism, unspecified (principal); E55.9 Vitamin D deficiency, unspecified
CPT/HCPCS: 36415; 80053; 82306; 84439; 84443; 84481

== ENCOUNTER 2025-07-01 22:57 | Emergency (ER) | payer OTHER, SELFPAY ==
[2025-07-01 22:59] VITALS: BP 166/92; PULSE 76; TEMP 36.8; O2SAT 97; BMI 34.7
--- OUTSIDE RECORDS SUMMARY | 2025-07-01 23:06 | XMS_ITS | CCD ---
Author Organization [facility] Care Team Providers Care Workers Compensation Claims Examiner Name Role Phone NYASIA, TANISHA P [...] Imad Attending Unavailable Asaad, Imad Admitting Unavailable Asaad, Imad Unavailable Lauren Lewis MD Primary Care Provider [phone] Cayla Brown Primary Care Provid er Unavailable Primary Care Provider UnavailLUCIEN Chiu Attending Unavailable RASHIDA STONE Referring Unavailable CAYLA ORONA Primary Care Unavailable RASHIDA STONE Silvia Referring Unavailable CAYLA ORONA Primary Care Unavailable LAUREN LEWIS Referring Unavailable CAYLA ORONA Primary Care Unavailable MICHAEL YU Referring Unavailable MICHAEL YU Primary Care Unavailable MICHAEL YU Referring Unavailable MICHAEL YU Primary Care Unavailable Allergies Allergy Classification Reported Allergen(s) Allergy Type Date of Onset Reaction(s) Facility (1 source) Sulfonamides (Antibiotic) Drug allergy (disorder) 7 [facility] Repository (5 sources) Substance with sulfonamide structure and antibacterial mechanism of action (substance) Drug allergy 3 Swelling, Rash [facility] Other (5 sources) Sulfonamides (Antibiotic) Drug allergy (disorder) 3 Rash [facility] Repository (13 sources) metroNIDAZOLE; Translations: [METRONIDAZOLE] Drug Allergy 1 Other (See Comments) [facility] (6 sources) Sulfanilamide; Translations: [SULFANILAMIDE] Drug Allergy 1 [facility]ching, [facility] Medications Current Medications Medication Drug Class(es) Dates Sig (Normalized) Sig (Original) alendronic acid 70 mg / cholecalciferol 5600 unt oral tablet (3 sources) Bisphosphonate, Vitamin D take 70-5600 tablets by mouth in the morning alendronate-choleca lciferol (Fosamax Plus D) 70-5600 MG-UNIT tablet Take 1 tablet by mouth every 7 (seven) days. Take in the morning with a full glass of water, on an empty stomach, and do not take anything else by mouth or lie down for the next 30 min. Active azelastine (1 source) Histamine-1 Receptor Antagonist Start: 10-04-2024 take 1 spray(s) nasal route twice daily Azelastine Active 2 SPRAY INTRANASAL Twice daily October 04, 2024 12:00am administer into each nostril betamethasone 0.5 mg/ml / clotrimazole 10 mg/ml topical cream (2 sources) Azole Antifungal, Corticosteroid Start: 01-11-2025 End: 02-10-2025 clotrimazole-betame thasone (Lotrisone) cream Indications: Tinea pedis of both feet Apply 1 application topically in the morning and 1 application before bedtime. 45 g 1 01/11/2025 02/10/2025 Active busPIRone hydrochloride 10 mg oral tablet (2 sources) End: 01-11-2025 take 1 tablet by mouth two times weekly busPIRone (BUSPAR) 10 mg tablet Take 1 tablet (10 mg total) by mouth 2 (two) times a week. 01/11/2025 Discontinued (Patient Stopped On Own) calcium ascorbate 500 mg oral tablet (4 sources) Start: 05-04-2024 take 1 tablet by mouth once daily Ascorbate Calcium (Vitamin C) 500 mg tablet Active 500 MG PO Daily May 04, 2024 12:00am cholecalciferol 0.05 mg oral capsule (9 sources) Vitamin D Start: 08-31-2023 take 1 capsule by mouth once daily Cholecalciferol (Vitamin D3) (Vitamin D3) 50 mcg (2,000 unit) Capsule Active 50 MCG PO Daily August 31, 2023 12:00am take 1 capsule by mo [facility] in the morning cholecalciferol, vitamin D3, 2,000 units capsule Take 1 capsule (2,000 Units total) by mouth in the morning. Active take 1 tablet by mayra th every twenty-four hours Vitamin D3 50 MCG (1999 UT) 1 tablet Ora lly Once a day Active clindamycin 300 mg oral capsule (1 source) Lincosamide Antibacterial Start: 01-12-2025 End: 01-19-2025 take 1 capsule by mouth in the morning, then take 1 capsule by mouth at bedtime clindamycin (CLEOCIN) 300 mg capsule Indications: BV (bacterial vaginosis) Take 1 capsule (300 mg total) by mouth in the morning and 1 capsule (300 mg total) before bedtime. Do all this for 7 days. 14 capsule 01/12/2025 01/19/2025 Active Copper Supplement (3 sources) Start: 05-04-2024 Copper Supplement Active PO May 03, 2024 11:00pm Start: 05-04-2024 Copper Supplem ent Active PO May 04, 2024 12:00am ferrous sulfate 325 mg oral tablet (12 sources) Start: 05-04-2024 take 1 tablet by [...] 2024 3:52pm take 1 tablet by mayra three times weekly Iron (Ferrous Sulfate) 325 (65 Fe) MG 1 tablet Orally Three times a Week Active Iron (1 source) take 1 tablet by mouth three times weekly Iron (Ferrous Sulfate) 325 (65 Fe) MG 1 tablet Orally Three times a Week Active Losartan (1 source) Angiotensin 2 Receptor Jessica End: losartan potassium (LOSARTAN ORAL) Take by mouth. 0 11/20/2023 Discontinued (Patient Stopped On Own) magnesium gluconate 550 mg oral tablet (6 sources) take 1 tablet by mouth in the morning, then take 1 tablet by mouth at bedtime magnesium 30 mg tablet Take 1 tablet (30 mg total) by mouth in the morning and 1 tablet (30 mg total) before bedtime. Active Magnesium Glucon ate (MAGNESIUM 27 PO) Magnesium Active mesalamine 500 mg extended release oral tablet (14 sources) Aminosalicylate Start: 08-31-2023 End: 02-27-2025 take 2 capsules by mouth three times daily Mesalamine (Pentasa) 500 mg capsule, extended release Active 1000 MG PO Three times daily 540 90 February 27, 2025 1:40pm mesalamine (PENT ASA) 250 mg CR capsule Take 1 capsule (250 mg total) by mouth in the morning and 1 capsule (250 mg total) at noon and 1 capsule (250 mg total) in the evening and 1 capsule (250 mg total) before bedtime. Active take 2 capsules by m outh in the morning, then take 2 capsules by mouth in the evening, then take 2 capsules by mouth at bedtime mesalamine (Pentasa) 500 MG ER capsule Take 1,000 mg by mouth in the morning and 1,000 mg in the evening and 1,000 mg before bedtime. Active ofloxacin 3 mg/ml otic solution (2 [...] MG PO Daily October 04, 2024 12:00am Thyroid (Pork) 90 mg tablet (1 source) Start: 10-04-2024 take 1 tablet by mouth once daily Thyroid (Pork) 90 mg tablet Active 90 MG PO Daily October 04, 2024 1:00am thyroid (intermediate) 15 mg oral tablet (2 sources) take 1 tablet by mouth once daily thyroid, pork, (ARMOUR THYROID) 15 mg tablet Take by mouth daily. Active Vit B Complex 100 Combo No.2 (B-100 Complex) 100 mg tablet extended release (4 sources) Start: 05-04-2024 Vit B Complex 100 Combo No.2 (B-100 Complex) 100 mg tablet extended release Active TAB PO May 03, 2024 11:00pm Start: 05-04-2024 Vit B Complex 100 Combo No.2 (B-100 Complex) 100 mg tablet extended release Active TAB PO May 04, 2024 12:00am Completed/Discontinued Medications Medication Drug Class(es) Dates Sig (Normalized) Sig (Original) amoxicillin 875 mg / clavulanate 125 mg oral tablet (1 source) Penicillin-class Antibacterial Start: 10-14-2024 End: 11-05-2024 take 1 tablet by mouth twice daily Amoxicillin-Pot Clavulanate 875-125 mg tablet Discontinued 1 TAB PO Twice daily 18 09October 14, 2024 1:00am November 05, 2024 1:47pm Azelastine 137 mcg (0.1 %) spray,non-aerosol (1 source) Start: 10-04-2024 End: 02-27-2025 take 1 spray(s) nasal route twice daily Azelastine 137 mcg (0.1 %) spray,non-aerosol Discontinued 2 SPRAY INTRANASAL Twice daily October 04, 2024 1:00am February 27, 2025 1:35pm administer into each nostril benzonatate 200 mg oral capsule (1 source) Non-narcotic Antitussive Start: 11-05-2024 End: 11-28-2024 Benzonatate 200 mg capsule Discontinued 200 MG PO 2-3 TIMES PER DAY as needed for cough 14 November 05, 2024 1:00am November 28, 2024 9:56am dicyclomine hydrochloride 20 mg oral tablet (6 sources) Anticholinergic Start: 08-31-2023 End: 05-04-2024 Dicyclomine (Bentyl) 20 mg Tablet Discontinued 20 MG PO As Directed as needed for Pain August 31, 2023 12:00am May 04, 2024 3:52pm Bentyl Active fluconazole 150 mg oral tablet (1 source) Azole Antifungal Start: 10-14-2024 End: 11-28-2024 Fluconazole 150 mg tablet Discontinued 150 MG PO Q3D 2 0 October 14, 2024 1:00am November 28, 2024 9:57am Take 1st dose at onset of symptoms then repeat in 3 days if continued symptoms FLUoxetine 20 mg oral capsule (4 sources) Serotonin Reuptake Inhibitor Start: 05-04-2024 End: 05-04-2024 take 1 capsule by mouth once daily Fluoxetine 20 mg capsule Discontinued 20 MG PO Daily May 04, 2024 12:00am May 04, 2024 3:56pm levothyroxine sodium 0.1 mg oral tablet (18 sources) l-Thyroxine Start: 05-04-2024 End: 01-11-2025 take 1 tablet by mouth once daily Levothyroxine 100 mcg tablet Discontinued 100 MCG PO Daily May 04, 2024 12:00am May 04, 2024 4:21pm Start: 05-04-2024 End: 10-04-2024 take 37.5 ug by mouth once daily Levothyroxine Discontinued 37.5 MCG PO Daily May 03, 2024 11:00pm October 04, 2024 1:12pm Start: 08-31-2023 End: 10-04-2024 Levothyroxine 75 mcg tablet Discontinued 37.5 MCG PO Daily May 04, 2024 12:00am October 04, 2024 2:12pm take 1 tablet by mayra th before mealtime levothyroxine (Synthroid, Levoxyl) 75 MCG tablet Take 75 mcg by mouth in the morning. Take before meals. Active take 1 tablet by mayra th in the morning Levothyroxine Sodium 75 MCG TAKE 1 TABLET BY MOUTH IN THE MORNING ON AN EMPTY STOMACH Oral for 30 Days Active liothyronine sodium 0.005 mg oral tablet (11 sources) l-Triiodothyronine Start: 08-31-2023 End: 10-04-2024 take 1 tablet by mouth once daily Liothyronine (Cytomel) 5 mcg Tablet Discontinued 5 MCG PO Daily August 31, 2023 12:00am October 04, 2024 2:12pm take 0.5 tablet by m outh in the evening liothyronine (Cytomel) 5 MCG tablet Take 5 mcg by mouth in the morning. 1 tab in AM and 0.5 tab in PM on empty stomach. Active End: 01-11-2025 take 1 tablet by mouth in the morning liothyronine (CYTOMEL) 25 MCG tablet Take 1 tablet (25 mcg total) by mouth in the morning. 01/11/2025 Discontinued (Alternate therapy) Liothyronine Sod ium 5 MCG Oral for 17 Days Active Magnesium (6 sources) Start: 08-31-2023 End: 05-04-2024 take 2 tablets by mouth once daily Magnesium 250 mg Tablet Discontinued 500 MG PO Daily August 31, 2023 12:00am May 04, 2024 3:52pm Start: 08-31-2023 End: 05-04-2024 take 500 mg by mouth once daily Magnesium Discontinued 500 MG PO Daily August 30, 2023 11:00pm May 04, 2024 2:52pm Start: 08-31-2023 End: 05-04-2024 take 500 mg by mouth once daily Magnesium Discontinued 500 MG PO Daily August 31, 2023 12:00am May 04, 2024 3:52pm Magnesium Active polyethylene glycol 3350 [id number] mg / potassium chloride 2970 mg / sodium bicarbonate 6740 mg / sodium chloride 5860 mg / sodium sulfate 34386 mg powder for oral solution (2 sources) Osmotic Laxative take 236 g by mouth once as needed Golytely 236 GM as directed Orally once for 1 days Not-Taking/PRN potassium chloride 10 meq extended release oral tablet (18 sources) Start: End: 06-05-202 4 take 2 tablets by mouth once daily Potassium Chloride 10 mEq tablet extended release Discontinued 20 MEQ PO Daily May 04, 2024 3:51pm May 04, 2024 3:58pm Start: 05-04-2024 End: 05-04-2024 take 20 mEq by mouth once daily Potassium Chloride Dis continued 20 MEQ PO Daily May 04, 2024 2:51pm May 04, 2024 2:58pm Start: 08-31-2023 End: 05-04-2024 take 1 tablet by mouth once daily Potassium Chloride 10 mEq tablet extended release Active 10 MEQ PO Daily May 04, 2024 3:57pm take 1 tablet by mayra th in the morning potassium chloride (K-TAB,KLOR-CON) 10 MEQ CR tablet Take 1 tablet (10 mEq total) by mouth in the morning and 1 tablet (10 mEq total) before bedtime. Active take 1 capsule by mo uth in the morning potassium chloride ER (Micro-K) 10 MEQ ER capsule Take 10 mEq by mouth in the morning and 10 mEq before bedtime. Do not crush or chew. . Active predniSONE 10 mg oral tablet (2 sources) Start: 11-05-2024 End: 11-05-2024 Prednisone 10 mg tablets,dos e pack Discontinued 10 MG PO As Directed November 05, 2024 1:00am November 05, 2024 2:50pm see taper instructions Start: 11-05-2024 End: 11-28-2024 Prednisone 20 mg tablet Disc ontinued 0 PO Daily 11 November 05, 2024 1:00am November 28, 2024 9:57am Take 2 tabs x 3 days, take 1 tab x 3 days, take 1/2 tab x 3 days orally daily; Problems Active Problems Problem Classification Problem Date Documented Da te Episodic/Chronic Anxiety disorders (9 sources) Mixed anxiety and depressive disorder; Translations: [Other specified anxiety disorders] Onset: 5 Resolved: 3 10-28-2022 Chronic Diverticulosis and diverticulitis (3 sources) Diverticulum of large intestine without hemorrhage; Translations: [Diverticulosis of large intestine without perforation or abscess without bleeding] Onset: 3 07-21-2023 Chronic Esophageal disorders (3 sources) Gastroesophageal reflux disease without esophagitis; Translations: [Gastro-esophageal reflux disease without esophagitis] Onset: 3 07-21-2023 Chronic Essential hypertension (6 sources) Essential hypertension; Translations: [Essential (primary) hypertension] Onset: 9 10-28-2022 Chronic Heart valve disorders (2 sources) Heart murmur; Translations: [Cardiac murmur, unspecified] 05-08-2024 Episodic Inflammatory diseases of female pelvic organs (1 source) Bacterial vaginosis; Translations: [Acute vaginitis] 01-12-2025 Episodic Lymphadenitis (1 source) Lymphadenopathy; Translations: [Enlarged lymph nodes, unspecified] 11-28-2024 Episodic Malaise and fatigue (3 sources) Fatigue; Translations: [Chronic fatigue, unspecified] Onset: 3 07-21-2023 Chronic Mood disorders (3 sources) Seasonal affective disorder; Translations: [Other recurrent depressive disorders] Onset: 3 07-21-2023 Chronic Mycoses (2 sources) Tinea pedis; Translations: [Tinea pedis] 01-11-2025 Episodic Noninfectious gastroenteritis (6 sources) Colitis; Translations: [Noninfective gastroenteritis and colitis, unspecified] Onset: 3 01-11-2025 Episodic Osteoarthritis (3 sources) Idiopathic osteoarthritis; Translations: [Primary osteoarthritis, unspecified site] Onset: 3 07-21-2023 Chronic Other acquired deformities (3 sources) Scoliosis deformity of spine; Translations: [Scoliosis, unspecified] Onset: 3 07-21-2023 Chronic Other diseases of veins and lymphatics (3 sources) Lymphedema; Translations: [Lymphedema, not elsewhere classified] Onset: 3 07-21-2023 Chronic Other ear and sense organ disorders (2 sources) Otitis externa; Translations: [Other otitis externa, right ear] Chronic Other ear and sense organ disorders (1 source) Other otitis externa, right ear Chronic Other ear and sense organ disorders (3 sources) Chronic non-infective otitis externa; Translations: [Other otitis externa, bilateral] Onset: 3 07-21-2023 Chronic Other ear and sense organ disorders (3 sources) Sensorineural hearing loss, bilateral; Translations: [Sensorineural hearing loss, bilateral] Onset: 3 07-21-2023 Chronic Other ear and sense organ disorders (2 sources) Impacted cerumen; Translations: [Impacted cerumen, unspecified ear] 10-04-2024 Episodic Other ear and sense organ disorders (1 source) Impacted cerumen, unspecified ear; Translations: [Impacted cerumen] 10-04-2024 Episodic Other female genital disorders (1 source) Pruritus of vagina; Translations: [Other specified noninflammatory disorders of vagina] 01-11-2025 Episodic Other female genital disorders (1 source) Vaginal odor; Translations: [Other specified noninflammatory disorders of vagina] 01-11-2025 Episodic Other female genital disorders (1 source) Vaginal irritation; Translations: [Other specified noninflammatory disorders of vagina] 01-11-2025 Episodic Other female genital disorders (1 source) Other specified noninflammatory disorders of vagina; Translations: [Other specified noninflammatory disorders of vagina] Onset: 5 Episodic Other gastrointestinal disorders (2 sources) Flatulence, eructation and gas pain; Translations: [Abdominal distension (gaseous)] Episodic Other inflammatory condition of skin (5 sources) Pruritus ani; Translations: [PRURITUS ANI] Onset: 3 Episodic Other inflammatory condition of skin (2 sources) Pruritus ani; Translations: [Pruritus ani] Episodic Other nervous system disorders (3 sources) Chronic pain; Translations: [Other chronic pain] Onset: 3 Resolved: 3 07-21-2023 Chronic Other nutritional; endocrine; and metabolic disorders (1 source) Obese class II; Translations: [Obesity, unspecified] Onset: 0 10-28-2022 Chronic Other nutritional; endocrine; and metabolic disorders (6 sources) Insulin resistance; Translations: [Insulin resistance] Onset: 0 10-28-2022 Chronic Other nutritional; endocrine; and metabolic disorders (2 sources) Obese class I; Translations: [Obesity (BMI 30.0-34.9)] Onset: 0 01-11-2025 Chronic Other screening for suspected conditions (not mental disorders or infectious disease) (3 sources) Patient encounter status; Translations: [Encounter for screening mammogram for malignant neoplasm of breast] Onset: 5 01-11-2025 Episodic Otitis media and related conditions (3 sources) Dysfunction of eustachian tube; Translations: [Unspecified Eustachian tube disorder, unspecified ear] 10-04-2024 Episodic Prolapse of female genital organs (6 sources) Herniation of rectum into vagina; Translations: [Rectocele] Onset: 6 10-28-2022 Chronic Regional enteritis and ulcerative colitis (3 sources) Ulcerative colitis; Translations: [Ulcerative colitis, unspecified, without complications] Chronic Screening and history of mental health and substance abuse codes (2 sources) Standardized adult depression screening tool completed ; Translations: [Encounter for screening for depression] Onset: 5 01-11-2025 Episodic Thyroid disorders (15 sources) Hypothyroidism, unspecified; Translations: [Hypothyroidism] Onset: 5 Chronic Unclassified (3 sources) CONTACT W/AND (SUSP) EXPOS COVID-19; Translations: [CONTACT W/AND (SUSP) EXPOS COVID-19] Onset: 3 Unclassified (1 source) Hemorrhage of anus and rectum; Translations: [Hemorrhage of anus and rectum] Onset: 3 Unclassified (1 source) Gynecologic Exam Onset: 5 Past or Other Problems Problem Classification Problem Date Documented Date Episodic/Chronic Acute and unspecified renal failure (3 sources) Acute renal failure syndrome; Translations: [Acute kidney failure, unspecified] Onset: 07-21-2023 07-21-2023 Episodic Disorders of lipid metabolism (3 sources) Dyslipidemia; Translations: [Mixed hyperlipidemia] Onset: 07-21-2023 Resolved: 07-21-2023 07-21-2023 Chronic Fluid and electrolyte disorders (3 sources) Hypokalemia; Translations: [Hypokalemia] Onset: 07-21-2023 07-21-2023 Episodic Mood disorders (3 sources) Mood disorders Onset: 11-20-2023 Resolved: 01-11-2025 11-20-2023 Other diseases of veins and lymphatics (3 sources) Vascular insufficiency; Translations: [Venous insufficiency (chronic) (peripheral)] Onset: 07-21-2023 07-21-2023 Episodic Other ear and sense organ disorders (3 sources) Bilateral tinnitus; Translations: [Tinnitus, bilateral] Onset: 07-21-2023 07-21-2023 Episodic Other non-traumatic joint disorders (4 sources) Pain in right knee; Translations: [PAIN IN RIGHT KNEE] Onset: 07-21-2022 Episodic Other nutritional; endocrine; and metabolic disorders (3 sources) Morbid obesity; Translations: [Morbid (severe) obesity due to excess calories] Onset: 07-21-2023 Resolved: 07-21-2023 07-21-2023 Chronic Residual codes; unclassified (3 sources) Noncompliance with dietary regimen; Translations: [Noncompliance of patient with dietary regimen] Onset: 07-21-2023 Resolved: 07-21-2023 07-21-2023 Episodic Spondylosis; intervertebral disc disorders; other back problems (3 sources) Pain in thoracic spine; Translations: [Pain in thoracic spine] Onset: 07-21-2023 07-21-2023 Episodic Thyroid disorders (5 sources) Disorder of thyroid gland; Translations: [Disorder of thyroid, unspecified] Onset: 09-26-2015 01-11-2025 Episodic Unclassified (1 source) CONTACT W/AND (SUSP) EXPOS COVID-19; Translations: [CONTACT W/AND (SUSP) EXPOS COVID-19] Onset: 01-20-2023 Unclassified (3 sources) Onset: 11-20-2023 Resolved: 01-11-2025 11-20-2023 Varicose veins of lower extremity (3 sources) Varicose veins of lower limb co-occurrent with edema; Translations: [Varicose veins of right lower extremity with other complications] Onset: 07-21-2023 07-21-2023 Episodic Results Test Name Value Interpretation Reference Range Facility 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 Computer aided detection was utilized. FINDINGS: There are scattered areas of fibroglandular density. There are no suspicious masses, calcifications, or areas of architectural distortion. IMPRESSION: No mammographic evidence of malignancy. BI-RADS: BI-RADS 1 - Negative RECOMMENDATION: Routine screening mammogram in 1 year. RISK ASSESSMENT: TC Lifetime risk: 4.91%. The patient's reported personal and family medical history was used calculate their Tyrer-zick lifetime risk of malignancy. Scores less than 20% are not considered high risk per ACR guidelines and patient should continue with the above recommendation. Finalized by Joe Brown MD on 2025 11:45 AM 1 b MAMM 1 YR Normal [facility] VAGINITIS PANEL PCRon 2024 VAGINITIS PANEL PCR BACT. VAGINOSIS DNA Detected (qualifier value) Qualitative results are reported based on detection and quantitation of targeted organism markers which include: Lactobacillus spp. (L. crispatus and L. jensenii), Gardnerella vaginalis, Atopobium vaginae, Bacterial Vaginosis Associated Bacteria-2 (BVAB-2) and Megasphaera-1 GAIL SPECIES DNA Not detected (qualifier value) Gail species not detected include: C. albicans, C. tropicalis, C. parapsilosis or C. dubliniensis GAIL KRUSEI DNA Not detected (qualifier value) No Gail krusei detected GAIL GLABRATA DNA Not detected (qualifier value) No Gail glabrata detected TRICHOMONAS VAG DNA Not detected (qualifier value) No Trichomonas vaginalis detected NOTE BD MAX Vaginal Panel has not been evaluated for patients under 18 years old. Results for these patients should be reviewed and assessed in accordance with clinical presentation to determine patient diagnosis. Normal [facility] Comment on above: Performed By: #### V PPCR #### [facility] ([id number]) [address] [place] [address], [address] [place] [address] Estimated glomerular filtrat ion rate (GFR) non- Americanon 12-24-2024 GFR/1.73 sq M.predicted among non-blacks MDRD (S/P/Bld) [Vol rate/Area] Estimated glomerular filtration rate (GFR) non- >=60 mL/min/1.73m 2 [facility] Globulin Calc (S) [Mass/Vol] on 12-24-2024 Globulin (S) [Mass/Vol] Serum globulin measurement by calculation (mass/volume) [facility] Laboratory - Chemistry and C hemistry - challengeon 12-24-2024 Albumin [Mass/Vol] 3.4 g/dL 3.4-5.0 [facility] ALP [Catalytic activity/Vol] 141 U/L High 46-116 [facility] ALT [Catalytic activity/Vol] 23 U/L 14-59 [facility] AST [Catalytic activity/Vol] 27 U/L 15-37 [facility] Comment on above: SAMPLE SLIGHTLY HEMO LYZED Bilirubin [Mass/Vol] 0.5 mg/dL 0.2-1.0 [facility] Calcium [Mass/Vol] 9.4 mg/dL 8.5-10.1 [facility] Chloride [Moles/Vol] 105 mmol/L 98-107 [facility] CO2 [Moles/Vol] 26.7 mmol/L 21.0-32.0 [facility] Creatinine [Mass/Vol] 0.82 mg/dL 0.55-1.02 [facility] Free T4 [Mass/Vol] 0.81 ng/dL 0.76-1.46 [facility] GFR/1.73 sq M.predicted MDRD (S/P/Bld) [Vol rate/Area] mL/min/{1.73_m2} >=60 mL/min/1.73m 2 [facility] Glucose [Mass/Vol] 94 mg/dL 74-106 [facility] Potassium [Moles/Vol] 4.9 mmol/L 3.5-5.1 [facility] Comment on above: SAMPLE SLIGHTLY HEMO LYZED Protein [Mass/Vol] 7.7 g/dL 6.4-8.2 [facility] [facility] Sodium [Moles/Vol] 142 mmol/L 136-145 [facility] TSH Qn 0.142 m[IU]/L Low 0.358-3.740 [facility] Urea nitrogen [Mass/Vol] 14.0 mg/dL 7.0-18.0 [facility] Urea nitrogen/Creatinine [Mass ratio] 17.1 mg/mg [facility] No Panel Informationon 12-24 25-Hydroxy Vitamin D Total 38.2 ng/mL [facility] Comment on above: <20 ng/mL Vit D defi cient20-<30 ng/mL Vit D rzxovqrdmmci44-638 ng/mL Vit D sufficient>100 ng/mL Potential Toxicity Free Triiodothyronine 6.16 pg/mL High 2.18-3.98 [facility] Serum or plasma albumin/glob ulin mass ratioon 12-24-2024 Albumin/Globulin [Mass ratio] Serum or plasma albumin/globulin mass ratio [facility] Serum or plasma anion gap de terminationon 12-24-2024 Anion gap [Moles/Vol] Serum or plasma an ion gap determination [facility] Estimated glomerular filtrat ion rate (GFR) non- Americanon 10-01-2024 GFR/1.73 sq M.predicted among non-blacks MDRD (S/P/Bld) [Vol rate/Area] mL/min/{1.73_m2} >=60 mL/min/1.73m 2 [facility] Globulin Calc (S) [Mass/Vol] on 10-01-2024 Globulin (S) [Mass/Vol] 4.1 g/dL [facility] Laboratory - Chemistry and C hemistry - challengeon 10-01-2024 Albumin [Mass/Vol] 3.4 g/dL 3.4-5.0 [facility] ALP [Catalytic activity/Vol] 126 U/L High 46-116 [facility] ALT [Catalytic activity/Vol] 24 U/L 14-59 [facility] AST [Catalytic activity/Vol] 15 U/L 15-37 [facility] Bilirubin [Mass/Vol] 0.4 mg/dL 0.2-1.0 [facility] Calcium [Mass/Vol] 9.2 mg/dL 8.5-10.1 [facility] Chloride [Moles/Vol] 106 mmol/L 98-107 [facility] CO2 [Moles/Vol] 27.4 mmol/L 21.0-32.0 [facility] Creatinine [Mass/Vol] 0.84 mg/dL 0.55-1.02 [facility] Ferritin [Mass/Vol] 145.0 ng/mL 8.0-252.0 [facility] Free T4 [Mass/Vol] 0.76 ng/dL 0.76-1.46 [facility] GFR/1.73 sq M.predicted MDRD (S/P/Bld) [Vol rate/Area] mL/min/{1.73_m2} >=60 mL/min/1.73m 2 [facility] Glucose [Mass/Vol] 119 mg/dL High 74-106 [facility] Potassium [Moles/Vol] 3.7 mmol/L 3.5-5.1 [facility] Protein [Mass/Vol] 7.5 g/dL 6.4-8.2 [facility] Sodium [Moles/Vol] 145 mmol/L 136-145 [facility] TSH Qn 0.101 m[IU]/L Low 0.358-3.740 [facility] Urea nitrogen [Mass/Vol] 14.0 mg/dL 7.0-18.0 [facility] Urea nitrogen/Creatinine [Mass ratio] 16.7 mg/mg [facility] No Panel Informationon 10-01 25-Hydroxy Vitamin D Total 30.0 ng/mL [facility] Comment on above: <20 ng/mL Vit D defi cient20-<30 ng/mL Vit D uthwinxmjdle78-055 ng/mL Vit D sufficient>100 ng/mL Potential Toxicity Serum or plasma albumin/glob ulin mass ratioon 10-01-2024 Albumin/Globulin [Mass ratio] 0.8 {ratio} [facility] Serum or plasma anion gap de terminationon 10-01-2024 Anion gap [Moles/Vol] 15.3 mmol/L [facility] Basophils Auto (Bld) [#/Vol] on 07-16-2024 Basophils (Bld) [#/Vol] 0.1 10 3/uL 0.0-0.1 [facility] Basophils/100 WBC Auto (Bld) on 07-16-2024 Basophils/100 WBC (Bld) 1.2 % 0.2-2.0 [facility] Cholesterol in LDL Calc [Mas s/Vol]on 07-16-2024 Cholesterol in LDL [Mass/Vol] 153.0 mg/dL [facility] Comment on above: <100 mg/dl [id number] 0-129 mg/dl NEAR OR ABOVE XSFNCHU492-599 mg/dl BORDERLINE [id number] mg/dl HIGH>190 mg/dl VERY HIGH Cholesterol in VLDL Calc [Ma ss/Vol]on 07-16-2024 Cholesterol in VLDL [Mass/Vol] 28.2 mg/dL [facility] Eosinophils/100 WBC Auto (Bl d)on 07-16-2024 Eosinophils/100 WBC (Bld) 0.0 % Low 0.9-7.0 [facility] Erythrocyte distribution wid th Auto (RBC) [Ratio]on 07-16-2024 Erythrocyte distribution width (RBC) [Ratio] 13.2 % 11.0-15.0 [facility] Estimated glomerular filtrat ion rate (GFR) non- Americanon 07-16-2024 GFR/1.73 sq M.predicted among non-blacks MDRD (S/P/Bld) [Vol rate/Area] mL/min/{1.73_m2} >=60 [facility] Globulin Calc (S) [Mass/Vol] on 07-16-2024 Globulin (S) [Mass/Vol] 4.1 g/dL [facility] Hematocrit Auto (Bld) [Volum e fraction]on 07-16-2024 Hematocrit (Bld) [Volume fraction] 45.2 % 36.0-48.0 [facility] Hemoglobin [Mass/volume] in Bloodon 07-16-2024 Hemoglobin (Bld) [Mass/Vol] 15.1 g/dL 12.0-16.0 [facility] Iron binding capacity [Mass/ volume] in Serum or Plasmaon 07-16-2024 Iron binding capacity [Mass/Vol] 262.0 ug/dL 250.0-450.0 [facility] Iron saturation [Mass Fracti on] in Serum or Plasmaon 07-16-2024 Iron saturation [Mass fraction] 28.2 % [facility] Laboratory - Chemistry and C hemistry - challengeon 07-16-2024 Albumin [Mass/Vol] 3.6 g/dL 3.4-5.0 [facility] ALP [Catalytic activity/Vol] 136 U/L High 46-116 [facility] ALT [Catalytic activity/Vol] 26 U/L 14-59 [facility] AST [Catalytic activity/Vol] 14 U/L Low 15-37 [facility] Bilirubin [Mass/Vol] 0.6 mg/dL 0.2-1.0 [facility] Calcium [Mass/Vol] 9.4 mg/dL 8.5-10.1 [facility] Chloride [Moles/Vol] 104 mmol/L 98-107 [facility] Cholesterol [Mass/Vol] 221 mg/dL High <=200 [facility] Cholesterol in HDL [Mass/Vol] 40 mg/dL 40-60 [facility] Comment on above: > or =60 mg/dl - LOW CARDIOVASCULAR RISK<40 mg/dl - HIGH CARDIOVASCULAR RISK CO2 [Moles/Vol] 28.2 mmol/L 21.0-32.0 [facility] Cobalamin (Vitamin B12) [Mass/Vol] 822.0 pg/mL 193.0-986.0 [facility] Creatinine [Mass/Vol] 0.78 mg/dL 0.55-1.02 [facility] Free T4 [Mass/Vol] 0.82 ng/dL 0.76-1.46 [facility] GFR/1.73 sq M.predicted MDRD (S/P/Bld) [Vol rate/Area] mL/min/{1.73_m2} >=60 [facility] Glucose [Mass/Vol] 92 mg/dL 74-106 [facility] Iron [Mass/Vol] 74.0 ug/dL 50.0-170.0 [facility] Potassium [Moles/Vol] 3.9 mmol/L 3.5-5.1 [facility] Protein [Mass/Vol] 7.7 g/dL 6.4-8.2 [facility] Sodium [Moles/Vol] 137 mmol/L 136-145 [facility] Triglyceride [Mass/Vol] 141 mg/dL <=150 [facility] TSH Qn 0.524 m[IU]/L 0.358-3.740 [facility] Urea nitrogen [Mass/Vol] 17.0 mg/dL 7.0-18.0 [facility] Urea nitrogen/Creatinine [Mass ratio] 21.8 mg/mg [facility] Laboratory - Hematology and Cell countson 07-16-2024 Immature granulocytes/100 WBC (Bld) 0.2 % 0.0-0.5 [facility] Leukocytes [#/volume] correc cullen for nucleated erythrocytes in Blood by Automated counon 07-16-2024 WBC corrected for nucl RBC Auto (Bld) [#/Vol] 4.8 10 3/uL 4.0-11.0 [facility] Lymphocytes Auto (Bld) [#/Vo l]on 07-16-2024 Lymphocytes (Bld) [#/Vol] 1.5 10 3/uL 1.2-3.8 [facility] Lymphocytes/100 WBC Auto (Bl d)on 07-16-2024 Lymphocytes/100 WBC (Bld) 31.3 % 20.5-60.0 [facility] MCH Auto (RBC) [Entitic mass ]on 07-16-2024 MCH (RBC) [Entitic mass] 27.9 pg 26.7-34.0 [facility] MCHC Auto (RBC) [Mass/Vol]on 07-16-2024 MCHC (RBC) [Mass/Vol] 33.4 g/dL 29.9-35.2 [facility] MCV Auto (RBC) [Entitic vol] on 07-16-2024 MCV (RBC) [Entitic vol] 83.5 fL 81.0-99.0 [facility] Monocytes Auto (Bld) [#/Vol] on 07-16-2024 Monocytes (Bld) [#/Vol] 0.4 10 3/uL 0.3-0.8 [facility] Monocytes/100 WBC Auto (Bld) on 07-16-2024 Monocytes/100 WBC (Bld) 7.7 % 1.7-12.0 [facility] Neutrophils Auto (Bld) [#/Vo l]on 07-16-2024 Neutrophils (Bld) [#/Vol] 2.9 10 3/uL 1.4-6.5 [facility] Neutrophils/100 WBC Auto (Bl d)on 07-16-2024 Neutrophils/100 WBC (Bld) 59.6 % 43.0-75.0 [facility] No Panel Informationon 07-16 25-Hydroxy Vitamin D Total 25.2 ng/mL [facility] Comment on above: <20 ng/mL Vit D defi cient20-<30 ng/mL Vit D eawxymvfrkic40-322 ng/mL Vit D sufficient>100 ng/mL Potential Toxicity Eosinophils # (Auto) 0.0 10 3/uL 0.0-0.7 [facility] Free Triiodothyronine 5.22 pg/mL High 2.18-3.98 [facility] Immature Granulocyte # (Auto) 0.01 10 3/uL 0.00-0.03 [facility] Platelet mean volume Auto (B ld) [Entitic vol]on 07-16-2024 Platelet mean volume (Bld) [Entitic vol] 9.7 fL 9.5-13.5 [facility] Platelets Auto (Bld) [#/Vol] on 07-16-2024 Platelets (Bld) [#/Vol] 202 10 3/uL 150-450 [facility] RBC Auto (Bld) [#/Vol]on RBC (Bld) [#/Vol] 5.41 10 6/uL High 4.20-5.40 [facility] Serum or plasma albumin/glob ulin mass ratioon 07-16-2024 Albumin/Globulin [Mass ratio] 0.9 {ratio} [facility] Serum or plasma anion gap de terminationon 07-16-2024 Anion gap [Moles/Vol] 8.7 mmol/L [facility] Serum or plasma thyroperoxid ase antibody assay (units/volume)on 07-16-2024 TPO Ab Qn [IU]/mL 0-34 [facility] Comment on above: Performed at: [address] [id number] Director: Richardson Sethi PhD, Phone: [phone] Serum or plasma total choles terol/high density lipoprotein (HDL) cholesterol mass jeovanny 07-16-2024 Cholesterol.total/Cho lesterol in HDL [Mass ratio] 5.5 {ratio} [facility] Comment on above: 3.3 - 4.4 LOW RISK4. 4 - 7.1 AVERAGE RISK7.1 - 11.0 MODERATE RISK>11.0 HIGH RISK Dusty 08-31-2023 L - -------- Specimen: [id number] Received: 08/31/23 Status: GRECIA Mcclendonjake Num: [id number] Spec Type: Surgical Subm Dr: Danita Alfaro MD Tissues: A Small Intestine - Biopsy/Polyp (ILEUM BX) B Colon Biopsy (RT COLON BX) C Colon Biopsy (TRANSVERSE BX) D Colon Biopsy (DESCENDING) E Colon Biopsy (SIGMOID BX) F Colon Biopsy (RECTUM BX) Procedures: DAVID/Naun Peres/Johnnie L4/6 -------- Age/ Patient Sex Location Account Attending Physician -------- Isidro Musa 53/F [id number] Danita Alfaro MD -------- SPEC NUM: [id number] RECD: 08/31/23 STATUS: GRECIA DENT NUM: [id number] TOSIN: 08/31/23 DR: Danita Alfaro MD ENTERED: 08/31/[address] [facility] DR: SPEC TYPE: Surgical DEPT: S ORDERED: [...] other specific histopathological abnormality observed -------- Specimen: [id number] Received: 08/31/23 Status: GRECIA Dent Num: [id number] Spec Type: Surgical Subm Dr: Danita Alfaro MD Tissues: A Small Intestine - Biopsy/Polyp (ILEUM BX) B Colon Biopsy (RT COLON BX) C Colon Biopsy (TRANSVERSE BX) D Colon Biopsy (DESCENDING) E Colon Biopsy (SIGMOID BX) F Colon Biopsy (RECTUM BX) Procedures: , Gross/Micro L4/6 -------- Patient: Isidro Musa [id number] (Continued) -------- Specimen: [id number] Received: 08/31/23 (Continued) Pathological Diagnosis (Continued) Signed (signature on file) Roxann Moscoso MD 09/01/231717 -------- Specimen: [id number] Received: 08/31/23 Status: GRECIA Dent Num: [id number] Spec Type: Surgical Subm Dr: Danita Alfaro MD Tissues: A Small Intestine - Biopsy/Polyp (ILEUM BX) B Colon Biopsy (RT COLON BX) C Colon Biopsy (TRANSVERSE BX) D Colon Biopsy (DESCENDING) E Colon Biopsy (SIGMOID BX) F Colon Biopsy (RECTUM BX) Procedures: , Gross/Micro L4/6 -------- Patient: Isidro Musa [id number] (Continued) -------- Specimen: [id number] Received: 08/31/23114 (Continued) Pathological Diagnosis (Continued) E. Sigmoid colon [...] and transvers (more content not included)... Normal [facility] Covid-19 PCR (CVDTBH)on 01-01 SARS-CoV-2 (COVID-19) RNA CLARA+probe Ql (Unsp spec) Not detected Normal NOT DETECTED [facility] Comment on above: Result Comment: When [...] for this test is supported by the [place] of Health and Human Service's declaration that [...] used). Performed By: #### C VDTB #### [facility] [address] [place] [address] Dr. Kirit Moscoso OVA AND PARASITE EXAMINATION on 01-19-2023 Ova + Parasite Exam Final report Normal [facility] Comment on above: Result Comment: Thes e results were obtained using wet preparation(s) and trichrome stained smear. This test does not include testing for Cryptosporidium parvum, Cyclospora, or Microsporidia. Performed By: #### C BC #### [facility] [address] [place] [address] Dr. Kirit Moscoso Result 1 Comment Normal [facility] Comment on above: Result Comment: No o va, cysts, or parasites seen. . One negative specimen does not rule out the possibility of a parasitic infection. Performed By: #### C BC #### [facility] [address] [address] [address] Kirit Moscoso SAGE by IFAon 01-16-2023 Antinuclear Antibodies, IFA Positive Abnormal [facility] Comment on above: Result Comment: Nega tive <1:80 Borderline 1:80 Positive >1:80 Performed By: #### T 7, TSH #### [facility] [address] [address] [address] Kirit Moscoso Centriole Pattern Normal [facility] Comment on above: Performed By: #### T 7, TSH #### [facility] [address] [address] [address] Kirit Moscoso Centromere Pattern Normal [facility] Comment on above: Performed By: #### T 7, TSH #### [facility] [address] [address] [address] Kirit Moscoso Homogeneous Pattern 1:640 Critically high [facility] Comment on above: Result Comment: ICAP nomenclature: AC-1 Performed By: #### T 7, TSH #### [facility] [address] [address] [address] Kirit Moscoso Midbody Pattern Normal [facility] Comment on above: Performed By: #### T 7, TSH #### [facility] [address] [address] [address] Kirit Moscoso Note: Comment Normal [facility] Comment on above: Result Comment: For [...] titers Nucleosomes, Histones Drug-induced SLE Speckled Sm, COATER OPERATOR INSULATION BOARD, SCL-70, SLE,MCTD,PSS (diffuse form), SS-A/SS-B Sjogrens Nucleolar SCL-70, PM-1/SCL High titers Scleroderma, PM/DM Centromere Centromere PSS (limited form) w/Crest syndrome variable Nuclear Dot Sp100,c52-citocd Primary Biliary Cirrhosis Nuclear GP210, Primary Biliary Cirrhosis Membrane missy A,B,C Performed By: #### T 7, TSH #### [facility] [address] [place] [address] Dr. Kirit Moscoso Nuclear Dot Pattern Normal [facility] Comment on above: Performed By: #### T 7, TSH #### [facility] [address] [address] [address] Kirit Moscoso Nuclear Membrane Pattern Normal [facility] Comment on above: Performed By: #### T 7, TSH #### [facility] [address] [address] [address] Kirit Moscoso Nucleolar Pattern Normal [facility] Comment on above: Performed By: #### T 7, TSH #### [facility] [address] [place] [address] Dr. Kirit Moscoso PCNA Pattern Normal [facility] Comment on above: Performed By: #### T 7, TSH #### [facility] [address] [place] [address] Dr. Kirit Moscoso Speckled Pattern Normal [facility] Comment on above: Performed By: #### T 7, TSH #### [facility] [address] [address] [address] Kirit Moscoso Spindle Apparatus Pattern Normal [facility] Comment on above: Performed By: #### T 7, TSH #### [facility] [address] [place] [address] Dr. Kirit Moscoso GI PANEL (PCR)on 01-13-2023 Adenovirus F 40/41 Not detected Normal NOT DETECTED [facility] Comment on above: Performed By: #### T 7, TSH #### [facility] [address] [place] [address] Dr. Kirit Moscoso Astrovirus Not detected Normal NOT DETECTED [facility] [place] Comment on above: Performed By: #### T 7, TSH #### [facility] [address] [place] [address] Dr. Kirit Sol Diff toxin A/B Not detected Normal NOT DETECTED [facility] Comment on above: Performed By: #### T 7, TSH #### [facility] [address] [place] [address] Dr. Kirit Moscoso Campylobacter Not detected Normal NOT DETECTED [facility] Comment on above: Performed By: #### T 7, TSH #### [facility] [address] [place] [address] Dr. Kirit Moscoso Cryptosporidium Not detected Normal NOT DETECTED [facility] Comment on above: Performed By: #### T 7, TSH #### [facility] [address] [place] [address] Dr. Kirit Moscoso Cyclos. Cayetanensis Not detected Normal NOT DETECTED [facility] Comment on above: Performed By: #### T 7, TSH #### [facility] [address] [place] [address] Dr. Kirit Moscoso E. Coli O157 Not Applicable Normal Not Applicable [facility] Comment on above: Performed By: #### T 7, TSH #### [facility] [address] [place] [address] Dr. Kirit Moscoso E. histolytica Not detected Normal NOT DETECTED [facility] Comment on above: Performed By: #### T 7, TSH #### [facility] [address] [place] [address] Dr. Kirit Moscoso EAEC Not detected Normal NOT DETECTED [facility] [place] Comment on above: Performed By: #### T 7, TSH #### [facility] [address] [place] [address] Dr. Kirit Moscoso EIEC Not detected Normal NOT DETECTED [facility] [place] Comment on above: Performed By: #### T 7, TSH #### [facility] [address] [place] [address] Dr. Kirit Moscoso EPEC Not detected Normal NOT DETECTED [facility] Comment on above: Performed By: #### T 7, TSH #### [facility] [address] [place] [address] Dr. Kirit Moscoso ETEC Not detected Normal NOT DETECTED [facility] [place] Comment on above: Performed By: #### T 7, TSH #### [facility] [address] [place] [address] Dr. Kirit Moscoso G. Lamblia Not detected Normal NOT DETECTED [facility] [place] Comment on above: Performed By: #### T 7, TSH #### [facility] [address] [place] [address] Dr. Kirit SINGHL CONTROLS PASSED Normal [facility] Comment on above: Performed By: #### T 7, TSH #### [facility] [address] [place] [address] Dr. Kirit DAVIS COLLEEN HEADER GI PANEL BACTERIA Normal [facility] Comment on above: Performed By: #### T 7, TSH #### [facility] [address] [place] [address] Dr. Kirit SHARPE ECOLI GI PANEL DIARRHEAGENIC E.COLI / SHIGELLA Normal [facility] Comment on above: Performed By: #### T 7, TSH #### [facility] [address] [address] [address] Kirit SHARPE INFO SEE BELOW Normal [facility] Comment on above: Result Comment: EAEC - Enteroaggregative E. Coli EPEC- Enteropathogenic E. Coli ETEC- Enterotoxigenic E. Coli lt/st STEC- Shigella-like toxin-producing E. Coli stx1/stx2 EIEC- Shigella/Enteroinvasive E. Coli Performed By: #### T 7, TSH #### [facility] [address] [address] [address] Kirit SHARPE PARASITES GI PANEL PARASITES Normal [facility] Comment on above: Performed By: #### T 7, TSH #### [facility] [address] [address] [address] Kirit SHARPE VIRUS GI PANEL VIRUSES Normal [facility] Comment on above: Performed By: #### T 7, TSH #### [facility] [address] [address] [address] Kirit Moscoso Norovirus GI/GII Not detected Normal NOT DETECTED [facility] Comment on above: Performed By: #### T 7, TSH #### [facility] [address] [address] [address] Kirit Moscoso P. Shigelloides Not detected Normal NOT DETECTED [facility] Comment on above: Performed By: #### T 7, TSH #### [facility] [address] [place] [address] Dr. Kirit Moscoso Rotavirus A Not detected Normal NOT DETECTED [facility] Comment on above: Performed By: #### T 7, TSH #### [facility] [address] [address] [address] Kirit Moscoso Salmonella Not detected Normal NOT DETECTED [facility] [place] Comment on above: Performed By: #### T 7, TSH #### [facility] [address] [place] [address] Dr. Kirit Moscoso Sapovirus Not detected Normal NOT DETECTED [facility] [place] Comment on above: Performed By: #### T 7, TSH #### [facility] [address] [place] [address] Dr. Kirit Moscoso STEC Not detected Normal NOT DETECTED [facility] Comment on above: Performed By: #### T 7, TSH #### [facility] [address] [place] [address] Dr. Kirit Moscoso Vibrio Not detected Normal NOT DETECTED [facility] [place] Comment on above: Performed By: #### T 7, TSH #### [facility] [address] [place] [address] Dr. Kirit Moscoso Vibrio Cholera Not detected Normal NOT DETECTED [facility] Comment on above: Performed By: #### T 7, TSH #### [facility] [address] [place] [address] Dr. Kirit Moscoso Y. Enterocolitica Not detected Normal NOT DETECTED [facility] Comment on above: Performed By: #### T 7, TSH #### [facility] [address] [place] [address] Dr. Kirit Moscoso INSULINon 01-12-2023 Insulin 23.6 uIU/mL Normal 2.6-24.9 [facility] Comment on above: Performed By: #### T 7, TSH #### [facility] [address] [place] [address] Dr. Kirit Moscoso ANTISTREPTOLYSIN O AB (ASO)o n 01-11-2023 Antistreptolysin O Ab 70.3 IU/mL Normal 0.0-200.0 [facility] Comment on above: Performed By: #### A SOAB #### [facility] [address] [place] [address] Dr. Kirit Moscoso RHEUMATOID FACTORon 01-11-20 RA Latex Turbid. <10.0 Normal <14.0 [facility] Comment on above: Performed By: #### R F #### [facility] [address] [place] [address] Dr. Kirit Moscoso CBC AUTO DIFFon 01-10-2023 BASO # 0.1 103/ul Normal 0.0-0.1 [facility] Comment on above: Performed By: #### C BC #### [facility] [address] [place] [address] Dr. Kirit Moscoso Basophils/100 WBC (Bld) 1.2 % Normal 0.2-2.0 [facility] Comment on above: Performed By: #### C BC #### [facility] [address] [place] [address] Dr. Kirit Moscoso EO # 0.0 103/ul Normal 0.0-0.7 [facility] Comment on above: Performed By: #### C BC #### [facility] Laboratory [address] [place] [address] Dr. Kirit Moscoso Eosinophils/100 WBC (Bld) 0.0 % Critically low 0.9-7.0 [facility] Comment on above: Performed By: #### C BC #### [facility] [address] [place] [address] Dr. Kirit Moscoso Erythrocyte distribution width (RBC) [Ratio] 13.6 % Normal 11.0-15.0 [facility] Comment on above: Performed By: #### C BC #### [facility] [address] [place] [address] Dr. Kirit Moscoso Hematocrit (Bld) [Volume fraction] 44.2 % Normal 36.0-48.0 [facility] Comment on above: Performed By: #### C BC #### [facility] [address] [place] [address] Dr. Kirit Moscoso Hemoglobin (Bld) [Mass/Vol] 14.2 g/dL Normal 12.0-16.0 [facility] Comment on above: Performed By: #### C BC #### [facility] [address] [place] [address] Dr. Kirit Moscoso IG # 0.02 10e3/ul Normal 0.00-0.03 [facility] Comment on above: Performed By: #### C BC #### [facility] [address] [place] [address] Dr. Kirit Moscoso IG % 0.3 % Normal 0.0-0.5 [facility] Comment on above: Performed By: #### C BC #### [facility] [address] [place] [address] Dr. Kirit Moscoso LYMPH # 1.5 103/ul Normal 1.2-3.8 [facility] Comment on above: Performed By: #### C BC #### [facility] [address] [place] [address] Dr. Kirit Moscoso Lymphocytes/100 WBC (Bld) 22.7 % Normal 20.5-60.0 [facility] Comment on above: Performed By: #### C BC #### [facility] [address] [place] [address] Dr. Kirit Moscoso MANUAL DIFF REQ NO Normal [facility] Comment on above: Performed By: #### C BC #### [facility] [address] [place] [address] Dr. Kirit Moscoso MCH (RBC) [Entitic mass] 27.8 pg Normal 26.7-34.0 [facility] Comment on above: Performed By: #### C BC #### [facility] [address] [place] [address] Dr. Kirit Moscoso MCHC (RBC) [Mass/Vol] 32.1 g/dL Normal 29.9-35.2 [facility] Comment on above: Performed By: #### C BC #### [facility] [address] [place] [address] Dr. Kirit Moscoso MCV (RBC) [Entitic vol] 86.5 fL Normal 81.0-99.0 [facility] Comment on above: Performed By: #### C BC #### [facility] [address] [place] [address] Dr. Kirit Moscoso MONO # 0.5 103/ul Normal 0.3-0.8 [facility] Comment on above: Performed By: #### C BC #### [facility] [address] [place] [address] Dr. Kirit Moscoso Monocytes/100 WBC (Bld) 7.3 % Normal 1.7-12.0 [facility] Comment on above: Performed By: #### C BC #### [facility] [address] [address] [address] Kirit Moscoso NEUT # 4.5 103/ul Normal 1.4-6.5 [facility] Comment on above: Performed By: #### C BC #### [facility] [address] [address] [address] Kirit Moscoso Neutrophils/100 WBC (Bld) 68.5 % Normal 43.0-75.0 [facility] Comment on above: Performed By: #### C BC #### [facility] [address] [address] [address] Kirit Moscoso Platelet mean volume (Bld) [Entitic vol] 10.2 fL Normal 9.5-13.5 [facility] Comment on above: Performed By: #### C BC #### [facility] [address] [address] [address] Kirit Moscoso PLT 250 103/ul Normal 150-450 [facility] Comment on above: Performed By: #### C BC #### [facility] [address] [address] [address] Kirit Moscoso RBC 5.11 106/ul Normal 4.20-5.40 [facility] Comment on above: Performed By: #### C BC #### [facility] [address] [address] [address] Kirit Moscoso WBC 6.6 103/ul Normal 4.0-11.0 [facility] Comment on above: Performed By: #### C BC #### [facility] [address] [address] [address] Kirit Moscoso CRPon 01-10-2023 CRP 1.2 mg/dL Critically high <=1.0 [facility] Comment on above: Performed By: #### C RP, CMP, URIC, LIPID #### [facility] [address] [address] [address] Kirit Moscoso GLYCOHEMOGLOBIN A1Con 2022 ADA RECOMMENDATION SEE BELOW Normal [facility] Comment on above: Result Comment: ADA RECOMMENDED LIMIT 4.0 - 6.0 ADA THERAPEUTIC TARGET < 7.0 ACTION SUGGESTED > 7.0 Performed By: #### T 7, TSH #### [facility] [address] [address] [address] Kirit Moscoso Glucose [Mass/Vol] 114 mg/dL Normal [facility] Comment on above: Performed By: #### T 7, TSH #### [facility] [address] [address] [address] Kirit Moscoso HbA1c (Bld) [Mass fraction] 5.6 % Normal 4.5-6.2 [facility] Comment on above: Performed By: #### T 7, TSH #### [facility] [address] [place] [address] Dr. Kirit Moscoso IRONon 01-10-2023 Iron [Mass/Vol] 59.0 ug/dL Normal 50.0-170.0 [facility] Comment on above: Performed By: #### C BC #### [facility] [address] [place] [address] Dr. Kirit Moscoso LIPID PROFILEon 01-10-2023 CHOL-HDL RATIO NORM SEE BELOW Normal [facility] Comment on above: Result Comment: 3.3 - 4.4 LOW RISK 4.4 - 7.1 AVERAGE RISK 7.1 - 11.0 MODERATE RISK >11.0 HIGH RISK Performed By: #### C RP, CMP, URIC, LIPID #### [facility] [address] [address] [address] Kirit Moscoso Cholesterol [Mass/Vol] 188 mg/dL Normal <=200 [facility] Comment on above: Performed By: #### C RP, CMP, URIC, LIPID #### [facility] [address] [address] [address] Kirit Moscoso Cholesterol in HDL [Mass/Vol] 45 mg/dL Normal 40-60 [facility] Comment on above: Performed By: #### C RP, CMP, URIC, LIPID #### [facility] [address] [address] [address] Kirit Moscoso Cholesterol in LDL [Mass/Vol] 129.0 mg/dL Normal [facility] Comment on above: Performed By: #### C RP, CMP, URIC, LIPID #### [facility] [address] [address] [address] Kirit Moscoso Cholesterol.total/Cho lesterol in HDL [Mass ratio] 4.2 {ratio} Normal [facility] Comment on above: Performed By: #### C RP, CMP, URIC, LIPID #### [facility] [address] [address] [address] Kirit Moscoso HDL NORMAL > or = 60 mg/dl - LO W CARDIOVASCULAR RISK <40 mg/dl - HIGH CARDIOVASCULAR RISK Normal [facility] Comment on above: Performed By: #### C RP, CMP, URIC, LIPID #### [facility] [address] [address] [address] Kirit Moscoso LDL CALC NORMAL SEE BELOW Normal [facility] Comment on above: Result Comment: <100 mg/dl OPTIMAL 100 - 129 mg/dl NEAR OR ABOVE OPTIMAL 130 - 159 mg/dl BORDERLINE HIGH 160 - 189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 bedtime., Disp: , Rfl: potassium chloride ER (Micro-K) 10 MEQ ER capsule, Take 10 mEq by mouth in the morning and 10 mEq before bedtime. Do not crush or chew. 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 2 hours walking Smoke detectors, carbon monoxide detector Housing: [facility] water, home filter Pets: 2 dogs, 1 cat Social Drivers of Health Financial Resource Strain: Not on file Food Insecurity: Not on file Transportation Needs: Not on file Physical Activity: Not on file Stress: Not on file Social Connections: Not on file Intimate Partner Violence: Not on file Housing Stability: Not on file ROS: General: denies fever, chills, fatigue, malaise Gastrointestinal: Positive history of colitis and denies any current changes in appetite Musculoskeletal: denies arthritis, denies loss of strength, pain to hip, knees, back Cardiovascular: denies CP, palpitations, irregular rhythms OBJECTIVE LE EXAM: DERM: Positive hair growth to b/l feet with good skin turgor noted. Negative openings in skin. Dry and scaly peeling type skin particularly moccasin distribution with negative pustules or papules noted and slight maceration to bilateral 4th interdigital spaces VASC: Palpable pedal pulsed b/l with warm to cool tibia to toes b/l NEURO: Gross sensation intact digits 1-10 and b/l feet ORTHO: +5/5 DF/PF/IN/EV right, +5/5 DF/PF/IN/EV left. 20 degrees inversion and 10 degrees eversion STJ b/l. Ankle ROM less than 10 degrees b/l. XRAY: US: ASSESSMENT 1. Tinea pedis of both feet PLAN Patient education concerning tinea infection. Discussed use of antifungal cream and foot powders as well as good foot hygiene and prevention measures. Patient was given a prescription today for antifungal. Lucien Guillen DPM documented in this encounter [facility] 01-11-2025 History of Present illness Narrative Isidro Musa is a pleasant 54 y.o. female who presents for annual procurement forester exam. She is postmenopausal. Hysterectomy: no She is not sexually active. Denes pelvic pain. 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 [employer] Vaginal Bleeding none Hot flashes / menopausal symptoms - some night sweats Bladder issues - None Bowel issues - yes-IBS History of abnormal Pap smear: no Last pap: 11-21 Family history of uterine or ovarian cancer: no Family hx pancreatic or prostate cancer: no Family history of colon cancer: yes - M Aunt Family history of breast cancer: no Regular self breast exam: yes Last mammogram: 2016 Dexa Scan: NA Colonoscopy: PHQ9 depression screenin Flu shot this flu season: NO OB History 3 Para 3 Term AB Living SAB IAB Ectopic Multiple Live Births Past Medical History: Diagnosis Date Arthritis Heart murmur Rectocele Past Surgical History: Procedure Laterality Date COLONOSCOPY 08/2023 [facility] T[facility] 06/2000 Family History Problem Relation Age of Onset Stroke Father Throat cancer Mother Colon cancer Maternal Aunt Dementia Cousin Breast cancer Neg Hx Pancreatic cancer Neg Hx Prostate cancer Neg Hx Ovarian cancer Neg Hx Uterine cancer Neg Hx Current Outpatient Medications Medication Sig Dispense Refill cholecalciferol, vitamin D3, 2,000 units capsule Take 1 capsule (2,000 Units total) by mouth in the morning. ferrous sulfate 325 (65 FE) mg tablet Take 1 tablet (325 mg total) by mouth daily with breakfast. magnesium 30 mg tablet Take 1 tablet [...] 1 tablet (10 mEq total) before bedtime. thyroid, pork, (ARMOUR THYROID) 15 mg tablet Take by mouth daily. No current facility-administered medications for this visit. ALLERGIES Allergies Allergen Reactions Metronidazole Other (See Comments) IBS flares up, severe belly pain Sulfanilamide Itching and Rash Review of Systems Constitutional: Negative. Respiratory: Negative. Negative for chest tightness and shortness of breath. Cardiovascular: Negative. Negative for chest pain and palpitations. Gastrointestinal: Negative. Negative for constipation, diarrhea, nausea and vomiting. Endocrine: Negative. Genitourinary: Negative. Negative for pelvic pain and vaginal bleeding. Musculoskeletal: Negative. Skin: Negative. Allergic/Immunologic: Negative. Neurological: Negative. Hematological: Negative. Psychiatric/Behavioral: Negative. Physical Exam BP 122/78 Ht 160 cm (5' 3 ) Wt 88.5 kg (195 lb) BMI 34.54 kg/m Physical Exam Vitals and nursing note reviewed. Constitutional: Appearance: Normal appearance. HENT: Head: Normocephalic and atraumatic. Cardiovascular: Rate and Rhythm: Normal rate and regular rhythm. Pulses: Normal pulses. Heart sounds: Normal heart sounds. Pulmonary: Effort: Pulmonary effort is normal. Breath sounds: Normal breath sounds. Chest: Breasts: Breasts are symmetrical. Right: Normal. No mass, skin change or tenderness. Left: Normal. No mass, skin change or tenderness. Abdominal: General: Bowel sounds are normal. Palpations: Abdomen is soft. Genitourinary: General: Normal vulva. Labia: Right: No rash or lesion. Left: No rash or lesion. Vagina: Normal. Cervix: Normal. Uterus: Normal. Not enlarged and not tender. Adnexa: Right adnexa normal and left adnexa normal. Right: No mass, tenderness or fullness. Left: No mass, tenderness or fullness. Musculoskeletal: General: Normal range of motion. Cervical back: Normal range of motion and neck supple. Skin: General: Skin is warm and dry. Neurological: Mental Status: She is alert and oriented to person, place, and time. Psychiatric: Mood and Affect: Mood normal. Speech: Speech normal. Behavior: Behavior normal. Thought Content: Thought content normal. Judgment: Judgment normal. Assessment / Plan Isidro was seen today for gynecologic exam. Diagnoses and all orders for this visit: Well woman exam with routine gynecological exam Encounter for screening mammogram for breast cancer - Mammography screening bilateral with CAD; Future Standardized adult depression screening tool completed Vaginal itching - Vaginitis Panel PCR; Future Vaginal odor - Vaginitis Panel PCR; Future Vaginal irritation - Vaginitis Panel PCR; Future Next pap due 2027. Discussed ASCCP screening guidelines. BMI is above average; Discussed eating tips for weight loss and and exercise steps. Discussed SBE. Discussed options for menopausal symptoms. Patient declines medication at this time. Discussed taking a multivitamin. Discussed Calcium and Vitamin D for prevention of osteoporosis. Discussed need for yearly mammogram after 40 yo. Order placed. Patient to discuss colon cancer screening recommendations with PCP. Educational material provided. All questions answered. RTO for annual procurement forester exam and / or PRN. ALBERTO Mtz APRN-CNP 01/11/25 0845 documented in this encounter [facility] 12-31-2023 Evaluation note Encounter Date Diagnosis Assessment Notes Dec, Ulcerative colitis (ICD-10 - K51.90) [facility] Other 12-22-2023 History of Present illness Narrative* NEVA Parikh - 11/20/2023 10:30 AM EST Isidro Musa is a 53 y.o. female who presents for annual procurement forester exam. She is postmenopausal. Pt. Had colonoscopy 3 months ago and does not know the results except the doctor said everything looked good . She relates they said they did 19 biopsies. She is not exercising but plans to begin next month. Hysterectomy: no She is not sexually active. No pelvic pain. 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 Shedenies current symptoms or desire to harm self [...] capsule (2,000 Units total) by mouth in themorning. ferrous sulfate 325 (65 FE) mg tablet [...] white in color. Skin is intact, no erythema.Pt. States julien. Rectocele noted, does not descend [...] provided. All questions answered. RTO for annual procurement forester exam and / or PRN. NEVA Parikh 11/20/23 1222 [facility]* Encounter Date Diagnosis Assessment Notes Treatment Notes Treatment Clinical Notes May, Other otitis externa, right ear [...] worsening. Patient/Parent verbalized understanding of tx plan. [facility] Other 08-03-2022 NotePROCEDURE: XR KNEE RT 4V or > HISTORY: Pain of right [...] Electronically authenticated by: JUANI KNOX Date: 2022-07-02 15:25[facility]* Diagnosis Onset Date Resolution Status Hypothyroid acute [facility] Work Phone: Evaluation note* Diagnosis Onset Date Resolution Status Cerumen impaction acute Dysfunction of eustachian tube [facility] Work Phone: Evaluation note* Diagnosis Well woman exam with routine gynecological exam- Primary Routine gynecological examination Cervical smear, as part of routine gynecological examination Screening for malignant neoplasm of the cervix documented in this encounter [facility] Diagnosis Well woman exam with routine gynecological exam- Primary Routine gynecological examination Encounter for screening mammogram for breast cancer Standardized adult depression screening tool completed Vaginal itching Pruritus of genital organs Vaginal odor Unspecified symptom associated with female genital organs Vaginal irritation Pruritus of genital organs documented in this encounter [facility]* Diagnosis Tinea pedis of both feet- Primary [facility]* Diagnosis BV (bacterial vaginosis)- Primary Unspecified vaginitis and vulvovaginitis documented [facility] noteNo assessment information available [facility] Work Phone: History general Narrative - Reported* Type Description Date Medical History thyroid disease Medical History ulcerative colitis Surgical History tubal ligation Surgical History colonoscopy [facility] Other InstructionsNot on filedocumented in this encounter [facility] System[facility]* Attachments The following attachments cannot be sent through Care Everywhere. 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 Expl anation Advance Directives and Living Will 06/05/2020 2020-03-07 Advance Directives Chief Complaint and Reason for Visit Chief Complaint est care, thyroid me dication changed Reason for Visit Hypothyroid Chief Complaint ear pain/ headache Reason for Visit Cerumen impaction Dysfunction of eustachian tube Chief Complaint Admit Date overdue yearly February 27, 2025 1:1 0pm Additional Source Comments INFORMATION SOURCE (unrecogn ized section and content) DATE CREATED AUTHOR 02/04/2023 [facility] DATE CREATED AUTHOR AUTHOR'S ORGANIZ ATION 09/08/2023 [facility] DATE CREATED AUTHOR AUTHOR'S ORGANIZ ATION 01/13/2025 [facility] DATE CREATED AUTHOR AUTHOR'S ORGANIZ ATION 01/14/2025 [facility] DATE CREATED AUTHOR AUTHOR'S ORGANIZ ATION 2025 [facility] DATE CREATED AUTHOR AUTHOR'S ORGANHUDSON ATION 02/22/2025 [facility] REASON FOR VISIT (unrecogniz ed section and content) Reason Comments Annual Exam Reason Comments Gynecologic Exam Pt is here for siddharth vernon Pt c/o vaginal irritation. Reason Comments Toenail Problem Poss nail fungus Care Teams (unrecognized sec tion and content) Team Status: Active Member Role Status Dates Tanisha Murrell NP-C Primary Care Provider Active Team Status: Active Member Role Status Dates Tanisha Murrell NP-C Primary Care Pr ovider, Attending Provider Active Start: July 16, 2024 Team Status: Active Member Role Status Dates Cayla Orona APRN ATTENDANCE OFFICER-C Attending Provider Active Start: October 01, 2024 Tanisha Murrell NP-Davey Primary Care Provider Active Start: October 01, 2024 Team Status: Inactive Member Role Status Dates Tanisha Murrell NP-Davey Primary Care Provider Active Start: October 04, 2024 End: October 04, 2024 Cayla Orona APRN NP-C Attending Provider Active Start: October 04, 2024 [...] Start: May 04, 2024 Cayla Orona APRN ATTENDANCE OFFICER-C Attending Provider Act aguilar Start: May 04, 2024 Workers Compensation Claims Examiner Relationship Specialty Start Date End Date Lauren Lewis MD [address] [place] [id number] PCP - General Family Medicine 03/26/23 Workers Compensation Claims Examiner Relationship Specialty Start Date End Date Cayla Orona APRN-ATTENDANCE OFFICER [address] [place] [address] PCP - General 01/09/25 Workers Compensation Claims Examiner Relationship Specialty Start Date End Date Cayla Orona APRN-AMBER [address] [place] [address] PCP - General 01/09/25 Team Status: Active Member Role Status Dates Cayla Orona APRN ATTENDANCE OFFICER-C Primary Care Provider Active Team Status: Active Member Role Status Dates Cayla Orona APRN ATTENDANCE OFFICER-C Primary Care Provider, Attending Provider Active Start: December 24, 2024 Team Status: Inactive Member Role Status Dates Cayla Orona APRN ATTENDANCE OFFICER-C Primary Care Provider Active Start: February 27, 2025 End: February 27, 2025 Danita Alfaro MD Attending Provider Active Start: February 27, 2025 End: February 27, 2025 Goals (unrecognized section and content) Goals may [...] BE BASED ON THE PRIMARY CLINICAL RECORDS. [employer] provides no warranty or guarantee of the accuracy or completeness of information in this document.
[2025-07-01 23:29] LABS: Hematocrit 42.9 % (36.0-48.0); Hemoglobin 14.4 g/dL (12.0-16.0); Immature Granulocytes Abs Auto 0.01 10^3/uL (0.00-0.03); Immature Granulocytes Pct Auto 0.1 % (0.0-0.5); Lymphocytes Absolute Auto 2.3 10^3/uL (1.2-3.8); Mean Corpuscular HGB Conc 33.6 g/dL (29.9-35.2); Mean Corpuscular Hemoglobin 28.4 pg (26.7-34.0); Mean Corpuscular Volume 84.6 fL (81.0-99.0); Platelet Count 206 10^3/uL (150-450); Red Blood Count 5.07 10^6/uL (4.20-5.40); White Blood Count 6.7 10^3/uL (4.0-11.0)
[2025-07-01 23:30] LABS: Glucose Urine UA NEGATIVE (NEGATIVE)
[2025-07-01 23:35] LABS: Cast Seen? NONE SEEN #/LPF (NONE SEEN); Crystals Seen? Seen #/HPF (None Seen); Urine Culture Indicated NO
--- NOTE | 2025-07-01 23:35 | ED.GENADUL1 ---
HPI HPI - General Adult General Chief complaint: Back Pain/Injury Stated complaint: BACK PAIN Time Seen by Provider: 07/01/25 23:05 Source: patient Mode of arrival: walk-in Limitations: no limitations History of Present Illness HPI narrative: This 55-year-old female states she woke up yesterday with low back pain. Pain went away during work but has come back again. She also reports some tingling in the legs and has noticed some puffiness in the left ankle. She also reports malodorous urine. Related Data Home Medications ?Medication ?Instructions ?Recorded ?Confirmed liothyronine 5 mcg tablet 5 mcg PO DAILY 08/29/23 08/29/23 mesalamine 500 mg capsule,extended 1,000 mg PO Q8H 08/29/23 08/29/23 release (Pentasa) mesalamine 500 mg capsule,extended 1,000 mg PO TID 08/29/23 07/01/25 release (Pentasa) potassium chloride 10 mEq 20 meq PO DAILY 08/29/23 07/01/25 capsule,extended release thyroid (pork) 90 mg tablet (Niva mg 07/01/25 Thyroid) Previous Rx's ?Medication ?Instructions ?Recorded methocarbamol 750 mg tablet 750 mg PO TID PRN pain #30 tabs 07/02/25 prednisone 20 mg tablet 40 mg (2 x 20 mg) PO DAILY 5 days 07/02/25 #10 tabs Allergies Allergy/AdvReac Type Severity Reaction Status Date / Time Sulfa (Sulfonamide Allergy Severe Rash Verified 07/01/25 23:07 Antibiotics) Review of Systems ROS Status of ROS 10 or more systems reviewed and unremarkable except as noted in history and below [facility] Social History Smoking status: Never smoker Little interest or pleasure in doing things: not at all Feeling down, depressed, or hopeless: not at all Exam Narrative Exam Narrative: Patient is alert nondistressed. Vital signs are stable. HEENT exam is normal to inspection. Neck is supple. Lungs are clear to auscultation bilaterally with good air entry. Heart has regular rate and rhythm. Abdomen is protuberant, soft nontender. Examination of the back does not reveal any skin lesions, rash, redness or warmth. She localizes tenderness diffusely over the lower lumbosacral region. Straight leg raising is intact and painless in both lower extremities. Ankles are somewhat puffy bilaterally. She does not have redness or warmth of either lower leg and there is no calf tenderness. Circulation and sensation are intact distally in both feet. Constitutional Vital Signs, click to edit/add: Last Vital Signs Temp 98.3 F 07/01/25 22:59 Pulse 76 07/01/25 22:59 Resp 18 07/01/25 22:59 BP 166/92 H 07/01/25 22:59 Pulse Ox 97 07/01/25 22:59 O2 Del Method Room Air 07/01/25 22:59 Course Vital Signs Vital signs: Vital Signs Temperature 98.3 F 07/01/25 22:59 Pulse Rate 76 07/01/25 22:59 Respiratory Rate 18 07/01/25 22:59 Blood Pressure 166/92 H 07/01/25 22:59 Pulse Oximetry 97 07/01/25 22:59 Oxygen Delivery Method Room Air 07/01/25 22:59 Temperature 98.3 F 07/01/25 22:59 Pulse Rate 76 07/01/25 22:59 Respiratory Rate 18 07/01/25 22:59 Blood Pressure 166/92 H 07/01/25 22:59 Pulse Oximetry 97 07/01/25 22:59 Oxygen Delivery Method Room Air 07/01/25 22:59 Medical Decision Making MDM Narrative Medical decision making narrative: Urinalysis shows elevated specific gravity and no sign of infection. Patient has a bump in her BUN with normal creatinine suggestive of volume depletion. Dimer is elevated. She does not give any symptoms of shortness of breath and is not tachycardic so I do not suspect pulmonary embolism at this time. However with her complaint of some leg swelling I would like to rule out lower extremity DVT which will be possible Thursday morning for which a prescription has been provided to her and arrangements have been made. She was treated with a liter of IV fluids in the ED and upon discharge is advised to increase her fluid intake. Patient had been working outdoors most of the day today which I suspect may be the reason why she has mild volume depletion. Her back pain is secondary to muscle strain. In the ED she was treated with Decadron and Toradol and upon discharge I am placing her on prednisone and Robaxin. Follow-up as advised with her PCP and she is to return anytime for worsening symptoms. Lab Data Labs: Lab Results 07/01/25 07/01/25 Range/Units 23:10 23:20 WBC 6.7 (4.0-11.0) 10^3/uL RBC 5.07 (4.20-5.40) 10^6/uL Hgb 14.4 (12.0-16.0) g/dL Hct 42.9 (36.0-48.0) % MCV 84.6 (81.0-99.0) fL MCH 28.4 (26.7-34.0) pg MCHC 33.6 (29.9-35.2) g/dL RDW 13.6 (11.0-15.0) % Plt Count 206 (150-450) 10^3/uL MPV 10.4 (9.5-13.5) fL Neut % (Auto) 56.8 (43.0-75.0) % Lymph % (Auto) 34.6 (20.5-60.0) % Toole % (Auto) 7.5 (1.7-12.0) % Eos % (Auto) 0.0 L (0.9-7.0) % Baso % (Auto) 1.0 (0.2-2.0) % Neut # (Auto) 3.8 (1.4-6.5) 10^3/uL Lymph # (Auto) 2.3 (1.2-3.8) 10^3/uL Toole # (Auto) 0.5 (0.3-0.8) 10^3/uL Eos # (Auto) 0.0 (0.0-0.7) 10^3/uL Baso # (Auto) 0.1 (0.0-0.1) 10^3/uL Abs Immat Gran (auto) 0.01 (0.00-0.03) 10^3/uL Imm/Tot Granulo (auto) 0.1 (0.0-0.5) % D-Dimer 1.15 H* (<=0.59) mg/L FEU Sodium 139 (136-145) mmol/L Potassium 3.8 (3.5-5.1) mmol/L Chloride 105 (98-107) mmol/L Carbon Dioxide 26.9 (21.0-32.0) mmol/L Anion Gap 10.9 BUN 27.0 H (7.0-18.0) mg/dL Creatinine 0.80 (0.55-1.02) mg/dL Est GFR ( Amer) >60 (>=60 mL/min/1.73m^2) Est GFR (Non-Af Amer) >60 (>=60 mL/min/1.73m^2) BUN/Creatinine Ratio 33.8 Glucose 108 H (74-106) mg/dL Calcium 9.6 (8.5-10.1) mg/dL Total Bilirubin 0.3 (0.2-1.0) mg/dL AST 17 (15-37) U/L ALT 17 (14-59) U/L Alkaline Phosphatase 159 H (46-116) U/L Total Protein 8.2 (6.4-8.2) g/dL Albumin 3.9 (3.4-5.0) g/dL Globulin 4.3 g/dL Albumin/Globulin Ratio 0.9 Urine Color Yellow (YELLOW) Urine Clarity Clear (CLEAR) Urine pH 6.0 (5.0-9.0) Ur Specific [place] >=1.030 A (1.005-1.025) Urine Protein Negative (NEG/TRACE) mg/dL Urine Glucose (UA) Negative (NEGATIVE) mg/dL Urine Ketones Negative (NEGATIVE) mg/dL Urine Occult Blood Negative (NEGATIVE) Urine Nitrite Negative (NEGATIVE) Urine Bilirubin Negative (NEGATIVE) Urine Urobilinogen 0.2 (0.2-1.0) EU/dL Ur Leukocyte Esterase Trace A (NEGATIVE) Urine RBC 0-2 (0-2) #/HPF Urine WBC 0-2 A (NONE SEEN) #/HPF Ur Squamous Epith Cells Few A (NONE/RARE) #/LPF Urine Crystals Seen A (None Seen) #/HPF Calcium Oxalate Crystal Few Urine Bacteria None seen (NONE SEEN) #/HPF Urine Casts None seen (NONE SEEN) #/LPF Urine Mucus None seen (NONE SEEN) Ur Culture Indicated? No Discharge Plan Discharge Chief Complaint: Back Pain/Injury Clinical Impression: Dehydration, mild, Leg swelling Strain of lumbar region Qualifiers: Encounter type: initial encounter Qualified Code(s): S39.012A - Strain of muscle, fascia and tendon of lower back, initial encounter Patient Disposition: Home, Self-Care Time of Disposition Decision: 01:50 Condition: Good Mode of Transportation: Private Vehicle Prescriptions / Home Meds: New prednisone 20 mg tablet 40 mg PO DAILY 5 Days Qty: 10 0RF methocarbamol 750 mg tablet 750 mg PO TID PRN (Reason: pain) Qty: 30 0RF No Action liothyronine 5 mcg tablet 5 mcg PO DAILY potassium chloride 10 mEq capsule, extended release 20 meq PO DAILY mesalamine [Pentasa] 500 mg capsule, extended release 1,000 mg PO Q8H mesalamine [Pentasa] 500 mg capsule, extended release 1,000 mg PO TID thyroid (pork) [Niva Thyroid] 90 mg tablet Outpatient Diagnostics: US venous doppler LE BI (Routine) Timeframe: 2 Days Facility: [facility] - Location: Patient Own Location Ordered By: Uche Ruiz Print Language: Nepali Instructions: Dehydration (ED), Back Pain (ED), Lower Back Exercises (ED) Additional Instructions: Drink extra fluids to prevent dehydration. Return to the hospital Thursday morning by 830 to get show ultrasound study of the legs. Medications as prescribed. Return for worsening symptoms. Referrals: NAYELY DUNN [Primary Care Provider, Unknown] - 1 week
[2025-07-01 23:39] LABS: Alanine Aminotransferase 17 U/L (14-59); Albumin Globulin Ratio 0.9; Albumin Level 3.9 g/dL (3.4-5.0); Alkaline Phosphatase 159 U/L (46-116); Anion Gap 10.9; Aspartate Amino Transferase 17 U/L (15-37); Blood Urea Nitrogen 27.0 mg/dL (7.0-18.0); Calcium 9.6 mg/dL (8.5-10.1); Carbon Dioxide 26.9 mmol/L (21.0-32.0); Chloride 105 mmol/L (98-107); Estimated GFR (African America >60 (>=60 mL/min/1.73m^2); Estimated GFR (Non-African Ame >60 (>=60 mL/min/1.73m^2); Globulin 4.3 g/dL; Glucose 108 mg/dL (74-106); Potassium 3.8 mmol/L (3.5-5.1); Sodium 139 mmol/L (136-145); Total Protein 8.2 g/dL (6.4-8.2)
--- NOTE | 2025-07-02 00:02 | PC.NURSE ---
Vital signs recorded at 2326 are recorded in error, unable to delete.
[2025-07-02] MEDS: 0.9 % SODIUM CHLORIDE 1,000 ML 1000 ML IV (00:32)
[2025-07-02] MEDS: KETOROLAC TROMETHAMINE 30 MG/ML VIAL 15 MG IVP (00:34)
[2025-07-02] MEDS: DEXAMETHASONE SOD PHOS 10 MG/ML VIAL 8 MG IV (00:34)
== END 2025-07-02 02:09 | disposition home or self-care (01) ==
PROVIDERS: Emergency Provider Emergency Medicine; PCP Nurse Practitioner Family
DX: E86.0 Dehydration (principal); M79.89 Other specified soft tissue disorders; S39.012A Strain of muscle, fascia and tendon of lower back, initial encounter; X58.XXXA Exposure to other specified factors, initial encounter
CPT/HCPCS: 36415; 80053; 81001; 85025; 85378; 96361; 96374; 96375; 99284; J1100; J1885

== ENCOUNTER 2025-07-03 08:33 | Outpatient (OUT) | payer OTHER, SELFPAY ==
--- OUTSIDE RECORDS SUMMARY | 2024-04-19 04:24 | XMS_ITS ---
Author Organization [facility] [place] Address [address] [place] [address] Care Team Providers Care Information Technology Consultant Name Role Phone JORDI MURRELL Primary Care Provider Reason For Referral Diagnosis 1 Hypothyroid (E03.9) Referral Organization [facility] Referring Provider First Name JORDI Referring Provider Last Name NYASIA Referring Provider Speciality [facility] icine Referred Provider Marylou Venegas Referred Provider Specialty Endocrinolog y Referral Priority Routine REASON FOR VISIT endo Encounters Encounter Location Date Provider Diagnosis [facility] [address] [place] [address] 04/19/2024 JORDI MURRELL Hypothyroid E03.9 Assessments Encounter Date Diagnosis (ICD Code) Assessment Notes Treatment Notes Treatment Clinical Notes Section Notes 04/19/2024 Hypothyroid (ICD-10 - E03.9) Plan Of Treatment Referrals Referral Date Details 04/19/2024 04/19/2024, Marylou Crandall [facility] Progress Notes * Isa MUSA SDOB:1969 (54 yo F)Acc No.[id number]:04/19/2024 Patient: Isa FOREMAN :1970 A ge:54 Y S ex:Female Address:[address], [place], [address] Subjective: * Chief Complaints: * E ndo * Medical History: * Surgical History: * Hospitalization/Major Diagno stic Procedure: * Medications: Objective: * Vitals: * Physical Examination: Assessment: * Assessment: 1. H ypothyroid - E03.9 (Primary) Plan: * Treatment: * Procedure Codes: * true * Date: Generated for Liliana lopez/Paulette/Sophiaitting on: 0 07/03/2025 08:36 AM EDT Consultation Request Notes Referral Date Referring Provider Referred Provider Not es 04/19/2024 JORDI MURRELL Ahmad
--- OUTSIDE RECORDS SUMMARY | 2024-07-18 08:41 | XMS_ITS ---
Author Organization [facility] [place] Address [address] [place] [address] Care Team Providers Care Product Handler Name Role Phone TANISHA THAO Primary Care Provider Tanisha Thao Unavailable [phone] REASON FOR VISIT Lab Results- Encounters Encounter Location Date Provider Diagnosis [facility] [address] [place] [address] 07/18/2024 Tanisha Thao Plan Of Treatment No Information Progress Notes * Isa MUSA SDOB:1969 (54 yo F)Acc No.[id number]:07/18/2024 Patient: Tania WARD Isa Tania :1970 A ge:54 Y S ex:Female Address:[facility], [place], [address] * true * Date: Generated for Printi ng/Faxing/eTransmitting on: 0 07/03/2025 08:36 AM EDT
--- OUTSIDE RECORDS SUMMARY | 2025-07-03 08:36 | XMS_ITS | Clinical Summary ---
Author Organization [facility] Healthcare Address [address] [place] [address] Care Team Providers Care Efficiency Clerk Name Role Phone Unavailable Primary Care Provider Unavailabl e Allergies Active Allergy Reactions Criticality Noted Date Comments Metronidazole 07/21/2023 Other Reaction(s): tongue and throat swelling Sulfa Antibiotics Swelling,Rash Low 07/21/2023 Medications Magnesium Gluconate (MAGNESIUM 27 PO) Magnesium Active mesalamine (Pentasa) 500 MG ER capsule Take 1,000 mg by mouth in the morning and 1,000 mg in the evening and 1,000 mg before bedtime. Active liothyronine (Cytomel) 5 MCG tablet Take 5 mcg by mouth in the morning. 1 tab in AM and 0.5 tab in PM on empty stomach. Active levothyroxine (Synthroid, Levoxyl) 75 MCG tablet Take 75 mcg by mouth in the morning. Take before meals. Active potassium chloride ER (Micro-K) 10 MEQ ER capsule Take 10 mEq by mouth in the morning and 10 mEq before bedtime. Do not crush or chew. . Active alendronate-cho lecalciferol (Fosamax Plus D) 70-5600 MG-UNIT tablet Take 1 tablet by mouth every 7 (seven) days. Take in the morning with a full glass of water, on an empty stomach, and do not take anything else by mouth or lie down for the next 30 min. 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 Hypokalemia 07/21/2023 Insulin resistance 07/21/2023 Lymphedema 07/21/2023 Varicose veins of right leg with edema Primary osteoarthritis 07/21/2023 Rectocele 07/21/2023 Scoliosis 07/21/2023 Seasonal affective disorder 07/21/2023 Sensorineural hearing loss (SNHL), bilateral Thoracic spine pain 07/21/2023 Venous insufficiency 07/21/2023 Resolved Problems Problem Noted Date Diagnosed Date Resolved Date Anxiety, generalized 07/21/2023 023 Mixed dyslipidemia 07/21/2023 Morbid obesity due to excess calories 07/21/2023 07/21/2023 Noncompliance of patient with dietary regimen 07/21/2007/21/2023 Other chronic pain 07/21/2023 Family History Medical History Relation Name Comments Drug abuse Brother No Known Problems Daughter Heart failure Father Stroke Father Cancer Mother Schizophrenia Mother Colon cancer Other Aunt Drug abuse Sister Relation Name Status Comments Brother x2 Daughter Father Alive Mother Other Aunt Sister Son x2 Social History Tobacco Use Types Packs/Day Years Used Date Smoking Tobacco: Never Smokeless Tobacco: Never Tobacco Cessation:Counseling Given: Yes Alcohol Use Standard Drinks/Week Comments Not Currently 0 (1 standard drink = 0.6 oz pure alcohol) caffeine intake: 2-3 cups per day soda Comments Unknown Sex and Gender Information Value Date Recorded Sex Assigned at Not on file Legal Sex Female 6:39 PM EDT Gender Identity Female 02/11/2023 6:39 PM EDT Sexual Orientation Not on file 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 Industry 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 Start Date 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 End 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, 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 Not on file Not on f ile Not on file Last Filed Vital Signs Vital Sign Reading Time Taken Comments Blood Pressure 131/78 07/24/2023 9:23 AM EDT Pulse - - Temperature - - Respiratory Rate 18 01/11/2025 3:44 PM EST Oxygen Saturation - - Inhaled Oxygen Concentration - - Weight 88.5 kg (195 lb) 01/11/2025 3:44 PM EST Height 160 cm (5' 3 ) 01/11/2025 3:44 PM EST Body Mass Index 34.54 01/11/2025 3:44 PM EST Plan of Treatment Not on file Insurance [employer] Advance Directives Documents on File Type Date Recorded 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
--- OUTSIDE RECORDS SUMMARY | 2025-07-03 08:36 | XMS_ITS | Clinical Summary ---
Author Organization [employer] tem Address [id number] [address] [place] [address] Care Team Providers Care Maintenance Electrician Name Role Phone Cayla Orona Primary Care Provid er Allergies Active Allergy Reactions Criticality Noted Date Comments Metronidazole Other (See Comments) High 09/10/2021 IBS flares up, severe belly pain Sulfanilamide Itching,Rash Medium 09/10/2021 Medications mesalamine (PENTASA) 250 mg CR capsule Take 1 capsule (250 mg total) by mouth in the morning and 1 capsule (250 mg total) at noon and 1 capsule (250 mg total) in the evening and 1 capsule (250 mg total) before bedtime. Active potassium chloride (K-TAB,KLOR-CON ) 10 MEQ CR tablet Take 1 tablet (10 mEq total) by mouth in the morning and 1 tablet (10 mEq total) before bedtime. Active cholecalciferol , vitamin D3, 2,000 units capsule Take 1 capsule (2,000 Units total) by mouth in the morning. Active magnesium 30 mg tablet Take 1 tablet (30 mg total) by mouth in the morning and 1 tablet (30 mg total) before bedtime. Active ferrous sulfate 325 (65 FE) mg tablet Take 1 tablet (325 mg total) by mouth daily with breakfast. Active thyroid, pork, (ARMOUR THYROID) 15 mg tablet Take by mouth daily. Active Active Problems Problem Noted Date Diagnosed Date Colitis 01/11/2025 Rectocele 07/21/2023 Obesity (BMI 30.0-34.9) 10/01/2020 Insulin resistance 02/08/2020 Essential hypertension 09/13/2019 Thyroid disorder 09/26/2015 Mixed anxiety and depressive disorder 09/26/2015 Family History Medical History Relation Name Comments Dementia Cousin Stroke Father Colon cancer Maternal Aunt Throat cancer Mother Breast cancer Neg Hx Ovarian cancer Neg Hx Pancreatic cancer Neg Hx Prostate cancer Neg Hx Uterine cancer Neg Hx Relation Name Status Comments Cousin Alive Father Maternal Aunt Mother Social History Tobacco Use Types Packs/Day Years Used Date Smoking Tobacco: Former Cigarettes Smokeless Tobacco: Never Alcohol Use Standard Drinks/Week Comments Not Currently 0 (1 standard drink = 0.6 oz pur e alcohol) PHQ-2 Answer Date Recorded Total Score 10 01/11/2025 Childcare Answer Date Recorded Childcare Unknown 05/11/2019 Employment Answer Date Recorded Employment Unknown 05/11/2019 Hunger Screening Answer Date Recorded Within the past 12 months we worried whether our food would run out before we got money to buy more. Never True 01/11/2025 Within the past 12 months th e food we bought just didn't last and we didn't have money to get more. Never True 01/11/2025 Purpose - Life Answer Date Recorded Purpose and direction in life Unknown Comments No Sex and Gender Information Value Date Recorded Sex Assigned at Female 03/26/2023 12:34 PM EDT Legal Sex Female 11:51 PM EDT Gender Identity Female 03/26/2023 12:34 PM EDT Sexual Orientation Not on file Last Filed Vital Signs Vital Sign Reading Time Taken Comments Blood Pressure 122/78 01/11/2025 8:12 AM EST Pulse - - Temperature - - Respiratory Rate 18 03/26/2023 11:51 AM EDT Oxygen Saturation - - Inhaled Oxygen Concentration - - Weight 88.5 kg (195 lb) 02/20/2025 10:43 AM EDT Height 160 cm (5' 3 ) 02/20/2025 10:43 AM EDT Body Mass Index 34.54 02/20/2025 10:43 AM EDT Plan of Treatment Health Maintenance Due Date Last Done Comments DTaP,Tdap and Td Vaccines (1 - Tdap) 02/20/1987 Zoster (Shingles) Vaccine (1 of 2) 02/20/2018 Influenza Vaccine 07/31/2025 09/29/2017, 09/15/2017 Adult BMI Follow Up Plan 01/11/2026 01/11/2025 Depression Screening 01/11/2026 01/11/2025 Tobacco Screening 01/11/2026 01/11/2025 Adult BMI Screening 02/20/2026 02/20/2025 Mammogram 02/20/2026 02/20/2025, 01/01, 05/04/2020, Additional history exists Pap Smear 11/20/2026 11/20/2023, 11/20/2023 Medical Devices Not on file Procedures Procedure Name Priority Date/Time Associated Diagnosis Comments MAMM SCREENING BILATERAL W CAD Routine 02/20/2025 10:55 AM EDT Encounter for screening mammogram for breast cancer PAP SMEAR Routine 11/20/2023 5:34 AM EST Cervical smear, as part of routine gynecological examination from Last 3 Months or Most Recently Relevant to Health Maintenance Results * Mammography screening bilateral with CAD (02/20/2025 10:55 AM EDT) Anatomical Region Laterality Modality Breast Bilateral Mammography 2025 11:3 9 AM EDT Narrative 2025 11:45 AM EDT ISIDRO ESTRADA ADRIEN 1970 [id number] EXAM: MAMM SCREENING BILATERAL W CAD, 02/20/2025 [...] family medical history was used calculate their Tyrer-Cuzick lifetime risk of malignancy. Scores less than 20% are not considered high risk per ACR guidelines and patient should continue with the above recommendation. Finalized by Joe Brown MD on 2025 11:45 AM 1 b MAMM 1 YR [facility] Accredited Performing Facility: [facility]amm[facility]A [facility] [address] [facility] [address] Procedure Note Joe Brown MD - 2025 ISIDRO MUSA 1970 [id number] EXAM: MAMM SCREENING BILATERAL W CAD, 02/20/2025 10:40 AM CLINICAL INDICATIONS: Screening, Encounter for screening mammogram forbreast cancer COMPARISON: 09/23/2017 through 01/23/2022 TECHNIQUE: Bilateral digital tomosynthesis MLO and CC views of the breastswere obtained, with creation of synthetic 2D views. Computer aideddetection was utilized. FINDINGS: There are scattered areas of fibroglandular density. There are no suspicious masses, calcifications, or areas of architecturaldistortion. IMPRESSION: No mammographic evidence of malignancy. BI-RADS: BI-RADS 1 - Negative RECOMMENDATION: Routine screening mammogram in 1 year. RISK ASSESSMENT: TC Lifetime risk: 4.91%. The patient's reported personal and family medical history was usedcalculate their Tyrer-Cuzick lifetime risk of malignancy. Scores less than20% are not considered high risk per ACR guidelines and patient shouldcontinue with the above recommendation. Finalized by Joe Brown MD on 2025 11:45 AM 1 b MAMM 1 YR [facility] Accredited Performing Facility: [facility] [address] [facility] [address] [place] Rashida Chong SHEEP SORTER-TAPING SUPERVISOR IMG MAMMOGRAPHY ORDERABL ES Final Result * Pap Smear (11/20/2023 5:34 AM EST) 11/20/2023 5:34 AM EST 11/20/2023 5:35 AM EST Narrative COPATH - 12/01/2023 8:31 AM EST [facility] [address] [place] [address] Gynecologic Cytology Consultation Patient Name:ISIDRO MUSA:1970 (Age: 53)Gender:FTaken:11/20/2023Reported:12/01/2023hysician(s):Fela Wilson C.N.M. ([phone])Copy To: Rec. #:[id number]: #[id number] Final Cytologic Interpretation ThinPrep Pap Test (Cervical): Satisfactory for evaluation. A transformation zone component is present. NEGATIVE FOR INTRAEPITHELIAL LESION OR MALIGNANCY. [facility]/12/01/2023 Interpretation [place] [address], License number: [id number]. Electronically Signed Out By AKILA Waters(ASCP) Date of Last Menstrual Period: (None Given) Other Clinical Conditions: Z01.419 Appian Developer exam wo/abn findings Menopausal Postmenopausal Source of Specimen ThinPrep Pap Test (Cervical) Thin Prep Pap ([facility]) Fee Code(s): G0145 us Fela Wilson APRN-CNM PATHOLOGY/CYTOLOGY ORDER MARLY Final Result COPATH from Last 3 Months or Most Recently Relevant to Health Maintenance Insurance [employer] Care Teams Maintenance Electrician Relationship Specialty Start Date End Date Cayla Orona APRN-NP [address] [facility] [place] [address] [facility] - General 01/09/25
--- OUTSIDE RECORDS SUMMARY | 2025-07-03 08:36 | XMS_ITS | Patient Health Record ---
Author Organization [facility] in [place] Address [address] [place] [address] Care Team Providers Care Warehouse Guard Name Role Phone TANISHA MURRELL Primary Care Provider [phone] Tanisha Murrell Unavailable [phone] Allergies Allergen (clinical drug ingredient) Drug/Non Drug Allergy documented on EMR Reaction Allergy Type Onset Date Status NAC rash/ itchy Drug Allergy Activ e Substance with sulfonamide structure and antibacterial mechanism of action (substance) Sulfa Antibiotics Unknown Drug Allergy Active Results Component Value Reference Range Notes LIPID PROFILE Reviewed date:07/18/2024 12:42:23 PM Interpretation: Performing Lab: Notes/Report: [facility] , Triglycerides 141 <=150 mg/dL Cholesterol 221 <=200 mg/dL HDL Cholesterol 40 40-60 mg/dL > or =60 mg/dl - LOW CARDIOVASCULAR RISK <40 mg/dl - HIGH CARDIOVASCULAR RISK LDL Cholesterol Calculated 153.0 160-189 mg/dl HIGH 130-159 mg/dl BORDERLINE HIGH <100 mg/dl OPTIMAL >190 mg/dl VERY HIGH 100-129 mg/dl NEAR OR ABOVE OPTIMAL VLDL CHOLESTEROL 28.2 Chol HDL Ratio 5.5 3.3 - 4.4 LOW RISK 4.4 - 7.1 AVERAGE RISK >11.0 HIGH RISK 7.1 - 11.0 MODERATE RISK Performing Lab: see note ML - [facility] LB IRON AND TIBC Reviewed date:07/18/2024 12:42:23 PM Interpretation: Performing Lab: Notes/Report: [facility] , Iron 74.0 50.0-170.0 ug/dL Total Iron Binding Capacity 262.0 250.0-450.0 u g/dL Percent Iron Saturation 28.2 Performing Lab: see note ML - [facility] LB Reason For Referral No Information Medications Medication SIG (Take, Route, Frequency, Duration) Notes Start Date End Date Status Levothyroxine Sodium 75 MCG 1 tablet in the morning on an empty stomach Orally Once a day for 30 days 04/01/2023 Active Ferrous Sulfate Acti ve Copper Active Vitamin D3 75 MCG (3000 UT) 2 tablets Or ally Once a day Active Vitamin B Complex Ac tive Potassium Chloride ER 10 MEQ 2 tablet wi th food Orally Once a day for 30 days Active Pentasa 500 MG 2 capsules Orally TI D for 14 days 03/30/2023 Active Magnesium Oxide 400 MG 1 tablet as neede d Orally Once a day Active Liothyronine Sodium 5 mcg 1 tablet on an empty stomach Orally BID for 30 days Active Social History Tobacco Use: Social History Observation Description Date Details (start date - stop date) Never Smoker NA - NA Tobacco Use/Smoking Question Answer Notes Patient is a nonsmoker Alcohol Screen (Audit-C) Question Answer Notes Did you have a drink contain ing alcohol in the past year? Yes How often did you have 6 or more drinks on one occasion in the past year? Never (0 point) How many drinks did you have on a typical day when you were drinking in the past year? 1 or 2 drinks (0 point) How often did you have a dri nk containing alcohol in the past year? Monthly (2 points) Points 2 Interpretation Negative Problems Problem Type SNOMED Code ICD Code Onset Dates Problem Status W/U Status Risk Notes Problem 863066999 Gastric ulcer, unspecified as acute or chronic, without hemorrhage or perforation (K25.9) Active confirmed Problem Dysuria (21955435) Dysuria (R30.0) Active confi rmed Problem Weakness (97845268) Weakness (R53.1) Active con firmed Problem Hypertension (11141321) HTN (hypertension) (I10) Active confirmed Problem Hypothyroid (76746884) Hypothyroid (E03.9) Active confirmed Problem Hyperglycemia (20530688) Hyperglycemia (R73.9) Active confirmed Problem Arthritis (0308613) Arthritis (M19.90) Active confirmed Problem Heart murmur (60197609) Heart murmur (R01.1) Active confirmed Problem Internal hemorrhoid (04938959) Internal hemorrhoid (K64.8) Active confirmed Problem Diverticular disease of colon (471535052) Diverticulosis (K57.90) Active confirmed Problem Sinusitis (61012036) Sinusitis (J32.9) Active c onfirmed Problem Pain of right knee region (finding) (162019551486345) Knee pain, right (M25.561) Active confirmed Problem Tinnitus (11665613) Tinnitus (H93.19) Active co nfirmed Problem Chronic sinusitis (18408462) Chronic sinusitis (J32.9) Active confirmed Problem Colitis (29979589) Colitis (K52.9) Active confi rmed Problem Diverticulosis of colon (291450560) Diverticulosis of colon (K57.30) Active confirmed Problem Overweight (720790351) Over weight (E66.3) Active confirmed Problem Left lower quadrant pain (538621232) Abdominal pain, LLQ (R10.32) Active confirmed Problem Raised antinuclear antibody (871318820) SAGE positive (R76.8) Active confirmed Problem Shoulder pain (70955552) Pain in shoulder (M25.519) Active confirmed Problem Temporomandibular joint disc (437427007) 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) Active confirmed Problem Bilateral earache (finding) (514830788) Ear pain, bilateral (H92.03) Active confirmed Problem Annual wellness visit (274967628394676) Wellness examination (Z00.00) Active confirmed Problem Pruritus ani (36295752) Anal itching (L29.0) Active confirmed Problem Eruption of skin (807600162) Rash, skin (R21) Active confirmed Problem 98005878 Pure hypercholesterole kalpesh, unspecified (E78.00) Active confirmed Problem Mixed anxiety and depressive disorder (545921482) Anxiety and depression (F41.8) Active confirmed Encounters Encounter Location Date Provider [facility] [address] [place] [address] 07/18/2024 Tanisha Murrell Plan Of Treatment Pending Test Test Name Order Date CMP (COMPLETE METABOLIC PANEL) UA (URINALYSIS, COMPLETE) 08/17/2023 IRON, TOTAL 01/04/2024 US BLADDER PRE & POST VOID 07/02/2023 T3 FREE, T4 FREE and TSH 12/28/2023 T3 FREE, T4 FREE and TSH 01/04/2024 T3 FREE, T4 FREE and TSH 02/26/2024 UA DIP NONAUTO WO MICRO (91739) - IN OFF ICE 07/02/2023 URINE CULTURE 08/17/2023 CMP - Comprehensive Metabolic Panel 04/0 11/2023 CBC W/AUTO DIFF 07/02/2023 CBC W/AUTO DIFF 02/29/2024 IRON, TIBC w SAT AND FERRITIN 07/02/2023 IRON 02/29/2024 LIPID PROFILE 01/04/2024 PROTIME 02/29/2024 PTT 02/29/2024 REVERSE T3 02/19/2024 THYROID PANEL (T4/TSH/FREE T3) Blood Culture 2 08/17/2023 Insurance Providers Payer Name Payer Address Payer Phone Subscriber Number Group Number Insured Name Patient Relationship to Insured Coverage Start Date Coverage End Date MMO [address] [place], [place] [id number] Isa Musa Self - patient is the insured Medical (General) History Medical History History ICD Code Sinusitis J32.9 Weakness R53.1 Dysuria R30.0 Anal itching L29.0 Rash, skin R21 Over weight E66.3 Knee pain, right M25.561 Abdominal pain, LLQ R10.32 TMJ syndrome M26.69 Hyperglycemia R73.9 Ear pain, bilateral H92.03 Wellness examination Z00.00 Diverticulosis K57.90 Internal hemorrhoid K64.8 Anxiety and depression F41.8 Arthritis M19.90 Tinnitus H93.19 Pain in shoulder M25.519 HTN (hypertension) I10 Hypothyroid E03.9 Colitis K52.9 Diverticulosis of colon K57.30 SAGE positive R76.8 Surgical History Surgery Date(Month/Year) Tubal Ligation
== END 2025-07-03 08:34 | disposition home or self-care (01) ==
LOC: US 08:34
PROVIDERS: PCP Nurse Practitioner Family
DX: R60.0 Localized edema (principal)
CPT/HCPCS: 93970

== ENCOUNTER 2025-07-15 10:01 | Outpatient (OUT) | payer OTHER, SELFPAY ==
--- OUTSIDE RECORDS SUMMARY | 2024-04-19 04:24 | XMS_ITS ---
Author Organization [facility] in [place] Address [address] [place] [address] Care Team Providers Care Siebel Architect Name Role Phone JORDI MURRELL Primary Care Provider Reason For Referral Diagnosis 1 Hypothyroid (E03.9) Referral Organization [facility] Referring Provider First Name JORDI Referring Provider Last Name NYASIA Referring Provider Speciality Family [facility] icine Referred Provider Marylou Venegas Referred Provider Specialty Endocrinolog y Referral Priority Routine REASON FOR VISIT endo Encounters Encounter Location Date Provider Diagnosis [facility] [address] [place] [address] 04/19/2024 JORDI MURRELL Hypothyroid E03.9 Assessments Encounter Date Diagnosis (ICD Code) Assessment Notes Treatment Notes Treatment Clinical Notes Section Notes 04/19/2024 Hypothyroid (ICD-10 - E03.9) Plan Of Treatment Referrals Referral Date Details 04/19/2024 04/19/2024, Marylou Crandall [facility] Progress Notes * Isa MUSA SDOB:1969 (54 yo F)Acc No.[id number]:04/19/2024 Patient: Isa FOREMAN :1970 A ge:54 Y S ex:Female Address:[address], [place], [address] Subjective: * Chief Complaints: * E ndo * Medical History: * Surgical History: * Hospitalization/Major Diagno stic Procedure: * Medications: Objective: * Vitals: * Physical Examination: Assessment: * Assessment: 1. H ypothyroid - E03.9 (Primary) Plan: * Treatment: * Procedure Codes: * true * Date: Generated for Liliana lopez/Paulette/Laurosmitting on: 0 07/15/2025 10:06 AM EDT Consultation Request Notes Referral Date Referring Provider Referred Provider Not es 04/19/2024 JORDI MURRELL Ahmad
--- OUTSIDE RECORDS SUMMARY | 2024-07-18 08:41 | XMS_ITS ---
Author Organization [facility] [place] Address [address] [place] [address] Care Team Providers Care Rib Cloth Knitter Name Role Phone TANISHA THAO Primary Care Provider [phone] Tanisha Thao Unavailable [phone] REASON FOR VISIT Lab Results- Encounters Encounter Location Date Provider Diagnosis [facility] [address] [place] [address] 07/18/2024 Tanisha Thao Plan Of Treatment No Information Progress Notes * Isa MUSA SDOB:1969 (54 yo F)Acc No.[id number]:07/18/2024 Patient: Tania WARD Isa Tnaia :1970 A ge:54 Y S ex:Female Address:[facility], [place], [address] * true * Date: Generated for Printi ng/Faxing/eTransmitting on: 0 07/15/2025 10:06 AM EDT
--- OUTSIDE RECORDS SUMMARY | 2025-07-15 10:06 | XMS_ITS | CCD ---
Author Organization [facility] Care Team Providers Care Supervisor [employer] Name Role Phone NYASIA, TANISHA P Admitting [...] Unavailable Lauren Lewis MD Primary Care Provider [phone] Cayla Brown Primary Care Provid er Unavailable [...] Drug allergy (disorder) 7 [facility] Repository (5 sources) Substance with sulfonamide structure and antibacterial mechanism of action (substance) Drug allergy 3 Swelling, Rash [facility] Other (5 sources) Sulfonamides (Antibiotic) Drug allergy (disorder) 3 Rash [facility] Repository (13 sources) metroNIDAZOLE; Translations: [METRONIDAZOLE] Drug Allergy 1 Other (See Comments) [facility] (6 sources) Sulfanilamide; Translations: [SULFANILAMIDE] Drug Allergy 1 Itching, Rash [email or web address] Medications Current Medications Medication Drug Class(es) [...] 2023 12:00am take 1 capsule by mo [facility] in the morning cholecalciferol, vitamin D3, [...] PO Daily October 04, 2024 1:00am thyroid (penitentiary) 15 mg oral tablet (2 sources) take [...] 2024 3:52pm Magnesium Active polyethylene glycol 3350 201495 mg / potassium chloride 2970 mg / sodium bicarbonate 6740 mg / sodium chloride 5860 mg / sodium sulfate 62885 mg powder for oral solution (2 sources) [...] [facility] 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 Normal [facility] Comment on above: Performed By: #### V PPCR #### [facility] ([id number]) [address] [place] [address], [address] [place] [address] Estimated glomerular filtrat ion rate (GFR) non- Americanon 12-24-2024 GFR/1.73 sq M.predicted among non-blacks MDRD (S/P/Bld) [Vol rate/Area] Estimated glomerular filtration rate (GFR) non- >=60 mL/min/1.73m 2 [facility] Globulin Calc (S) [Mass/Vol] on 12-24-2024 Globulin (S) [Mass/Vol] Serum globulin measurement by calculation (mass/volume) [facility] - Chemistry and C hemistry - challengeon 12-24-2024 Albumin [Mass/Vol] 3.4 g/dL 3.4-5.0 [facility] ALP [Catalytic activity/Vol] 141 U/L High 46-116 [facility] ALT [Catalytic activity/Vol] 23 U/L 14-59 [facility] AST [Catalytic activity/Vol] 27 U/L 15-37 [facility] Comment on above: SAMPLE SLIGHTLY HEMO LYZED Bilirubin [Mass/Vol] 0.5 mg/dL 0.2-1.0 [facility] Calcium [Mass/Vol] 9.4 mg/dL 8.5-10.1 [facility] Chloride [Moles/Vol] 105 mmol/L 98-107 [facility] CO2 [Moles/Vol] 26.7 mmol/L 21.0-32.0 [facility] Creatinine [Mass/Vol] 0.82 mg/dL 0.55-1.02 [facility] Free T4 [Mass/Vol] 0.81 ng/dL 0.76-1.46 [facility] GFR/1.73 sq M.predicted MDRD (S/P/Bld) [Vol rate/Area] mL/min/{1.73_m2} >=60 mL/min/1.73m 2 [facility] Glucose [Mass/Vol] 94 mg/dL 74-106 [facility] Potassium [Moles/Vol] 4.9 mmol/L 3.5-5.1 [facility] Comment on above: SAMPLE SLIGHTLY HEMO LYZED Protein [Mass/Vol] 7.7 g/dL 6.4-8.2 [facility] Sodium [Moles/Vol] 142 mmol/L 136-145 [facility] TSH Qn 0.142 m[IU]/L Low 0.358-3.740 [facility] Urea nitrogen [Mass/Vol] 14.0 mg/dL 7.0-18.0 [facility] Urea nitrogen/Creatinine [Mass ratio] 17.1 mg/mg [facility] No Panel Informationon 12-24 25-Hydroxy Vitamin D Total 38.2 ng/mL [facility] Comment on above: <20 ng/mL Vit D defi cient20-<30 ng/mL Vit D oivpcryatnlc42-573 ng/mL Vit D sufficient>100 ng/mL Potential Toxicity Free Triiodothyronine 6.16 pg/mL High 2.18-3.98 [facility] Serum or plasma albumin/glob ulin mass ratioon 12-24-2024 Albumin/Globulin [Mass ratio] Serum or plasma albumin/globulin mass ratio [facility] Serum or plasma anion gap de terminationon 12-24-2024 Anion gap [Moles/Vol] Serum or plasma an ion gap determination [facility] Estimated glomerular filtrat ion rate (GFR) non- Americanon 10-01-2024 GFR/1.73 sq M.predicted among non-blacks MDRD (S/P/Bld) [Vol rate/Area] mL/min/{1.73_m2} >=60 mL/min/1.73m 2 [facility] Globulin Calc (S) [Mass/Vol] on 10-01-2024 Globulin (S) [Mass/Vol] 4.1 g/dL [facility] - Chemistry and C hemistry - challengeon 10-01-2024 Albumin [Mass/Vol] 3.4 g/dL 3.4-5.0 [facility] ALP [Catalytic activity/Vol] 126 U/L High 46-116 [facility] ALT [Catalytic activity/Vol] 24 U/L 14-59 [facility] AST [Catalytic activity/Vol] 15 U/L 15-37 [facility] Bilirubin [Mass/Vol] 0.4 mg/dL 0.2-1.0 [facility] Calcium [Mass/Vol] 9.2 mg/dL 8.5-10.1 [facility] Chloride [Moles/Vol] 106 mmol/L 98-107 [facility] CO2 [Moles/Vol] 27.4 mmol/L 21.0-32.0 [facility] Creatinine [Mass/Vol] 0.84 mg/dL 0.55-1.02 [facility] Ferritin [Mass/Vol] 145.0 ng/mL 8.0-252.0 [facility] Free T4 [Mass/Vol] 0.76 ng/dL 0.76-1.46 [facility] GFR/1.73 sq M.predicted MDRD (S/P/Bld) [Vol rate/Area] mL/min/{1.73_m2} >=60 mL/min/1.73m 2 [facility] Glucose [Mass/Vol] 119 mg/dL High 74-106 [facility] Potassium [Moles/Vol] 3.7 mmol/L 3.5-5.1 [facility] Protein [Mass/Vol] 7.5 g/dL 6.4-8.2 [facility] Sodium [Moles/Vol] 145 mmol/L 136-145 [facility] TSH Qn 0.101 m[IU]/L Low 0.358-3.740 [facility] Urea nitrogen [Mass/Vol] 14.0 mg/dL 7.0-18.0 [facility] Urea nitrogen/Creatinine [Mass ratio] 16.7 mg/mg [facility] No Panel Informationon 10-01 25-Hydroxy Vitamin D Total 30.0 ng/mL [facility] Comment on above: <20 ng/mL Vit D defi cient20-<30 ng/mL Vit D ycmgettasxiw62-897 ng/mL Vit D sufficient>100 ng/mL Potential Toxicity Serum or plasma albumin/glob ulin mass ratioon 10-01-2024 Albumin/Globulin [Mass ratio] 0.8 {ratio} [facility] Serum or plasma anion gap de terminationon 10-01-2024 Anion gap [Moles/Vol] 15.3 mmol/L [facility] Basophils Auto (Bld) [#/Vol] on 07-16-2024 Basophils (Bld) [#/Vol] 0.1 10 3/uL 0.0-0.1 [facility] Basophils/100 WBC Auto (Bld) on 07-16-2024 Basophils/100 WBC (Bld) 1.2 % 0.2-2.0 [facility] Cholesterol in LDL Calc [Mas s/Vol]on 07-16-2024 Cholesterol in LDL [Mass/Vol] 153.0 mg/dL [facility] Comment on above: <100 mg/dl [id number] 0-129 mg/dl NEAR OR ABOVE [id number] mg/dl BORDERLINE BVDB611-388 mg/dl HIGH>190 mg/dl VERY HIGH Cholesterol in VLDL Calc [Ma ss/Vol]on 07-16-2024 Cholesterol in VLDL [Mass/Vol] 28.2 mg/dL [facility] Eosinophils/100 WBC Auto (Bl d)on 07-16-2024 Eosinophils/100 WBC (Bld) 0.0 % Low 0.9-7.0 [facility] Erythrocyte distribution wid th Auto (RBC) [Ratio]on 07-16-2024 Erythrocyte distribution width (RBC) [Ratio] 13.2 % 11.0-15.0 [facility] Estimated glomerular filtrat ion rate (GFR) non- Americanon 07-16-2024 GFR/1.73 sq M.predicted among non-blacks MDRD (S/P/Bld) [Vol rate/Area] mL/min/{1.73_m2} >=60 [facility] Globulin Calc (S) [Mass/Vol] on 07-16-2024 Globulin (S) [Mass/Vol] 4.1 g/dL [facility] Hematocrit Auto (Bld) [Volum e fraction]on 07-16-2024 Hematocrit (Bld) [Volume fraction] 45.2 % 36.0-48.0 [facility] Hemoglobin [Mass/volume] in Bloodon 07-16-2024 Hemoglobin (Bld) [Mass/Vol] 15.1 g/dL 12.0-16.0 [facility] Iron binding capacity [Mass/ volume] in Serum or Plasmaon 07-16-2024 Iron binding capacity [Mass/Vol] 262.0 ug/dL 250.0-450.0 [facility] Iron saturation [Mass Fracti on] in Serum or Plasmaon 07-16-2024 Iron saturation [Mass fraction] 28.2 % [facility] - Chemistry and C hemistry - challengeon 07-16-2024 Albumin [Mass/Vol] 3.6 g/dL 3.4-5.0 [facility] ALP [Catalytic activity/Vol] 136 U/L High 46-116 [facility] ALT [Catalytic activity/Vol] 26 U/L 14-59 [facility] AST [Catalytic activity/Vol] 14 U/L Low 15-37 [facility] Bilirubin [Mass/Vol] 0.6 mg/dL 0.2-1.0 [facility] Calcium [Mass/Vol] 9.4 mg/dL 8.5-10.1 [facility] Chloride [Moles/Vol] 104 mmol/L 98-107 [facility] Cholesterol [Mass/Vol] 221 mg/dL High <=200 [facility] Cholesterol in HDL [Mass/Vol] 40 mg/dL 40-60 [facility] Comment on above: > or =60 mg/dl - LOW CARDIOVASCULAR RISK<40 mg/dl - HIGH CARDIOVASCULAR RISK CO2 [Moles/Vol] 28.2 mmol/L 21.0-32.0 [facility] Cobalamin (Vitamin B12) [Mass/Vol] 822.0 pg/mL 193.0-986.0 [facility] Creatinine [Mass/Vol] 0.78 mg/dL 0.55-1.02 [facility] Free T4 [Mass/Vol] 0.82 ng/dL 0.76-1.46 [facility] GFR/1.73 sq M.predicted MDRD (S/P/Bld) [Vol rate/Area] mL/min/{1.73_m2} >=60 [facility] Glucose [Mass/Vol] 92 mg/dL 74-106 [facility] Iron [Mass/Vol] 74.0 ug/dL 50.0-170.0 [facility] Potassium [Moles/Vol] 3.9 mmol/L 3.5-5.1 [facility] Protein [Mass/Vol] 7.7 g/dL 6.4-8.2 [facility] Sodium [Moles/Vol] 137 mmol/L 136-145 [facility] Triglyceride [Mass/Vol] 141 mg/dL <=150 [facility] TSH Qn 0.524 m[IU]/L 0.358-3.740 [facility] Urea nitrogen [Mass/Vol] 17.0 mg/dL 7.0-18.0 [facility] Urea nitrogen/Creatinine [Mass ratio] 21.8 mg/mg [facility] Laboratory - Hematology and Cell countson 07-16-2024 Immature granulocytes/100 WBC (Bld) 0.2 % 0.0-0.5 [facility] Leukocytes [#/volume] correc cullen for nucleated erythrocytes in Blood by Automated counon 07-16-2024 WBC corrected for nucl RBC Auto (Bld) [#/Vol] 4.8 10 3/uL 4.0-11.0 [facility] Lymphocytes Auto (Bld) [#/Vo l]on 07-16-2024 Lymphocytes (Bld) [#/Vol] 1.5 10 3/uL 1.2-3.8 [facility] Lymphocytes/100 WBC Auto (Bl d)on 07-16-2024 Lymphocytes/100 WBC (Bld) 31.3 % 20.5-60.0 [facility] MCH Auto (RBC) [Entitic mass ]on 07-16-2024 MCH (RBC) [Entitic mass] 27.9 pg 26.7-34.0 [facility] MCHC Auto (RBC) [Mass/Vol]on 07-16-2024 MCHC (RBC) [Mass/Vol] 33.4 g/dL 29.9-35.2 [facility] MCV Auto (RBC) [Entitic vol] on 07-16-2024 MCV (RBC) [Entitic vol] 83.5 fL 81.0-99.0 [facility] Monocytes Auto (Bld) [#/Vol] on 07-16-2024 Monocytes (Bld) [#/Vol] 0.4 10 3/uL 0.3-0.8 [facility] Monocytes/100 WBC Auto (Bld) on 07-16-2024 Monocytes/100 WBC (Bld) 7.7 % 1.7-12.0 [facility] Neutrophils Auto (Bld) [#/Vo l]on 07-16-2024 Neutrophils (Bld) [#/Vol] 2.9 10 3/uL 1.4-6.5 [facility] Neutrophils/100 WBC Auto (Bl d)on 07-16-2024 Neutrophils/100 WBC (Bld) 59.6 % 43.0-75.0 [facility] No Panel Informationon 07-16 25-Hydroxy Vitamin D Total 25.2 ng/mL [facility] Comment on above: <20 ng/mL Vit D defi cient20-<30 ng/mL Vit D uvpagbxukfxa18-088 ng/mL Vit D sufficient>100 ng/mL Potential Toxicity Eosinophils # (Auto) 0.0 10 3/uL 0.0-0.7 [facility] Free Triiodothyronine 5.22 pg/mL High 2.18-3.98 [facility] Immature Granulocyte # (Auto) 0.01 10 3/uL 0.00-0.03 [facility] Platelet mean volume Auto (B ld) [Entitic vol]on 07-16-2024 Platelet mean volume (Bld) [Entitic vol] 9.7 fL 9.5-13.5 [facility] Platelets Auto (Bld) [#/Vol] on 07-16-2024 Platelets (Bld) [#/Vol] 202 10 3/uL 150-450 [facility] RBC Auto (Bld) [#/Vol]on RBC (Bld) [#/Vol] 5.41 10 6/uL High 4.20-5.40 [facility] Serum or plasma albumin/glob ulin mass ratioon 07-16-2024 Albumin/Globulin [Mass ratio] 0.9 {ratio} [facility] Serum or plasma anion gap de terminationon 07-16-2024 Anion gap [Moles/Vol] 8.7 mmol/L [facility] Serum or plasma thyroperoxid ase antibody assay (units/volume)on 07-16-2024 TPO Ab Qn [IU]/mL 0-34 [facility] Comment on above: Performed at: [address] [id number] Director: Richardson Sethi PhD, Phone: [phone] Serum or plasma total choles terol/high density lipoprotein (HDL) cholesterol mass jeovanny 07-16-2024 Cholesterol.total/Cho lesterol in HDL [Mass ratio] 5.5 {ratio} [facility] Comment on above: 3.3 - 4.4 LOW RISK4. 4 - 7.1 AVERAGE RISK7.1 - 11.0 MODERATE RISK>11.0 HIGH RISK Dusty 08-31-2023 L - -------- Specimen: [id number] Received: 08/31/23 Status: GRECIA Mcclendonjake Num: [id number] Spec Type: Surgical Subm Dr: Danita Alfaro MD Tissues: A Small Intestine - Biopsy/Polyp (ILEUM BX) B Colon Biopsy (RT COLON BX) C Colon Biopsy (TRANSVERSE BX) D Colon Biopsy (DESCENDING) E Colon Biopsy (SIGMOID BX) F Colon Biopsy (RECTUM BX) Procedures: DAVID/Naun Peres/Johnnie L4/6 -------- Age/ Patient Sex Location Account Attending Physician -------- Isidro Musa 53/F [id number] Danita Alfaro MD -------- SPEC NUM: [id number] RECD: 08/31/23 STATUS: GRECIA DENT NUM: [id number] TOSIN: 08/31/23 DR: Danita Alfaro MD ENTERED: 08/31/[address] [facility] [address]: SPEC TYPE: Surgical DEPT: S [...] other specific histopathological abnormality observed -------- Specimen: [id number] Received: 08/31/23 Status: GRECIA Dent Num: [id number] Spec Type: Surgical Subm Dr: Danita Alfaro MD Tissues: A Small Intestine - Biopsy/Polyp (ILEUM BX) B Colon Biopsy (RT COLON BX) C Colon Biopsy (TRANSVERSE BX) D Colon Biopsy (DESCENDING) E Colon Biopsy (SIGMOID BX) F Colon Biopsy (RECTUM BX) Procedures: , Gross/Micro L4/6 -------- Patient: Isidro Musa [id number] (Continued) -------- Specimen: [id number] Received: 08/31/23 (Continued) Pathological Diagnosis (Continued) Signed (signature on file) Roxann Moscoso MD 09/01/231717 -------- Specimen: [id number] Received: 08/31/23 Status: GRECIA Dent Num: [id number] Spec Type: Surgical Subm Dr: Danita Alfaro MD Tissues: A Small Intestine - Biopsy/Polyp (ILEUM BX) B Colon Biopsy (RT COLON BX) C Colon Biopsy (TRANSVERSE BX) D Colon Biopsy (DESCENDING) E Colon Biopsy (SIGMOID BX) F Colon Biopsy (RECTUM BX) Procedures: , Gross/Micro L4/6 -------- Patient: Isidro Musa [id number] (Continued) -------- Specimen: [id number] Received: 08/31/23114 (Continued) Pathological Diagnosis (Continued) E. [...] and transvers (more content not included)... Normal [facility] Covid-19 PCR (CVDTBH)on 01-01 SARS-CoV-2 (COVID-19) RNA CLARA+probe Ql (Unsp spec) Not detected Normal NOT DETECTED [facility] Comment on above: Result Comment: When diagnostic [...] for this test is supported by the [place] of Health and Human Service's declaration that [...] used). Performed By: #### C VDTB #### [facility] [address] [place] [address] Dr. Kirit Moscoso OVA AND PARASITE EXAMINATION on 01-19-2023 Ova + Parasite Exam Final report Normal [facility] Comment on above: Result Comment: Thes e results were obtained using wet preparation(s) and trichrome stained smear. This test does not include testing for Cryptosporidium parvum, Cyclospora, or Microsporidia. Performed By: #### C BC #### [facility] [address] [place] [address] Dr. Kirit Moscoso Result 1 Comment Normal [facility] Comment on above: Result Comment: No o va, cysts, or parasites seen. . One negative specimen does not rule out the possibility of a parasitic infection. Performed By: #### C BC #### [facility] [address] [address] [address] Kirit Moscoso SAGE by IFAon 01-16-2023 Antinuclear Antibodies, IFA Positive Abnormal [facility] Comment on above: Result Comment: Nega tive <1:80 Borderline 1:80 Positive >1:80 Performed By: #### T 7, TSH #### [facility] [address] [address] [address] Kirit Moscoso Centriole Pattern Normal [facility] Comment on above: Performed By: #### T 7, TSH #### [facility] [address] [address] [address] Kirit Moscoso Centromere Pattern Normal [facility] Comment on above: Performed By: #### T 7, TSH #### [facility] [address] [address] [address] Kirit Moscoso Homogeneous Pattern 1:640 Critically high [facility] Comment on above: Result Comment: ICAP nomenclature: AC-1 Performed By: #### T 7, TSH #### [facility] [address] [address] [address] Kirit Moscoso Midbody Pattern Normal [facility] Comment on above: Performed By: #### T 7, TSH #### [facility] [address] [address] [address] Kirit Moscoso Note: Comment Normal [facility] Comment on above: Result Comment: For more [...] titers Nucleosomes, Histones Drug-induced SLE Speckled Sm, CONTINUOUS DRIER OPERATOR, SCL-70, SLE,MCTD,PSS (diffuse form), SS-A/SS-B Sjogrens Nucleolar SCL-70, PM-1/SCL High titers Scleroderma, PM/DM Centromere Centromere PSS (limited form) w/Crest syndrome variable Nuclear Dot [id number] Primary Biliary Cirrhosis Nuclear GP210, Primary Biliary Cirrhosis Membrane missy A,B,C Performed By: #### T 7, TSH #### [facility] [address] [place] [address] Dr. Kirit Moscoso Nuclear Dot Pattern Normal [facility] Comment on above: Performed By: #### T 7, TSH #### [facility] [address] [address] [address] Kirit Moscoso Nuclear Membrane Pattern Normal [facility] Comment on above: Performed By: #### T 7, TSH #### [facility] [address] [address] [address] Kirit Moscoso Nucleolar Pattern Normal [facility] Comment on above: Performed By: #### T 7, TSH #### [facility] [address] [place] [address] Dr. Kirit Moscoso PCNA Pattern Normal [facility] Comment on above: Performed By: #### T 7, TSH #### [facility] [address] [place] [address] Dr. Kirit Moscoso Speckled Pattern Normal [facility] Comment on above: Performed By: #### T 7, TSH #### [facility] [address] [address] [address] Kirit Moscoso Spindle Apparatus Pattern Normal [facility] Comment on above: Performed By: #### T 7, TSH #### [facility] [address] [place] [address] Dr. Kirit Moscoso GI PANEL (PCR)on 01-13-2023 Adenovirus F 40/41 Not detected Normal NOT DETECTED [facility] Comment on above: Performed By: #### T 7, TSH #### [facility] [address] [place] [address] Dr. Kirit Moscoso Astrovirus Not detected Normal NOT DETECTED [facility] Comment on above: Performed By: #### T 7, TSH #### [facility] [address] [place] [address] Dr. Kirit Sol Diff toxin A/B Not detected Normal NOT DETECTED [facility] Comment on above: Performed By: #### T 7, TSH #### [facility] [address] [place] [address] Dr. Kirit Moscoso Campylobacter Not detected Normal NOT DETECTED [facility] Comment on above: Performed By: #### T 7, TSH #### [facility] [address] [place] [address] Dr. Kirit Moscoso Cryptosporidium Not detected Normal NOT DETECTED [facility] Comment on above: Performed By: #### T 7, TSH #### [facility] [address] [place] [address] Dr. Kirit Moscoso Cyclos. Cayetanensis Not detected Normal NOT DETECTED [facility] Comment on above: Performed By: #### T 7, TSH #### [facility] [address] [place] [address] Dr. Kirit Moscoso E. Coli O157 Not Applicable Normal Not Applicable [facility] Comment on above: Performed By: #### T 7, TSH #### [facility] [address] [place] [address] Dr. Kirit Moscoso E. histolytica Not detected Normal NOT DETECTED [facility] Comment on above: Performed By: #### T 7, TSH #### [facility] [address] [place] [address] Dr. Kirit Moscoso EAEC Not detected Normal NOT DETECTED [facility] Comment on above: Performed By: #### T 7, TSH #### [facility] [address] [place] [address] Dr. Kirit Moscoso EIEC Not detected Normal NOT DETECTED [facility] Comment on above: Performed By: #### T 7, TSH #### [facility] [address] [place] [address] Dr. Kirit Moscoso EPEC Not detected Normal NOT DETECTED [facility] Comment on above: Performed By: #### T 7, TSH #### [facility] [address] [place] [address] Dr. Kirit Moscoso ETEC Not detected Normal NOT DETECTED [facility] Comment on above: Performed By: #### T 7, TSH #### [facility] [address] [place] [address] Dr. Kirit Moscoso G. Lamblia Not detected Normal NOT DETECTED [facility] Comment on above: Performed By: #### T 7, TSH #### [facility] [address] [place] [address] Dr. Kirit SINGHL CONTROLS PASSED Normal [facility] Comment on above: Performed By: #### T 7, TSH #### [facility] [address] [place] [address] Dr. Kirit DAVIS COLLEEN HEADER GI PANEL BACTERIA Normal [facility] Comment on above: Performed By: #### T 7, TSH #### [facility] [address] [place] [address] Dr. Kirit SHARPE ECOLI GI PANEL DIARRHEAGENIC E.COLI / SHIGELLA Normal [facility] Comment on above: Performed By: #### T 7, TSH #### [facility] [address] [address] [address] Kirit SHARPE INFO SEE BELOW Normal [facility] Comment on above: Result Comment: EAEC - Enteroaggregative E. Coli EPEC- Enteropathogenic E. Coli ETEC- Enterotoxigenic E. Coli lt/st STEC- Shigella-like toxin-producing E. Coli stx1/stx2 EIEC- Shigella/Enteroinvasive E. Coli Performed By: #### T 7, TSH #### [facility] [address] [address] Dr. Kirit SHARPE PARASITES GI PANEL PARASITES Normal [facility] Comment on above: Performed By: #### T 7, TSH #### [facility] [address] [address] [address] Kirit SHARPE VIRUS GI PANEL VIRUSES Normal [facility] Comment on above: Performed By: #### T 7, TSH #### [facility] [address] [address] [address] Kirit Moscoso Norovirus GI/GII Not detected Normal NOT DETECTED [facility] Comment on above: Performed By: #### T 7, TSH #### [facility] [address] [address] [address] Kirit Moscoso P. Shigelloides Not detected Normal NOT DETECTED [facility] Comment on above: Performed By: #### T 7, TSH #### [facility] [address] [place] [address] Dr. Kirit Moscoso Rotavirus A Not detected Normal NOT DETECTED [facility] Comment on above: Performed By: #### T 7, TSH #### [facility] [address] [address] [address] Kirit Moscoso Salmonella Not detected Normal NOT DETECTED [facility] Comment on above: Performed By: #### T 7, TSH #### [facility] [address] [place] [address] Dr. Kirit Moscoos Sapovirus Not detected Normal NOT DETECTED [facility] Comment on above: Performed By: #### T 7, TSH #### [facility] [address] [place] [address] Dr. Kirit Moscoso STEC Not detected Normal NOT DETECTED [facility] Comment on above: Performed By: #### T 7, TSH #### [facility] [address] [place] [address] Dr. Kirit Moscoso Vibrio Not detected Normal NOT DETECTED [facility] Comment on above: Performed By: #### T 7, TSH #### [facility] [address] [place] [address] Dr. Kirit Moscoso Vibrio Cholera Not detected Normal NOT DETECTED [facility] Comment on above: Performed By: #### T 7, TSH #### [facility] [address] [place] [address] Dr. Kirit Moscoso Y. Enterocolitica Not detected Normal NOT DETECTED [facility] Comment on above: Performed By: #### T 7, TSH #### [facility] [address] [place] [address] Dr. Kirit Moscoso INSULINon 01-12-2023 Insulin 23.6 uIU/mL Normal 2.6-24.9 [facility] Comment on above: Performed By: #### T 7, TSH #### [facility] [address] [place] [address] Dr. Kirit Moscoso ANTISTREPTOLYSIN O AB (ASO)o n 01-11-2023 Antistreptolysin O Ab 70.3 IU/mL Normal 0.0-200.0 [facility] Comment on above: Performed By: #### A SOAB #### [facility] [address] [place] [address] Dr. Kirit Moscoso RHEUMATOID FACTORon 01-11-20 RA Latex Turbid. <10.0 Normal <14.0 [facility] Comment on above: Performed By: #### R F #### [facility] [address] [place] [address] Dr. Kirit Moscoso CBC AUTO DIFFon 01-10-2023 BASO # 0.1 103/ul Normal 0.0-0.1 [facility] Comment on above: Performed By: #### C BC #### [facility] [address] [place] [address] Dr. Kirit Moscoso Basophils/100 WBC (Bld) 1.2 % Normal 0.2-2.0 [facility] Comment on above: Performed By: #### C BC #### [facility] [address] [place] [address] Dr. Kirit Moscoso EO # 0.0 103/ul Normal 0.0-0.7 [facility] Comment on above: Performed By: #### C BC #### [facility] [address] [place] [address] Dr. Kirit Moscoso Eosinophils/100 WBC (Bld) 0.0 % Critically low 0.9-7.0 [facility] Comment on above: Performed By: #### C BC #### [facility] [address] [place] [address] Dr. Kirti Moscoso Erythrocyte distribution width (RBC) [Ratio] 13.6 % Normal 11.0-15.0 [facility] Comment on above: Performed By: #### C BC #### [facility] [address] [place] [address] Dr. Kirit Moscoso Hematocrit (Bld) [Volume fraction] 44.2 % Normal 36.0-48.0 [facility] Comment on above: Performed By: #### C BC #### [facility] [address] [place] [address] Dr. Kirit Moscoso Hemoglobin (Bld) [Mass/Vol] 14.2 g/dL Normal 12.0-16.0 [facility] Comment on above: Performed By: #### C BC #### [facility] [address] [place] [address] Dr. Kirit Moscoso IG # 0.02 10e3/ul Normal 0.00-0.03 [facility] Comment on above: Performed By: #### C BC #### [facility] [address] [place] [address] Dr. Kirit Moscoso IG % 0.3 % Normal 0.0-0.5 [facility] Comment on above: Performed By: #### C BC #### [facility] [address] [place] [address] Dr. Kirit Moscoso LYMPH # 1.5 103/ul Normal 1.2-3.8 [facility] Comment on above: Performed By: #### C BC #### [facility] [address] [place] [address] Dr. Kirit Moscoso Lymphocytes/100 WBC (Bld) 22.7 % Normal 20.5-60.0 [facility] Comment on above: Performed By: #### C BC #### [facility] [address] [place] [address] Dr. Kirit Moscoso MANUAL DIFF REQ NO Normal [facility] Comment on above: Performed By: #### C BC #### [facility] [address] [place] [address] Dr. Kirit Moscoso MCH (RBC) [Entitic mass] 27.8 pg Normal 26.7-34.0 [facility] Comment on above: Performed By: #### C BC #### [facility] [address] [place] [address] Dr. Kirit Moscoso MCHC (RBC) [Mass/Vol] 32.1 g/dL Normal 29.9-35.2 [facility] Comment on above: Performed By: #### C BC #### [facility] [address] [place] [address] Dr. Kirit Moscoso MCV (RBC) [Entitic vol] 86.5 fL Normal 81.0-99.0 [facility] Comment on above: Performed By: #### C BC #### [facility] [address] [place] [address] Dr. Kirit Moscoso MONO # 0.5 103/ul Normal 0.3-0.8 [facility] Comment on above: Performed By: #### C BC #### [facility] [address] [place] [address] Dr. Kirit Moscoso Monocytes/100 WBC (Bld) 7.3 % Normal 1.7-12.0 [facility] Comment on above: Performed By: #### C BC #### [facility] [address] [address] [address] Kirit Moscoso NEUT # 4.5 103/ul Normal 1.4-6.5 [facility] Comment on above: Performed By: #### C BC #### [facility] [address] [address] [address] Kirit Moscoso Neutrophils/100 WBC (Bld) 68.5 % Normal 43.0-75.0 [facility] Comment on above: Performed By: #### C BC #### [facility] [address] [address] [address] Kirit Moscoso Platelet mean volume (Bld) [Entitic vol] 10.2 fL Normal 9.5-13.5 [facility] Comment on above: Performed By: #### C BC #### [facility] [address] [address] [address] Kirit Moscoso PLT 250 103/ul Normal 150-450 [facility] Comment on above: Performed By: #### C BC #### [facility] [address] [address] [address] Kirit Moscoso RBC 5.11 106/ul Normal 4.20-5.40 [facility] Comment on above: Performed By: #### C BC #### [facility] [address] [address] [address] Kirit Moscoso WBC 6.6 103/ul Normal 4.0-11.0 [facility] Comment on above: Performed By: #### C BC #### [facility] [address] [address] [address] Kirit Moscoso CRPon 01-10-2023 CRP 1.2 mg/dL Critically high <=1.0 [facility] Comment on above: Performed By: #### C RP, CMP, URIC, LIPID #### [facility] [address] [address] [address] Kirit Moscoso GLYCOHEMOGLOBIN A1Con 2022 ADA RECOMMENDATION SEE BELOW Normal [facility] Comment on above: Result Comment: ADA RECOMMENDED LIMIT 4.0 - 6.0 ADA THERAPEUTIC TARGET < 7.0 ACTION SUGGESTED > 7.0 Performed By: #### T 7, TSH #### [facility] [address] [address] [address] Kirit Moscoso Glucose [Mass/Vol] 114 mg/dL Normal [facility] Comment on above: Performed By: #### T 7, TSH #### [facility] [address] [address] [address] Kirit Moscoso HbA1c (Bld) [Mass fraction] 5.6 % Normal 4.5-6.2 [facility] Comment on above: Performed By: #### T 7, TSH #### [facility] [address] [place] [address] Dr. Kirit Moscoso IRONon 01-10-2023 Iron [Mass/Vol] 59.0 ug/dL Normal 50.0-170.0 [facility] Comment on above: Performed By: #### C BC #### [facility] [address] [place] [address] Dr. Kirit Moscoso LIPID PROFILEon 01-10-2023 CHOL-HDL RATIO NORM SEE BELOW Normal [facility] Comment on above: Result Comment: 3.3 - 4.4 LOW RISK 4.4 - 7.1 AVERAGE RISK 7.1 - 11.0 MODERATE RISK >11.0 HIGH RISK Performed By: #### C RP, CMP, URIC, LIPID #### [facility] [address] [address] [address] Kirit Moscoso Cholesterol [Mass/Vol] 188 mg/dL Normal <=200 [facility] Comment on above: Performed By: #### C RP, CMP, URIC, LIPID #### [facility] [address] [address] [address] Kirit Moscoso Cholesterol in HDL [Mass/Vol] 45 mg/dL Normal 40-60 [facility] Comment on above: Performed By: #### C RP, CMP, URIC, LIPID #### [facility] [address] [address] [address] Kirit Moscoso Cholesterol in LDL [Mass/Vol] 129.0 mg/dL Normal [facility] Comment on above: Performed By: #### C RP, CMP, URIC, LIPID #### [facility] [address] [address] [address] Kirit Moscoso Cholesterol.total/Cho lesterol in HDL [Mass ratio] 4.2 {ratio} Normal [facility] Comment on above: Performed By: #### C RP, CMP, URIC, LIPID #### [facility] [address] [address] [address] Kirit Moscoso HDL NORMAL > or = 60 mg/dl - LO W CARDIOVASCULAR RISK <40 mg/dl - HIGH CARDIOVASCULAR RISK Normal [facility] Comment on above: Performed By: #### C RP, CMP, URIC, LIPID #### [facility] [address] [address] [address] Kirit Moscoso LDL CALC NORMAL SEE BELOW Normal [facility] Comment on above: Result Comment: <100 mg/dl OPTIMAL 100 - 129 mg/dl NEAR OR ABOVE OPTIMAL 130 - 159 mg/dl BORDERLINE HIGH 160 - 189 mg/dl HIGH >190 mg/dl VERY HIGH Performed By: #### C RP, CMP, URIC, LIPID #### [facility] [address] [address] [address] Kirit Moscoso Triglyceride [Mass/Vol] 71 mg/dL Normal <=150 [facility] Comment on above: Performed By: #### C RP, CMP, URIC, LIPID #### [facility] [address] [address] [address] Kirit Moscoso VLDL CALC 14.2 mg/dL Normal [facility] Comment on above: Performed By: #### C RP, CMP, URIC, LIPID #### [facility] [address] [address] [address] Kirit Moscoso PROF 14(COMP METB)on 023 Albumin [Mass/Vol] 3.5 g/dL Normal 3.4-5.0 [facility] Comment on above: Performed By: #### C RP, CMP, URIC, LIPID #### [facility] [address] [address] [address] Kirit Moscoso Albumin/Globulin [Mass ratio] 0.8 {ratio} Normal [facility] Comment on above: Performed By: #### C RP, CMP, URIC, LIPID #### [facility] [address] [place] [address] Dr. Kirit Moscoso ALP [Catalytic activity/Vol] 109 U/L Normal 46-116 [facility] Comment on above: Performed By: #### C RP, CMP, URIC, LIPID #### [facility] [address] [place] [address] Dr. Kirit Moscoso ALT [Catalytic activity/Vol] 26 U/L Normal 14-59 [facility] Comment on above: Performed By: #### C RP, CMP, URIC, LIPID #### [facility] [address] [place] [address] Dr. Kirit Moscoso Anion gap [Moles/Vol] 11.3 mmol/L Normal [facility] Comment on above: Performed By: #### C RP, CMP, URIC, LIPID #### [facility] [address] [place] [address] Dr. Kirit Moscoso AST [Catalytic activity/Vol] 16 U/L Normal 15-37 [facility] Comment on above: Performed By: #### C RP, CMP, URIC, LIPID #### [facility] [address] [place] [address] Dr. Kirit Moscoso Bilirubin [Mass/Vol] 0.4 mg/dL Normal 0.2-1.0 [facility] Comment on above: Performed By: #### C RP, CMP, URIC, LIPID #### [facility] [address] [place] [address] Dr. Kirit Moscoso Calcium [Mass/Vol] 9.1 mg/dL Normal 8.5-10.1 [facility] Comment on above: Performed By: #### C RP, CMP, URIC, LIPID #### [facility] [address] [place] [address] Dr. Kirit Moscoso Chloride [Moles/Vol] 105 mmol/L Normal 98-107 [facility] Comment on above: Performed By: #### C RP, CMP, URIC, LIPID #### [facility] [address] [address] [address] Kirit Moscoso CO2 [Moles/Vol] 26.5 mmol/L Normal 21.0-32.0 [facility] Comment on above: Performed By: #### C RP, CMP, URIC, LIPID #### [facility] [address] [place] [address] Dr. Kirit Moscoso Creatinine [Mass/Vol] 0.97 mg/dL Normal 0.55-1.02 [facility] Comment on above: Performed By: #### C RP, CMP, URIC, LIPID #### [facility] [address] [address] [address] Kirit Moscoso EGFR-AF UZBEK >60 Normal >=60 [facility] Comment on above: Performed By: #### C RP, CMP, URIC, LIPID #### [facility] [address] [place] [address] Dr. Kirit Moscoso EGFR-NON AF UZBEK 60 mL/min/1.73m2 Normal >=60 [facility] Comment on above: Performed By: #### C RP, CMP, URIC, LIPID #### [facility] [address] [place] [address] Dr. Kirit Moscoso Globulin (S) [Mass/Vol] 4.3 g/dL Normal [facility] Comment on above: Performed By: #### C RP, CMP, URIC, LIPID #### [facility] [address] [place] [address] Dr. Kirit Moscoso Glucose [Mass/Vol] 96 mg/dL Normal 74-106 [facility] Comment on above: Performed By: #### C RP, CMP, URIC, LIPID #### [facility] [address] [place] [address] Dr. Kirit Moscoso Potassium [Moles/Vol] 4.1 mmol/L Normal 3.5-5.1 [facility] Comment on above: Performed By: #### C RP, CMP, URIC, LIPID #### [facility] [address] [place] [address] Dr. Kirit Moscoso Protein [Mass/Vol] 7.8 g/dL Normal 6.4-8.2 [facility] Comment on above: Performed By: #### C RP, CMP, URIC, LIPID #### [facility] [address] [address] [address] Kirit Moscoso Sodium [Moles/Vol] 139 mmol/L Normal 136-145 [facility] Comment on above: Performed By: #### C RP, CMP, URIC, LIPID #### [facility] [address] [address] [address] Kirit Moscoso Urea nitrogen [Mass/Vol] 19.0 mg/dL Critically high 7.0-18.0 [facility] Comment on above: Performed By: #### C RP, CMP, URIC, LIPID #### [facility] [address] [place] [address] Dr. Kirit Moscoso Urea nitrogen/Creatinine [Mass ratio] 19.6 mg/mg Normal [facility] Comment on above: Performed By: #### C RP, CMP, URIC, LIPID #### [facility] [address] [place] [address] Dr. Kirit Moscoso UA (CLEAN/CATCH) PASSENGER BRAKEMAN/MICRO I F IND.on 01-10-2023 Bilirubin Ql (U) Negative Normal NEGATIVE [facility] Comment on above: Performed By: #### C BC #### [facility] [address] [place] [address] Dr. Kirit Moscoso Clarity (U) CLEAR Normal CLEAR [facility] Comment on above: Performed By: #### C BC #### [facility] [address] [place] [address] Dr. Kirit Moscoso Color (U) LT. YELLOW Normal YELLOW [facility] Comment on above: Performed By: #### C BC #### [facility] [address] [place] [address] Dr. Kirit Moscoso Glucose Ql (U) Negative Normal NEGATIVE [facility] Comment on above: Performed By: #### C BC #### [facility] [address] [place] [address] Dr. Kirit Moscoso Hemoglobin Ql (U) Negative Normal NEGATIVE [facility] Comment on above: Performed By: #### C BC #### [facility] [address] [place] [address] Dr. Kirit Moscoso Ketones Ql (U) Negative Normal NEGATIVE [facility] Comment on above: Performed By: #### C BC #### [facility] [address] [place] [address] Dr. Kirit Moscoso LEUKOCYTES Negative Normal NEGATIVE [facility] Comment on above: Performed By: #### C BC #### [facility] [address] [place] [address] Dr. Kirit Moscoso Nitrite Ql (U) Negative Normal NEGATIVE [facility] Comment on above: Performed By: #### C BC #### [facility] [address] [place] [address] Dr. Kirit Moscoso pH (U) 5.5 [pH] Normal 5-9 [facility] Comment on above: Performed By: #### C BC #### [facility] [address] [place] [address] Dr. Kirit Moscoso SPEC GRAVITY 1.010 Normal 1.005-<=1.025 [facility] Comment on above: Performed By: #### C BC #### [facility] [address] [place] [address] Dr. Kirit Moscoso UA PROTEIN Negative Normal NEGATIVE/ TRACE [facility] Comment on above: Performed By: #### C BC #### [facility] [address] [place] [address] Dr. Kirit Moscoso UR MICRO IND NOT INDICATED Normal [facility] Comment on above: Performed By: #### C BC #### [facility] [address] [place] [address] Dr. Kirit Moscoso Urobilinogen Qn (U) 0.2 {Jose Juan'U}/dL Normal 0.2 - 1. 0 [facility] Comment on above: Performed By: #### C BC #### [facility] [address] [place] [address] Dr. Kirit Moscoso URIC ACID SERUMon 01-10-2023 Urate [Mass/Vol] 5.6 mg/dL Normal 2.6-6.0 [facility] Comment on above: Performed By: #### C RP, CMP, URIC, LIPID #### [facility] [address] [place] [address] Dr. Kirit Moscoso FREE THYROXINE INDEX T7on FTI 2.46 Normal 1.30-4.50 [facility] Comment on above: Performed By: #### T 7, TSH #### [facility] [address] [place] [address] Dr. Kirit Moscoso T3U 32.0 % Normal 30.0-39.0 [facility] Comment on above: Performed By: #### T 7, TSH #### [facility] [address] [place] [address] Dr. Kirit Moscoso T4 [Mass/Vol] 7.70 ug/dL Normal 4.80-13.90 [facility] Comment on above: Performed By: #### T 7, TSH #### [facility] [address] [place] [address] Dr. Kirit Moscoso TSHon 10-28-2022 TSH 2.263 uIU/mL Normal 0.358-3.740 [facility] Comment on above: Performed By: #### T 7, TSH #### [facility] [address] [place] [address] Dr. Kirit Moscoso FREE THYROXINE INDEX T7on FTI 3.30 Normal 1.30-4.50 [facility] Comment on above: Performed By: #### T 7, TSH #### [facility] [address] [place] [address] Dr. Kirit Moscoso T3U 34.0 % Normal 30.0-39.0 [facility] Comment on above: Performed By: #### T 7, TSH #### [facility] [address] [place] [address] Dr. Kirit Moscoso T4 [Mass/Vol] 9.70 ug/dL Normal 4.80-13.90 [facility] Comment on above: Performed By: #### T 7, TSH #### [facility] [address] [place] [address] Dr. Kirit Moscoso TSHon 04-16-2022 TSH 0.140 uIU/mL Critically low 0.358-3.740 [facility] Comment on above: Performed By: #### T 7, TSH #### [facility] [address] [place] [address] Dr. Kirit Moscoso TSH RANGE SEE BELOW Normal [facility] Comment on above: Result Comment: <0.3 4 UIU/ml HYPERTHYROID 0.34-5.60 UIU/ml EUTHYROID >5.60 UIU/ml HYPOTHYROID Performed By: #### T 7, TSH #### [facility] [address] [place] [address] Dr. Kirit Moscoso FREE T3on 02-27-2022 FREE T3 2.45 pg/mlL Critically low 2.77-5.27 [facility] Comment on above: Performed By: #### T 7, TSH #### [facility] [address] [place] [address] Dr. Kirit Moscoso T4on 02-27-2022 T4 [Mass/Vol] 7.00 ug/dL Normal 5.53-11.00 [facility] Comment on above: Performed By: #### T 7, TSH #### [facility] [address] [place] [address] Dr. Kirit Moscoso TSHon 02-27-2022 TSH 7.345 uIU/mL Critically high 0.470-4.680 [facility] Comment on above: Performed By: #### T 7, TSH #### [facility] [address] [place] [address] Dr. Kirit Moscoso TSH RANGE SEE BELOW Normal [facility] Comment on above: Result Comment: <0.3 4 UIU/ml HYPERTHYROID 0.34-5.60 UIU/ml EUTHYROID >5.60 UIU/ml HYPOTHYROID Performed By: #### T 7, TSH #### [facility] [address] [place] [address] Dr. Kirit Moscoso Vital Signs Date Time Vital Sign Value Performing Clinician Facility 02-27-2025 13:33-0400 Body height 160.02 cm [facility] 02-27-2025 13:33-0400 Body mass index (BMI) [Ratio] 34.5 kg/m2 [facility] 02-27-2025 13:33-0400 Body weight 88.45 kg [facility] 02-27-2025 13:33-0400 Diastolic blood pressure 68 mm[Hg] [facility] 02-27-2025 13:33-0400 Heart rate 58 /min [facility] 02-27-2025 13:33-0400 Systolic blood pressure 129 mm[Hg] [facility] 01-11-2025 15:44-0500 Body height 160 cm Lucien Guillen DPM Work Phone: [facility] 01-11-2025 15:44-0500 Body mass index (BMI) [Ratio] 34.54 kg/m2 Lucien Guillen DPM Work Phone: [facility] 01-11-2025 15:44-0500 Body weight 88.45 kg Lucien Brown DPM Work Phone: [facility] 01-11-2025 15:44-0500 Respiratory rate 18 /min Lucien Brown DPM Work Phone: [facility] 01-11-2025 08:12-0500 Body height 160 cm [facility] 01-11-2025 08:12-0500 Body mass index (BMI) [Ratio] 34.54 kg/m2 [facility] 01-11-2025 08:12-0500 Body weight 88.45 kg [facility] 01-11-2025 08:12-0500 Diastolic blood pressure 78 mm[Hg] [facility] 01-11-2025 08:12-0500 Systolic blood pressure 122 mm[Hg] [facility] 10-04-2024 13:08-0500 Body height 160.02 cm [facility] 10-04-2024 13:08-0500 Body mass index (BMI) [Ratio] 34.7 kg/m2 [facility] 10-04-2024 13:08-0500 Body temperature 98.2 [degF] [facility] 10-04-2024 13:08-0500 Body weight 88.9 kg [facility] 10-04-2024 13:08-0500 Diastolic blood pressure 88 mm[Hg] [facility] 10-04-2024 13:08-0500 Heart rate 81 /min [facility] 10-04-2024 13:08-0500 SaO2% (BldA) [Mass fraction] 96 % [facility] 10-04-2024 13:08-0500 Systolic blood pressure 128 mm[Hg] [facility] 05-04-2024 15:50-0400 Body height 160.02 cm [facility] 05-04-2024 15:50-0400 Body mass index (BMI) [Ratio] 35.4 kg/m2 [facility] 05-04-2024 15:50-0400 Body weight 90.71 kg [facility] 05-04-2024 15:50-0400 Diastolic blood pressure 82 mm[Hg] [facility] 05-04-2024 15:50-0400 Heart rate 71 /min [facility] 05-04-2024 15:50-0400 SaO2% (BldA) [Mass fraction] 98 % [facility] 05-04-2024 15:50-0400 Systolic blood pressure 120 mm[Hg] [facility] 11-20-2023 10:42-0500 Body height 160 cm [facility] 11-20-2023 10:42-0500 Body mass index (BMI) [Ratio] 34.76 kg/m2 [facility] 11-20-2023 10:42-0500 Body weight 89 kg [facility] 11-20-2023 10:42-0500 Diastolic blood pressure 76 mm[Hg] [facility] 11-20-2023 10:42-0500 Systolic blood pressure 128 mm[Hg] [facility] 06-29-2023 09:55-0400 Body height 160.02 cm Griselda Thao Other [facility] Other 06-29-2023 09:55-0400 Body mass index (BMI) [Ratio] 35.57 kg/m2 Griselda Keesha Other [facility] Other 06-29-2023 09:55-0400 Body temperature 97.6 [degF] Griselda Keesha Other [facility] Other 06-29-2023 09:55-0400 Body weight 91.08 kg Griselda Keesha Other [facility] Other 06-29-2023 09:55-0400 Diastolic blood pressure 74 mm[Hg] Griseldadavid Thao Other [facility] Other 06-29-2023 09:55-0400 Respiratory rate 18 /min Griselda Keesha Other [facility] Other 06-29-2023 09:55-0400 SaO2% (BldA) [Mass fraction] 98 % Griselda Keesha Other [facility] Other 06-29-2023 09:55-0400 Systolic blood pressure 126 mm[Hg] Griselda Thao Other [facility] Other Encounters Encounter Date Encounter Type Care Provider Facility Start: 02-27-2025 End: 02-27-2025 ambulatory [facility] Work Phone: Start: 02-27-2025 End: 02-27-2025 Patient encounter procedure [facility] Work Phone: Start: 2025 ambulatory MICHAEL YU [facility] Start: 02-20-2025 End: 02-20-2025 ambulatory [facility] Start: 01-12-2025 End: 01-12-2025 Orders Only 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 Work 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: [facility] Comment on [...] Start: 01-11-2025 End: 01-11-2025 [facility] Start: 01-11-2025 End: 01-11-2025 Periodic preventive med est patient 40-64yrs [facility] Field Secretary [facility] [place] Comment on above: Well woman exam with routine gynecological exam (Primary Dx); Encounter for screening mammogram for breast cancer; Standardized adult depression screening tool completed; Vaginal itching; Vaginal odor; Vaginal irritation Start: 01-11-2025 End: 01-11-2025 ambulatory [facility] Start: 01-11-2025 Encounter for gynecological examination (general) (routine) without abnormal findings [facility] Start: 12-24-2024 Non-patient / [facility] Work Phone: Start: 10-04-2024 End: 10-04-2024 ambulatory [facility] Work Phone: Start: 10-04-2024 End: 10-04-2024 Patient encounter procedure [facility] Work Phone: Start: 10-01-2024 Non-patient / Non-visit [facility] Work Phone: Start: 07-16-2024 Non-patient / Non-visit [facility] Work Phone: Start: 05-04-2024 End: 05-04-2024 ambulatory [facility] Work Phone: Start: 05-04-2024 End: 05-04-2024 Patient encounter procedure [facility] Work Phone: Start: 12-31-2023 End: 12-31-2023 ambulatory Imad Asaad Other [facility] Other Start: 12-31-2023 Telephone encounter Imad Asaad [facility] Start: 11-20-2023 End: 11-20-2023 Encounter for gynecological examination (general) (routine) without abnormal findings [facility] Field Secretary [facility] Start: 11-20-2023 End: 11-20-2023 Patient encounter procedure [facility] Field Secretary [facility] Work Phone: Start: 11-20-2023 End: 11-20-2023 Periodic preventive med est patient 40-64yrs [facility] Field Secretary [facility] Comment on above: Well woman exam with routine gynecological exam (Primary Dx); Cervical smear, as part of routine gynecological examination Start: 08-31-2023 End: 08-31-2023 ambulatory Tanisha Murrell Facility:[facility] Start: 06-29-2023 End: 06-29-2023 ambulatory Griselda Thao Other [facility] Other Start: 06-29-2023 Office outpatient vi sit 15 minutes Griselda Thao [facility] Start: 01-20-2023 End: 01-20-2023 ambulatory TANISHA P NYASIA Facility:[facility] Start: 01-16-2023 Encounter for genera l adult medical examination without abnormal findings TANISHA Kassandra MURRELL [facility] Start: 01-13-2023 End: 01-13-2023 ambulatory TANISHA P [...] Start: 01-11-2025 Adult depression scr eening assessment [facility] Field Secretary Start: 11-20-2023 Adult depression scr eening assessment [facility] Field Secretary Start: 11-20-2023 Microscopic observat ion [Identifier] in Cervix by Cyto stain [facility] Field Secretary Start: 05-04-2020 Mammography [facility] Midwi fe Plan of Treatment Date Care Activity Detail Author Start: 11-20-2026 Screening for malign ant neoplasm of cervix Pap Smear [facility] Start: 01-11-2026 Adult BMI Follow Up Plan Adult BMI Follow Up Plan [facility] Start: 01-11-2026 Adult BMI Screening Adult BMI Screen ing [facility] Start: 01-11-2026 Depression Screening Depression Scre ening [facility] Start: 01-11-2026 Tobacco Screening Tobacco Screening [facility] Start: 01-11-2025 End: 01-11-2025 Patient encounter procedure 01/11/2025 3:20 PM EST Office Visit [facility] [address] [place] [address] Lucien Guillen, DPM [address] [address] Arrived [facility] Comment on above: Arrived Start: 01-11-2025 End: 01-11-2026 DBT Breast - bilateral screening Mammography screening bilateral with CAD Imaging Routine Encounter for screening mammogram for breast cancer Expected: 01/11/2025, Expires: 01/11/2026 [employer] Work Phone: Comment on above: Expected: 01/11/2025 , Expires: 01/11/2026 Start: 11-20-2024 Adult BMI Follow Up Plan Adult BMI Follow Up Plan [facility] [employer] [facility] Start: 11-20-2024 Adult BMI Screening Adult BMI Screen ing [facility] [employer] [facility] Start: 11-20-2024 Depression Screening Depression Scre ening [facility] [employer] [facility] Start: 11-20-2024 Tobacco Screening Tobacco Screening [facility] [employer] [facility] Start: 07-31-2024 Influenza vaccination Influenza Vacc ine [facility] Start: 11-20-2023 End: 11-20-2024 Cytopathology procedure, preparation of smear, genital source Pap Smear Pathology and Cytology Routine Cervical smear, as part of routine gynecological examination Expected: 11/20/2023 (Approximate), Expires: 11/20/20[facility] Work Phone: Comment on above: Expected: 11/20/2023 (Approximate), Expires: 11/20/2024 Start: 07-31-2023 Influenza vaccination Influenza Vacc ine [facility] Start: 05-04-2021 Screening for malign ant neoplasm of breast Mammogram [facility] [employer] [facility] Start: 02-20-2018 Administration of varicella zoster vaccine Zoster (Shingles) Vaccine (1 of 2) [facility] Start: 02-20-1989 Screening for malign ant neoplasm of cervix Pap Smear [facility] Start: 02-20-1987 DTaP,Tdap and Td Vac cines (1 - Tdap) DTaP,Tdap and Td Vaccines (1 - Tdap) [facility] [employer] [facility] Start: 02-20-1986 Adult BMI Follow Up Plan Adult BMI Follow Up Plan [facility] [email or web address] End: 11-20-2024 High risk HPV w/jc High risk HPV w/jc Lab Routine Cervical smear, as part of routine gynecological examination 1 Occurrences starting 11/20/2023 until 11/20/2024 [facility] [email or web address] Comment on above: 1 Occurrences starti ng 11/20/2023 until 11/20/2024 T3 reverse measurement [facility] End: 01-11-2026 Vaginitis Panel PCR Vaginitis Panel PCR Microbiology Routine Vaginal itching Vaginal odor Vaginal irritation 1 Occurrences starting 01/11/2025 until 01/11/2026 [facility] Comment on above: 1 Occurrences starti ng 01/11/2025 until 01/11/[address] [facility] Immunizations Immunization Date Immunization Notes Care Provider Anika howard 09-29-2017 influenza virus vacc ine, unspecified formulation [facility] Field Secretary [facility] Payers Date Payer Category Payer Commercial Managed C are - O [employer] [id number] 2023 Private Health Insurance [employer] [id number] 2023 Unknown [id number] 2023 Self-pay 2022 Medicaid [employer] HMO [id number] 2022-Present [phone] [address] [place] [address] [id number] 2013 Private Health Insurance [id number] 1968 Unknown [id number] 2.16.840.1.927643.3.579.2. 593 1968 Unknown [id number] 2.16.840.1.891792.3.579.2. 593 1968 Unknown [id number] 2.16.840.1.218925.3.579.2. 593 1968 Unknown [id number] 2.16.840.1.127450.3.579.2. 593 1968 Unknown [id number] 2.16.840.1.497135.3.579.2. 593 1968 Unknown [id number] 2.16.840.1.634753.3.579.2. 593 1968 Unknown [id number] 2.16.840.1.164869.3.579.2. 593 1968 Unknown [id number] 2.16.840.1.295106.3.579.2. 593 1968 Unknown [id number] 2.16.840.1.787891.3.579.2. 1259 1968 Unknown [id number] 2.16.840.1.893808.3.579.2. 1286 1968 Unknown [id number] 2.16.840.1.475672.3.579.2. 1286 1968 Unknown [id number] 2.16.840.1.525906.3.579.2. 1286 1968 Unknown [id number] 2.16.840.1.664744.3.579.2. 1286 1968 Unknown [id number] 2.16.840.1.525118.3.579.2. 1286 1959 Unknown [id number] 1959 Unknown [id number] Unknown [id number] 2.16.840.1.270759.3.579.2. 531 Unknown O [id number] Unknown Ramer [id number] Social History Date Type Detail Facility Unknown if ever smoked [facility] Other Start: 01-10-2021 End: 11-20-2023 Sex Assigned At [employer] Other Start: 07-21-2023 End: 05-04-2024 Tobacco smoking status LAIS Never smoked tobacco (finding) [facility] Start: 1970 Sex Assigned At Female F [facility] Start: 10-28-2022 Tobacco smoking stat us LAIS Ex-smoker [facility] History of tobacco use Current smoker [facility] History of tobacco use Cigarette Smoker [facility] Start: 10-28-2022 End: 07-21-2023 Tobacco use and exposure Smokeless tobacco non-user [facility] Start: 11-20-2023 End: 01-11-2025 Alcohol intake Ex-drinker (finding) [facility] Start: 01-10-2021 End: 11-20-2023 History of Social function [facility] Adolescent depressio n screening assessment 7 [facility] Start: 02-11-2023 Gender identity Identifies as female gender (finding) [facility] Start: 07-31-2015 End: 02-27-2025 Sex Female (finding) [facility] Start: 07-24-2023 Alcohol Comment caffeine intak e: 2-3 cups per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
--- OUTSIDE RECORDS SUMMARY | 2025-07-15 10:06 | XMS_ITS | Clinical Summary ---
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
--- OUTSIDE RECORDS SUMMARY | 2025-07-15 10:06 | XMS_ITS | Patient Health Record ---
Author Organization [facility] [place] Address [address] [place] [address] Care Team Providers Care Matlab Developer Name Role Phone TANISHA MURRELL Primary Care Provider Tanisha Murrell Unavailable [phone] Allergies Allergen (clinical drug ingredient) Drug/Non Drug Allergy documented on EMR Reaction Allergy Type Onset Date Status NAC rash/ itchy Drug Allergy Activ e Substance with sulfonamide structure and antibacterial mechanism of action (substance) Sulfa Antibiotics Unknown Drug Allergy Active Results Component Value Reference Range Notes LIPID PROFILE Reviewed date:07/18/2024 12:42:23 PM Interpretation: Performing Lab: Notes/Report: [facility] , Triglycerides 141 <=150 mg/dL Cholesterol 221 [...] Performing Lab: see note ML - [facility] IRON AND TIBC Reviewed date:07/18/2024 12:42:23 PM Interpretation: Performing Lab: Notes/Report: [facility] , Iron 74.0 50.0-170.0 ug/dL Total Iron Binding Capacity 262.0 250.0-450.0 u g/dL Percent Iron Saturation 28.2 Performing Lab: see note ML - [facility] Reason For Referral No Information Medications [...] Problem Status W/U Status Risk Notes Problem 291375695 Gastric ulcer, unspecified as acute or chronic, without hemorrhage or perforation (K25.9) Active confirmed Problem Dysuria (88074298) Dysuria (R30.0) Active confi rmed Problem Weakness (76479328) Weakness (R53.1) Active con firmed Problem Hypertension (65071509) HTN (hypertension) (I10) Active confirmed Problem Hypothyroid (02655578) Hypothyroid (E03.9) Active confirmed Problem Hyperglycemia (18223194) Hyperglycemia (R73.9) Active confirmed Problem Arthritis (4692676) Arthritis (M19.90) Active confirmed Problem Heart murmur (58528078) Heart murmur (R01.1) Active confirmed Problem Internal hemorrhoid (02773204) Internal hemorrhoid (K64.8) Active confirmed Problem Diverticular disease of colon (543534794) Diverticulosis (K57.90) Active confirmed Problem Sinusitis (57218066) Sinusitis (J32.9) Active c onfirmed Problem Pain of right knee region (finding) (394314625807676) Knee pain, right (M25.561) Active confirmed Problem Tinnitus (18829839) Tinnitus (H93.19) Active co nfirmed Problem Chronic sinusitis (47661814) Chronic sinusitis (J32.9) Active confirmed Problem Colitis (48936385) Colitis (K52.9) Active confi rmed Problem Diverticulosis of colon (358510433) Diverticulosis of colon (K57.30) Active confirmed Problem Overweight (902633869) Over weight (E66.3) Active confirmed Problem Left lower quadrant pain (095378298) Abdominal pain, LLQ (R10.32) Active confirmed Problem Raised antinuclear antibody (796350326) SAGE positive (R76.8) Active confirmed Problem Shoulder pain (01596985) Pain in shoulder (M25.519) Active confirmed Problem 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) Active confirmed Problem Bilateral earache (finding) (790470674) Ear pain, bilateral (H92.03) Active confirmed Problem Annual wellness visit (641297221049061) Wellness examination (Z00.00) Active confirmed Problem Pruritus ani (06482904) Anal itching (L29.0) Active confirmed Problem Eruption of skin (627516182) Rash, skin (R21) Active confirmed Problem 76628299 Pure hypercholesterole kalpesh, unspecified (E78.00) Active confirmed Problem Mixed anxiety and depressive disorder (323672341) Anxiety and depression (F41.8) Active confirmed Encounters Encounter Location Date Provider Diagnosis [facility] [address] [place] [address] 07/18/2024 Tanisha Murrell Plan Of Treatment Pending Test Test Name Order Date CMP (COMPLETE METABOLIC PANEL) UA (URINALYSIS, COMPLETE) 08/17/2023 IRON, TOTAL 01/04/2024 US BLADDER PRE & POST VOID 07/02/2023 T3 FREE, T4 FREE and TSH 12/28/2023 T3 FREE, T4 FREE and TSH 01/04/2024 T3 FREE, T4 FREE and TSH 02/26/2024 UA DIP NONAUTO WO MICRO (74643) - IN OFF ICE 07/02/2023 URINE CULTURE [...] Coverage End Date MMO [address] [place], [place] [id number] Isa Musa Self - patient is the [...]
--- OUTSIDE RECORDS SUMMARY | 2025-07-15 10:06 | XMS_ITS | Clinical Summary ---
Author Organization [facility] Address [id number] [address] [place] [address] Care Team Providers Care National Sales Trainer Name Role Phone Cayla Orona Primary Care [...] 11:45 AM EDT ISIDRO ESTRADA ADRIEN 1970 [id number] EXAM: MAMM SCREENING BILATERAL W CAD, 02/20/2025 [...] 11:45 AM 1 b MAMM 1 YR [facility] Accredited Performing Facility: [facility] [address] [facility] [address] Procedure Note Joe Brown MD - 2025 ISIDRO MUSA 1970 [id number] EXAM: MAMM SCREENING BILATERAL W CAD, 02/20/2025 [...] 11:45 AM 1 b MAMM 1 YR [facility] Accredited Performing Facility: [facility] [address] [facility] [address] [place] Rashida Chong GRAPHICS PRODUCTION SPECIALIST-BALLING MACHINE OPERATOR IMG MAMMOGRAPHY ORDERABL ES Final Result * Pap Smear (11/20/2023 5:34 AM EST) 11/20/2023 5:34 AM EST 11/20/2023 5:35 AM EST Narrative COPATH - 12/01/2023 8:31 AM EST [facility] [address] [place] [address] Gynecologic Cytology Consultation Patient Name:ISIDRO MUSA:1970 (Age: 53)Gender:FTaken:11/20/2023Reported:12/01/2023hysician(s):Fela Wilson C.N.M. ([phone])Copy To: Rec. #:[id number]: #[id number] Final Cytologic Interpretation ThinPrep Pap Test (Cervical): Satisfactory for evaluation. A transformation zone component is present. NEGATIVE FOR INTRAEPITHELIAL LESION OR MALIGNANCY. [facility]/12/01/2023 Interpretation performed at [place] [address], License number: [id number]. Electronically Signed Out By AKILA Waters(ASCP) Date of Last Menstrual Period: (None Given) Other Clinical Conditions: Z01.419 Coordinate Measuring Equipment Operator exam wo/abn findings Menopausal Postmenopausal Source of Specimen ThinPrep Pap Test (Cervical) Thin Prep Pap (NET MENDER) Fee Code(s): G0145 us Fela Wilson APRN-CNM PATHOLOGY/CYTOLOGY ORDER MARLY Final Result COPATH from Last 3 Months or Most Recently Relevant to Health Maintenance Insurance [employer] Care Teams National Sales Trainer Relationship Specialty Start Date End Date Cayla Orona APRN-NP [address] [facility] [place] [address] [facility] - General 01/09/25
[2025-07-15 10:40] LABS: Cholesterol 200 mg/dL (<=200); HDL Cholesterol 43 mg/dL (40-60); Triglycerides 137 mg/dL (<=150); VLDL CHOLESTEROL 27.4 mg/dL
== END 2025-07-15 10:02 | disposition home or self-care (01) ==
PROVIDERS: PCP Nurse Practitioner Family; Visit Provider Nurse Practitioner Family
DX: Z00.00 Encounter for general adult medical examination without abnormal findings (principal); Z13.220 Encounter for screening for lipoid disorders
CPT/HCPCS: 36415; 80061

== ENCOUNTER 2025-07-15 10:02 | Outpatient (OUT) | payer OTHER, SELFPAY ==
--- OUTSIDE RECORDS SUMMARY | 2025-07-15 10:05 | XMS_ITS | CCD ---
Author Organization [facility] Care Team Providers Care Voice Professor Name Role Phone NYASIA, TANISHA P Admitting [...] Unavailable NYASIA, TANISHA P Admitting Unavailable NYASIA, ATNISHA P Attending Unavailable NYASIA, TANISHA P Primary Care Unavailable NYASIA, TANISHA P Consulting Unavailable HOY, LAUREN Admitting Unavailable HOY, LAUREN Attending Unavailable HOY, LAUREN Primary Care Unavailable NYAISA, TANISHA P Admitting Unavailable NYASIA, TANISHA P Attending Unavailable NYASIA, TANISHA P Primary Care Unavailable DR JUANI KNOX Consulting Unavailable NYASIA, TANISHA P Consulting Unavailable NYASIA, ATNISHA P Admitting Unavailable NYASIA, TANISHA P Attending Unavailable NYASIA, TANISHA P Primary Care Unavailable NYASIA, TANISHA P Consulting Unavailable Griselda Thao Unavailable Tanisha Murrell Primary Care Unavailable Asaad, Imad Attending Unavailable Asaad, Imad Admitting Unavailable Asaad, Imad Unavailable Lauren Lewis MD Primary Care Provider [phone] Cayla Brown Primary Care Provid er Unavailable [...] source) Sulfonamides (Antibiotic) Drug allergy (disorder) 7 [facility] Repository (5 sources) Substance with sulfonamide structure and antibacterial mechanism of action (substance) Drug allergy 3 Swelling, Rash [facility] Other (5 sources) Sulfonamides (Antibiotic) Drug allergy (disorder) 3 Rash [facility] Repository (13 sources) metroNIDAZOLE; Translations: [METRONIDAZOLE] Drug Allergy 1 Other (See Comments) [facility] (6 sources) Sulfanilamide; Translations: [SULFANILAMIDE] Drug Allergy 1 [facility], [facility] Current Medications Medication [...] 2023 12:00am take 1 capsule by mo [facility] in the morning cholecalciferol, vitamin D3, 2,000 [...] PO Daily October 04, 2024 1:00am thyroid (detention) 15 mg oral tablet (2 sources) take [...] 2024 3:52pm Magnesium Active polyethylene glycol 3350 [id number] mg / potassium chloride 2970 mg / sodium bicarbonate 6740 mg / sodium chloride 5860 mg / sodium sulfate 10843 mg powder for oral solution (2 sources) [...] 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 Normal [facility] Comment on above: Performed By: #### V PPCR #### [facility] ([id number]) [address] [place] [address], [address] [place] [address] Estimated glomerular filtrat ion rate (GFR) non- Americanon 12-24-2024 GFR/1.73 sq M.predicted among non-blacks MDRD (S/P/Bld) [Vol rate/Area] Estimated glomerular filtration rate (GFR) non- >=60 mL/min/1.73m 2 [facility] Globulin Calc (S) [Mass/Vol] on 12-24-2024 Globulin (S) [Mass/Vol] Serum globulin measurement by calculation (mass/volume) [facility] - Chemistry and C hemistry - challengeon 12-24-2024 Albumin [Mass/Vol] 3.4 g/dL 3.4-5.0 [facility] ALP [Catalytic activity/Vol] 141 U/L High 46-116 [facility] ALT [Catalytic activity/Vol] 23 U/L 14-59 [facility] AST [Catalytic activity/Vol] 27 U/L 15-37 [facility] Comment on above: SAMPLE SLIGHTLY HEMO LYZED Bilirubin [Mass/Vol] 0.5 mg/dL 0.2-1.0 [facility] Calcium [Mass/Vol] 9.4 mg/dL 8.5-10.1 [facility] Chloride [Moles/Vol] 105 mmol/L 98-107 [facility] CO2 [Moles/Vol] 26.7 mmol/L 21.0-32.0 [facility] Creatinine [Mass/Vol] 0.82 mg/dL 0.55-1.02 [facility] Free T4 [Mass/Vol] 0.81 ng/dL 0.76-1.46 [facility] GFR/1.73 sq M.predicted MDRD (S/P/Bld) [Vol rate/Area] mL/min/{1.73_m2} >=60 mL/min/1.73m 2 [facility] Glucose [Mass/Vol] 94 mg/dL 74-106 [facility] Potassium [Moles/Vol] 4.9 mmol/L 3.5-5.1 [facility] Comment on above: SAMPLE SLIGHTLY HEMO LYZED Protein [Mass/Vol] 7.7 g/dL 6.4-8.2 [facility] Sodium [Moles/Vol] 142 mmol/L 136-145 [facility] TSH Qn 0.142 m[IU]/L Low 0.358-3.740 [facility] Urea nitrogen [Mass/Vol] 14.0 mg/dL 7.0-18.0 [facility] Urea nitrogen/Creatinine [Mass ratio] 17.1 mg/mg [facility] No Panel Informationon 12-24 25-Hydroxy Vitamin D Total 38.2 ng/mL [facility] Comment on above: <20 ng/mL Vit D defi cient20-<30 ng/mL Vit D qtdboagdnixl36-261 ng/mL Vit D sufficient>100 ng/mL Potential Toxicity Free Triiodothyronine 6.16 pg/mL High 2.18-3.98 [facility] Serum or plasma albumin/glob ulin mass ratioon 12-24-2024 Albumin/Globulin [Mass ratio] Serum or plasma albumin/globulin mass ratio [facility] Serum or plasma anion gap de terminationon 12-24-2024 Anion gap [Moles/Vol] Serum or plasma an ion gap determination [facility] Estimated glomerular filtrat ion rate (GFR) non- Americanon 10-01-2024 GFR/1.73 sq M.predicted among non-blacks MDRD (S/P/Bld) [Vol rate/Area] mL/min/{1.73_m2} >=60 mL/min/1.73m 2 [facility] Globulin Calc (S) [Mass/Vol] on 10-01-2024 Globulin (S) [Mass/Vol] 4.1 g/dL [facility] - Chemistry and C hemistry - challengeon 10-01-2024 Albumin [Mass/Vol] 3.4 g/dL 3.4-5.0 [facility] ALP [Catalytic activity/Vol] 126 U/L High 46-116 [facility] ALT [Catalytic activity/Vol] 24 U/L 14-59 [facility] AST [Catalytic activity/Vol] 15 U/L 15-37 [facility] Bilirubin [Mass/Vol] 0.4 mg/dL 0.2-1.0 [facility] Calcium [Mass/Vol] 9.2 mg/dL 8.5-10.1 [facility] Chloride [Moles/Vol] 106 mmol/L 98-107 [facility] CO2 [Moles/Vol] 27.4 mmol/L 21.0-32.0 [facility] Creatinine [Mass/Vol] 0.84 mg/dL 0.55-1.02 [facility] Ferritin [Mass/Vol] 145.0 ng/mL 8.0-252.0 [facility] Free T4 [Mass/Vol] 0.76 ng/dL 0.76-1.46 [facility] GFR/1.73 sq M.predicted MDRD (S/P/Bld) [Vol rate/Area] mL/min/{1.73_m2} >=60 mL/min/1.73m 2 [facility] Glucose [Mass/Vol] 119 mg/dL High 74-106 [facility] Potassium [Moles/Vol] 3.7 mmol/L 3.5-5.1 [facility] Protein [Mass/Vol] 7.5 g/dL 6.4-8.2 [facility] Sodium [Moles/Vol] 145 mmol/L 136-145 [facility] TSH Qn 0.101 m[IU]/L Low 0.358-3.740 [facility] Urea nitrogen [Mass/Vol] 14.0 mg/dL 7.0-18.0 [facility] Urea nitrogen/Creatinine [Mass ratio] 16.7 mg/mg [facility] No Panel Informationon 10-01 25-Hydroxy Vitamin D Total 30.0 ng/mL [facility] Comment on above: <20 ng/mL Vit D defi cient20-<30 ng/mL Vit D xdvtyfmywmne12-831 ng/mL Vit D sufficient>100 ng/mL Potential Toxicity Serum or plasma albumin/glob ulin mass ratioon 10-01-2024 Albumin/Globulin [Mass ratio] 0.8 {ratio} [facility] Serum or plasma anion gap de terminationon 10-01-2024 Anion gap [Moles/Vol] 15.3 mmol/L [facility] Basophils Auto (Bld) [#/Vol] on 07-16-2024 Basophils (Bld) [#/Vol] 0.1 10 3/uL 0.0-0.1 [facility] Basophils/100 WBC Auto (Bld) on 07-16-2024 Basophils/100 WBC (Bld) 1.2 % 0.2-2.0 [facility] Cholesterol in LDL Calc [Mas s/Vol]on 07-16-2024 Cholesterol in LDL [Mass/Vol] 153.0 mg/dL [facility] Comment on above: <100 mg/dl [id number] 0-129 mg/dl NEAR OR ABOVE [id number] mg/dl BORDERLINE PIRC157-934 mg/dl HIGH>190 mg/dl VERY HIGH Cholesterol in VLDL Calc [Ma ss/Vol]on 07-16-2024 Cholesterol in VLDL [Mass/Vol] 28.2 mg/dL [facility] Eosinophils/100 WBC Auto (Bl d)on 07-16-2024 Eosinophils/100 WBC (Bld) 0.0 % Low 0.9-7.0 [facility] Erythrocyte distribution wid th Auto (RBC) [Ratio]on 07-16-2024 Erythrocyte distribution width (RBC) [Ratio] 13.2 % 11.0-15.0 [facility] Estimated glomerular filtrat ion rate (GFR) non- Americanon 07-16-2024 GFR/1.73 sq M.predicted among non-blacks MDRD (S/P/Bld) [Vol rate/Area] mL/min/{1.73_m2} >=60 [facility] Globulin Calc (S) [Mass/Vol] on 07-16-2024 Globulin (S) [Mass/Vol] 4.1 g/dL [facility] Hematocrit Auto (Bld) [Volum e fraction]on 07-16-2024 Hematocrit (Bld) [Volume fraction] 45.2 % 36.0-48.0 [facility] Hemoglobin [Mass/volume] in Bloodon 07-16-2024 Hemoglobin (Bld) [Mass/Vol] 15.1 g/dL 12.0-16.0 [facility] Iron binding capacity [Mass/ volume] in Serum or Plasmaon 07-16-2024 Iron binding capacity [Mass/Vol] 262.0 ug/dL 250.0-450.0 [facility] Iron saturation [Mass Fracti on] in Serum or Plasmaon 07-16-2024 Iron saturation [Mass fraction] 28.2 % [facility] - Chemistry and C hemistry - challengeon 07-16-2024 Albumin [Mass/Vol] 3.6 g/dL 3.4-5.0 [facility] ALP [Catalytic activity/Vol] 136 U/L High 46-116 [facility] ALT [Catalytic activity/Vol] 26 U/L 14-59 [facility] AST [Catalytic activity/Vol] 14 U/L Low 15-37 [facility] Bilirubin [Mass/Vol] 0.6 mg/dL 0.2-1.0 [facility] Calcium [Mass/Vol] 9.4 mg/dL 8.5-10.1 [facility] Chloride [Moles/Vol] 104 mmol/L 98-107 [facility] Cholesterol [Mass/Vol] 221 mg/dL High <=200 [facility] Cholesterol in HDL [Mass/Vol] 40 mg/dL 40-60 [facility] Comment on above: > or =60 mg/dl - LOW CARDIOVASCULAR RISK<40 mg/dl - HIGH CARDIOVASCULAR RISK CO2 [Moles/Vol] 28.2 mmol/L 21.0-32.0 [facility] Cobalamin (Vitamin B12) [Mass/Vol] 822.0 pg/mL 193.0-986.0 [facility] Creatinine [Mass/Vol] 0.78 mg/dL 0.55-1.02 [facility] Free T4 [Mass/Vol] 0.82 ng/dL 0.76-1.46 [facility] GFR/1.73 sq M.predicted MDRD (S/P/Bld) [Vol rate/Area] mL/min/{1.73_m2} >=60 [facility] Glucose [Mass/Vol] 92 mg/dL 74-106 [facility] Iron [Mass/Vol] 74.0 ug/dL 50.0-170.0 [facility] Potassium [Moles/Vol] 3.9 mmol/L 3.5-5.1 [facility] Protein [Mass/Vol] 7.7 g/dL 6.4-8.2 [facility] Sodium [Moles/Vol] 137 mmol/L 136-145 [facility] Triglyceride [Mass/Vol] 141 mg/dL <=150 [facility] TSH Qn 0.524 m[IU]/L 0.358-3.740 [facility] Urea nitrogen [Mass/Vol] 17.0 mg/dL 7.0-18.0 [facility] Urea nitrogen/Creatinine [Mass ratio] 21.8 mg/mg [facility] - Hematology and Cell countson 07-16-2024 Immature granulocytes/100 WBC (Bld) 0.2 % 0.0-0.5 [facility] Leukocytes [#/volume] correc cullen for nucleated erythrocytes in Blood by Automated counon 07-16-2024 WBC corrected for nucl RBC Auto (Bld) [#/Vol] 4.8 10 3/uL 4.0-11.0 [facility] Lymphocytes Auto (Bld) [#/Vo l]on 07-16-2024 Lymphocytes (Bld) [#/Vol] 1.5 10 3/uL 1.2-3.8 [facility] Lymphocytes/100 WBC Auto (Bl d)on 07-16-2024 Lymphocytes/100 WBC (Bld) 31.3 % 20.5-60.0 [facility] MCH Auto (RBC) [Entitic mass ]on 07-16-2024 MCH (RBC) [Entitic mass] 27.9 pg 26.7-34.0 [facility] MCHC Auto (RBC) [Mass/Vol]on 07-16-2024 MCHC (RBC) [Mass/Vol] 33.4 g/dL 29.9-35.2 [facility] MCV Auto (RBC) [Entitic vol] on 07-16-2024 MCV (RBC) [Entitic vol] 83.5 fL 81.0-99.0 [facility] Monocytes Auto (Bld) [#/Vol] on 07-16-2024 Monocytes (Bld) [#/Vol] 0.4 10 3/uL 0.3-0.8 [facility] Monocytes/100 WBC Auto (Bld) on 07-16-2024 Monocytes/100 WBC (Bld) 7.7 % 1.7-12.0 [facility] Neutrophils Auto (Bld) [#/Vo l]on 07-16-2024 Neutrophils (Bld) [#/Vol] 2.9 10 3/uL 1.4-6.5 [facility] Neutrophils/100 WBC Auto (Bl d)on 07-16-2024 Neutrophils/100 WBC (Bld) 59.6 % 43.0-75.0 [facility] No Panel Informationon 07-16 25-Hydroxy Vitamin D Total 25.2 ng/mL [facility] Comment on above: <20 ng/mL Vit D defi cient20-<30 ng/mL Vit D cmcnbidxvuuc55-231 ng/mL Vit D sufficient>100 ng/mL Potential Toxicity Eosinophils # (Auto) 0.0 10 3/uL 0.0-0.7 [facility] Free Triiodothyronine 5.22 pg/mL High 2.18-3.98 [facility] Immature Granulocyte # (Auto) 0.01 10 3/uL 0.00-0.03 [facility] Platelet mean volume Auto (B ld) [Entitic vol]on 07-16-2024 Platelet mean volume (Bld) [Entitic vol] 9.7 fL 9.5-13.5 [facility] Platelets Auto (Bld) [#/Vol] on 07-16-2024 Platelets (Bld) [#/Vol] 202 10 3/uL 150-450 [facility] RBC Auto (Bld) [#/Vol]on RBC (Bld) [#/Vol] 5.41 10 6/uL High 4.20-5.40 [facility] Serum or plasma albumin/glob ulin mass ratioon 07-16-2024 Albumin/Globulin [Mass ratio] 0.9 {ratio} [facility] Serum or plasma anion gap de terminationon 07-16-2024 Anion gap [Moles/Vol] 8.7 mmol/L [facility] Serum or plasma thyroperoxid ase antibody assay (units/volume)on 07-16-2024 TPO Ab Qn [IU]/mL 0-34 [facility] Comment on above: Performed at: [address] [id number] Director: Richardson Sethi PhD, Phone: [phone] Serum or plasma total choles terol/high density lipoprotein (HDL) cholesterol mass jeovanny 07-16-2024 Cholesterol.total/Cho lesterol in HDL [Mass ratio] 5.5 {ratio} [facility] Comment on above: 3.3 - 4.4 LOW RISK4. 4 - 7.1 AVERAGE RISK7.1 - 11.0 MODERATE RISK>11.0 HIGH RISK Dusty 08-31-2023 L - -------- Specimen: [id number] Received: 08/31/23 Status: GRECIA Mcclendonjake Num: [id number] Spec Type: Surgical Subm Dr: Danita Alfaro MD Tissues: A Small Intestine - Biopsy/Polyp (ILEUM BX) B Colon Biopsy (RT COLON BX) C Colon Biopsy (TRANSVERSE BX) D Colon Biopsy (DESCENDING) E Colon Biopsy (SIGMOID BX) F Colon Biopsy (RECTUM BX) Procedures: DAVID/Naun Peres/Johnnie L4/6 -------- Age/ Patient Sex Location Account Attending Physician -------- Isidro Musa 53/F [id number] Danita Alfaro MD -------- SPEC NUM: [id number] RECD: 08/31/23 STATUS: GRECIA DENT NUM: [id number] TOSIN: 08/31/23 DR: Danita Alfaro MD ENTERED: 08/31/[address] [facility] DR: SPEC TYPE: Surgical [...] other specific histopathological abnormality observed -------- Specimen: [id number] Received: 08/31/23 Status: GRECIA Dent Num: [id number] Spec Type: Surgical Subm Dr: Danita Alfaro MD Tissues: A Small Intestine - Biopsy/Polyp (ILEUM BX) B Colon Biopsy (RT COLON BX) C Colon Biopsy (TRANSVERSE BX) D Colon Biopsy (DESCENDING) E Colon Biopsy (SIGMOID BX) F Colon Biopsy (RECTUM BX) Procedures: , Gross/Micro L4/6 -------- Patient: Isidro Musa [id number] (Continued) -------- Specimen: [id number] Received: 08/31/23 (Continued) Pathological Diagnosis (Continued) Signed (signature on file) Roxann Moscoso MD 09/01/231717 -------- Specimen: [id number] Received: 08/31/23 Status: GRECIA Dent Num: [id number] Spec Type: Surgical Subm Dr: Danita Alfaro MD Tissues: A Small Intestine - Biopsy/Polyp (ILEUM BX) B Colon Biopsy (RT COLON BX) C Colon Biopsy (TRANSVERSE BX) D Colon Biopsy (DESCENDING) E Colon Biopsy (SIGMOID BX) F Colon Biopsy (RECTUM BX) Procedures: , Gross/Micro L4/6 -------- Patient: Isidro Musa [id number] (Continued) -------- Specimen: [id number] Received: 08/31/23114 (Continued) Pathological Diagnosis (Continued) E. [...] and transvers (more content not included)... Normal [facility] Covid-19 PCR (CVDTBH)on 01-01 SARS-CoV-2 (COVID-19) RNA CLARA+probe Ql (Unsp spec) Not detected Normal NOT DETECTED [facility] Comment on above: Result Comment: When diagnostic [...] for this test is supported by the [place] of Health and Human Service's declaration that [...] used). Performed By: #### C VDTB #### [facility] [address] [place] [address] Dr. Kirit Moscoso OVA AND PARASITE EXAMINATION on 01-19-2023 Ova + Parasite Exam Final report Normal [facility] Comment on above: Result Comment: Thes e results were obtained using wet preparation(s) and trichrome stained smear. This test does not include testing for Cryptosporidium parvum, Cyclospora, or Microsporidia. Performed By: #### C BC #### [facility] [address] [place] [address] Dr. Kirit Moscoso Result 1 Comment Normal [facility] Comment on above: Result Comment: No o va, cysts, or parasites seen. . One negative specimen does not rule out the possibility of a parasitic infection. Performed By: #### C BC #### [facility] [address] [address] [address] Kirit Moscoso SAGE by IFAon 01-16-2023 Antinuclear Antibodies, IFA Positive Abnormal [facility] Comment on above: Result Comment: Nega tive <1:80 Borderline 1:80 Positive >1:80 Performed By: #### T 7, TSH #### [facility] [address] [address] [address] Kirit Moscoso Centriole Pattern Normal [facility] Comment on above: Performed By: #### T 7, TSH #### [facility] [address] [address] [address] Kirit Moscoso Centromere Pattern Normal [facility] Comment on above: Performed By: #### T 7, TSH #### [facility] [address] [address] [address] Kirit Moscoso Homogeneous Pattern 1:640 Critically high [facility] Comment on above: Result Comment: ICAP nomenclature: AC-1 Performed By: #### T 7, TSH #### [facility] [address] [address] [address] Kirit Moscoso Midbody Pattern Normal [facility] Comment on above: Performed By: #### T 7, TSH #### [facility] [address] [address] [address] Kirit Moscoso Note: Comment Normal [facility] Comment on above: Result Comment: For more [...] titers Nucleosomes, Histones Drug-induced SLE Speckled Sm, HOME COORDINATOR, SCL-70, SLE,MCTD,PSS (diffuse form), SS-A/SS-B Sjogrens Nucleolar SCL-70, PM-1/SCL High titers Scleroderma, PM/DM Centromere Centromere PSS (limited form) w/Crest syndrome variable Nuclear Dot Sp100,[id number]-yawdif Primary Biliary Cirrhosis Nuclear GP210, Primary Biliary Cirrhosis Membrane missy A,B,C Performed By: #### T 7, TSH #### [facility] [address] [place] [address] Dr. Kirit Moscoso Nuclear Dot Pattern Normal The [facility] Comment on above: Performed By: #### T 7, TSH #### [facility] [address] [address] [address] Kirit Moscoso Nuclear Membrane Pattern Normal [facility] Comment on above: Performed By: #### T 7, TSH #### [facility] [address] [address] [address] Kirit Moscoso Nucleolar Pattern Normal [facility] Comment on above: Performed By: #### T 7, TSH #### [facility] [address] [place] [address] Dr. Kirit Moscoso PCNA Pattern Normal [facility] Comment on above: Performed By: #### T 7, TSH #### [facility] [address] [place] [address] Dr. Kirit Moscoso Speckled Pattern Normal [facility] Comment on above: Performed By: #### T 7, TSH #### [facility] [address] [address] [address] Kirit Moscoso Spindle Apparatus Pattern Normal [facility] Comment on above: Performed By: #### T 7, TSH #### [facility] [address] [place] [address] Dr. Kirit Moscoso GI PANEL (PCR)on 01-13-2023 Adenovirus F 40/41 Not detected Normal NOT DETECTED [facility] Comment on above: Performed By: #### T 7, TSH #### [facility] [address] [place] [address] Dr. Kirit Moscoso Astrovirus Not detected Normal NOT DETECTED [facility] Comment on above: Performed By: #### T 7, TSH #### [facility] [address] [place] [address] Dr. Kirit Sol Diff toxin A/B Not detected Normal NOT DETECTED [facility] Comment on above: Performed By: #### T 7, TSH #### [facility] [address] [place] [address] Dr. Kirit Moscoso Campylobacter Not detected Normal NOT DETECTED [facility] Comment on above: Performed By: #### T 7, TSH #### [facility] [address] [place] [address] Dr. Kirit Moscoso Cryptosporidium Not detected Normal NOT DETECTED The [facility] Comment on above: Performed By: #### T 7, TSH #### [facility] [address] [place] [address] Dr. Kirit Moscoso Cyclos. Cayetanensis Not detected Normal NOT DETECTED [facility] Comment on above: Performed By: #### T 7, TSH #### [facility] [address] [place] [address] Dr. Kirit Moscoso E. Coli O157 Not Applicable Normal Not Applicable [facility] Comment on above: Performed By: #### T 7, TSH #### [facility] [address] [place] [address] Dr. Kirit Moscoso E. histolytica Not detected Normal NOT DETECTED [facility] Comment on above: Performed By: #### T 7, TSH #### [facility] [address] [place] [address] Dr. Kirit Moscoso EAEC Not detected Normal NOT DETECTED [facility] Comment on above: Performed By: #### T 7, TSH #### [facility] [address] [place] [address] Dr. Kirit Moscoso EIEC Not detected Normal NOT DETECTED [facility] Comment on above: Performed By: #### T 7, TSH #### [facility] [address] [place] [address] Dr. Kirit Moscoso EPEC Not detected Normal NOT DETECTED [facility] Comment on above: Performed By: #### T 7, TSH #### [facility] [address] [place] [address] Dr. Kirit Moscoso ETEC Not detected Normal NOT DETECTED [facility] Comment on above: Performed By: #### T 7, TSH #### [facility] [address] [place] [address] Dr. Kirit Moscoso G. Lamblia Not detected Normal NOT DETECTED [facility] Comment on above: Performed By: #### T 7, TSH #### [facility] [address] [place] [address] Dr. Kirit SINGHL CONTROLS PASSED Normal [facility] Comment on above: Performed By: #### T 7, TSH #### [facility] [address] [place] [address] Dr. Kirit DAVIS COLLEEN HEADER GI PANEL BACTERIA Normal [facility] Comment on above: Performed By: #### T 7, TSH #### [facility] [address] [place] [address] Dr. Kirit SHARPE ECOLI GI PANEL DIARRHEAGENIC E.COLI / SHIGELLA Normal [facility] [facility] Comment on above: Performed By: #### T 7, TSH #### [facility] [address] [address] [address] Kirit SHARPE INFO SEE BELOW Normal The [facility] Comment on above: Result Comment: EAEC - Enteroaggregative E. Coli EPEC- Enteropathogenic E. Coli ETEC- Enterotoxigenic E. Coli lt/st STEC- Shigella-like toxin-producing E. Coli stx1/stx2 EIEC- Shigella/Enteroinvasive E. Coli Performed By: #### T 7, TSH #### [facility] [address] [address] [address] Kirit SHARPE PARASITES GI PANEL PARASITES Normal The [facility] Comment on above: Performed By: #### T 7, TSH #### [facility] [address] [address] [address] Kirit SHARPE VIRUS GI PANEL VIRUSES Normal The [facility] Comment on above: Performed By: #### T 7, TSH #### [facility] [address] [address] [address] Kirit Moscoso Norovirus GI/GII Not detected Normal NOT DETECTED The [facility] Comment on above: Performed By: #### T 7, TSH #### [facility] [address] [address] [address] Kirit Moscoso P. Shigelloides Not detected Normal NOT DETECTED The [facility] Comment on above: Performed By: #### T 7, TSH #### [facility] [address] [place] [address] Dr. Kirit Moscoso Rotavirus A Not detected Normal NOT DETECTED The [facility] Comment on above: Performed By: #### T 7, TSH #### [facility] [address] [address] [address] Kirit Moscoso Salmonella Not detected Normal NOT DETECTED The [facility] Comment on above: Performed By: #### T 7, TSH #### [facility] [address] [place] [address] Dr. Kirit Moscoso Sapovirus Not detected Normal NOT DETECTED The [facility] Comment on above: Performed By: #### T 7, TSH #### [facility] [address] [place] [address] Dr. Kirit Moscoso STEC Not detected Normal NOT DETECTED The [facility] Comment on above: Performed By: #### T 7, TSH #### [facility] [address] [place] [address] Dr. Kirit Moscoso Vibrio Not detected Normal NOT DETECTED The [facility] Comment on above: Performed By: #### T 7, TSH #### [facility] [address] [place] [address] Dr. Kirit Moscoso Vibrio Cholera Not detected Normal NOT DETECTED The [facility] Comment on above: Performed By: #### T 7, TSH #### [facility] [address] [place] [address] Dr. Kirit Moscoso Y. Enterocolitica Not detected Normal NOT DETECTED The [facility] Comment on above: Performed By: #### T 7, TSH #### [facility] [address] [place] [address] Dr. Kirit Moscoso INSULINon 01-12-2023 Insulin 23.6 uIU/mL Normal 2.6-24.9 [facility] Comment on above: Performed By: #### T 7, TSH #### [facility] [address] [place] [address] Dr. Kirit Moscoso ANTISTREPTOLYSIN O AB (ASO)o n 01-11-2023 Antistreptolysin O Ab 70.3 IU/mL Normal 0.0-200.0 [facility] Comment on above: Performed By: #### A SOAB #### [facility] [address] [place] [address] Dr. Kirit Moscoso RHEUMATOID FACTORon 01-11-20 RA Latex Turbid. <10.0 Normal <14.0 [facility] Comment on above: Performed By: #### R F #### [facility] [address] [place] [address] Dr. Kirit Moscoso CBC AUTO DIFFon 01-10-2023 BASO # 0.1 103/ul Normal 0.0-0.1 [facility] Comment on above: Performed By: #### C BC #### [facility] [address] [place] [address] Dr. Kirit Moscoso Basophils/100 WBC (Bld) 1.2 % Normal 0.2-2.0 [facility] Comment on above: Performed By: #### C BC #### [facility] [address] [place] [address] Dr. Kirit Moscoso EO # 0.0 103/ul Normal 0.0-0.7 [facility] Comment on above: Performed By: #### C BC #### [facility] [address] [place] [address] Dr. Kirit Moscoso Eosinophils/100 WBC (Bld) 0.0 % Critically low 0.9-7.0 [facility] Comment on above: Performed By: #### C BC #### [facility] [address] [place] [address] Dr. Kirit Moscoso Erythrocyte distribution width (RBC) [Ratio] 13.6 % Normal 11.0-15.0 [facility] Comment on above: Performed By: #### C BC #### [facility] [address] [place] [address] Dr. Kirit Moscoso Hematocrit (Bld) [Volume fraction] 44.2 % Normal 36.0-48.0 [facility] Comment on above: Performed By: #### C BC #### [facility] [address] [place] [address] Dr. Kirit Moscoso Hemoglobin (Bld) [Mass/Vol] 14.2 g/dL Normal 12.0-16.0 [facility] Comment on above: Performed By: #### C BC #### [facility] [address] [place] [address] Dr. Kirit Moscoso IG # 0.02 10e3/ul Normal 0.00-0.03 [facility] Comment on above: Performed By: #### C BC #### [facility] [address] [place] [address] Dr. Kirit Moscoso IG % 0.3 % Normal 0.0-0.5 [facility] Comment on above: Performed By: #### C BC #### [facility] [address] [place] [address] Dr. Kirit Moscoso LYMPH # 1.5 103/ul Normal 1.2-3.8 [facility] Comment on above: Performed By: #### C BC #### [facility] [address] [place] [address] Dr. Kirit Moscoso Lymphocytes/100 WBC (Bld) 22.7 % Normal 20.5-60.0 [facility] Comment on above: Performed By: #### C BC #### [facility] [address] [place] [address] Dr. Kirit Moscoso MANUAL DIFF REQ NO Normal [facility] Comment on above: Performed By: #### C BC #### [facility] [address] [place] [address] Dr. Kirit Moscoso MCH (RBC) [Entitic mass] 27.8 pg Normal 26.7-34.0 [facility] Comment on above: Performed By: #### C BC #### [facility] [address] [place] [address] Dr. Kirit Moscoso MCHC (RBC) [Mass/Vol] 32.1 g/dL Normal 29.9-35.2 [facility] Comment on above: Performed By: #### C BC #### [facility] [address] [place] [address] Dr. Kirit Moscoso MCV (RBC) [Entitic vol] 86.5 fL Normal 81.0-99.0 [facility] Comment on above: Performed By: #### C BC #### [facility] [address] [place] [address] Dr. Kirit Moscoso MONO # 0.5 103/ul Normal 0.3-0.8 [facility] Comment on above: Performed By: #### C BC #### [facility] [address] [place] [address] Dr. Kirit Moscoso Monocytes/100 WBC (Bld) 7.3 % Normal 1.7-12.0 [facility] Comment on above: Performed By: #### C BC #### [facility] [address] [address] [address] Kirit Moscoso NEUT # 4.5 103/ul Normal 1.4-6.5 [facility] Comment on above: Performed By: #### C BC #### [facility] [address] [address] [address] Kirit Moscoso Neutrophils/100 WBC (Bld) 68.5 % Normal 43.0-75.0 [facility] Comment on above: Performed By: #### C BC #### [facility] [address] [address] [address] Kirit Moscoso Platelet mean volume (Bld) [Entitic vol] 10.2 fL Normal 9.5-13.5 [facility] Comment on above: Performed By: #### C BC #### [facility] [address] [address] [address] Kriit Moscoso PLT 250 103/ul Normal 150-450 [facility] Comment on above: Performed By: #### C BC #### [facility] [address] [address] [address] Kirit Moscoso RBC 5.11 106/ul Normal 4.20-5.40 [facility] Comment on above: Performed By: #### C BC #### [facility] [address] [address] [address] Kirit Moscoso WBC 6.6 103/ul Normal 4.0-11.0 [facility] Comment on above: Performed By: #### C BC #### [facility] [address] [address] [address] Kirit Moscoso CRPon 01-10-2023 CRP 1.2 mg/dL Critically high <=1.0 [facility] Comment on above: Performed By: #### C RP, CMP, URIC, LIPID #### [facility] [address] [address] [address] Kirit Moscoso GLYCOHEMOGLOBIN A1Con 2022 ADA RECOMMENDATION SEE BELOW Normal The [facility] Comment on above: Result Comment: ADA RECOMMENDED LIMIT 4.0 - 6.0 ADA THERAPEUTIC TARGET < 7.0 ACTION SUGGESTED > 7.0 Performed By: #### T 7, TSH #### [facility] [address] [address] [address] Kirit Moscoso Glucose [Mass/Vol] 114 mg/dL Normal [facility] Comment on above: Performed By: #### T 7, TSH #### [facility] [address] [address] [address] Kirit Moscoso HbA1c (Bld) [Mass fraction] 5.6 % Normal 4.5-6.2 [facility] Comment on above: Performed By: #### T 7, TSH #### [facility] [address] [place] [address] Dr. Kirit Moscoso IRONon 01-10-2023 Iron [Mass/Vol] 59.0 ug/dL Normal 50.0-170.0 [facility] Comment on above: Performed By: #### C BC #### [facility] [address] [place] [address] Dr. Kirit Moscoso LIPID PROFILEon 01-10-2023 CHOL-HDL RATIO NORM SEE BELOW Normal [facility] Comment on above: Result Comment: 3.3 - 4.4 LOW RISK 4.4 - 7.1 AVERAGE RISK 7.1 - 11.0 MODERATE RISK >11.0 HIGH RISK Performed By: #### C RP, CMP, URIC, LIPID #### [facility] [address] [address] [address] Kirit Moscoso Cholesterol [Mass/Vol] 188 mg/dL Normal <=200 [facility] Comment on above: Performed By: #### C RP, CMP, URIC, LIPID #### [facility] [address] [address] [address] Kirit Moscoso Cholesterol in HDL [Mass/Vol] 45 mg/dL Normal 40-60 [facility] Comment on above: Performed By: #### C RP, CMP, URIC, LIPID #### [facility] [address] [address] [address] Kirit Moscoso Cholesterol in LDL [Mass/Vol] 129.0 mg/dL Normal [facility] Comment on above: Performed By: #### C RP, CMP, URIC, LIPID #### [facility] [address] [address] [address] Kirit Moscoso Cholesterol.total/Cho lesterol in HDL [Mass ratio] 4.2 {ratio} Normal [facility] Comment on above: Performed By: #### C RP, CMP, URIC, LIPID #### [facility] [address] [address] [address] Kirit Moscoso HDL NORMAL > or = 60 mg/dl - LO W CARDIOVASCULAR RISK <40 mg/dl - HIGH CARDIOVASCULAR RISK Normal [facility] Comment on above: Performed By: #### C RP, CMP, URIC, LIPID #### [facility] [address] [address] [address] Kirit Moscoso LDL CALC NORMAL SEE BELOW Normal [facility] Comment on above: Result Comment: <100 mg/dl OPTIMAL 100 - 129 mg/dl NEAR OR ABOVE OPTIMAL 130 - 159 mg/dl BORDERLINE HIGH 160 - 189 mg/dl HIGH >190 mg/dl VERY HIGH Performed By: #### C RP, CMP, URIC, LIPID #### [facility] [address] [address] [address] Kirit Moscoso Triglyceride [Mass/Vol] 71 mg/dL Normal <=150 [facility] Comment on above: Performed By: #### C RP, CMP, URIC, LIPID #### [facility] [address] [address] [address] Kirit Moscoso VLDL CALC 14.2 mg/dL Normal [facility] Comment on above: Performed By: #### C RP, CMP, URIC, LIPID #### [facility] [address] [address] [address] Kirit Moscoso PROF 14(COMP METB)on 023 Albumin [Mass/Vol] 3.5 g/dL Normal 3.4-5.0 [facility] Comment on above: Performed By: #### C RP, CMP, URIC, LIPID #### [facility] [address] [address] [address] Kirit Moscoso Albumin/Globulin [Mass ratio] 0.8 {ratio} Normal [facility] Comment on above: Performed By: #### C RP, CMP, URIC, LIPID #### [facility] [address] [place] [address] Dr. Kirit Moscoso ALP [Catalytic activity/Vol] 109 U/L Normal 46-116 [facility] Comment on above: Performed By: #### C RP, CMP, URIC, LIPID #### [facility] [address] [place] [address] Dr. Kirit Moscoso ALT [Catalytic activity/Vol] 26 U/L Normal 14-59 [facility] Comment on above: Performed By: #### C RP, CMP, URIC, LIPID #### [facility] [address] [place] [address] Dr. Kirit Moscoso Anion gap [Moles/Vol] 11.3 mmol/L Normal [facility] Comment on above: Performed By: #### C RP, CMP, URIC, LIPID #### [facility] [address] [place] [address] Dr. Kirit Moscoso AST [Catalytic activity/Vol] 16 U/L Normal 15-37 [facility] Comment on above: Performed By: #### C RP, CMP, URIC, LIPID #### [facility] [address] [place] [address] Dr. Kirit Moscoso Bilirubin [Mass/Vol] 0.4 mg/dL Normal 0.2-1.0 [facility] Comment on above: Performed By: #### C RP, CMP, URIC, LIPID #### [facility] [address] [place] [address] Dr. Kirit Moscoso Calcium [Mass/Vol] 9.1 mg/dL Normal 8.5-10.1 [facility] Comment on above: Performed By: #### C RP, CMP, URIC, LIPID #### [facility] [address] [place] [address] Dr. Kirit Moscoso Chloride [Moles/Vol] 105 mmol/L Normal 98-107 [facility] Comment on above: Performed By: #### C RP, CMP, URIC, LIPID #### [facility] [address] [address] [address] Kirit Moscoso CO2 [Moles/Vol] 26.5 mmol/L Normal 21.0-32.0 [facility] Comment on above: Performed By: #### C RP, CMP, URIC, LIPID #### [facility] [address] [place] [address] Dr. Kirit Moscoso Creatinine [Mass/Vol] 0.97 mg/dL Normal 0.55-1.02 [facility] Comment on above: Performed By: #### C RP, CMP, URIC, LIPID #### [facility] [address] [address] [address] Kirit Moscoso EGFR-AF MALIAN >60 Normal >=60 [facility] Comment on above: Performed By: #### C RP, CMP, URIC, LIPID #### [facility] [address] [place] [address] Dr. Kirit Moscoso EGFR-NON AF MALIAN 60 mL/min/1.73m2 Normal >=60 [facility] Comment on above: Performed By: #### C RP, CMP, URIC, LIPID #### [facility] [address] [place] [address] Dr. Kirit Moscoso Globulin (S) [Mass/Vol] 4.3 g/dL Normal [facility] Comment on above: Performed By: #### C RP, CMP, URIC, LIPID #### [facility] [address] [place] [address] Dr. Kirit Moscoos Glucose [Mass/Vol] 96 mg/dL Normal 74-106 [facility] Comment on above: Performed By: #### C RP, CMP, URIC, LIPID #### [facility] [address] [place] [address] Dr. Kirit Moscoso Potassium [Moles/Vol] 4.1 mmol/L Normal 3.5-5.1 [facility] Comment on above: Performed By: #### C RP, CMP, URIC, LIPID #### [facility] [address] [place] [address] Dr. Kirit Moscoso Protein [Mass/Vol] 7.8 g/dL Normal 6.4-8.2 [facility] Comment on above: Performed By: #### C RP, CMP, URIC, LIPID #### [facility] [address] [address] [address] Kirit Moscoso Sodium [Moles/Vol] 139 mmol/L Normal 136-145 [facility] Comment on above: Performed By: #### C RP, CMP, URIC, LIPID #### [facility] [address] [address] [address] Kirit Moscoso Urea nitrogen [Mass/Vol] 19.0 mg/dL Critically high 7.0-18.0 [facility] Comment on above: Performed By: #### C RP, CMP, URIC, LIPID #### [facility] [address] [place] [address] Dr. Kirit Moscoso Urea nitrogen/Creatinine [Mass ratio] 19.6 mg/mg Normal [facility] Comment on above: Performed By: #### C RP, CMP, URIC, LIPID #### [facility] [address] [place] [address] Dr. Kirit Moscoso UA (CLEAN/CATCH) SPEECH AND HEARING DIRECTOR/MICRO I F IND.on 01-10-2023 Bilirubin Ql (U) Negative Normal NEGATIVE [facility] Comment on above: Performed By: #### C BC #### [facility] [address] [place] [address] Dr. Kirit Moscoso Clarity (U) CLEAR Normal CLEAR [facility] Comment on above: Performed By: #### C BC #### [facility] [address] [place] [address] Dr. Kirit Moscoso Color (U) LT. YELLOW Normal YELLOW [facility] Comment on above: Performed By: #### C BC #### [facility] [address] [place] [address] Dr. Kirit Moscoso Glucose Ql (U) Negative Normal NEGATIVE [facility] Comment on above: Performed By: #### C BC #### [facility] [address] [place] [address] Dr. Kirit Moscoso Hemoglobin Ql (U) Negative Normal NEGATIVE [facility] Comment on above: Performed By: #### C BC #### [facility] [address] [place] [address] Dr. Kirit Moscoso Ketones Ql (U) Negative Normal NEGATIVE [facility] Comment on above: Performed By: #### C BC #### [facility] [address] [place] [address] Dr. Kirit Moscoso LEUKOCYTES Negative Normal NEGATIVE [facility] Comment on above: Performed By: #### C BC #### [facility] [address] [place] [address] Dr. Kirit Moscoso Nitrite Ql (U) Negative Normal NEGATIVE [facility] Comment on above: Performed By: #### C BC #### [facility] [address] [place] [address] Dr. Kirit Moscoso pH (U) 5.5 [pH] Normal 5-9 [facility] Comment on above: Performed By: #### C BC #### [facility] [address] [place] [address] Dr. Kirit Moscoso SPEC GRAVITY 1.010 Normal 1.005-<=1.025 [facility] Comment on above: Performed By: #### C BC #### [facility] [address] [place] [address] Dr. Kirit Moscoso UA PROTEIN Negative Normal NEGATIVE/ TRACE [facility] Comment on above: Performed By: #### C BC #### [facility] [address] [place] [address] Dr. Kirit Moscoso UR MICRO IND NOT INDICATED Normal [facility] Comment on above: Performed By: #### C BC #### [facility] [address] [place] [address] Dr. Kirit Moscoso Urobilinogen Qn (U) 0.2 {Jose Juan'U}/dL Normal 0.2 - 1. 0 [facility] Comment on above: Performed By: #### C BC #### [facility] [address] [place] [address] Dr. Kirit Moscoso URIC ACID SERUMon 01-10-2023 Urate [Mass/Vol] 5.6 mg/dL Normal 2.6-6.0 [facility] Comment on above: Performed By: #### C RP, CMP, URIC, LIPID #### [facility] [address] [place] [address] Dr. Kirit Moscoso FREE THYROXINE INDEX T7on FTI 2.46 Normal 1.30-4.50 [facility] Comment on above: Performed By: #### T 7, TSH #### [facility] [address] [place] [address] Dr. Kirit Moscoso T3U 32.0 % Normal 30.0-39.0 [facility] Comment on above: Performed By: #### T 7, TSH #### [facility] [address] [place] [address] Dr. Kirit Moscoso T4 [Mass/Vol] 7.70 ug/dL Normal 4.80-13.[address] [facility] Comment on above: Performed By: #### T 7, TSH #### [facility] [address] [place] [address] Dr. Kirit Moscoso TSHon 10-28-2022 TSH 2.263 uIU/mL Normal 0.358-3.[address] [facility] Comment on above: Performed By: #### T 7, TSH #### [facility] [address] [place] [address] Dr. Kirit Moscoso FREE THYROXINE INDEX T7on FTI 3.30 Normal 1.30-4.50 [facility] Comment on above: Performed By: #### T 7, TSH #### [facility] [address] [place] [address] Dr. Kirit Moscoso T3U 34.0 % Normal 30.0-39.0 [facility] Comment on above: Performed By: #### T 7, TSH #### [facility] [address] [place] [address] Dr. Kirit Moscoso T4 [Mass/Vol] 9.70 ug/dL Normal 4.80-13.[address] [facility] Comment on above: Performed By: #### T 7, TSH #### [facility] [address] [place] [address] Dr. Kirit Moscoso TSHon 04-16-2022 TSH 0.140 uIU/mL Critically low 0.358-3.740 [facility] Comment on above: Performed By: #### T 7, TSH #### [facility] [address] [place] [address] Dr. Kirit Moscoso TSH RANGE SEE BELOW Normal [facility] Comment on above: Result Comment: <0.3 4 UIU/ml HYPERTHYROID 0.34-5.60 UIU/ml EUTHYROID >5.60 UIU/ml HYPOTHYROID Performed By: #### T 7, TSH #### [facility] [address] [place] [address] Dr. Kirit Moscoso FREE T3on 02-27-2022 FREE T3 2.45 pg/mlL Critically low 2.77-5.27 [facility] Comment on above: Performed By: #### T 7, TSH #### [facility] [address] [place] [address] Dr. Kirit Moscoso T4on 02-27-2022 T4 [Mass/Vol] 7.00 ug/dL Normal 5.53-11.[address] [facility] Comment on above: Performed By: #### T 7, TSH #### [facility] [address] [place] [address] Dr. Kirit Moscoso TSHon 02-27-2022 TSH 7.345 uIU/mL Critically high 0.470-4.680 [facility] Comment on above: Performed By: #### T 7, TSH #### [facility] [address] [place] [address] Dr. Kirit Moscoso TSH RANGE SEE BELOW Normal [facility] Comment on above: Result Comment: <0.3 4 UIU/ml HYPERTHYROID 0.34-5.60 UIU/ml EUTHYROID >5.60 UIU/ml HYPOTHYROID Performed By: #### T 7, TSH #### [facility] [address] [place] [address] Dr. Kirit Moscoso Vital Signs Date Time Vital Sign Value Performing Clinician Facility 02-27-2025 13:33-0400 Body height 160.02 cm [facility] 02-27-2025 13:33-0400 Body mass index (BMI) [Ratio] 34.5 kg/m2 [facility] 02-27-2025 13:33-0400 Body weight 88.45 kg [facility] 02-27-2025 13:33-0400 Diastolic blood pressure 68 mm[Hg] [facility] 02-27-2025 13:33-0400 Heart rate 58 /min [facility] 02-27-2025 13:33-0400 Systolic blood pressure 129 mm[Hg] [facility] 01-11-2025 15:44-0500 Body height 160 cm Lucien Guillen DPM Work Phone: [facility] 01-11-2025 15:44-0500 Body mass index (BMI) [Ratio] 34.54 kg/m2 Lucien Guillen DPM Work Phone: [facility] 01-11-2025 15:44-0500 Body weight 88.45 kg Lucien Brown DPM Work Phone: [facility] 01-11-2025 15:44-0500 Respiratory rate 18 /min Lucien Brown DPM Work Phone: [facility] 01-11-2025 08:12-0500 Body height 160 cm [facility] 01-11-2025 08:12-0500 Body mass index (BMI) [Ratio] 34.54 kg/m2 [facility] 01-11-2025 08:12-0500 Body weight 88.45 kg [facility] 01-11-2025 08:12-0500 Diastolic blood pressure 78 mm[Hg] [facility] 01-11-2025 08:12-0500 Systolic blood pressure 122 mm[Hg] [facility] 10-04-2024 13:08-0500 Body height 160.02 cm [facility] 10-04-2024 13:08-0500 Body mass index (BMI) [Ratio] 34.7 kg/m2 [facility] 10-04-2024 13:08-0500 Body temperature 98.2 [degF] [facility] 10-04-2024 13:08-0500 Body weight 88.9 kg [facility] 10-04-2024 13:08-0500 Diastolic blood pressure 88 mm[Hg] [facility] 10-04-2024 13:08-0500 Heart rate 81 /min [facility] 10-04-2024 13:08-0500 SaO2% (BldA) [Mass fraction] 96 % [facility] 10-04-2024 13:08-0500 Systolic blood pressure 128 mm[Hg] [facility] 05-04-2024 15:50-0400 Body height 160.02 cm [facility] 05-04-2024 15:50-0400 Body mass index (BMI) [Ratio] 35.4 kg/m2 [facility] 05-04-2024 15:50-0400 Body weight 90.71 kg [facility] 05-04-2024 15:50-0400 Diastolic blood pressure 82 mm[Hg] [facility] 05-04-2024 15:50-0400 Heart rate 71 /min [facility] 05-04-2024 15:50-0400 SaO2% (BldA) [Mass fraction] 98 % [facility] 05-04-2024 15:50-0400 Systolic blood pressure 120 mm[Hg] [facility] 11-20-2023 10:42-0500 Body height 160 cm [facility] 11-20-2023 10:42-0500 Body mass index (BMI) [Ratio] 34.76 kg/m2 [facility] 11-20-2023 10:42-0500 Body weight 89 kg [facility] 11-20-2023 10:42-0500 Diastolic blood pressure 76 mm[Hg] [facility] 11-20-2023 10:42-0500 Systolic blood pressure 128 mm[Hg] [facility] 06-29-2023 09:55-0400 Body height 160.02 cm Griselda Thao Other [facility] Other 06-29-2023 09:55-0400 Body mass index (BMI) [Ratio] 35.57 kg/m2 Griselda Keesha Other [facility] Other 06-29-2023 09:55-0400 Body temperature 97.6 [degF] Griselda Keesha Other [facility] Other 06-29-2023 09:55-0400 Body weight 91.08 kg Griselda Keesha Other [facility] Other 06-29-2023 09:55-0400 Diastolic blood pressure 74 mm[Hg] Griseldadavid Thao Other [facility] Other 06-29-2023 09:55-0400 Respiratory rate 18 /min Griselda Keesha Other [facility] Other 06-29-2023 09:55-0400 SaO2% (BldA) [Mass fraction] 98 % Griselda Keesha Other [facility] Other 06-29-2023 09:55-0400 Systolic blood pressure 126 mm[Hg] Griselda Thao Other [facility] Other Encounters Encounter Date Encounter Type Care Provider Facility Start: 02-27-2025 End: 02-27-2025 ambulatory [facility] Work Phone: Start: 02-27-2025 End: 02-27-2025 Patient encounter procedure [facility] Work Phone: Start: 2025 ambulatory [facility]EL [facility] Start: 02-20-2025 End: 02-20-2025 [facility] Start: 01-12-2025 End: 01-12-2025 Orders Only Rashida Stone DAIRY MANAGER-INFRASTRUCTURE PROJECT MANAGER Work Phone: [facility] Comment on [...] Start: 01-11-2025 End: 01-11-2025 [facility] Start: 01-11-2025 End: 01-11-2025 Periodic preventive med est patient 40-64yrs [facility] Attendant [facility] [place] Comment on above: Well woman exam with routine gynecological exam (Primary Dx); Encounter for screening mammogram for breast cancer; Standardized adult depression screening tool completed; Vaginal itching; Vaginal odor; Vaginal irritation Start: 01-11-2025 End: 01-11-2025 ambulatory [facility] Start: 01-11-2025 Encounter for gynecological examination (general) (routine) without abnormal findings [facility] Start: 12-24-2024 Non-patient / [facility] Work Phone: Start: 10-04-2024 End: 10-04-2024 ambulatory [facility] Work Phone: Start: 10-04-2024 End: 10-04-2024 Patient encounter procedure [facility] Work Phone: Start: 10-01-2024 Non-patient / Non-visit [facility] Work Phone: Start: 07-16-2024 Non-patient / Non-visit [facility] Work Phone: Start: 05-04-2024 End: 05-04-2024 ambulatory [facility] Work Phone: Start: 05-04-2024 End: 05-04-2024 Patient encounter procedure [facility] Work Phone: Start: 12-31-2023 End: 12-31-2023 ambulatory Imad Asaad Other [facility] Other Start: 12-31-2023 Telephone encounter Imad Asaad [facility] Start: 11-20-2023 End: 11-20-2023 Encounter for gynecological examination (general) (routine) without abnormal findings [facility] Att[facility] Start: 11-20-2023 End: 11-20-2023 Patient encounter procedure [facility] Att[facility] Work Phone: Start: 11-20-2023 End: 11-20-2023 Periodic preventive med est patient 40-[address]yrs [address] Att[address] [facility] Comment on above: Well woman exam with routine gynecological exam (Primary Dx); Cervical smear, as part of routine gynecological examination Start: 08-31-2023 End: 08-31-2023 ambulatory Tanisha Murrell Facility:[facility] Start: 06-29-2023 End: 06-29-2023 ambulatory Griselda Thao Other [facility] Other Start: 06-29-2023 Office outpatient vi sit 15 minutes Griselda Thao [facility] Start: 01-20-2023 End: 01-20-2023 ambulatory TANISHA P NYASIA Facility:[facility] Start: 01-16-2023 Encounter for genera l adult medical examination without abnormal findings TANISHA Kassandra MURRELL [facility] Start: 01-13-2023 End: 01-13-2023 ambulatory [...] Start: 01-11-2025 Adult depression scr eening assessment [facility] Att[facility] Start: 11-20-2023 Adult depression scr eening assessment [facility] Att[facility] Start: 11-20-2023 Microscopic observat ion [Identifier] in Cervix by Cyto stain [facility] Att[facility] Start: 05-04-2020 Mammography [facility] Plan of Treatment Date Care Activity Detail Author Start: 11-20-2026 Screening for malign ant neoplasm of cervix Pap Smear [facility] Start: 01-11-2026 Adult BMI Follow Up Plan Adult BMI Follow Up Plan [facility] Start: 01-11-2026 Adult BMI Screening Adult BMI Screen ing [facility] Start: 01-11-2026 Depression Screening Depression Scre ening [facility] Start: 01-11-2026 Tobacco Screening Tobacco Screening [facility] Start: 01-11-2025 End: 01-11-2025 Patient encounter procedure 01/11/2025 3:20 PM EST Office Visit [facility] [address] [place] [address] Lucien Guillen, DPM [address] [address] Arrived [facility] Comment on above: Arrived Start: 01-11-2025 End: 01-11-2026 DBT Breast - bilateral screening Mammography screening bilateral with CAD Imaging Routine Encounter for screening mammogram for breast cancer Expected: 01/11/2025, Expires: 01/11/2026 [place] Work Phone: Comment on above: Expected: 01/11/2025 , Expires: 01/11/2026 Start: 11-20-2024 Adult BMI Follow Up Plan Adult BMI Follow Up Plan [facility] [facility] Start: 11-20-2024 Adult BMI Screening Adult BMI Screen ing [facility] [facility] Start: 11-20-2024 Depression Screening Depression Scre ening [facility] [employer] [facility] Start: 11-20-2024 Tobacco Screening Tobacco Screening [facility] [employer] [facility] Start: 07-31-2024 Influenza vaccination Influenza Vacc ine [facility] Start: 11-20-2023 End: 11-20-2024 Cytopathology procedure, preparation of smear, genital source Pap Smear Pathology and Cytology Routine Cervical smear, as part of routine gynecological examination Expected: 11/20/2023 (Approximate), Expires: 11/20/2024 [facility] Work Phone: Comment on above: Expected: 11/20/2023 (Approximate), Expires: 11/20/2024 Start: 07-31-2023 Influenza vaccination Influenza Vacc ine [facility] Start: 05-04-2021 Screening for malign ant neoplasm of breast Mammogram [facility] [employer] [facility] Start: 02-20-2018 Administration of varicella zoster vaccine Zoster (Shingles) Vaccine (1 of 2) [facility] Start: 02-20-1989 Screening for malign ant neoplasm of cervix Pap Smear [facility] Start: 02-20-1987 DTaP,Tdap and Td Vac cines (1 - Tdap) DTaP,Tdap and Td Vaccines (1 - Tdap) [facility] [facility] Start: 02-20-1986 Adult BMI Follow Up Plan [facility] End: 11-20-2024 High risk HPV w/jc High risk HPV w/jc Lab Routine Cervical smear, as part of routine gynecological examination 1 Occurrences starting 11/20/2023 until 11/20/2024 [facility] Comment on above: 1 Occurrences starti ng 11/20/2023 until 11/20/2024 T3 reverse measurement [facility] End: 01-11-2026 Vaginitis Panel PCR Vaginitis Panel PCR Microbiology Routine Vaginal itching Vaginal odor Vaginal irritation 1 Occurrences starting 01/11/2025 until 01/11/2026 [facility] Comment on above: 1 Occurrences starti ng 01/11/2025 until 01/11/2026 [facility] Immunizations Immunization Date Immunization Notes Care Provider Anika howard 09-29-2017 influenza virus vacc ine, unspecified formulation [facility] Attendant [facility] Payers Date Payer Category Payer Commercial Managed C are - O [employer] [id number] 2023 Private Health Insurance [employer] [id number] 2023 Unknown [id number] 2023 Self-pay 2022 Medicaid [employer] HMO [id number] 2022-Present [phone] [address] [place] [address] [id number] 2013 Private Health Insurance [id number] 1968 Unknown [id number] 2.16.840.1.616695.3.579.2. 593 1968 Unknown [id number] 2.16.840.1.018902.3.579.2. 593 1968 Unknown [id number] 2.16.840.1.931276.3.579.2. 593 1968 Unknown [id number] 2.16.840.1.446416.3.579.2. 593 1968 Unknown [id number] 2.16.840.1.925143.3.579.2. 593 1968 Unknown [id number] 2.16.840.1.560393.3.579.2. 593 1968 Unknown [id number] 2.16.840.1.013097.3.579.2. 593 1968 Unknown [id number] 2.16.840.1.335864.3.579.2. 593 1968 Unknown [id number] 2.16.840.1.451948.3.579.2. 1259 1968 Unknown [id number] 2.16.840.1.308470.3.579.2. 1286 1968 Unknown [id number] 2.16.840.1.989947.3.579.2. 1286 1968 Unknown [id number] 2.16.840.1.901893.3.579.2. 1286 1968 Unknown [id number] 2.16.840.1.467606.3.579.2. 1286 1968 Unknown [id number] 2.16.840.1.000110.3.579.2. 1286 1959 Unknown [id number] 1959 Unknown [id number] Unknown [id number] 2.16.840.1.366868.3.579.2. 531 Unknown O [id number] Unknown O[place]ond [id number] Social History Date Type Detail Facility Unknown if ever smoked [facility] Other Start: 01-10-2021 End: 11-20-2023 Sex Assigned At [facility] Other Start: 07-21-2023 End: 05-04-2024 Tobacco smoking status DCIS Never smoked tobacco (finding) [facility] Start: 1970 Sex Assigned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
[2025-07-15 10:48] LABS: Alanine Aminotransferase 26 U/L (14-59); Albumin Globulin Ratio 0.9; Albumin Level 3.5 g/dL (3.4-5.0); Alkaline Phosphatase 141 U/L (46-116); Anion Gap 10.6; Aspartate Amino Transferase 14 U/L (15-37); Blood Urea Nitrogen 17.0 mg/dL (7.0-18.0); Calcium 8.9 mg/dL (8.5-10.1); Carbon Dioxide 28.8 mmol/L (21.0-32.0); Chloride 106 mmol/L (98-107); Estimated GFR (African America >60 (>=60 mL/min/1.73m^2); Estimated GFR (Non-African Ame >60 (>=60 mL/min/1.73m^2); Free T3 2.81 pg/mL (2.18-3.98); Globulin 4.1 g/dL; Glucose 87 mg/dL (74-106); Potassium 4.4 mmol/L (3.5-5.1); Sodium 141 mmol/L (136-145); Thyroid Stimulating Hormone 0.955 uIU/mL (0.358-3.740); Total Protein 7.6 g/dL (6.4-8.2)
== END 2025-07-15 10:03 | disposition home or self-care (01) ==
LOC: LAB 10:03
PROVIDERS: PCP Nurse Practitioner Family
DX: Z00.00 Encounter for general adult medical examination without abnormal findings (principal); Z13.220 Encounter for screening for lipoid disorders; E03.9 Hypothyroidism, unspecified; E55.9 Vitamin D deficiency, unspecified
CPT/HCPCS: 36415; 80053; 80061; 82306; 84439; 84443; 84481